=== PATIENT | female | born 1940 | race Caucasian/White ===

== ENCOUNTER → 2016-07-23 | Outpatient (CLI) | payer BC ==
[~2016-07-23] MED LIST: ASPEC81 PO; ATOR-26 PO; CALC600T14 PO; CHOL100010 PO; CYAN500T13 PO; GLUCOSAMINE PO; HYDR2.5C37; PANT40TA PO; TYLER650 PO
[2016-07-23 09:37] LABS: BASO % 0.8 %; BASO ABS # 0.03 K/uL (0-0.2); COMPLETE YES; EOS % 5.5 %; HEMATOCRIT 40.5 % (37-47); LYMPH % 26.2 %; MEAN CELL VOLUME 96.2 fL (80-100); MEAN CORPUSCULAR HEMOGLOBIN 31.8 pg (25-34); MEAN CORPUSCULAR HGB CONC 33.1 g/dl (32-36); MEAN PLATELET VOLUME 9.3 fL (7.4-10.4); MONO % 9.4 %; NEUT % 58.1 %; PLATELET COUNT 289 K/uL (130-400); RED BLOOD COUNT 4.21 M/uL (4.2-5.4); WHITE BLOOD COUNT 3.81 K/uL (4.8-10.8)
[2016-07-23 10:04] LABS: ALT/SGPT 25 U/L (12-78); AST/SGOT 19 U/L (15-37); BLOOD UREA NITROGEN 15 mg/dl (7-18); BUN/CREATININE RATIO 13.4 (10-20); CALCIUM 9.3 mg/dl (8.5-10.1); CARBON DIOXIDE 28 mmol/L (21-32); CHLORIDE 106 mmol/L (98-107); GLUCOSE 98 mg/dl (70-99); POTASSIUM 4.1 mmol/L (3.5-5.1); SODIUM 145 mmol/L (136-145)
[2016-07-23 10:14] LABS: ALB/GLOB RATIO 1.2 (0.9-2); ALKALINE PHOSPHATASE 67 U/L (45-117)
[2016-07-23 12:28] LABS: CHOLESTEROL/HDL RATIO 2.9
== END | disposition home or self-care (01) ==
LOC: C.LAB 08:35
PROVIDERS: ATTEND Internal Medicine Pulmonary Disease
DX: Z00.00 Encounter for general adult medical examination without abnormal findings (principal); C50.919 Malignant neoplasm of unspecified site of unspecified female breast; E78.5 Hyperlipidemia, unspecified; I65.29 Occlusion and stenosis of unspecified carotid artery

== ENCOUNTER → 2016-08-02 | Outpatient (CLI) | payer BC ==
--- NOTE | 2016-08-03 12:35 | MAMMOGRAPHY REPORT ---
BILATERAL DIGITAL SCREENING MAMMOGRAM TOMOSYNTHESIS WITH CAD: 08/02/2016 CLINICAL HISTORY: Routine screening. Patient has no complaints. Personal hx of breast cancer. TECHNIQUE: Breast tomosynthesis in addition to standard 2D mammography was performed. Current study was also evaluated with a Computer Aided Detection (CAD) system. COMPARISON: Comparison is made to exams dated: 07/28/2015 mammogram, 07/22/2013 mammogram, 07/25/2014 mammogram, 07/26/2012 mammogram, 07/21/2011 mammogram, and 07/20/2010 mammogram - [facility]. BREAST COMPOSITION: There are scattered areas of fibroglandular density in both breasts. FINDINGS: There is expected architectural distortion in the 11:00 to 12:00 right breast, in the area of prior lumpectomy. There are benign-appearing rodlike and coarse calcifications in the breasts. No new suspicious mass, architectural distortion or cluster of microcalcifications is seen. IMPRESSION: ACR BI-RADS CATEGORY 1: NEGATIVE There is no mammographic evidence of malignancy. A 1 year screening mammogram is recommended. The p atient will receive written notification of the results. Approximately 10% of breast cancers are not detected with mammography. A negative mammographic repor t should not delay biopsy if a clinically suggestive mass is present. Yu Gallagher M.D. ay/:08/02/2016 16:46:27 Children'S Book Author: Melania GOLDBERG)(Radu), [facility] letter sent: Normal 1/2 BI-RADS Code: ACR BI-RADS Category 1: Negative
== END | disposition home or self-care (01) ==
LOC: C.MAMM 12:55
PROVIDERS: ATTEND Internal Medicine Pulmonary Disease
DX: Z12.31 Encounter for screening mammogram for malignant neoplasm of breast (principal); Z85.3 Personal history of malignant neoplasm of breast

== ENCOUNTER → 2016-10-06 | Outpatient (CLI) | payer BC ==
--- NOTE | 2016-10-06 09:30 | DIAGNOSTIC IMAGING REPORT ---
RIGHT PELVIS UNILATERAL HIP 1 VIEW CLINICAL HISTORY: Right hip pain. COMPARISON: PET/CT February 23, 2011 and pelvis radiograph November 17, 2008. FINDINGS: The iliac crests were not included on this exam. Sacroiliac joints and symphysis pubis are intact. There is no acute fracture within visualized portions of the pelvis or the hips. There is mild joint space narrowing and osteophytosis of the right hip. This extensive vascular calcification. No osseous lesion is identified. There is no evidence for avascular necrosis. IMPRESSION: 1. No acute fracture. 2. Mild bilateral hip osteoarthritis. Electronically signed by: Enrique Medina M.D. 10/06/2016 9:29 AM Dictated Date/Time: 10/06/2016 9:28 AM
== END | disposition home or self-care (01) ==
LOC: C.RDSM 09:20
PROVIDERS: ATTEND Physician Assistant
DX: M25.551 Pain in right hip (principal)

== ENCOUNTER → 2016-12-07 | Outpatient (CLI) | payer BC ==
[2016-12-07 09:50] LABS: ALT/SGPT 26 U/L (12-78); BLOOD UREA NITROGEN 16 mg/dl (7-18); BUN/CREATININE RATIO 17.2 (10-20); CALCIUM 9.2 mg/dl (8.5-10.1); CARBON DIOXIDE 28 mmol/L (21-32); CHLORIDE 108 mmol/L (98-107); CHOLESTEROL 213 mg/dl (0-200); CREATININE 0.95 mg/dl (0.60-1.20); GLUCOSE 90 mg/dl (70-99); SODIUM 142 mmol/L (136-145); TRIGLYCERIDES 118 mg/dl (0-150); VERY LOW DENSITY LIPOPROT CALC 24 mg/dl
[2016-12-07 09:56] LABS: ALB/GLOB RATIO 1.3 (0.9-2); ALKALINE PHOSPHATASE 59 U/L (45-117); AST/SGOT 19 U/L (15-37); CHOLESTEROL/HDL RATIO 3.5; HDL CHOLESTEROL 61 mg/dl; LDL CHOLESTEROL CALCULATED 128 mg/dl
== END | disposition home or self-care (01) ==
LOC: C.LAB 07:10
PROVIDERS: ATTEND Internal Medicine Pulmonary Disease
DX: C50.919 Malignant neoplasm of unspecified site of unspecified female breast (principal); E78.5 Hyperlipidemia, unspecified; K21.9 Gastro-esophageal reflux disease without esophagitis; I65.29 Occlusion and stenosis of unspecified carotid artery

== ENCOUNTER → 2017-01-06 | Outpatient (CLI) | payer BC ==
--- NOTE | 2017-01-06 11:31 | DIAGNOSTIC IMAGING REPORT ---
RIGHT LOWER EXT JOINT WITHOUT CLINICAL HISTORY: 76 years-old Female presenting with right hip pain, degenerative joint disease versus hip abductor tendinopathy, possible tear, no injury, gait difficulty since October 22, 2016, history of breast cancer in 2001, failed joint injection. TECHNIQUE: Multisequence, multiplanar MR imaging of the right hip was performed without the use of intravenous contrast. IV contrast: None. COMPARISON: Correlation made to plain radiographs of the pelvis and right hip from 10/06/2016. FINDINGS: Localizer images: Unremarkable. Pelvis and femurs maintain normal bone marrow signal intensity. No evidence of bony edema. No evidence of fracture. Hip joints congruent. The right labrum is intact. No significant joint effusion. Normal iliopsoas insertion onto the lesser trochanter. Mild insertional T2 hyperintensity of the right gluteus medius muscle at the myotendinous junction. The tendinous insertion at the greater trochanter appears intact. Minimal laminar fluid overlies the greater trochanter. Mild scoliotic curvature of the lower lumbar spine. Intrapelvic structures demonstrate sigmoid diverticulosis. IMPRESSION: Evidence of abnormal signal intensity within the right gluteus medius muscle at the myotendinous junction suggestive of muscle strain. No evidence of tendon tear. Minimal laminar fluid over the greater trochanter suggestive of trochanteric bursitis. Electronically signed by: Wade Palomino M.D. 01/06/2017 11:30 AM Dictated Date/Time: 01/06/2017 11:24 AM
== END | disposition home or self-care (01) ==
LOC: C.MRI 09:46
PROVIDERS: ATTEND Physical Medicine & Rehabilitation Sports Medicine
DX: M17.0 Bilateral primary osteoarthritis of knee (principal); M13.851 Other specified arthritis, right hip

== ENCOUNTER → 2017-04-18 | Outpatient (CLI) | payer BC ==
--- NOTE | 2017-04-18 14:38 | DIAGNOSTIC IMAGING REPORT ---
L KNEE 4 OR MORE CLINICAL HISTORY: LEFT KNEE PAIN COMPARISON: 04/04/2017 DISCUSSION: There are advanced osteophytic changes within the patellofemoral joint. There is lateral patellar tilt. There is stable fragmentation the superior patellar pole. There is a stable corticated density projected over the lateral tibial spine. There are no acute fractures. IMPRESSION: 1. No acute fractures 2. Persistent advanced arthritic changes within the patellofemoral joint with lateral patellar tilt and near total cartilaginous loss Electronically signed by: Ron Langston M.D. 04/18/2017 2:37 PM Dictated Date/Time: 04/18/2017 2:35 PM
== END | disposition home or self-care (01) ==
LOC: C.RDSM 11:35
PROVIDERS: ATTEND Physician Assistant
DX: R52 Pain, unspecified (principal); M17.12 Unilateral primary osteoarthritis, left knee

== ENCOUNTER → 2017-06-22 | Outpatient (CLI) | payer OTHER ==
[~2017-06-22] MED LIST changes: +OPTIRAY 320 IV PRN
--- NOTE | 2017-06-22 15:48 | DIAGNOSTIC IMAGING REPORT ---
ANGIOGRAPHY HEAD COMBO HISTORY: Headache. Mental status change. TECHNIQUE: Multiaxial CT images of the head were performed both before and after the intravenous administration of contrast to evaluate the major cerebral vessels. Maximum intensity projection images were also obtained. A dose lowering technique was utilized adhering to the principles of ALARA. COMPARISON: None. FINDINGS: There is no mass, hematoma, midline shift, or acute infarct. Visualized intracranial internal carotid arteries, distal vertebral arteries, and basilar artery are widely patent. There is no significant stenosis, occlusion, or aneurysm seen within the bilateral ACAs, MCAs, or electronics system mechanic. IMPRESSION: No significant stenosis, occlusion, or aneurysm within the [place] of [place]. No acute process of the brain. Moderate chronic small vessel change of the brain parenchyma The above report was generated using voice recognition software. It may contain grammatical, syntax or spelling errors. Electronically signed by: Noah Muller M.D. 06/22/2017 3:47 PM Dictated Date/Time: 06/22/2017 3:43 PM
--- NOTE | 2017-06-22 15:56 | DIAGNOSTIC IMAGING REPORT ---
NECK CTA HISTORY: Carotid stenosis. TECHNIQUE: Multiaxial CT images of the neck were performed following the intravenous administration of contrast to evaluate the major cervical vessels. Maximum intensity projection images were also obtained. All measurements were calculated based on NASCET criteria. A dose lowering technique was utilized adhering to the principles of ALARA. COMPARISON STUDY: Carotid Doppler 12/16/2014. FINDINGS: The aortic arch and proximal great vessels are widely patent. There is no significant stenosis, occlusion, or dissection identified within the bilateral common carotid, internal carotid, or right vertebral arteries. Mild calcified plaque within the left carotid bifurcation. Occluded left vertebral artery from approximately the C5-C7 level. There is faint perfusion within the remaining portions of the left vertebral artery which is likely due to the retrograde flow as described on the prior carotid Doppler study. Therefore, this vertebral artery occlusion is likely chronic. There is a 2.0 x 1.3 x 1.1 cm cystic lesion posterior and inferior to the hyoid bone. This favors a thyroglossal duct cyst. The thyroid gland is present and is normally. IMPRESSION: 1. No significant stenosis, occlusion, or dissection identified within the carotid or left vertebral arteries. 2. 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 3. A 2.0 x 1.3 x 1.1 cm cystic lesion inferior to the hyoid bone. This favors a thyroglossal duct cyst. Surgical consultation is recommended. Electronically signed by: Alan Petersen M.D. 06/22/2017 3:54 PM Dictated Date/Time: 06/22/2017 3:43 PM
== END | disposition home or self-care (01) ==
LOC: C.CTS 14:51
PROVIDERS: ATTEND Psychiatry & Neurology Neurology
DX: I65.29 Occlusion and stenosis of unspecified carotid artery (principal); I63.9 Cerebral infarction, unspecified; I65.02 Occlusion and stenosis of left vertebral artery; R22.1 Localized swelling, mass and lump, neck

== ENCOUNTER → 2017-07-08 | Outpatient (CLI) | payer OTHER ==
[~2017-07-08] MED LIST changes: -OPTIRAY 320 IV PRN
[2017-07-08 10:11] LABS: ALT/SGPT 27 U/L (12-78); AST/SGOT 20 U/L (15-37); BLOOD UREA NITROGEN 15 mg/dl (7-18); CALCIUM 9.3 mg/dl (8.5-10.1); CARBON DIOXIDE 29 mmol/L (21-32); CHOLESTEROL 183 mg/dl (0-200); CREATININE 0.97 mg/dl (0.60-1.20); GLUCOSE 95 mg/dl (70-99); SODIUM 141 mmol/L (136-145)
[2017-07-08 10:16] LABS: ALKALINE PHOSPHATASE 73 U/L (45-117); LDL CHOLESTEROL CALCULATED 95 mg/dl; TOTAL PROTEIN 7.1 gm/dl (6.4-8.2)
== END | disposition home or self-care (01) ==
LOC: C.LAB 08:19
PROVIDERS: ATTEND Internal Medicine Pulmonary Disease
DX: M17.10 Unilateral primary osteoarthritis, unspecified knee (principal)

== ENCOUNTER → 2017-08-04 | Outpatient (CLI) | payer OTHER ==
--- NOTE | 2017-08-04 15:44 | MAMMOGRAPHY REPORT ---
BILATERAL DIGITAL SCREENING MAMMOGRAM TOMOSYNTHESIS WITH CAD: 08/04/2017 CLINICAL HISTORY: Routine screening. Patient has no complaints. TECHNIQUE: Breast tomosynthesis in addition to standard 2D mammography was performed. Current study was also evaluated with a Computer Aided Detection (CAD) system. COMPARISON: Comparison is made to exams dated: 08/02/2016 mammogram, 07/28/2015 mammogram, 07/25/2014 m ammogram, 07/22/2013 mammogram, 07/26/2012 mammogram, and 07/21/2011 mammogram - [facility]. Right axillary ultrasound dated 04/21/2016. BREAST COMPOSITION: There are scattered areas of fibroglandular density in both breasts. FINDINGS: No suspicious masses, calcifications, or areas of architectural distortion are noted in ei ther breast. There has been no significant interval change compared to prior exams. There are stable post surgical changes in the right breast from prior lumpectomy. Scattered bilateral benign-appeari ng calcifications are not significantly changed. IMPRESSION: ACR BI-RADS CATEGORY 2: BENIGN There is no mammographic evidence of malignancy. A 1 year screening mammogram is recommended. The pa tient will receive written notification of the results. Approximately 10% of breast cancers are not detected with mammography. A negative mammographic report should not delay biopsy if a clinically suggestive mass is present. Adri Noland M.D. ah/:08/04/2017 14:33:45 Real Estate Asset Manager: Karen GOLDBERG)(Radu), [facility] letter sent: Normal 1/2 BI-RADS Code: ACR BI-RADS Category 2: Benign
== END | disposition home or self-care (01) ==
LOC: C.MAMM 13:51
PROVIDERS: ATTEND Internal Medicine Pulmonary Disease
DX: Z12.31 Encounter for screening mammogram for malignant neoplasm of breast (principal); Z85.3 Personal history of malignant neoplasm of breast

== ENCOUNTER → 2017-09-13 | Outpatient (CLI) | payer OTHER | END | disposition home or self-care (01) | LOC: C.PAPS 11:35 | PROVIDERS: ATTEND Obstetrics & Gynecology | DX: Z91.89 Other specified personal risk factors, not elsewhere classified (principal) ==

== ENCOUNTER → 2017-09-28 | Outpatient (CLI) | payer OTHER ==
--- NOTE | 2017-09-28 11:00 | DIAGNOSTIC IMAGING REPORT ---
RIGHT KNEE INCLUDING BILATERAL STANDING AP VIEWS (5 VIEWS) CLINICAL HISTORY: RIGHT KNEE PAIN COMPARISON: None. DISCUSSION: The bilateral standing AP views reveal mild narrowing medial joint compartment of the left knee and mild to moderate narrowing of the medial joint compartment of the right knee. On the right there aren't medial and lateral joint compartment spurs. There are advanced degenerative changes within the patellofemoral joint. There is a small loose body located superior the patella. There is a small joint effusion. There is mild lateral patellar subluxation. IMPRESSION: 1. No acute fractures 2. Advanced degenerative changes within the patellofemoral joint. Mild to moderate degenerative changes within the medial and lateral joint compartments. Electronically signed by: Ron Langston M.D. 09/28/2017 10:59 AM Dictated Date/Time: 09/28/2017 10:57 AM
== END | disposition home or self-care (01) ==
LOC: C.RDSM 16:42
PROVIDERS: ATTEND Physician Assistant
DX: M25.561 Pain in right knee (principal)

== ENCOUNTER 2020-03-11 05:19 | Observation (INO) ==
--- NOTE | 2020-02-14 14:47 | PAT Medication Instructions ---
Medication Instructions Date of Service February 14, 2020 Home Medications Medication Instructions Recorded clopidogrel 75 mg tablet 75 mg PO QAM 90 Days #90 tab 08/06/19 atorvastatin 80 mg tablet 80 mg PO QAM #90 tab 01/15/20 acetaminophen 500 mg tablet 500 mg PO QAM clopidogrel 75 mg tablet 75 mg PO QAM atorvastatin 80 mg tablet 80 mg PO QAM famotidine 40 mg PO QAM ASK your prescriber and surgeon clopidogrel 75 mg tablet 75 mg PO QAM Take morning of surgery With a small sip of water, OTHERWISE NOTHING TO EAT OR DRINK AFTER MIDNIGHT: acetaminophen 500 mg tablet 500 mg PO QAM (okay to take up to 4 hours prior to surgery if needed) atorvastatin 80 mg tablet 80 mg PO QAM famotidine 40 mg PO QAM Other Notes If you have any questions please call us at [phone] or [phone] or [phone] or [phone]
--- NOTE | 2020-02-17 13:19 | Anesthesiology Consultation ---
Date of Service February 17, 2020 Assessment & Plan (1) Encounter for pre-operative examination: COVID Status: As of 02/16 assessment, patient denies travel to endemic area, known exposure/sick contacts, or symptoms of COVID19. Patient instructed that they and their household members must follow strict social distancing guidelines, wear a mask in public and avoid travel for 14 days prior to surgery. Preoperative COVID19 testing to be completed prior to surgery per surgeon's a rrangements. Patient made aware to self-isolate as much as possible between COVID testing and surgery. Neurology 11/22/19 = "Patient has been clinically stable, no interval TIA or strokelike episodes. She will continue with clopidogrel 75 mg/day. 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 These conditions have not required treatment." Medically cleared by primary care (Dr. Duval) on 01/23/20. Will see [facility] cardiology for clearance on 03/03/20. Chart Review Chart Review: Acceptable Risk for Surgery (pending cardio clearance [facility] 03/03) and Patient seen in Pre Admission Testing Teaching & Discussion Instructed NPO after midnight before surgery, except medications with 15 cc of water. Medication instructions provided according to the PAT guidelines. History Surgery Operation Date: 03/11/20 07:00 Proposed Procedures p Right Total Knee Arthroplasty - Barry Gaona MD Operation Date: 03/11/20 08:50 Proposed Procedures p Right Total Knee Arthroplasty - Barry Gaona MD Height/Weight Height: 5 ft Weight: 69.4 kg Allergies Allergy/AdvReac Type Severity Reaction Status Date / Time neomycin Allergy Mild Rash Verified 02/12/20 12:22 lorazepam [From Ativan] AdvReac Intermediate Anxiety Verified 02/12/20 12:22 zolpidem [From Ambien] AdvReac Intermediate Anxiety Verified 02/12/20 12:22 nabumetone [From Relafen] AdvReac Mild Redness of Verified 02/12/20 12:22 Skin loperamide [From Imodium A-D] AdvReac Unknown RAPID Verified 02/12/20 12:24 HEARTBEAT Medications Home Medications Medication Instructions Recorded Confirmed Last Taken acetaminophen 500 mg tablet 500 mg PO QAM tab 03/25/19 02/12/20 08/13/19 clopidogrel 75 mg tablet 75 mg PO QAM 90 Days #90 tab 08/06/19 02/12/20 08/13/19 atorvastatin 80 mg tablet 80 mg PO QAM #90 tab 01/15/20 02/12/20 Unknown famotidine 40 mg PO QAM 02/12/20 02/12/20 Unknown Past Medical History Medical History (Updated 02/18/20 @ 08:47 by Kedar Haines) Carotid stenosis Per 03/27/19 "No hemodynamically significant stenosis seen within the carotid arteries." Chronic cerebral ischemia Chronic small vessel ischemic change noted on 02/2018 brain MRI along with acute lacunar infarct. Degenerative disc disease Dyslipidemia External hemorrhoids GERD (gastroesophageal reflux disease) History of breast cancer Left thalamic infarction 02/2018 > [place] > SOME RIGHT HAND WEAKNESS > [place] -F/U DR JEFFRIES Ocular migraine Osteoarthritis Osteopenia Osteoporosis Schatzki's ring SNHL (sensorineural hearing loss) Subclavian artery stenosis Per 03/27/19 doppler, "Chronic retrograde flow in the left vertebral artery. This likely indicates severe stenosis or occlusion of the proximal left subclavian artery. Findings remain unchanged." Tremor MILD. Neuro monitoring. Exercise / Class Metabolic Activity II 4-5 Yardwork/Stairs/Walk up hill (Denies CP or SOB with 1 FOS, does 7 steps up and down many times per day at home, mildly winded if carrying books) Past Family History Family History Mother , Mother age 85 of congestive heart failure CHF (congestive heart failure) Father , Father age 81 of pulmonary fibrosis Pulmonary fibrosis Epilepsy Colon cancer Family/Other Breast cancer Past Surgical History Surgical History H/O endarterectomy (~06/05/08) approx date-RIGHT H/O foot surgery BUNION, CURLED TOES, RIGHT SIDE History of cataract surgery (~08/2019) History of colonoscopy (~12/25/18) 2013-Dr. Benavides History of dilation and curettage History of esophageal dilatation (~2018) History of oophorectomy, unilateral Right History of removal of ovarian cyst Nausea and vomiting after administration of anesthetic agent WITH A COLONOSCOPY /SEVERE CONSTIPATION AFTERWARDS Status post breast lumpectomy RIGHT Past Anesthesia History No Hx of Anesthesia Complications and No Family Hx of Anesthesia Complications History of PONV No Hx of PONV and Hx of Motion Sickness (some degree of vertigo) Social History Smoking Status: Never smoker Do You Dip or Chew Tobacco: No Hx Alcohol Use: No Hx Substance Use: No substance use type: does not use Review of Systems Pt denies any recent chest pain, shortness of breath, palpitations, cough, fever, URI, or uncontrolled acid reflux. Physical Exam Vital Signs BP: 110/48 (pt denies hypotensive symptoms) P: 82bpm SPO2: 96% RA T: 98.2 F R: 16 ENMT Mouth: + dental restorations (4 implants); no chipped teeth and no loose teeth Thyromental Distance: > or= 3.5 Finger Breadths Mallampati Class: II Neck normal visual inspection, + short neck and + limited neck extension (very) Respiratory normal respiratory effort Auscultation: lungs clear to auscultation bilaterally Cardiovascular Rate/Rhythm: regular rate and regular rhythm Heart Sounds: no murmur Extremities: no edema Testing Laboratory Results PT 10.9 Seconds (9.0-12.0) 02/17/20 13:34 INR 1.0 (0.9-1.1) 02/17/20 13:34 APTT 25.7 Seconds (21.0-31.0) 02/17/20 13:34 Urine Color Yellow 02/17/20 Unknown Urine Appearance Clear (Clear) 02/17/20 Unknown Urine pH 6.0 (4.5-7.5) 02/17/20 Unknown Ur Specific [place] 1.006 (1.000-1.030) 02/17/20 Unknown Urine Protein Negative (Negative) 02/17/20 Unknown Urine Glucose (UA) Negative (Negative) 02/17/20 Unknown Urine Ketones Negative (Negative) 02/17/20 Unknown Urine Nitrite Negative (Negative) 02/17/20 Unknown Ur Leukocyte Esterase Negative (Negative) 02/17/20 Unknown Blood Type A Positive 02/17/20 13:34 Antibody Screen NEGATIVE 02/17/20 13:34 01/14/20 WBC: 4.85 H/H: 12.7/39.2 PLATELETS: 267 SODIUM: 142 POTASSIUM: 3.6 CHLORIDE: 108 CO2: 30 BUN: 16 CREATININE: 0.94 GLUCOSE: 90 Electrocardiogram Date: 02/17/20 Findings: + NSR @ (80bpm with sinus arrhythmia) T wave abnormality, consider inferior ischemia. Compared to EKG from 03/03/18, TWI now evident in inferior leads, NSTWA now evident in anterolateral leads. Chest X-Ray Date: 02/17/20 Findings: + NAD Sigmoidal thoracolumbar scoliosis.
--- NOTE | 2020-02-17 14:04 | XRay Report ---
XR chest Pre-admission PA/Lat HISTORY: 80 years-old Female pat preoperative exam. No acute chest complaints COMPARISON: Chest radiograph 03/02/2018 TECHNIQUE: PA and lateral views of the chest FINDINGS: Cardiomediastinal and hilar silhouettes are within normal limits. No pneumothorax, pleural effusion, overt pulmonary edema or airspace consolidation typical for pneumonia. There is unchanged mild linear scarring/atelectasis of the left lung base. Sigmoidal thoracolumbar scoliosis. Degenerative changes of the shoulders and spine. IMPRESSION: No acute process. ACT 112: Negative or not required by law. The above report was generated using voice recognition software. It may contain grammatical, syntax o r spelling errors. Electronically signed by: Nigel Mccormack M.D. 02/17/2020 2:03 PM
--- NOTE | 2020-02-17 14:10 | Electrocardiogram Report ---
Test Reason : Blood Pressure : / mmHG Vent. Rate : 080 BPM Atrial Rate : 080 BPM P-R Int : 150 ms QRS Dur : 078 ms QT Int : 362 ms P-R-T Axes : 058 052 -20 degrees QTc Int : 417 ms Normal sinus rhythm with sinus arrhythmia T wave abnormality, consider inferior ischemia Abnormal ECG When compared with ECG of 03-MAR-2018 15:38, T wave inversion now evident in Inferior leads Nonspecific T wave abnormality now evident in Anterolateral leads Confirmed by Kian Sumner ([id number]) on 02/17/2020 2:09:53 PM Referred By: Barry Gaona Confirmed By:Kian Sumner
[2020-02-17 15:54] LABS: Appearance Urine Clear (Clear); Bilirubin Urine Negative (Negative); Blood Urine Negative (Negative); Color Urine Yellow; Glucose Urine UA Negative (Negative); Ketones Urine Negative (Negative); Leukocyte Esterase Urine Negative (Negative); Nitrite Urine Negative (Negative); Protein Urine Negative (Negative); Specific Gravity Urine 1.006 (1.000-1.030); Urobilinogen Urine Negative (Negative)
[2020-02-17 16:03] LABS: Partial Thromboplastin Ratio 0.9; Partial Thromboplastin Time 25.7 Seconds (21.0-31.0); Prothrombin Time 10.9 Seconds (9.0-12.0)
--- NOTE | 2020-02-24 14:06 | History & Physical Report ---
Date of Service February 24, 2020 Assessment & Plan (1) Right knee DJD: Postoperative prescriptions for Percocet and Coumadin will be provided at discharge from the hospital. Anticipate discharge to home with home health services. She would really like to go to [facility], but understands that this is not likely. She will speak with her PCP regarding stopping her Plavix before surgery and subsequent resumption. She already has access to a walker. PDMP was checked and there are no concerning findings. The patient is aware of the COVID-19 risks associated with surgery. She will obtain COVID-19 nasal swab testing prior to surgery. She is currently asymptomatic of any COVID-19 s ymptoms. Preoperative lab work, EKG, and chest x-ray have been ordered. Medical clearance has been received from her PCP. History of Present Illness Chief Complaint: Right knee pain Primary Care Provider: Jay Duval MD This 80-year-old white female presents today for a longstanding history of bilateral knee pain, right greater than left. She is scheduled to undergo a right knee total knee arthroplasty on 03/11/2020. It has been ongoing for several years. Pain became worse over the last year. No specific trauma. Worse with weightbearing. Pain is affecting her ADLs. She has difficulty with walking. Frequent night pain. She denies any recent effusions. She did well with medical management for many years, but it is no longer helping. No numbness or tingling. Preoperative imaging has been obtained. Allergies Allergy/AdvReac Type Severity Reaction Status Date / Time neomycin Allergy Mild Rash Verified 02/19/20 15:38 lorazepam [From Ativan] AdvReac Intermediate Anxiety Verified 02/19/20 15:38 zolpidem [From Ambien] AdvReac Intermediate Anxiety Verified 02/19/20 15:38 nabumetone [From Relafen] AdvReac Mild Redness of Verified 02/19/20 15:38 Skin loperamide [From Imodium A-D] AdvReac Unknown RAPID Verified 02/19/20 15:38 HEARTBEAT Home Medications Home Medications Medication Instructions Recorded Confirmed Type acetaminophen 500 mg tablet 500 mg PO QAM tab 03/25/19 02/19/20 History atorvastatin 80 mg tablet 80 mg PO QAM #90 tab 01/15/20 02/19/20 Rx famotidine 40 mg PO QAM 02/12/20 02/19/20 History clopidogrel 75 mg tablet 75 mg PO QAM 90 Days #90 tab 02/18/20 02/19/20 Rx Past Med/Surg History Medical History Carotid stenosis Per 03/27/19 "No hemodynamically significant stenosis seen within the carotid arteries." Chronic cerebral ischemia Chronic small vessel ischemic change noted on 02/2018 brain MRI along with acute lacunar infarct. Degenerative disc disease Dyslipidemia External hemorrhoids GERD (gastroesophageal reflux disease) History of breast cancer Left thalamic infarction 02/2018 > [facility] > SOME RIGHT HAND WEAKNESS > [place] -F/U DR JEFFRIES Ocular migraine Osteoarthritis Osteopenia Osteoporosis Schatzki's ring SNHL (sensorineural hearing loss) Subclavian artery stenosis Per 03/27/19 doppler, "Chronic retrograde flow in the left vertebral artery. This likely indicates severe stenosis or occlusion of the proximal left subclavian artery. Findings remain unchanged." Tremor MILD. Neuro monitoring. Surgical History H/O endarterectomy (~06/05/08) approx date-RIGHT H/O foot surgery BUNION, CURLED TOES, RIGHT SIDE History of cataract surgery (~08/2019) History of colonoscopy (~12/25/18) 2013-Dr. Benavides History of dilation and curettage History of esophageal dilatation (~2018) History of oophorectomy, unilateral Right History of removal of ovarian cyst Nausea and vomiting after administration of anesthetic agent WITH A COLONOSCOPY /SEVERE CONSTIPATION AFTERWARDS Status post breast lumpectomy RIGHT Family History Mother , Mother age 85 of congestive heart failure CHF (congestive heart failure) Father , Father age 81 of pulmonary fibrosis Pulmonary fibrosis Epilepsy Colon cancer Family/Other Breast cancer Social History Smoking Status: Never smoker Second Hand Exposure: No; Hx Alcohol Use: No Hx Substance Use: No Preferred Language: Libyan Communication Ability: Effective Visual Impairment: No Limitations Hearing Ability: Normal Airport Driver Required: No Beliefs That Will Affect Care: None Current Living Situation: Alone current occupational status: employed 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 Physical Exam Physical Exam: General: Well-developed, well-nourished, elderly white female in no acute distress. Sitting in a chair. Alert and oriented. Skin: Warm and dry with good turgor. No rashes or lesions. No ecchymosis or erythema. Vari cosities are present in her lower extremities. HEENT: Normocephalic, atraumatic. Eyes: PERRLA, EOMI. Cataract lenses are visible. Nares and oropharynx exams were not performed due to COVID prec autions. Heart: RRR, no MGR. Lungs: Clear to auscultation bilaterally, no crackles, rhonchi or wheezing, good air movement. Abdomen: Mildly obese, bowel sounds present x4, soft, nontender. No organomegaly. No masses. Musculoskeletal: Right knee evaluation reveals no intraarticular effusion. She has nearly full extension. Lacks maybe 2 or 3 degrees. Flexion to greater than 100 degrees. Stable collateral ligaments. No defect in the patellar tendon or quadriceps tendon. Palpable crepitus with motion. Ambulates with a slightly antalgic gait. She has focal discomfort with palpation over the medial and lateral joint lines. Neurologic: Gross sensation is intact across both lower extremities by soft touch. Peripheral pulses are 2+. Results & Data Results & Data ([facility]) Diagnostic Findings Radiographic imaging previously obtained today shows endstage DJD of the right knee. She has [id number] in the patellofemoral joint and nearly [id number] in the medial compartment. Periarticular osteophytes, subchondral sclerosis, and joint space narrowing are all present.
[2020-03-09 01:35] LABS: SARS CoV2 RNA (COVID-19) NOT DETECTED (NOT DETECTED)
[2020-03-11] MEDS ORDERED: CEFAZOLIN 2000MG 2,000 MG/15 ML SYR IV SCH (06:00)
[2020-03-11] MEDS ORDERED: LR 60ML/HR IV SCH (06:00)
[2020-03-11] MEDS ORDERED: LR 500ML BOLUS, THEN 15ML/HR IV SCH (06:00)
[2020-03-11] MEDS ORDERED: ROPIVACAINE 0.5% HCL/PF 150 MG, BUPIVACAINE 0.5% MPF 30 ML, EPINEPHrine 0.15 MG, Ketoro... INFIL SCH (06:00)
[2020-03-11] MEDS ORDERED: TRANEXAMIC ACID 1,000 MG **IV Pre-op IV SCH (06:00)
[2020-03-11] MEDS ORDERED: BUPIVACAINE 0.5 % 5 MG/1 ML PF 10ML VIAL ONE (06:18)
[2020-03-11] MEDS ORDERED: EPINEPHrine INJ 1 MG/ML AMP ONE (06:19)
[2020-03-11] MEDS ORDERED: ROPIVACAINE 0.5% 5 MG/ML 30 ML VIAL ONE (06:19)
--- NOTE | 2020-03-11 06:26 | History & Physical Bridge Note ---
Date of Service March 11, 2020 History & Physical Bridge Note I have examined the patient, reviewed the History & Physical and in the interval since the performance of the History & Physical I have noted the following changes of clinical significance: consent obtained/site verified/covid screen negative.no changes noted
[2020-03-11] MEDS ORDERED: MIDAZOLAM HCL 1 MG/ML 2ML VIAL ONE (06:30)
[2020-03-11] MEDS ORDERED: PROPOFOL IV EMULSION 10 MG/ML 20 ML VIAL IV ONE (06:30)
[2020-03-11] MEDS ORDERED: LIDOCAINE HCL 2% 2 ML VIAL/AMP(20MG/ML) INFIL ONE (06:30)
[2020-03-11] MEDS ORDERED: fentaNYL citrate 100 MCG/2 ML VIAL ONE ×3 (06:30→07:38)
[2020-03-11] MEDS ORDERED: ORTHO JOINT ANESTHETIC ONE (06:30)
[2020-03-11] MEDS ORDERED: TRANEXAMIC ACID 1,000 MG in 0.9 % SODIUM CHLORIDE 100 ML IR ONE (07:00)
[2020-03-11] MEDS ORDERED: ONDANSETRON INJ 2 MG/ML 2 ML VIAL ONE (07:38)
[2020-03-11] MEDS ORDERED: DEXAMETHASONE SOD INJ 4 MG/ML VIAL ONE (07:38)
[2020-03-11] MEDS ORDERED: PHENYLEPHRINE HCL 10 MG/ML VIAL ONE (08:04)
[2020-03-11] MEDS ORDERED: ePHEDrine sulfate 50 MG/ML AMP ONE (08:04)
[2020-03-11] MEDS ORDERED: FLUMAZENIL 0.1 MG/1 ML 10 ML VIAL IV PRN (08:35)
[2020-03-11] MEDS ORDERED: NALOXONE HCL 0.4 MG/1 ML VIAL/CARP IV PRN ×2 (08:35→09:56)
[2020-03-11] MEDS ORDERED: ePHEDrine sulfate 50 MG/ML AMP IV PRN (08:35)
[2020-03-11] MEDS ORDERED: ONDANSETRON INJ 2 MG/ML 2 ML VIAL IV PRN ×2 (08:35→09:56)
[2020-03-11] MEDS ORDERED: PROMETHAZINE HCL 12.5 MG in SODIUM CHLORIDE 0.9% 50 ML IV PRN (08:35)
[2020-03-11] MEDS ORDERED: fentaNYL citrate 100 MCG/2 ML VIAL IV PRN (08:35)
[2020-03-11] MEDS ORDERED: ATROPINE SULFATE 0.1 MG/ML 10ML SYR IV PRN (08:35)
--- NOTE | 2020-03-11 08:43 | Post Operative Brief Note ---
Immediate Post Op Note v1 Date of Surgery March 11, 2020 Pre & Post Diagnosis Operation Date: 03/11/20 07:00 Pre-Op Diagnosis: Right Knee Degenerative Joint Disease Post-Op Diagnosis: Right Knee Degenerative Joint Disease Operation Date: 03/11/20 08:50 <No data on this case meets the specified criteria> I identified the patient and participated in the time-out.: Yes Procedure Operation Date: 03/11/20 07:00 Actual Procedures p Right Total Knee Arthroplasty, Cemented(Right) - Barry Gaona MD Operation Date: 03/11/20 08:50 <No data on this case meets the specified criteria> Surgeon Barry Gaona MD Card Tape Converter Operator dang/elaine Estimated Blood Loss 50 Findings Consistent with Post-Op Diagnosis
--- NOTE | 2020-03-11 08:51 | Operative Report ---
Post Operative Report Pre & Post Diagnosis Operation Date: 03/11/20 07:00 Pre-Op Diagnosis: Right Knee Degenerative Joint Disease Post-Op Diagnosis: Right Knee Degenerative Joint Disease Operation Date: 03/11/20 08:50 <No data on this case meets the specified criteria> I identified the patient and participated in the time-out.: Yes Procedure Operation Date: 03/11/20 07:00 Actual Procedures p Right Total Knee Arthroplasty, Cemented(Right) - Barry Gaona MD Operation Date: 03/11/20 08:50 <No data on this case meets the specified criteria> Surgeon KENDAL Gaona MD Reactor Service Operator dang/elaine HERNANDEZ Estimated Blood Loss 50 Findings Consistent with Post-Op Diagnosis Specimens see operative report Drains none Complications none Disposition Accompanied Patient To Recovery: Yes Disposition: Recovery Room Indications This 80-year-old white female presented to the office with complaints of intractable right knee pain. She had tried conservative care measures including activity modification, oral pain medication, oral anti-inflammatories, cortisone injections, and Visco supplementation injections without improvement. She elected to proceed with surgical intervention after being educated about potential risks and outcomes. Preoperative imaging was obtained. Description of Procedure Patient was taken to the operating room where she was given general anesthesia. She was prepped and draped in the usual sterile fashion. Please see Dr. Gaona's operative report for specifics of the procedure. I was present for the entire case from initial positioning through final wound closure. Assistance was provided in tissue retraction, hemostasis, trial implant placement, final implant placement, and final wound closure. Patient was taken to the recovery room in satisfactory condition. I attest to the content of the Intraoperative Record and any orders documented therein. Any exceptions are noted below.
--- NOTE | 2020-03-11 08:54 | Operative Report ---
Post Operative Report Pre & Post Diagnosis Operation Date: 03/11/20 07:00 Pre-Op Diagnosis: Right Knee Degenerative Joint Disease Post-Op Diagnosis: Right Knee Degenerative Joint Disease Operation Date: 03/11/20 08:50 <No data on this case meets the specified criteria> I identified the patient and participated in the time-out.: Yes Procedure Operation Date: 03/11/20 07:00 Actual Procedures p Right Total Knee Arthroplasty, Cemented(Right) - Barry Gaona MD Operation Date: 03/11/20 08:50 <No data on this case meets the specified criteria> Surgeon Barry Gaona MD Lens Grinder dang/elaine HERNANDEZ Estimated Blood Loss 50 Findings Consistent with Post-Op Diagnosis Specimens bone cuts Anesthesia Type General Complications none Disposition Accompanied Patient To Recovery: Yes Disposition: Recovery Room Indications right knee osteoarthritis Description of Procedure As per Dr. Gaona's note I assisted and scrubbing and draping, instruments handling, certain parts of the procedure and wound closure. I attest to the content of the Intraoperative Record and any orders documented therein. Any exceptions are noted below.
--- NOTE | 2020-03-11 09:21 | Operative Report (OR) ---
DATE OF OPERATION: 03/11/2020 SURGEON: Barry Ganoa MD. MANAGER WORK: Dr. Koehler. SECOND MANAGER WORK: Tian Doty PA-C. PREOPERATIVE DIAGNOSIS: Osteoarthritis, right knee. POSTOPERATIVE DIAGNOSIS: Osteoarthritis, right knee. OPERATION PERFORMED: Cemented right total knee replacement. SUMMARY OF IMPLANTS: Size 2.5 right femur, size 2.5 mobile bearing tray, size 41 patella, 2.5 x 12.5 insert, 2 bags of Palacos G cement. Bone pathology pending. ESTIMATED BLOOD LOSS: 50 mL CRYSTALLOID: Per anesthesia. DVT prophylaxis per protocol. PERIOPERATIVE SITUATION: Medically cleared female with intractable knee pain, has lived with this for decades. Wants to proceed with surgical replacement. She has severe disease in patellofemoral joint and tricompartmentally has marked disease medially and laterally. DESCRIPTION OF PROCEDURE: The patient appropriately identified, site verified, consent verified. Antibiotics confirmed as being given. The right lower extremity was prepped and draped in usual routine fashion. Tourniquet inflated to 275 mmHg after exsanguination of limb with a rubber Esmarch bandage for a total of 50 minutes. Midline exposure utilized. Parapatellar arthrotomy performed. Synovectomy completed, osteophytes resected. Distal femur entered. Distal femur resected 12 mm, proximal tibia resected 4 mm, extension gap was excellent. Femur sized to 2.5. It was appropriately cut anterior, posterior, condylar and chamfer cuts. Flexion gap was excellent. Box cut was then made, 2.5 fit well. Tibia was broached and reamed to 2.5 and appropriate trial reduction with a 12.5 was best. The patella tracked reasonably well. Patella was very thin and very deformed, was resected leaving about 12.5-13 mm, the seating holes made and the patella 41 button tracked well. Orthomix was injected all around the knee. Implants removed. TXA applied for 3 minutes. The wound irrigated and the permanent cemented in position, tibia, femur, patella in that order. At 12 minutes, the tourniquet deflated. Minor bleeding points controlled with electrocautery. The wound was then irrigated. The trial spacer removed, the permanent spacer seated. The knee reduced and closed at 40 degrees of flexion using #2 Vicryl, 2-0 Vicryl and stainless steel clips. Appropriate dressing applied. The patient transferred to recovery room in satisfactory condition having tolerated the procedure well. I attest to the content of the Intraoperative Record and any orders documented therein. Any exception s are noted below.
--- NOTE | 2020-03-11 09:31 | XRay Report ---
XR knee RT 1 or 2V routine CLINICAL HISTORY: Right knee arthroplasty. COMPARISON: Right knee radiographs February 17, 2020. FINDINGS: Alignment of the total right knee arthroplasty is anatomic. There is no periprosthetic fra cture or unexpected radiopaque foreign body. There are skin vani. Extensive vascular calcification is incidentally noted. IMPRESSION: Expected findings following total right knee arthroplasty. ACT 112: Negative or not required by law. Electronically signed by: Enrique Medina M.D. 03/11/2020 9:30 AM
--- NOTE | 2020-03-11 09:50 | Anesthesiology Progress Note ---
Date of Service March 11, 2020 Anesthesia Post Procedure Vital Signs Vital Signs: Temp Pulse Resp BP Pulse Ox 03/11/20 09:20 36.5 C 86 14 149/98 H 96 03/11/20 09:10 88 14 155/69 H 94 03/11/20 09:00 82 12 128/71 98 03/11/20 08:52 36.6 C 82 12 116/67 97 03/11/20 06:46 74 18 146/82 H 96 03/11/20 05:45 36.6 C 67 18 164/60 H 99 Pain Intensity Right Knee: Pain Intensity: 0 Transfer of Care Handoff Completed per policy Notes Mental Status: alert / awake / arousable Patient Amnestic to Procedure: Yes Nausea / Vomiting: adequately controlled Pain: adequately controlled Airway Patency, RR, SpO2: stable & adequate BP & HR: stable & adequate Hydration State: stable & adequate Anesthetic Complications: no major complications apparent
[2020-03-11] MEDS ORDERED: ALUMINUM/MAGNESIUM SUSP 30 ML UDC PO PRN (09:56)
[2020-03-11] MEDS ORDERED: OXYCODONE HCL IR 5 MG TAB (IMMEDIATE RELEASE) PO PRN (09:56)
[2020-03-11] MEDS ORDERED: DiphenhydrAMINE HCL 50 MG/ML VIAL IV PRN (09:56)
[2020-03-11] MEDS ORDERED: SODIUM CHLORIDE 0.9% 1000ML 1,000 ML IV SCH (09:56)
[2020-03-11] MEDS ORDERED: HYDROmorphone INJ 0.5 MG/0.5 ML SYR IV PRN (09:56)
[2020-03-11] MEDS ORDERED: MAGNESIUM HYDROXIDE SUSP 30 ML UDC PO PRN (09:56)
[2020-03-11] MEDS ORDERED: bisacodyL 10 MG SUPP PR PRN (09:56)
[2020-03-11] MEDS ORDERED: METOCLOPRAMIDE HCL INJ 5 MG/ML 2 ML VIAL IV PRN (09:56)
[2020-03-11] MEDS: MULTIVITAMIN TAB PO SCH (10:50)
[2020-03-11] MEDS: ATORVASTATIN 40 MG TAB PO SCH (10:50)
[2020-03-11] MEDS: FAMOTIDINE 40 MG TABLET PO SCH (10:50)
[2020-03-11] MEDS: DOCUSATE SODIUM 100 MG CAP PO SCH ×2 (10:51→21:31)
[2020-03-11] MEDS: KETOROLAC TROMETHAMINE 15 MG/ML VIAL IV SCH ×3 (11:10→23:40)
--- NOTE | 2020-03-11 11:43 | Progress Notes ---
DATE: 03/11/2020 SUBJECTIVE: Status post right total knee replacement. The patient is doing well, has no major issues. Denies any chest pain, shortness of breath, fever, chills, nausea, vomiting or headache. OBJECTIVE: Vital signs are stable. She is afebrile. Wound dressing clean, dry and intact. The femoral sciatic nerve functioning well. Can do a straight leg raise. Can do ankle pumps. Postop x-rays look excellent. ASSESSMENT: Doing well. PLAN: Is for discharge to home tomorrow.
[2020-03-11] MEDS: ORTHO WARFARIN NOMOGRAM SCH (11:59)
--- NOTE | 2020-03-11 13:23 | Discharge Summary (DS) ---
CHIEF COMPLAINT: Right knee pain. HISTORY OF PRESENT ILLNESS: The patient underwent elective right total knee replacement. Hospital course has been uneventful. She is eating and drinking well. She denies any chest pain, shortness of breath, fever, chills, nausea, vomiting, or headache. OBJECTIVE: Vital signs are stable. She is afebrile. Hospital course to date has been uneventful. If she continues to do well will discharge tomorrow. Case management involved. Medication reconciliation please see sheet. PAST MEDICAL HISTORY: Remarkable for carotid stenosis, cerebral ischemia, degenerative disc disease, dyslipidemia, hemorrhoids, GERD, history of breast cancer, left thalamic infarct, ocular migraine, osteoarthritis, osteopenia, osteoporosis, Schatzki's ring, sensorineural hearing loss, subclavian stenosis, tremor. PAST SURGICAL HISTORY: Remarkable for endarterectomy, foot surgery, cataract surgery, colonoscopies, EGDs, oophorectomy, breast lumpectomy. FAMILY HISTORY: Remarkable for congestive heart failure in her mother, pulmonary fibrosis in her father. Family history of breast cancer. SOCIAL HISTORY: Reveals she does not smoke or drink. Speaks Kinyarwanda, lives alone and is safe at home, very active academically. REVIEW OF SYSTEMS: Noncontributory. Postop x-rays look excellent. ASSESSMENT: Doing well status post right total knee replacement. Plan is for discharge tomorrow.
[2020-03-11] MEDS: ACETAMINOPHEN 500 MG TAB PO SCH ×2 (13:49→21:31)
[2020-03-11] MEDS: CEFAZOLIN 2000MG 2,000 MG/15 ML SYR IV SCH ×2 (14:24→21:49)
[2020-03-11] MEDS ORDERED: WARFARIN SOD 5 MG TAB PO ONE (16:00)
[2020-03-11] MEDS: FERROUS GLUCONATE 324 MG TAB PO SCH (18:09)
[2020-03-11] MEDS: ASCORBIC ACID 500 MG TAB PO SCH (18:09)
[2020-03-11] MEDS: SENNA 8.6 MG TAB PO SCH (21:31)
[2020-03-12] MEDS: ACETAMINOPHEN 500 MG TAB PO SCH ×3 (05:49→20:41)
[2020-03-12] MEDS: KETOROLAC TROMETHAMINE 15 MG/ML VIAL IV SCH (05:50)
[2020-03-12 06:51] LABS: INR 1.1 (0.9-1.1); Prothrombin Time 11.6 Seconds (9.0-12.0)
[2020-03-12 06:53] LABS: Hematocrit (blood only) 31.5 % (37-47); Hemoglobin 10.3 g/dL (12.0-16.0); Mean Corpuscular Hemoglobin 31.5 pg (25-34); Mean Corpuscular Hgb Conc 32.7 g/dL (32-36); Mean Corpuscular Volume 96.3 fL (80-100); Mean Platelet Volume 9.2 fL (7.4-10.4); Platelet Count 221 K/uL (130-400); RDW Coefficient of Variation 13.2 % (11.5-14.5); RDW Standard Deviation 46.7 fL (36.4-46.3); Red Blood Count 3.27 M/uL (4.2-5.4); White Blood Count 10.65 K/uL (4.8-10.8)
[2020-03-12 07:11] LABS: BUN Creatinine Ratio 19.2 (10-20); Calcium 8.3 mg/dl (8.5-10.1); Creatinine Clr Calc Pharmacy 38.8 ml/min; Est GFR (African American) 61.9; Est GFR (Non-African American) 53.4; Potassium 4.2 mmol/L (3.5-5.1)
--- NOTE | 2020-03-12 07:15 | Progress Notes ---
DATE: 03/12/2020 SUBJECTIVE Postop day #1 status post right total knee replacement. The patient is doing very well, has no major pain. She notes that she has no nausea, vomiting, chest pain, shortness of breath, fever or chills. OBJECTIVE: Vital signs are stable. She is afebrile. Neurovascular check femoral sciatic nerve is normal. Dressing is clean and dry. A.m. labs pending. ASSESSMENT AND PLAN: Doing well. Discharge to home today. SABA
[2020-03-12] MEDS ORDERED: dexAMETHasone 10 MG in SYRINGE 0 ML IV SCH (08:00)
[2020-03-12] MEDS: FERROUS GLUCONATE 324 MG TAB PO SCH ×2 (08:41→18:06)
--- NOTE | 2020-03-12 08:41 | Orthopedic Progress Note ---
Date of Service March 12, 2020 Assessment & Plan (1) Status post total knee replacement using cement: Patient's dressing was changed today by me. Continue JONATHAN hose for the next 6 weeks. She will use her knee immobilizer for today and tomorrow, and discontinue on Monday morning. Coumadin today per nomogram. She will hold her Plavix. PT/OT this morning. Anticipate discharge to home today with home health services. Follow-up in the office in 2 weeks as scheduled for staple removal. Written discharge instructions were provided. Prescriptions for Percocet, Zofran, and Coumadin were sent to her [facility] pharmacy. Admission and Anticipated Discharge Date Admission Date: March 11, 2020 Subjective Patient was seen in her room this morning. She denies any chest pain, shortness of breath, nausea, vomiting, or abdominal pain. She has not required any narcotic medication thus far. She states she feels good. She is excited to go home. She has been out of bed. No other complaints. She has already finished breakfast. Review of Systems Review of Systems: Unchanged from yesterday. Physical Exam Physical Exam: General: Developed, well-nourished, elderly white female, in no acute distress. Sitting on a bed. Alert and oriented. Skin: Warm and dry with good turgor. No rashes or lesions. No ecchymosis or erythema. The patient is not diaphoretic. No abrasions. Postsurgical dressings are intact on the right knee. Upon removal, she has expected postoperative edema. No ecchymosis. No active drainage. Mild amount of dried blood on her dressings. Musculoskeletal: Patient has full terminal extension. She is able to actively move her ankle and toes. She is able to perform straight leg raise. Flexion was not attempted. Neurologic: Gross sensation is intact across the right leg by soft touch. Peripheral pulses are 2+. Results & Data ([facility]) Vital Signs (Past 12 Hours) Vital Signs Temp Pulse Pulse Resp BP Pulse Ox 03/12/20 07:44 36.4 C L 67 18 117/70 96 03/12/20 03:46 36.2 C L 52 L 20 118/62 95 03/11/20 23:48 36.4 C L 53 L 20 132/74 94 Laboratory Results H&H obtained today's 10.3 and 31.5. WBCs are normal at 10.6. INR is 1.1. PRP is unremarkable.
[2020-03-12] MEDS: ASCORBIC ACID 500 MG TAB PO SCH ×2 (08:42→18:06)
[2020-03-12] MEDS: DOCUSATE SODIUM 100 MG CAP PO SCH ×2 (08:42→20:41)
[2020-03-12] MEDS: ATORVASTATIN 40 MG TAB PO SCH (08:42)
[2020-03-12] MEDS: FAMOTIDINE 40 MG TABLET PO SCH (08:43)
[2020-03-12] MEDS: MULTIVITAMIN TAB PO SCH (08:43)
[2020-03-12] MEDS: ORTHO WARFARIN NOMOGRAM SCH (09:37)
[2020-03-12] MEDS ORDERED: WARFARIN SOD 5 MG TAB PO ONE (10:00)
[2020-03-12] MEDS ORDERED: WARFARIN SOD 5 MG TAB PO SCH (10:00)
[2020-03-12] MEDS: SENNA 8.6 MG TAB PO SCH (20:41)
[2020-03-13] MEDS: ACETAMINOPHEN 500 MG TAB PO SCH ×2 (04:30→13:13)
[2020-03-13 07:24] LABS: INR 1.7 (0.9-1.1); Prothrombin Time 17.7 Seconds (9.0-12.0)
[2020-03-13] MEDS: FERROUS GLUCONATE 324 MG TAB PO SCH (08:34)
[2020-03-13] MEDS: ASCORBIC ACID 500 MG TAB PO SCH (08:34)
[2020-03-13] MEDS: ATORVASTATIN 40 MG TAB PO SCH (08:35)
[2020-03-13] MEDS: FAMOTIDINE 40 MG TABLET PO SCH (08:36)
[2020-03-13] MEDS: DOCUSATE SODIUM 100 MG CAP PO SCH (08:36)
[2020-03-13] MEDS: MULTIVITAMIN TAB PO SCH (08:36)
[2020-03-13] MEDS: ORTHO WARFARIN NOMOGRAM SCH (08:39)
--- NOTE | 2020-03-13 08:52 | Progress Notes ---
DATE: 03/13/2020 SUBJECTIVE: Postop day #2 status post right total knee replacement. The patient feels much better today. States she is feeling like she is thinking clear and wants to go home. She notes that she has help at home. OBJECTIVE: Vital signs are stable. She is afebrile. Neurovascular check femoral sciatic nerve is normal. Wound dressing clean, dry and intact. PT/INR pending this morning. ASSESSMENT: Doing well. Discharge to home today. Coumadin dose per INR results today. Follow up in 2 weeks for staple removal.
--- NOTE | 2020-03-13 09:00 | Discharge Summary (DS) ---
ADDENDUM Patient did not quite feel quite ready to go home yesterday. Feels much better today. She may not qualify for inpatient rehabilitation. Plan is to discharge to home today. If She feels like she cannot manage that and she will need to go to a step-down facility like [facility] or some place like that. She states she understands and wants to go home. She has some local neighbors that will stay with her. She feels comfortable with that. We will discharge today. SABA
[2020-03-13] MEDS ORDERED: WARFARIN SOD 1 MG TAB PO SCH (16:00)
== END 2020-03-13 13:59 ==
LOC: 3E 05:19 → ASU 05:19
DX: Z88.8 Allergy status to other drugs, medicaments and biological substances; M17.11 Unilateral primary osteoarthritis, right knee; H90.5 Unspecified sensorineural hearing loss; Z79.899 Other long term (current) drug therapy; E78.5 Hyperlipidemia, unspecified; Z79.01 Long term (current) use of anticoagulants; I77.1 Stricture of artery

== ENCOUNTER 2021-11-10 06:30 | Observation (INO) ==
--- NOTE | 2021-10-15 09:46 | PAT Medication Instructions ---
Medication Instructions Date of Service October 15, 2021 Home Medications Medication Instructions Recorded atorvastatin 80 mg tablet 80 mg PO QAM #90 tab 04/27/21 clopidogrel 75 mg tablet 75 mg PO QAM 30 Days #30 tab 07/19/21 acetaminophen 500 mg tablet (Tylenol Extra Strength) 500 mg PO QAM atorvastatin 80 mg tablet 80 mg PO QAM clopidogrel 75 mg tablet 75 mg PO QAM famotidine 40 mg tablet 40 mg PO QPM triamcinolone acetonide 0.1 % topical cream 1 applic TOPICAL QAM PreserVision AREDS-2 1 tab PO BID ASK your prescriber and surgeon clopidogrel 75 mg tablet 75 mg PO QAM (in order for spinal anesthesia, clopidogrel/plavix needs to be stopped 7 days before surgery. Please check if okay with doctor that prescribes this to you) STOP taking 2 weeks before surgery (or as soon as possible if surgery is within 2 weeks) PreserVision AREDS-2 1 tab PO BID STOP taking 24 hours before surgery triamcinolone acetonide 0.1 % topical cream 1 applic TOPICAL QAM Take morning of surgery With a small sip of water, OTHERWISE NOTHING TO EAT OR DRINK AFTER MIDNIGHT: acetaminophen 500 mg tablet (Tylenol Extra Strength) 500 mg PO QAM (okay to take up to 4 hours prior to surgery if needed) atorvastatin 80 mg tablet 80 mg PO QAM Take evening before surgery famotidine 40 mg tablet 40 mg PO QPM Other Notes If you have any questions please call us at [phone] or [phone] or [phone] or [phone]
--- NOTE | 2021-10-18 09:50 | Anesthesiology Consultation ---
Date of Service October 18, 2021 Assessment & Plan (1) Encounter for pre-operative examination: - COVID screening: Per assessment on 10/18: No known COVID-19 positive contacts or current COVID-19 related symptoms. Travel screen negative. Patient vaccinate d. Surgeon arranging preop COVID testing. Awaiting results. - S/P Right TKA (03/11/20): LMA#4 (unable to do SAB 2/2 scoliosis and bone with multiple attempts) + PNB at [facility]. - Neurology office visit (10/15/21): "81-year-old female with moderately extensive chronic cerebrovascular disease, history of left subclavian stenosis with antegrade and retrograde flow via the left vertebral artery, episodic, brief episodes of nonspecific dizziness or disequilibrium which tend to occur with turning, nonspecific, but potentially multifactorial, remote history of carotid endarterectomy, chronic multifactorial gait dysfunction. Symptoms not classic for subclavian steal syndrome. Patient should continue with clopidogrel and atorvastatin. Potential risk of surgical treatment for subclavian steal syndrome likely exceeds potential benefit in this patient. Continued caution, awareness of her symptoms stressed. No specific neurologic contraindication to left total knee arthroplasty which is scheduled for next month." - Patient acceptable risk for surgery pending surgeon-ordered PCP clearance ([facility]; 10/25). Chart Review Chart Review: Patient seen in Pre Admission Testing Teaching & Discussion Pre-Anesthesia Teaching/Discussion Notes: Instructed NPO after midnight before surgery,except medications with 15 cc of water. Medication instructions provided according to the PAT guidelines. History Surgery Operation Date: 11/10/21 08:50 Proposed Procedures p Left Total Knee Arthroplasty - Barry Gaona MD Height/Weight Height: 5 ft Weight: 63.9 kg Allergies Allergy/AdvReac Type Severity Reaction Status Date / Time nabumetone [From Relafen] Allergy Mild Redness of Verified 10/18/21 09:47 Skin neomycin Allergy Mild Rash Verified 10/15/21 09:29 lorazepam [From Ativan] AdvReac Intermediate Anxiety Verified 10/15/21 09:29 zolpidem [From Ambien] AdvReac Intermediate Anxiety Verified 10/15/21 09:29 loperamide [From Imodium A-D] AdvReac Unknown Rapid Verified 10/18/21 09:47 heart rate Medications Home Medications Medication Instructions Recorded Confirmed Last Taken acetaminophen 500 mg tablet 500 mg PO QAM tab 03/25/19 10/15/21 03/10/20 10:00 (Tylenol Extra Strength) atorvastatin 80 mg tablet 80 mg PO QAM #90 tab 04/27/21 10/15/21 Unknown clopidogrel 75 mg tablet 75 mg PO QAM 30 Days #30 tab 07/19/21 10/15/21 Unknown famotidine 40 mg tablet 40 mg PO QPM 10/14/21 10/15/21 Unknown triamcinolone acetonide 0.1 % 1 applic TOPICAL QAM 10/14/21 10/15/21 Unknown topical cream vit C 250 mg-vit E 90 mg-zinc 40 1 tab PO BID 10/14/21 10/15/21 Unknown mg-copper 1 [id number] capsule (PreserVision AREDS-2) Metamucil 1 tab PO HS 10/18/21 10/18/21 Unknown Past Medical History Medical History Carotid stenosis S/P right carotid endarterectomy (2008) No significant ICA stenosis per 05/2021 carotid doppler Chronic cerebral ischemia Degenerative disc disease Dyslipidemia GERD (gastroesophageal reflux disease) History of breast cancer No arm restriction per pt 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 Allen Ocular migraine Osteoarthritis Osteoporosis Schatzki's ring Sensorineural hearing loss (SNHL) of both ears SNHL (sensorineural hearing loss) Subclavian artery stenosis Tremor Mild Exercise / Class Metabolic Activity II 4-5 Yardwork/Stairs/Walk up hill (multiple 7 stairs daily with no CP or SOB) Past Family History Family History Mother , Mother age 85 of congestive heart failure CHF (congestive heart failure) Father , Father age 81 of pulmonary fibrosis Epilepsy Colon cancer Pulmonary fibrosis Family/Other Breast cancer Other No family history of adverse response to anesthesia Past Surgical History Surgical History H/O endarterectomy Right H/O foot surgery BUNION, CURLED TOES, RIGHT SIDE History of cataract surgery History of colonoscopy History of dilation and curettage History of esophageal dilatation History of oophorectomy, unilateral Right History of removal of ovarian cyst Nausea and vomiting after administration of anesthetic agent with colonoscopy Status post breast lumpectomy Right Status post total knee replacement using cement Right Past Anesthesia History Other (Severe post-op constipation) History of PONV History of PONV (single episode) Social History Smoking Status: Never smoker Do You Dip or Chew Tobacco: No Hx Alcohol Use: No Hx Substance Use: No substance use type: does not use Review of Systems Patient denies chest pain, shortness of breath, dyspnea on exertion, fever, chills, cough, wheezing, palpitations. Physical Exam Vital Signs VITALS BP 119/72 P 67 TEMP 97.7 SP02 99%RA RESP 16 PHYSICAL Full cervical extension range of motion. Full TMJ range of motion. TMD 3.5 finger breaths Mallampati Score 3 Dentition: intact, + implants (sides), Right upper side tooth chipped (per pt, surgeon aware and gave guidelines for timeframe before or after to have dental work done) Lungs: clear throughout to auscultation Cardiac: regular rate and rhythm, no murmurs noted Spine: normal Carotid arteries: negative bruit Extremities: + scoliosis Lab Results Anesthesia Preop Results Results Anesthesia Widget: WBC 5.41 K/uL (4.8-10.8) 10/18/21 Hgb 12.5 g/dL (12.0-16.0) 10/18/21 Hct 38.9 % (37-47) 10/18/21 Plt 280 K/uL (130-400) 10/18/21 Na 140 mmol/L (136-145) 10/18/21 K 3.8 mmol/L (3.5-5.1) 10/18/21 Cl 104 mmol/L (98-107) 10/18/21 CO2 31 mmol/L (21-32) 10/18/21 BUN 15 mg/dl (6-23) 10/18/21 Creat 0.86 mg/dl (0.6-1.2) 10/18/21 Glucose Level 120 mg/dl (70-99(Fasting)) H 10/18/21 PT 10.9 Seconds (9.0-12.0) 10/18/21 PTT 26.0 Seconds (21.0-31.0) 10/18/21 INR 1.0 (0.9-1.1) 10/18/21 Urine Color Yellow 10/18/21 Urine Appearance Clear (Clear) 10/18/21 Urine pH 5.0 (4.5-7.5) 10/18/21 Urine Specific [place] 1.012 (1.000-1.030) 10/18/21 Urine Protein Negative (Negative) 10/18/21 Urine Glucose (UA) Negative (Negative) 10/18/21 Urine Ketones Negative (Negative) 10/18/21 Urine Blood Negative (Negative) 10/18/21 Urine Nitrite Negative (Negative) 10/18/21 Urine Bilirubin Negative (Negative) 10/18/21 Urine Urobilinogen Negative (Negative) 10/18/21 Urine Leukocyte Esterase Negative (Negative) 10/18/21 Blood Type A Positive 10/18/21 Antibody Screen NEGATIVE 10/18/21 Testing Electrocardiogram Date: 10/18/21 Findings: + NSR @ (60) Chest X-Ray FINDINGS: S-shaped scoliosis of the thoracolumbar spine is incidentally noted. Lung volumes are normal. Linear left basilar opacity reflects atelectasis or scarring and is unchanged. There is no pneumothorax or pleural effusion. Cardiac size is normal. Mediastinal contours are normal. There is no evidence for pulmonary edema. IMPRESSION: No acute cardiopulmonary findings. Stress Test Date: 02/24/20 Type: exercise Negative exercise stress echo/ECG for ischemia at 108% MPHR. No chest pain. EF 55-60%. Mild MR. No LVH. 7 METS. No significant valvular disease. Other Testing Carotid dopppler (05/24/21) No significant atherosclerotic plaquing or significant flow limiting stenoses noted by velocity criteria bilaterally. B/L vertebral artery antegrade flow.
--- NOTE | 2021-11-08 13:15 | History & Physical Report ---
Date of Service November 08, 2021 Assessment & Plan (1) Left knee DJD: Plan: Postoperative prescriptions for Percocet and Coumadin will be provided at discharge from the hospital. Anticipate discharge to [facility] for rehab. She did this after her previous knee surgery and it worked well for her. She would like to do the same. She understands it will depend on her insurance. The PDMP was checked and there are no concerning findings. The patient is aware of the C OVID-19 risk associated with surgery. She is currently asymptomatic of any COVID-19 symptoms. She will obtain nasal swab testing 2 days prior to surgery. She will be sent to [facility] for preadmission lab work, EKG, and chest x-ray. She has already seen her PCP for medical clearance. She will stop her Plavix 7 days prior to surgery. She already has a walker. History of Present Illness Chief Complaint: Left knee pain Primary Care Provider: Jay Duvla MD HISTORY OF PRESENT ILLNESS: This 81-year-old female presents for her preoperative history and physical. She is scheduled to undergo a left knee total knee arthroplasty on 11/10/2021. She has had a longstanding history of left knee pain. She has had intermittent pain that is worse with activity or weightbearing. Occasional night pain. There is pain with hills and stairs. No catching or locking. No buckling. No numbness or tingling. She is using a cane. Preoperative imaging has been obtained. She has a history of right total knee arthroplasty placed on 03/11/2020. She has done well with that and elects to proceed with the same on the left. Allergies Allergy/AdvReac Type Severity Reaction Status Date / Time nabumetone [From Relafen] Allergy Mild Redness of Verified 10/25/21 13:09 Skin neomycin Allergy Mild Rash Verified 10/25/21 13:09 lorazepam [From Ativan] AdvReac Intermediate Anxiety Verified 10/25/21 13:09 zolpidem [From Ambien] AdvReac Intermediate Anxiety Verified 10/25/21 13:09 loperamide [From Imodium A-D] AdvReac Unknown Rapid Verified 10/25/21 13:09 heart rate Home Medications Medication Instructions Recorded Confirmed Type acetaminophen 500 mg tablet 500 mg PO QAM tab 03/25/19 10/25/21 History (Tylenol Extra Strength) atorvastatin 80 mg tablet 80 mg PO QAM #90 tab 04/27/21 10/25/21 Rx clopidogrel 75 mg tablet 75 mg PO QAM 30 Days #30 tab 07/19/21 10/25/21 Rx famotidine 40 mg tablet 40 mg PO QPM 10/14/21 10/25/21 History triamcinolone acetonide 0.1 % 1 applic TOPICAL QAM 10/14/21 10/25/21 History topical cream vit C 250 mg-vit E 90 mg-zinc 40 1 tab PO BID 10/14/21 10/25/21 History mg-copper 1 [id number] capsule (PreserVision AREDS-2) Metamucil 1 tab PO HS 10/18/21 10/25/21 History Past Med/Surg History Medical History Carotid stenosis S/P right carotid endarterectomy (2008) No significant ICA stenosis per 05/2021 carotid doppler Chronic cerebral ischemia Degenerative disc disease Dyslipidemia GERD (gastroesophageal reflux disease) History of breast cancer No arm restriction per pt 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 Allen Ocular migraine Osteoarthritis Osteoporosis Schatzki's ring Sensorineural hearing loss (SNHL) of both ears SNHL (sensorineural hearing loss) Subclavian artery stenosis Tremor Mild Surgical History H/O endarterectomy Right H/O foot surgery BUNION, CURLED TOES, RIGHT SIDE History of cataract surgery History of colonoscopy History of dilation and curettage History of esophageal dilatation History of oophorectomy, unilateral Right History of removal of ovarian cyst Nausea and vomiting after administration of anesthetic agent with colonoscopy Status post breast lumpectomy Right Status post total knee replacement using cement Right Family History Mother , Mother age 85 of congestive heart failure CHF (congestive heart failure) Father , Father age 81 of pulmonary fibrosis Epilepsy Colon cancer Pulmonary fibrosis Family/Other Breast cancer Other No family history of adverse response to anesthesia Social History Smoking Status: Never smoker Second Hand Exposure: No; Hx Alcohol Use: No Hx Substance Use: No Preferred Language: Vietnamese Communication Ability: Effective Visual Impairment: No Limitations Hearing Ability: Normal Outreach Nurse Required: No Beliefs That Will Affect Care: None marital status: Single Current Living Situation: Alone current occupational status: employed 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 BMI 27.0. Temperature 36.4, BP 126/62, pulse 86, respirations 16, O2 sat 99% on room air. General: Well-developed, well-nourished, elderly white female in no acute distress. Sitting in a chair. Alert and oriented. Skin: Warm and dry with fair turgor. No rashes or lesions. No ecchymosis or erythema. No intra-articular effusion in the left knee. HEENT: Normocephalic, atraumatic. Eyes: PERRLA, EOMI. Nares and oropharynx exams deferred due to cover precautions. Heart: RRR. No MGR. Lungs: Clear to auscultation bilaterally. No crackles, rhonchi or wheezing. Good air movement. Abdomen: Mildly obese. Bowel sounds present x4, soft, nontender. No organomegaly. No masses. Musculoskeletal: Left knee evaluation reveals no intraarticular effusion. No redness or warmth. She has full terminal extension. Flexion to greater than 110 degrees. Stable collateral ligaments. There is a notable lateral offset of the patella on the left. She has crepitus palpable with motion. There is discomfort with palpation over the peripatellar area as well as the medial joint line with palpation. No lateral joint line discomfort with palpation today. No defect in the patellar tendon or quadriceps tendon. Slight valgus stance. She is ambulating using her cane. There is a mildly antalgic gait. Neurologic: Gross sensation is intact across both lower extremities by soft touch. Peripheral pulses are 2+. Results & Data Results & Data ([facility]) Diagnostic Findings Radiographic imaging previously obtained shows severe patellofemoral arthritis with a notable lateral tilt. Shallow trochlear groove. Moderate medial compartment osteoarthritis. Periarticular osteophytes and subchondral sclerosis are also evident. Code Status & VTE Plan VTE Prophylaxis Plan VTE Prophylaxis will be ordered: Yes
[~2021-11-10 06:30] MED LIST changes: -ASPEC81 PO; -ATOR-26 PO; +BUPIVACAINE 0.5 % 5 MG/1 ML PF 10ML VIAL ONE; -CALC600T14 PO; -CHOL100010 PO; -CYAN500T13 PO; -GLUCOSAMINE PO; -HYDR2.5C37; +LR 500ML BOLUS, THEN 15ML/HR IV SCH; +LR 60ML/HR IV SCH; -PANT40TA PO; +ROPIVACAINE 0.5% 5 MG/ML 30 ML VIAL ONE; +ROPIVACAINE 0.5% HCL/PF 150 MG, BUPIVACAINE 0.75% MPF 20 ML, EPINEPHrine 0.15 MG, dexAM... INFIL SCH; +TRANEXAMIC ACID 1,000 MG **IV Intra-op IV SCH; +TRANEXAMIC ACID 1,000 MG x 1 **For Topical Use TOP SCH; -TYLER650 PO; +ceFAZolin 2000MG 2,000 MG/15 ML SYR IV SCH
--- NOTE | 2021-11-10 06:36 | History & Physical Bridge Note ---
Date of Service November 10, 2021 History & Physical Bridge Note I have examined the patient, reviewed the History & Physical and in the interval since the performance of the History & Physical I have noted the following changes of clinical significance: consent obtained/site verified/covid screen negative.no changes noted
[2021-11-10] MEDS ORDERED: fentaNYL citrate 100 MCG/2 ML VIAL ONE (07:35)
[2021-11-10] MEDS ORDERED: MIDAZOLAM HCL 1 MG/ML 2ML VIAL ONE (07:35)
[2021-11-10] MEDS ORDERED: fentaNYL citrate 100 MCG/2 ML VIAL IV PRN (08:06)
[2021-11-10] MEDS ORDERED: ePHEDrine sulfate 50 MG/ML AMP IV PRN (08:06)
[2021-11-10] MEDS ORDERED: ATROPINE SULFATE 0.1 MG/ML 10ML SYR IV PRN (08:06)
[2021-11-10] MEDS ORDERED: ONDANSETRON INJ 2 MG/ML 2 ML VIAL IV PRN ×2 (08:06→12:28)
[2021-11-10] MEDS ORDERED: PROPOFOL IV EMULSION 10 MG/ML 20 ML VIAL IV ONE ×2 (08:34→11:02)
[2021-11-10] MEDS ORDERED: ORTHO JOINT ANESTHETIC ONE (09:07)
--- NOTE | 2021-11-10 10:05 | Discharge Summary (DS) ---
DATE OF ADMISSION: 11/10/2021. DATE OF POTENTIAL DISCHARGE: 11/11/2021. CHIEF COMPLAINT: Left knee pain. HISTORY OF PRESENT ILLNESS: The patient is admitted for elective left total knee replacement and the right one done several years ago, has done well with that and wishes to proceed with this again in t he near future, we will have it done today. PREADMISSION ALLERGIES: INCLUDE RELAFEN, NEOMYCIN, LORAZEPAM, ZOLPIDEM, LOTRIMIN. PREADMISSION MEDICATIONS: Include Extra Strength Tylenol, atorvastatin, Plavix, famotidine, triamcin olone 0.1% topical cream, multivitamins and stool softener. PAST MEDICAL HISTORY: Remarkable for carotid stenosis, right carotid endarterectomy, chronic cerebra l ischemia, degenerative disk disease, dyslipidemia, GERD, history of breast cancer, history of left thalamic infarction, ocular migraines, osteoarthritis, osteoporosis, Schatzki's ring, sensorineural h earing loss, subclavian artery stenosis, tremor baseline. PAST SURGICAL HISTORY: Remarkable for endarterectomy, multiple foot surgeries, cataract surgery, col onoscopies, D and Cs, esophageal dilations, oophorectomy, ovarian cyst, breast lumpectomy, right knee replacement. FAMILY HISTORY: Remarkable for parents, history of breast cancer in the family. SOCIAL HISTORY: Reveals she does not smoke, does not drink, is single, lives alone, [place] [employer]. Feels safe at home. Uses a cane and glasses. REVIEW OF SYSTEMS: Noncontributory. ASSESSMENT: Status post left total knee replacement. Continue care pathway. Had questions concernin g placement, I advised her to talk to the case management as placement is really very insurance produ ct specific. Job ID: [id number]
--- NOTE | 2021-11-10 10:59 | Post Operative Brief Note ---
Immediate Post Op Note v1 Date of Surgery November 10, 2021 Pre & Post Diagnosis Operation Date: 11/10/21 08:50 Pre-Op Diagnosis: Left Knee Degerantive Joint Disease Post-Op Diagnosis: Left Knee Degerantive Joint Disease I identified the patient and participated in the time-out.: Yes Procedure Operation Date: 11/10/21 08:50 Actual Procedures p Left Total Knee Arthroplasty, Cemented(Left) - Barry Gaona MD Surgeon Barry Gaona MD Network Systems Integrator Megan/Soren Estimated Blood Loss 25 Findings Consistent with Post-Op Diagnosis
--- NOTE | 2021-11-10 11:05 | Operative Report ---
Post Operative Report Pre & Post Diagnosis Operation Date: 11/10/21 08:50 Pre-Op Diagnosis: Left Knee Degerantive Joint Disease Post-Op Diagnosis: Left Knee Degerantive Joint Disease I identified the patient and participated in the time-out.: Yes Procedure Operation Date: 11/10/21 08:50 Actual Procedures p Left Total Knee Arthroplasty, Cemented(Left) - Barry Gaona MD Surgeon Joesph Gaona MD Clinical Faculty Megan/Soren Estimated Blood Loss 25 Findings Consistent with Post-Op Diagnosis Consistent with post op diagnosis. Specimens No specimens. Description of Procedure I participated in prepping dressing and assisted Dr. Gaona during the procedure. Please see Dr. Gaona note. I attest to the content of the Intraoperative Record and any orders documented therein. Any exceptions are noted below. Supervising Physician Co-Signing Physician Notes Dr. Gaona
--- NOTE | 2021-11-10 11:11 | Operative Report ---
Post Operative Report Pre & Post Diagnosis Operation Date: 11/10/21 08:50 Pre-Op Diagnosis: Left Knee Degerantive Joint Disease Post-Op Diagnosis: Left Knee Degerantive Joint Disease I identified the patient and participated in the time-out.: Yes Procedure Operation Date: 11/10/21 08:50 Actual Procedures p Left Total Knee Arthroplasty, Cemented(Left) - Barry Gaona MD Surgeon KENDAL Gaona MD Senior C Developer Megan/Soren Estimated Blood Loss 25 Findings Consistent with Post-Op Diagnosis see operative report Specimens see operative report Drains none Complications none Disposition Accompanied Patient To Recovery: Yes Indications This 81 year old female presented to the office complaints of persisting left knee pain. She had tried conservative care measures without improvement. She elected to proceed with surgical intervention after being educated about potential risks and outcomes. Preoperative imaging was obtained. She has a previous right total knee arthroplasty and elected to proceed with the same on the left. Description of Procedure Patient was administered a spinal anesthetic and then taken to the operating room where she was given sedation. She was prepped and draped in the usual sterile fashion. Please see Dr. Gaona's operative report for specifics of the procedure. I was present for the entire case from initial patient positioning through final wound closure. Assistance was provided in tissue retraction, hemostasis, trial implant placement, final implant placement, and final wound closure. Patient was taken to the recovery room in satisfactory condition. I attest to the content of the Intraoperative Record and any orders documented therein. Any exceptions are noted below.
--- NOTE | 2021-11-10 11:19 | Operative Report (OR) ---
DATE OF PROCEDURE: 11/10/2021 SURGEON: Barry Gaona MD. ELEVATOR ATTENDANT: Zeke Guzman MD. SECOND ELEVATOR ATTENDANT: Tian Doty PA-C. PREOPERATIVE DIAGNOSIS: Osteoarthritis, left knee. POSTOPERATIVE DIAGNOSIS: Osteoarthritis, left knee. OPERATION PERFORMED: Cemented left total knee replacement. SUMMARY OF IMPLANTS: Size 2.5 left posterior cruciate substituting femur, size 2.5 rotating platform tray, 2.5 x 10 mm insert, 38 patella, 2 bags of Palacos G cement. These were all J and J rotating p latform systems. ESTIMATED BLOOD LOSS: 25 mL. CRYSTALLOID: Per anesthesia. PATHOLOGY: Pending on bone. DVT prophylaxis per protocol. PERIOPERATIVE SITUATION: Medically cleared female with intractable knee pain, has significant patell ofemoral disease with chronic subluxation of the patella, also has tibiofemoral arthritis as well. S he has other side done and did well with that, wished to proceed with surgery on this side. She unde rstands the risks and consequences. She is at moderate risk based on her comorbidities. She was mariel red for surgery. DESCRIPTION OF PROCEDURE: The patient was appropriately identified, site verified, consent verified. Antibiotics were confirmed as being given. The left lower extremity was prepped and draped in the usual routine fashion. Tourniquet was inflated to 300 mmHg after exsanguination of the limb with a r ubber Esmarch bandage for a total of roughly 53 minutes. Midline exposure utilized. Parapatellar ar throtomy performed. Synovectomy completed, osteophytes resected. The femur was deformed very typica l with chronic patellofemoral disease with a grade IV disease throughout the entire patellofemoral victoria int. There was grade IV disease in the lateral compartment. Medial compartment was relatively healt hy. All the osteophytes were resected. The patella was rebalanced with soft tissue appropriate releases. The osteophytes resected off all of the surfaces and then the distal femur entered, the cruciates r esected. The tibia subluxated, the menisci remnants were resected. Distal femur then resected 12 mm , proximal tibia resected 4 mm. The extension gap was excellent. The tibia was then sized to 2.5. The femur was sized to 2.5. Appropriate block then made on the femur and the cuts made. Flexion gap was then checked and it was excellent. The box cut was then made, the 2.5 fit well. The tibia was t hen broached and reamed for 2.5 and with a 10 spacer, everything fit well. Mid range stability was e xcellent with full extension and full flexion. The patella tracked well. The patella was resected l eaving roughly 15 mm. The seating holes were made for the 38 trial button and the trial tracked well . Once this was all done, the Orthomix was then injected and then after that was done, all the implants were removed, the TXA placed for 3 minutes. The wound was then irrigated and the permanent cemented in position - femur, tibia, and patella in that order. At 12 minutes, the tourniquet deflated. Naveed r bleeding points controlled with electrocautery. At 14 minutes, the knee was flexed. Minor cement removal was required. The wound was irrigated one final time, Betadine placed and then the permanent liner seated. The knee reduced and closed at 40 degrees of flexion with #2 Vicryl, 2-[address] ainless steel clips. Appropriate dressing applied. The patient was transferred to the recovery room in satisfactory condition, having tolerated the procedure well. Summary implants; again, Nayeli rotating platform 2.5 femur and tibia insert, 38 patella posterior c ruciate substituting rotating platform Nayeli. Job ID: [id number]
--- NOTE | 2021-11-10 11:35 | Anesthesiology Progress Note ---
Date of Service November 10, 2021 Anesthesia Post Procedure Vital Signs Vital Signs: Temp Pulse Pulse Resp BP BP Pulse Ox 11/10/21 11:30 67 14 124/50 L 94 11/10/21 11:20 77 14 134/59 L 100 11/10/21 11:10 69 19 117/54 L 99 11/10/21 11:04 97.3 F L 82 16 96/52 L 99 11/10/21 07:18 98.1 F 69 20 136/57 L 98 Transfer of Care Handoff Completed per policy Notes Mental Status: alert / awake / arousable and participated in evaluation Patient Amnestic to Procedure: Yes Nausea / Vomiting: adequately controlled Pain: adequately controlled Airway Patency, RR, SpO2: stable & adequate BP & HR: stable & adequate Hydration State: stable & adequate Neuraxial Anesthesia: was administered and sensory block is resolving Anesthetic Complications: no major complications apparent and Pt Satisfied with anesthetic care
--- NOTE | 2021-11-10 11:40 | Progress Notes ---
DATE OF SERVICE: 11/10/2021 SUBJECTIVE: Postop check status post left total knee replacement, doing well, awake and alert and or iented. Denies chest pain, shortness of breath, fever, chills, nausea, vomiting or headache. OBJECTIVE: VITAL SIGNS: Stable, afebrile. Neurovascular check limited by spinal. Wound dressing clean, dry and intact. Postop x-rays look excellent. ASSESSMENT AND PLAN: Doing well. Continue with care pathway. Case management must see today as she is trying to be placed. Otherwise, the home services with a neighbor. Job ID: [id number]
--- NOTE | 2021-11-10 11:52 | XRay Report ---
XR knee LT 1 or 2V routine CLINICAL HISTORY: S/P L TKA TECHNIQUE: 2 views of the left knee were obtained. Comparison: None available at the time of this dictation. FINDINGS: Patient is status post total knee arthroplasty with expected postsurgical changes including soft tiss ue swelling, subcutaneous emphysema, and surgical staple placement. No periarticular lucency or hardw are fracture is seen. IMPRESSION: Expected postoperative appearance status post placement of total knee arthroplasty. ACT 112: Negative or not required by law. Electronically signed by: Xavi Hassan M.D. 11/10/2021 11:51 AM
[2021-11-10] MEDS ORDERED: diphenhydrAMINE 50 MG/ML VIAL IV PRN (12:28)
[2021-11-10] MEDS ORDERED: ALUMINUM/MAGNESIUM SUSP 30 ML UDC PO PRN (12:28)
[2021-11-10] MEDS ORDERED: NO NSAIDS SCH (12:28)
[2021-11-10] MEDS ORDERED: bisacodyL 10 MG SUPP PR PRN (12:28)
[2021-11-10] MEDS ORDERED: NALOXONE HCL 0.4 MG/1 ML VIAL/CARP IV PRN (12:28)
[2021-11-10] MEDS ORDERED: oxyCODONE HCL IR 5 MG TAB (IMMEDIATE RELEASE) PO PRN (12:28)
[2021-11-10] MEDS ORDERED: SODIUM CHLORIDE 0.9% 1000ML 1,000 ML IV SCH (12:28)
[2021-11-10] MEDS ORDERED: METOCLOPRAMIDE HCL INJ 5 MG/ML 2 ML VIAL IV PRN (12:28)
[2021-11-10] MEDS ORDERED: HYDROmorphone INJ 0.5 MG/0.5 ML SYR IV PRN (12:28)
[2021-11-10] MEDS ORDERED: MAGNESIUM HYDROXIDE SUSP 30 ML UDC PO PRN (12:28)
[2021-11-10] MEDS ORDERED: VANCOMYCIN HCL 1,000 MG in SODIUM CHLORIDE 0.9% 250 ML IV ONE (14:00)
[2021-11-10] MEDS ORDERED: WARFARIN SOD 5 MG TAB PO ONE (15:07)
[2021-11-10] MEDS: ACETAMINOPHEN 500 MG TAB PO SCH ×2 (15:18→22:01)
[2021-11-10] MEDS: ORTHO WARFARIN NOMOGRAM SCH (15:18)
[2021-11-10] MEDS: FERROUS GLUCONATE 324 MG TAB PO SCH (16:19)
[2021-11-10] MEDS: ASCORBIC ACID 500 MG TAB PO SCH (16:20)
[2021-11-10] MEDS: ceFAZolin 2000MG 2,000 MG/15 ML SYR IV SCH (18:01)
[2021-11-10] MEDS ORDERED: SENNA 8.6 MG TAB PO SCH (21:00)
[2021-11-10] MEDS ORDERED: FAMOTIDINE 40 MG TABLET PO SCH (21:00)
[2021-11-10] MEDS ORDERED: PSYLLIUM or GUAR GUM FIBER POWDER PACKET PO SCH (21:00)
[2021-11-10] MEDS: DOCUSATE SODIUM 100 MG CAP PO SCH (22:07)
[2021-11-11] MEDS: ceFAZolin 2000MG 2,000 MG/15 ML SYR IV SCH (01:58)
[2021-11-11] MEDS: ACETAMINOPHEN 500 MG TAB PO SCH ×2 (05:45→14:11)
[2021-11-11] MEDS ORDERED: ACETAMINOPHEN 500 MG TAB PO PRN (06:43)
--- NOTE | 2021-11-11 07:00 | Progress Notes ---
SUBJECTIVE: Postop day #1, status post left total knee replacement. The patient is up, awake, alert and oriented x3. He is refusing narcotics which is appropriate. Continue with Tylenol around the c lock. OBJECTIVE: Vital signs are stable. She is afebrile. Neurovascular check femoral sciatic nerve is normal. Can do a straight leg raise. Wound dressing cl miriam, dry and intact. ASSESSMENT AND PLAN: Overall, doing well. Discontinue narcotics. Tylenol around the clock as neede d, 1000 mg. Continue with case management placement efforts. PT, OT today. Potential discharge totorrey hassan. Job ID: [id number]
[2021-11-11] MEDS ORDERED: dexAMETHasone 10 MG in SYRINGE 0 ML IV SCH (08:00)
[2021-11-11 08:37] LABS: Hematocrit (blood only) 31.5 % (37-47); Hemoglobin 10.3 g/dL (12.0-16.0); Mean Corpuscular Hemoglobin 31.3 pg (25-34); Mean Corpuscular Hgb Conc 32.7 g/dL (32-36); Mean Corpuscular Volume 95.7 fL (80-100); Mean Platelet Volume 8.8 fL (7.4-10.4); Platelet Count 223 K/uL (130-400); RDW Standard Deviation 45.5 fL (36.4-46.3); Red Blood Count 3.29 M/uL (4.2-5.4); White Blood Count 9.52 K/uL (4.8-10.8)
[2021-11-11 08:38] LABS: INR 1.2 (0.9-1.1); Prothrombin Time 12.8 Seconds (9.0-12.0)
[2021-11-11 08:43] LABS: BUN Creatinine Ratio 18.7 (10-20); Calcium 8.5 mg/dl (8.5-10.1); Creatinine Clr Calc Pharmacy 41.8 ml/min; Est GFR (African American) 68.1 ml/min; Est GFR (Non-African American) 58.8 ml/min
[2021-11-11] MEDS ORDERED: ATORVASTATIN 40 MG TAB PO SCH (09:00)
[2021-11-11] MEDS ORDERED: TRIAMCINOLONE ACET 0.1% CR 15 GM TUBE TOP SCH (09:00)
[2021-11-11] MEDS ORDERED: MULTIVITAMIN TAB PO SCH (09:00)
[2021-11-11] MEDS: FERROUS GLUCONATE 324 MG TAB PO SCH ×2 (09:35→16:55)
[2021-11-11] MEDS: ASCORBIC ACID 500 MG TAB PO SCH ×2 (09:35→16:55)
[2021-11-11] MEDS: DOCUSATE SODIUM 100 MG CAP PO SCH (09:58)
--- NOTE | 2021-11-11 10:10 | Orthopedic Progress Note ---
Date of Service November 11, 2021 Assessment & Plan (1) S/P total knee replacement using cement: Plan: Patient was evaluated in room 378. Postsurgical dressings were removed. Her dressings were changed by me. The usual gauze, ABD, and Kerlix dressing was applied. JONATHAN hose was reapplied. Patient will need to participate in PT and OT today and wait for determination from her insurance about [facility]. Patient is aware that if she gets declined, that she can have home health and will be discharged to home. Prescriptions will be sent accordingly depending on her placement. INR will be kept between 1.8 and 2.2. Continue using her knee immobilizer when out of bed, until Monday morning. She may discontinue its use at that time. Follow-up in the office in 2 weeks as scheduled for staple removal. Continue with ice and elevation to reduce pain and swelling. Written discharge instructions will be provided. Admission and Anticipated Discharge Date Admission Date: November 10, 2021 Subjective Patient was seen in her room this morning. She currently denies any chest pain, shortness of breath, nausea, vomiting, abdominal pain, numbness, or tingling. She states the spinal wore off around 7 or 8 last night. Her pain has been reasonably controlled. She is hoping to go to [facility] today. She does complain of some knee pain at this time. She does state that she had an issue with a roommate yesterday. It seems there was some disagreement about the television and the volume. She eventually was able to be provided a private room and the issue was resolved. Review of Systems Review of Systems: Unchanged from yesterday. Physical Exam Physical Exam: General: Well-developed, well-nourished, elderly white female, in no acute distress. Laying in bed. Alert and oriented. Conversive. Skin: Warm and dry with good turgor. No rashes. Postsurgical dressings are in place. Upon removal, there is some dried blood on the most inner dressings. There is no active bleeding at this time. Sutures are intact. Wound edges are well approximated. Expected postoperative edema. No ecchymosis. Musculoskeletal: Patient has intact motor function of her left hip, knee, ankle, and toes. She is able to set her quad. She has some minor difficulty doing a straight leg raise and requires minimal assistance. She has full terminal extension. There is some limitation to flexion secondary to pain. Neurologic: Gross sensation is intact across the left leg by soft touch. Peripheral pulses are 2+. Results & Data ([facility]) Vital Signs (Past 12 Hours) Vital Signs Temp Pulse Pulse Resp BP Pulse Ox 11/11/21 07:31 36.5 C 58 L 18 102/63 96 11/11/21 02:01 36.7 C 66 16 119/55 L 92 11/10/21 22:51 36.8 C 60 16 116/65 95 Laboratory Results WBCs this morning are 9.52. Hemoglobin 10.3 and hematocrit 31.5. INR is 1.2. Sodium 139, potassium 4.0. BUN 17 with creatinine 0.91. Glucose is 131.
[2021-11-11] MEDS: ORTHO WARFARIN NOMOGRAM SCH (13:36)
[2021-11-11] MEDS ORDERED: WARFARIN SOD 5 MG TAB PO ONE (16:00)
== END 2021-11-11 18:39 ==
LOC: 3N 06:30 → ASU 06:30

== ENCOUNTER 2022-09-29 14:00 | Observation (INO) ==
[2022-09-29 14:59] LABS: Basophils # (auto) 0.02 K/uL (0-0.2); Basophils % (auto) 0.3 %; Hematocrit (blood only) 39.5 % (37.0-47.0); Hemoglobin 12.8 g/dl (12.0-16.0); Immature Granulocytes # (auto) 0.09 K/uL (0.01-0.20); Immature Granulocytes % (auto) 1.3 %; Lymphocytes # (auto) 0.82 K/uL (1.2-3.4); Lymphocytes % (auto) 11.9 %; Mean Corpuscular Hemoglobin 30.3 pg (25.0-34.0); Mean Corpuscular Hgb Conc 32.4 g/dL (32.0-36.0); Mean Corpuscular Volume 93.6 fL (80.0-100.0); Mean Platelet Volume 8.5 fL (9.4-12.4); Monocytes # (auto) 0.31 K/uL (0.11-0.59); Monocytes % (auto) 4.5 %; Neutrophils # (auto) 5.63 K/uL (1.40-6.50); Platelet Count 280 K/uL (130-400); RDW Coefficient of Variation 13.1 % (11.5-14.5); RDW Standard Deviation 44.6 fL (36.4-46.3); Red Blood Count 4.22 M/uL (4.20-5.40); White Blood Count 6.87 K/ul (4.8-10.8)
--- NOTE | 2022-09-29 15:01 | XRay Report ---
XR chest 1V portable HISTORY: Weakness, confusion COMPARISON: Chest 10/18/2021. FINDINGS: Small patchy density at the base of the left lower lobe which has slightly progressed. Othe rwise, the lungs are clear. The heart is normal in size. No pleural effusions. No pneumothorax. S-sha ped scoliosis of the thoracolumbar spine. IMPRESSION: There is a small patchy density at the base of the left lower lobe which may represent atelectasis or a developing pneumonia. ACT 112: Negative or not required by law. Electronically signed by: Alan Petersen M.D. 09/29/2022 3:00 PM
[2022-09-29 15:13] LABS: Albumin Level 4.8 gm/dl (3.4-5.0); BUN Creatinine Ratio 17.9 (10-20); Bilirubin,Total 0.4 mg/dl (0.2-1.0); Calcium 9.3 mg/dl (8.6-10.3); Creatinine Clr Calc Pharmacy 41.6 ml/min; Est GFR (African American) 74.5 ml/min; Est GFR (Non-African American) 64.3 ml/min; Globulin 2.4 gm/dl (2.5-4.0); Potassium 3.9 mmol/L (3.5-5.1); Total Protein 7.2 gm/dl (6.0-8.3)
--- NOTE | 2022-09-29 15:14 | CT Scan Report ---
CT SCAN OF THE BRAIN WITHOUT IV CONTRAST CLINICAL HISTORY: Generalized weakness. Change in mental status. COMPARISON STUDY: CT of the brain dated 03/02/2018. MRI of the brain dated 06/01/2020. TECHNIQUE: Unenhanced axial CT scan of the brain is performed from the vertex to the skull base. A do se lowering technique was utilized adhering to the principles of ALARA. CT DOSE: 614.27 mGy.cm FINDINGS: Brain parenchyma: There is age-related involutional change noting advanced confluent subcortical and periventricular microangiopathic disease. There is no hemorrhage, mass effect, or evidence of acute t erritorial ischemia by CT criteria. There is a chronic lacunar infarct in the left thalamus. Thomas-whi te matter differentiation is preserved. No extra-axial fluid collection is seen. Ventricles, sulci, cisterns: Prominent secondary to involutional change. Intracranial vasculature: There is atherosclerotic calcification of the cavernous carotid and vertebr al artery. Calvarium: Unremarkable. Sinuses and mastoids: The visualized paranasal sinuses are clear. The mastoid air cells are well pneu matized. Orbits: The bony orbits are grossly intact. There are bilateral ocular lens implants. IMPRESSION: There is no hemorrhage, mass effect, or evidence of acute territorial ischemia by CT crit sanjuana. ACT 112: Negative or not required by law. Electronically signed by: Miguelito Goldman M.D. 09/29/2022 3:13 PM
[2022-09-29 15:19] LABS: Troponin I High Sensitivity 17.6 pg/ml (0-14)
[2022-09-29] MEDS ORDERED: AZITHROMYCIN 250 MG TAB PO ONE (17:58)
[2022-09-29] MEDS ORDERED: cefTRIAXone SODIUM 1,000 MG in DEXTROSE 5% AD-VAN 50 ML IV STA (17:58)
--- NOTE | 2022-09-29 18:19 | Emergency Department Note ---
History of Present Illness General Chief complaint: Weakness Stated complaint: WEAKNESS,LIGHTHEADED,DOC REF Time Seen by Provider: 09/29/22 14:38 History of Present Illness Provider complaint: Near syncope Onset (ago): day(s) 1 82-year-old female presents emergency department for near syncope. 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 Patient reports she felt like she was going to pass out but never lost consciousness or fell. She reports no headache chest pain or difficulty breathing. No melena or hematochezia. No hematuria or dysuria. No fevers or cough. Home Medications Medication Instructions Recorded Confirmed Type acetaminophen 500 mg tablet 500 mg PO DIRECTED PRN Pain 03/25/19 09/29/22 History (Tylenol Extra Strength) vit C 250 mg-vit E 90 mg-zinc 40 1 tab PO BID 10/14/21 09/29/22 History mg-copper 1 oc-lfdeel-lzvexb capsule (PreserVision AREDS-2) lifitegrast 5 % eye drops in a 1 drp ophthalmic (eye) BID 05/18/22 09/29/22 History dropperette (Xiidra) clopidogrel 75 mg tablet 75 mg PO QAM 90 days #90 tabs 08/31/22 09/29/22 Rx atorvastatin 80 mg tablet 80 mg PO DAILY 09/29/22 09/29/22 History famotidine 40 mg tablet 40 mg PO DAILY 09/29/22 09/29/22 History nystatin 100,000 unit/gram topical 1 applic topical HS 09/29/22 09/29/22 History cream triamcinolone acetonide 0.1 % 1 applic topical BID PRN Skin 09/29/22 09/29/22 History topical cream Irritation Allergies Allergy/AdvReac Type Severity Reaction Status Date / Time neomycin Allergy Intermediate Rash Verified 09/29/22 16:28 nabumetone [From Relafen] Allergy Mild Redness of Verified 09/29/22 16:28 Skin loperamide [From Imodium A-D] AdvReac Intermediate Rapid Verified 09/29/22 16:28 heart rate lorazepam [From Ativan] AdvReac Intermediate Anxiety Verified 09/29/22 16:28 zolpidem [From Ambien] AdvReac Intermediate Anxiety Verified 09/29/22 16:28 Past Med/Surg History Medical History Carotid stenosis S/P right carotid endarterectomy (2008) No significant ICA stenosis per 05/2021 carotid doppler Chronic cerebral ischemia Degenerative disc disease Dyslipidemia GERD (gastroesophageal reflux disease) History of breast cancer No arm restriction per pt 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 Allen Ocular migraine Osteoarthritis Osteoporosis Schatzki's ring Sensorineural hearing loss (SNHL) of both ears SNHL (sensorineural hearing loss) Subclavian artery stenosis Tremor Mild Surgical History H/O endarterectomy Right H/O foot surgery BUNION, CURLED TOES, RIGHT SIDE History of cataract surgery History of colonoscopy History of dilation and curettage History of esophageal dilatation History of knee replacement procedure of left knee History of oophorectomy, unilateral Right History of removal of ovarian cyst Nausea and vomiting after administration of anesthetic agent with colonoscopy Status post breast lumpectomy Right Status post total knee replacement using cement Right Family History Mother , Mother age 85 of congestive heart failure CHF (congestive heart failure) Father , Father age 81 of pulmonary fibrosis Epilepsy Colon cancer Pulmonary fibrosis Family/Other Breast cancer Other No family history of adverse response to anesthesia Social History Smoking Status: Never smoker Second Hand Exposure: No; Do You Dip or Chew Tobacco: No; Hx Alcohol Use: No Hx Substance Use: No Preferred Language: Armenian Communication Ability: Effective Visual Impairment: No Limitations Hearing Ability: Normal Health And Safety Advisor Required: No Beliefs That Will Affect Care: None marital status: Single Current Living Situation: Alone current occupational status: employed 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, 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, 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 Feels Safe at Home: Yes Assistive Devices: Cane, Glasses and Walker Physical Exam Vital Signs Vital Signs - 24 hr 09/29/22 14:03 09/29/22 14:34 09/29/22 14:33 Temperature 36.5 C Temperature Source Temporal Artery Scan Pulse Rate 72 71 73 Pulse Rate from SpO2 Sensor 72 Pulse Rhythm Regular Pulse Strength Normal Respiratory Rate 20 17 Respiratory Effort / Characteristics Non-Labored Spontaneous Respiratory Depth Normal Respiratory Pattern Regular Blood Pressure 175/66 H Blood Pressure Mean 102 Blood Pressure Position Sitting Pulse Oximetry 95 97 Oxygen Delivery Method Room Air Sepsis Recent Fever Within 48 Hours No Sepsis New/Unexplained Change in Mental Status No Sepsis Action Taken by Nursing No Action Required 09/29/22 15:07 09/29/22 15:07 09/29/22 15:30 Temperature Temperature Source Pulse Rate 73 Pulse Rate from SpO2 Sensor Pulse Rhythm Pulse Strength Respiratory Rate 19 Respiratory Effort / Characteristics Respiratory Depth Respiratory Pattern Blood Pressure 153/68 H 147/67 H Blood Pressure Mean 96 93 Blood Pressure Position Pulse Oximetry Oxygen Delivery Method Sepsis Recent Fever Within 48 Hours Sepsis New/Unexplained Change in Mental Status Sepsis Action Taken by Nursing 09/29/22 15:30 09/29/22 16:00 09/29/22 16:00 Temperature Temperature Source Pulse Rate 78 70 Pulse Rate from SpO2 Sensor 74 73 Pulse Rhythm Pulse Strength Respiratory Rate 24 15 Respiratory Effort / Characteristics Respiratory Depth Respiratory Pattern Blood Pressure 158/68 H Blood Pressure Mean 98 Blood Pressure Position Pulse Oximetry 98 92 Oxygen Delivery Method Sepsis Recent Fever Within 48 Hours Sepsis New/Unexplained Change in Mental Status Sepsis Action Taken by Nursing 09/29/22 16:30 09/29/22 16:31 09/29/22 16:31 Temperature Temperature Source Pulse Rate 72 76 Pulse Rate from SpO2 Sensor 69 76 Pulse Rhythm Pulse Strength Respiratory Rate 14 20 Respiratory Effort / Characteristics Respiratory Depth Respiratory Pattern Blood Pressure 105/88 Blood Pressure Mean 93 Blood Pressure Position Pulse Oximetry 90 97 Oxygen Delivery Method Sepsis Recent Fever Within 48 Hours Sepsis New/Unexplained Change in Mental Status Sepsis Action Taken by Nursing Physical Exam GENERAL: oriented to person, place, and time. appears well-developed and well- nourished. HENT: Exam performed. - Head: Normocephalic and atraumatic. EYES: Conjunctivae and EOM are normal. Right eye exhibits no discharge. Left eye exhibits no discharge. No scleral icterus. NECK: Normal range of motion. Neck supple. No JVD present. CV: Normal rate, regular rhythm, normal heart sounds and intact distal pulses. There is no peripheral edema. Palpable radial pulses bue. PULM/CHEST: Effort normal and breath sounds normal. No respiratory distress. No stridor. no wheezes. no rales. ABD: The abdomen is soft. There is no tenderness. NEURO: Motor and sensation grossly intact. No cranial nerve deficit. SKIN: Skin is warm and dry. He is not diaphoretic. PSYCH: normal mood and affect. Behavior is normal. Judgment and thought content normal. Course Course 1438: The patient was evaluated in room A9. A complete history and physical exam was performed Administered Medications Ceftriaxone Sodium 1,000 mg/ (Dextrose) 50 mls @ 100 mls/hr IV NOW STA Stop: 09/29/22 18:27 Last Admin: 09/29/22 18:10 Dose: 100 mls/hr Documented By: HS Discontinued Medications Azithromycin (Azithromycin 250 Mg Tab) 500 mg PO NOW ONE Stop: 09/29/22 17:59 Last Admin: 09/29/22 18:06 Dose: 500 mg Documented By: HS Medical Decision Making Laboratory Data Attestation: I reviewed the patient's lab results. 09/29/22 14:37 09/29/22 14:37 Lab Results 09/29/22 09/29/22 09/29/22 Range/Units 14:37 14:37 16:45 WBC 6.87 (4.8-10.8) K/ul RBC 4.22 (4.20-5.40) M/uL Hgb 12.8 (12.0-16.0) g/dl Hct 39.5 (37.0-47.0) % MCV 93.6 (80.0-100.0) fL MCH 30.3 (25.0-34.0) pg MCHC 32.4 (32.0-36.0) g/dL RDW Std Deviation 44.6 (36.4-46.3) fL RDW Coeff of Shabnam 13.1 (11.5-14.5) % Plt Count 280 (130-400) K/uL MPV 8.5 L (9.4-12.4) fL Immature Gran % (Auto) 1.3 % Neut % (Auto) 82.0 % Lymph % (Auto) 11.9 % Camas % (Auto) 4.5 % Eos % (Auto) 0.0 % Baso % (Auto) 0.3 % Neut # (Auto) 5.63 (1.40-6.50) K/uL Lymph # (Auto) 0.82 L (1.2-3.4) K/uL Camas # (Auto) 0.31 (0.11-0.59) K/uL Eos # (Auto) 0.00 (0-0.50) K/uL Baso # (Auto) 0.02 (0-0.2) K/uL Immature Gran # (Auto) 0.09 (0.01-0.20) K/uL Sodium 140 (136-145) mmol/L Potassium 3.9 (3.5-5.1) mmol/L Chloride 105 (98-107) mmol/L Carbon Dioxide 27 (21-32) mmol/L Anion Gap 8 (3-11) BUN 15 (6-23) mg/dl Creatinine 0.84 (0.6-1.2) mg/dl Est Cr Clr Drug Dosing 41.6 ml/min Est GFR ( Amer) 74.5 ml/min Est GFR (Non-Af Amer) 64.3 ml/min BUN/Creatinine Ratio 17.9 (10-20) Glucose 119 H (70-99(Fasting)) mg/dl Calcium 9.3 (8.6-10.3) mg/dl Total Bilirubin 0.4 (0.2-1.0) mg/dl AST 16 (13-39) U/L ALT 13 (7-52) U/L Alkaline Phosphatase 75 (34-104) U/L Troponin I High Sens 17.6 H 19.6 H (0-14) pg/ml Total Protein 7.2 (6.0-8.3) gm/dl Albumin 4.8 (3.4-5.0) gm/dl Globulin 2.4 L (2.5-4.0) gm/dl Albumin/Globulin Ratio 2.0 (0.9-2) Imaging Data Attestation: I personally reviewed and interpreted this imaging study as follows: My Impression: Chest x-ray: Left lower lobe infiltrate Radiologist's Impression: Chest X-Ray 09/29/22 14:10 XR chest 1V portable HISTORY: Weakness, confusion COMPARISON: Chest 10/18/2021. FINDINGS: Small patchy density at the base of the left lower lobe which has slightly progressed. Otherwise, the lungs are clear. The heart is normal in size. No pleural effusions. No pneumothorax. S-shaped scoliosis of the thoracolumbar spine. IMPRESSION: There is a small patchy density at the base of the left lower lobe which may represent atelectasis or a developing pneumonia. ACT 112: Negative or not required by law. Electronically signed by: Alan Petersen M.D. 09/29/2022 3:[address] 09/29/22 14:10 CT SCAN OF THE BRAIN WITHOUT IV CONTRAST CLINICAL HISTORY: Generalized weakness. Change in mental status. COMPARISON STUDY: CT of the brain dated 03/02/2018. MRI of the brain dated 06/01/2020. TECHNIQUE: Unenhanced axial CT scan of the brain is performed from the vertex to the skull base. A dose lowering technique was utilized adhering to the principles of ALARA. CT DOSE: 614.27 mGy.cm FINDINGS: Brain parenchyma: There is age-related involutional change noting advanced confluent subcortical and periventricular microangiopathic disease. There is no hemorrhage, mass effect, or evidence of acute territorial ischemia by CT criteria. There is a chronic lacunar infarct in the left thalamus. Thomas-white matter differentiation is preserved. No extra-axial fluid collection is seen. Ventricles, sulci, cisterns: Prominent secondary to involutional change. Intracranial vasculature: There is atherosclerotic calcification of the cavernous carotid and vertebral artery. Calvarium: Unremarkable. Sinuses and mastoids: The visualized paranasal sinuses are clear. The mastoid air cells are well pneumatized. Orbits: The bony orbits are grossly intact. There are bilateral ocular lens implants. IMPRESSION: There is no hemorrhage, mass effect, or evidence of acute territorial ischemia by CT criteria. ACT 112: Negative or not required by law. Electronically signed by: Miguelito Goldman M.D. 09/29/2022 3:13 PM ECG Data Attestation: I personally reviewed and interpreted this ECG as follows: Indication: + weakness Rate (beats per minute): 70 Rhythm: + normal sinus ECG Intervals/blocks: + Normal FL and + Normal QT-c ECG ST segments: + Normal ST segments Additional Comments: QRS 70 MDM Narrative Cardiac monitoring: An order was placed for continuous cardiac monitoring. The monitor shows a rate of 70 with sinus rhythm interpreted by me Vital signs stable. Patient reports no chest pain or difficulty breathing. Chest x-ray shows left lower lobe infiltrate. CT of the head within normal limits. Labs are within normal limits with exception of an elevated high- sensitivity troponin. First high-sensitivity troponin was mildly elevated at 17.6. 2-hour delta troponin was trending upward at 19.6. Patient not reporting any chest pain or difficulty breathing at this time. Patient states she has never had any cardiology problems. 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 Patient will be admitted to the [facility] hospitalist team Dr. Montoya notified. Impression & Plan Pneumonia, Elevated troponin Discharge Plan Visit Data Chief Complaint: Weakness Stated Complaint: WEAKNESS,LIGHTHEADED,DOC REF ED Provider: Navi Olsen Discharge Problem: Pneumonia, Elevated troponin Patient Disposition: Being Evaluated by Hospitalist Forms Stand Alone Forms: [facility] Prescriptions Prescriptions: No Action clopidogrel 75 mg tablet 75 mg PO QAM 90 Days Qty: 90 1RF Xiidra 5 % dropperette 1 drp ophthalmic (eye) BID Rx Instructions: administer approximately 12 hours apart acetaminophen [Tylenol Extra Strength] 500 mg tablet 500 mg PO DIRECTED PRN (Reason: Pain) Rx Instructions: PER PT "USUALLY ONCE IF NOT TWICE A DAY". PreserVision AREDS-2 250-90-40-1 mg Capsule 1 tab PO BID nystatin 100,000 unit/gram cream 1 applic TOPICAL HS Rx Instructions: APPLY UNDER BREAST atorvastatin 80 mg tablet 80 mg PO DAILY Rx Instructions: TAKE 1 TABLET BY MOUTH EVERY MORNING famotidine 40 mg tablet 40 mg PO DAILY Rx Instructions: TAKE 1 TABLET BY MOUTH EVERY MORNING triamcinolone acetonide 0.1 % cream 1 applic TOPICAL BID PRN (Reason: Skin Irritation) Referrals Referrals: Jay Duval MD [Primary Care Provider] -
--- NOTE | 2022-09-29 18:41 | History & Physical Report ---
Date of Service September 29, 2022 Assessment & Plan (1) Pneumonia: Plan: Weakness due to left lower lobe pneumonia - Left lower lobe infiltrate appreciated on CXR No leukocytosis Pro-Marcos pending -We will treat as community-acquired pneumonia, continue Rocephin/azithromycin for 5-day SPO2 goal greater than 90%, adequate sats on room air at time of admission Troponin Elevation -EKG: Sinus, no acute territorial ST segment changes/T wave inversions just of ischemia. Patient with periodic PVCs while on monitor No chest pain Suspect demand in the setting of pneumonia, troponin trended Echo pending Outpatient stress test versus inpatient consult based on echo and troponin results Continue Plavix (no history of stents, taken after carotid stenosis and TIA), atorvastatin Patient asymptomatic with PVCs 1 on monitor GERD Continue Pepcid, no GERD symptoms on admission R Cartoid Stenosis s/p endarterectomy Stable Continue Plavix No repeat stenosis on follow-up Doppler as outpatient No neurologic symptoms/TIA symptoms on admission No acute change in management Bilateral TKA -Noted, no acute change in management HLD - Atorvastatin TIA - Follows with Dr. Allen - On aspirin No focal neurologic deficits, no facial droop on assessment DVT prophylaxis: Lovenox Disposition: Medical telemetry for cardiac trending CODE STATUS: Full code, discussed at bedside Diet: Heart healthy (2) Elevated troponin: (3) S/P total knee replacement using cement: (4) GERD (gastroesophageal reflux disease): (5) H/O carotid endarterectomy: (6) Dyslipidemia: History of Present Illness Primary Care Provider: Jay Duval MD Iram is seen with her friend/college Radha at the bedside. 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 Uses a rolling walker at baseline due to OA and knee pain, but is not usually weak. Denies shortness of breath, chest p ain, chest pressure, syncope, and presyncope. She reports post class today she was much more weak than usual and this lasted for about 30 minutes and then improved with rest. Has had 2 additional episodes of more weakness with exertion, without shortness of breath or chest pain, which improves with rest. She denies history of cardiac disease and diabetes. Does have history of hyperlipidemia on atorvastatin, and history of TIA and right carotid stenosis status post endarterectomy without subsequent problems or TIA. No residual deficits from TIA, has followed with Dr. Allen in the past. Initial presenting symptom was facial droop without other weakness. She follows with Dr. Duval and would like him updated on her care while in the hospital. At time of bedside assessment she feels all of her symptoms has resolved, but notes that she has not had symptoms while at rest. Medical History: Reviewed Medications: Reviewed. Took medications this morning Surgical History: Reviewed Family history: Reviewed Allergies: Reviewed Social History: No tobacco use, past rare social alcohol use none in the last year Code Status: Full code, confirmed with patient at bedside. Allergies Allergy/AdvReac Type Severity Reaction Status Date / Time neomycin Allergy Intermediate Rash Verified 09/29/22 16:28 nabumetone [From Relafen] Allergy Mild Redness of Verified 09/29/22 16:28 Skin loperamide [From Imodium A-D] AdvReac Intermediate Rapid Verified 09/29/22 16:28 heart rate lorazepam [From Ativan] AdvReac Intermediate Anxiety Verified 09/29/22 16:28 zolpidem [From Ambien] AdvReac Intermediate Anxiety Verified 09/29/22 16:28 Home Medications Medication Instructions Recorded Confirmed Type acetaminophen 500 mg tablet 500 mg PO DIRECTED PRN Pain 03/25/19 09/29/22 History (Tylenol Extra Strength) vit C 250 mg-vit E 90 mg-zinc 40 1 tab PO BID 10/14/21 09/29/22 History mg-copper 1 [id number] capsule (PreserVision AREDS-2) lifitegrast 5 % eye drops in a 1 drp ophthalmic (eye) BID 05/18/22 09/29/22 History dropperette (Xiidra) clopidogrel 75 mg tablet 75 mg PO QAM 90 days #90 tabs 08/31/22 09/29/22 Rx atorvastatin 80 mg tablet 80 mg PO DAILY 09/29/22 09/29/22 History famotidine 40 mg tablet 40 mg PO DAILY 09/29/22 09/29/22 History nystatin 100,000 unit/gram topical 1 applic topical HS 09/29/22 09/29/22 History cream triamcinolone acetonide 0.1 % 1 applic topical BID PRN Skin 09/29/22 09/29/22 History topical cream Irritation Past Med/Surg History Medical History Carotid stenosis S/P right carotid endarterectomy (2008) No significant ICA stenosis per 05/2021 carotid doppler Chronic cerebral ischemia Degenerative disc disease Dyslipidemia GERD (gastroesophageal reflux disease) History of breast cancer No arm restriction per pt 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 Allen Ocular migraine Osteoarthritis Osteoporosis Schatzki's ring Sensorineural hearing loss (SNHL) of both ears SNHL (sensorineural hearing loss) Subclavian artery stenosis Tremor Mild Surgical History H/O endarterectomy Right H/O foot surgery BUNION, CURLED TOES, RIGHT SIDE History of cataract surgery History of colonoscopy History of dilation and curettage History of esophageal dilatation History of knee replacement procedure of left knee History of oophorectomy, unilateral Right History of removal of ovarian cyst Nausea and vomiting after administration of anesthetic agent with colonoscopy Status post breast lumpectomy Right Status post total knee replacement using cement Right Family History Mother , Mother age 85 of congestive heart failure CHF (congestive heart failure) Father , Father age 81 of pulmonary fibrosis Epilepsy Colon cancer Pulmonary fibrosis Family/Other Breast cancer Other No family history of adverse response to anesthesia Social History Smoking Status: Never smoker Second Hand Exposure: No; Do You Dip or Chew Tobacco: No; Hx Alcohol Use: No Hx Substance Use: No Preferred Language: Nepali Communication Ability: Effective Visual Impairment: No Limitations Hearing Ability: Normal Simulation Engineer Required: No Beliefs That Will Affect Care: None marital status: Single Current Living Situation: Alone current occupational status: employed 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 NAD. Cooperative. HEENT: Atraumatic, normocephalic./Hearing grossly intact. Well-healed postsurgical incision overlying right carotid. No bruit appreciated Pulm: Trace left lower lobe crackles, otherwise no wheezing/Rales/rhonchi/crackles. Symmetrical chest rise. No increased work of breathing. No respiratory distress. Cardiac: RRR, -mrg. Radial pulses intact and symmetrical. Occasional PVCs on monitor Abdominal: Nontender, nondistended, soft. BS present. Extremities: Warm, dry. Moves all extremities equally. Ankle dorsiflexion/plantarflexion, executive meeting manager strength intact. Sensation intact in hands and feet. Results & Data Results & Data Vital Signs (Past 12 Hours) Vital Signs Temp Pulse Resp BP Pulse Ox O2 Del Method 09/29/22 16:31 76 20 97 09/29/22 16:31 105/88 09/29/22 16:30 72 14 90 09/29/22 16:00 70 15 92 09/29/22 16:00 158/68 H 09/29/22 15:30 78 24 98 09/29/22 15:30 147/67 H 09/29/22 15:07 73 19 09/29/22 15:07 153/68 H 09/29/22 14:33 73 17 97 09/29/22 14:34 71 09/29/22 14:03 36.5 C 72 20 175/66 H 95 Room Air PG Care Time/CCT Total # of Minutes Spent Total Time Spent with Patient: Total time spent is greater than 50% in coordination of care (as documented) at patient's floor/unit and/or counseling patient: Coding Level of Care Code 14707 INT INP/OBS CARE 2/55MIN Diagnoses Pneumonia J18.9 Laterality: left Lung location: lower lobe of lung Pneumonia type: due to unspecified organism Elevated troponin R77.8 S/P total knee replacement using cement Z96.659 GERD (gastroesophageal reflux disease) K21.9 H/O carotid endarterectomy Z98.890 Dyslipidemia E78.5 (1) Pneumonia Laterality: left Lung location: lower lobe of lung Pneumonia type: due to unspecified organism Qualified Code(s): J18.9 - Pneumonia, unspecified organism
[2022-09-29] MEDS ORDERED: ACETAMINOPHEN 500 MG TAB PO PRN (20:33)
[2022-09-30] MEDS ORDERED: COUGH DROP (SUGAR FREE) LOZ 24 LOZ/1 BOX BUCCAL PRN (04:24)
--- NOTE | 2022-09-30 05:26 | Electrocardiogram Report ---
Test Reason : Blood Pressure : / mmHG Vent. Rate : 070 BPM Atrial Rate : 070 BPM P-R Int : 152 ms QRS Dur : 070 ms QT Int : 420 ms P-R-T Axes : 062 018 031 degrees QTc Int : 453 ms Poor data quality, interpretation may be adversely affected Normal sinus rhythm Possible Left atrial enlargement Borderline ECG When compared with ECG of 18-OCT-2021 10:41, No significant change was found Confirmed by Adam Lizarraga ([id number]) on 09/30/2022 5:26:02 AM Referred By: Confirmed By:Adam Lizarraga
[2022-09-30 07:10] LABS: Basophils # (auto) 0.03 K/uL (0-0.2); Basophils % (auto) 0.3 %; Eosinophils % (auto) 1.1 %; Hematocrit (blood only) 35.8 % (37.0-47.0); Hemoglobin 11.6 g/dl (12.0-16.0); Immature Granulocytes # (auto) 0.02 K/uL (0.01-0.20); Immature Granulocytes % (auto) 0.2 %; Lymphocytes # (auto) 1.69 K/uL (1.2-3.4); Lymphocytes % (auto) 18.9 %; Mean Corpuscular Hemoglobin 30.4 pg (25.0-34.0); Mean Corpuscular Hgb Conc 32.4 g/dL (32.0-36.0); Mean Platelet Volume 8.8 fL (9.4-12.4); Monocytes # (auto) 0.74 K/uL (0.11-0.59); Monocytes % (auto) 8.3 %; Neutrophils # (auto) 6.34 K/uL (1.40-6.50); Neutrophils % (auto) 71.2 %; Platelet Count 238 K/uL (130-400); RDW Coefficient of Variation 13.3 % (11.5-14.5); RDW Standard Deviation 45.9 fL (36.4-46.3); Red Blood Count 3.81 M/uL (4.20-5.40); White Blood Count 8.92 K/ul (4.8-10.8)
[2022-09-30 07:25] LABS: BUN Creatinine Ratio 20.7 (10-20); Calcium 8.7 mg/dl (8.6-10.3); Creatinine Clr Calc Pharmacy 37.7 ml/min; Est GFR (African American) 66.7 ml/min; Est GFR (Non-African American) 57.6 ml/min
[2022-09-30] MEDS ORDERED: ATORVASTATIN 40 MG TAB PO SCH (09:00)
[2022-09-30] MEDS ORDERED: FAMOTIDINE 40 MG TABLET PO SCH (09:00)
[2022-09-30] MEDS ORDERED: CLOPIDOGREL BISULFATE 75 MG TAB PO SCH (09:00)
[2022-09-30] MEDS ORDERED: AZITHROMYCIN 250 MG TAB PO SCH (09:00)
--- NOTE | 2022-09-30 09:42 | XCELERA ---
[id number]
--- NOTE | 2022-09-30 10:52 | Discharge Summary ---
Date of Service September 30, 2022 Admission HPI Per Admitting Provider Iram is seen with her friend/college Radha at the bedside. 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 Uses a rolling walker at baseline due to OA and knee pain, but is not usually weak. Denies shortness of breath, chest pain, chest pressure, syncope, and presyncope. She reports post class today she was much more weak than usual and this lasted for about 30 minutes and then improved with rest. Has had 2 additional episodes of more weakness with exertion, without shortness of breath or chest pain, which improves with rest. She denies history of cardiac disease and diabetes. Does have history of hyperlipidemia on atorvastatin, and history of TIA and right carotid stenosis status post endarterectomy without subsequent problems or TIA. No residual deficits from TIA, has followed with Dr. Allen in the past. Initial presenting symptom was facial droop without other weakness. She follows with Dr. Duval and would like him updated on her care while in the hospital. At time of bedside assessment she feels all of her symptoms has resolved, but notes that she has not had symptoms while at rest. Medical History: Reviewed Medications: Reviewed. Took medications this morning Surgical History: Reviewed Family history: Reviewed Allergies: Reviewed Social History: No tobacco use, past rare social alcohol use none in the last year Code Status: Full code, confirmed with patient at bedside. Admission Exam Per Admitting Provider General: A&Ox3. NAD. Cooperative. HEENT: Atraumatic, normocephalic./Hearing grossly intact. Well-healed postsurgical incision overlying right carotid. No bruit appreciated Pulm: Trace left lower lobe crackles, otherwise no wheezing/Rales/rhonchi/crackles. Symmetrical chest rise. No increased work of breathing. No respiratory distress. Cardiac: RRR, -mrg. Radial pulses intact and symmetrical. Occasional PVCs on monitor Abdominal: Nontender, nondistended, soft. BS present. Extremities: Warm, dry. Moves all extremities equally. Ankle dorsiflexion/plantarflexion, grip wrapper strength intact. Sensation intact in hands and feet. Principal Diagnosis pneumonia Discharge Exam Constitutional WD/WN, vitals as above Neck trachea midline, no thyromegaly Respiratory normal respiratory effort, lungs clear to auscultation Cardiovascular RRR, no murmur, no edema Extremities: no calf tenderness and no edema Gastrointestinal (Abdomen) normal bowel sounds, soft, nontender, no hepatosplenomegaly Skin no rashes, warm and dry Neurologic PERRL, EOMI, accommodation nl, no face palsy, no dysarthria Psychiatric A+Ox3, euthymic affect Discharge Data Allergies Allergy/AdvReac Type Severity Reaction Status Date / Time neomycin Allergy Intermediate Rash Verified 09/29/22 16:28 nabumetone [From Relafen] Allergy Mild Redness of Verified 09/29/22 16:28 Skin loperamide [From Imodium A-D] AdvReac Intermediate Rapid Verified 09/29/22 16:28 heart rate lorazepam [From Ativan] AdvReac Intermediate Anxiety Verified 09/29/22 16:28 zolpidem [From Ambien] AdvReac Intermediate Anxiety Verified 09/29/22 16:28 Consultations 09/29/22 17:58 ED Decision to Admit Stat Ordered Studies 09/29/22 14:10 CT head/brain wo con Stat Hospital Course (1) Pneumonia: Weakness due to left lower lobe pneumonia - Left lower lobe infiltrate appreciated on CXR No leukocytosis VSS and remains afebrile - Treated as community-acquired pneumonia, continue Rocephin/azithromycin for 5- day (had 2 doses of the zithromax and one of the Rocephin)-convert to po cefdinir on discharge 91% on RA (2) Elevated troponin: Troponin Elevation -EKG: Sinus, no acute territorial ST segment changes/T wave inversions just of ischemia. Patient with periodic PVCs while on monitor No chest pain Suspect demand in the setting of pneumonia, troponin trended - Repeat troponin was 12.2 Echo done this AM - Per Dr Sumner looked great. EF 60-65% no RWMA Continue Plavix (no history of stents, taken after carotid stenosis and TIA), atorvastatin Patient asymptomatic - Awaiting repeat troponin - 12.2 (3) S/P total knee replacement using cement: Bilateral total knee replacement -Noted, no acute change in management - Patient already getting physical therapy thru [facility] - Patient did allow PT here to evaluate her and she was able to do a flight of stairs, she was slightly unsteady and recommended that she use her assisted device (rolling walker) all the time. Patient is aware. (4) GERD (gastroesophageal reflux disease): Chronic and stable Continue Pepcid, no GERD symptoms on admission (5) H/O carotid endarterectomy: Chronic and Stable Continue Plavix No repeat stenosis on follow-up Doppler as outpatient No neurologic symptoms/TIA symptoms on admission or currently No acute change in management (6) Dyslipidemia: Chronic and stable - continue atorvastatin (7) Hx of TIA (transient ischemic attack) and stroke: - Follows with Dr. Allen - On aspirin No focal neurologic deficits, no facial droop on assessment Total Time Total Time Spent Total Time Spent (In Minutes): 35 Discharge Plan Discharge Items Patient Disposition: Home - Self-Care Reason For Visit: LLL PNA, TROP ELEVATION SUSPECT DEMAND Discharge Diagnosis: Community acquired pneumonia Condition on Discharge: Good Activity: Resume your previous activity Weightbearing: Full weightbearing Non-emergency contact: Primary Care Provider Call non-emergency contact if: you have any medication questions, your symptoms worsen and your temperature is above 101.5 Follow-up/Referrals: Jay Duval MD [Primary Care Provider] - 10/05/22 2:45 pm Diet: Heart Healthy Addtl Attending Provider Instructions: You were admitted with community acquired pneumonia. You came to the ER complaining of weakness and chest x ray revealed possible left lower lobe pneumonia. You were treated with 2 IV antibiotics. You will be discharged with Zithromax 250mg one daily for 3 days (start this medication tomorrow morning) Also will be discharged on Cefdinir 300mg one pill 2 x per day. Start this antibiotic this afternoon and then one before bed. Complete all antibiotics. You will need a repeat CXR in 4 to 6 weeks to make sure resolution of the pneumonia. You should follow up with your family doctor in 1-2 weeks and you will also need a repeat Chest X ray in 4 to 6 weeks to make sure resolution of the pneumonia. Physical therapy evaluated you and recommended that you use your assisted walking device all the time. Pending Studies at Discharge: No Stand-Alone Forms: My [facility] Medications and DC Order Prescriptions: New azithromycin 250 mg Tablet 250 mg PO QAM Qty: 3 0RF cefdinir 300 mg capsule 300 mg PO BID Qty: 18 0RF Continued clopidogrel 75 mg tablet 75 mg PO QAM 90 Days Qty: 90 1RF Xiidra 5 % dropperette 1 drp ophthalmic (eye) BID Rx Instructions: patient reports taking once daily acetaminophen [Tylenol Extra Strength] 500 mg tablet 500 mg PO DAILY Rx Instructions: PER PT "USUALLY ONCE IF NOT TWICE A DAY". PreserVision AREDS-2 250-90-40-1 mg Capsule 1 tab PO BID nystatin 100,000 unit/gram cream 1 applic TOPICAL HS Rx Instructions: APPLY UNDER BREAST atorvastatin 80 mg tablet 80 mg PO DAILY Rx Instructions: TAKE 1 TABLET BY MOUTH EVERY MORNING famotidine 40 mg tablet 40 mg PO HS Rx Instructions: TAKE 1 TABLET BY MOUTH EVERY MORNING triamcinolone acetonide 0.1 % cream 1 applic TOPICAL BID PRN (Reason: Skin Irritation) amoxicillin 500 mg Capsule 2,000 mg PO UD Rx Instructions: Take 1 hour prior to dental appointments Discharge Orders: Discharge Order (Routine); Ordered 09/30/22 Ordered By: Pat Martinez Admission Data Admit Date/Time: 09/29/22 18:57 Attending Provider: Mary Villar Admit Provider: Wade Zuniga Primary Care Provider: Jay Duval Other Providers: Wade Zuniga Other Interventions: Discharge Summary Assessment (RN) Last Done: 09/30/22 11:12 Supervising Physician Co-Signing Physician Notes PA Supervision Note: I personally saw and examined the patient. I verified all malone points and agree with JADEN Martinez with the following exceptions and/or additions: S-Pt feeling well, strong on feet, mild cough O- Vitals reviewed Gen: [AAOx3, NAD] HEENT: [anicteric sclerae, EOMI] CV: [RRR no mgr nl S1S2] Pulm: [mild crackles left base Ext: [no edema, Skin: [no rashes, warm/dry] Neuro: [full strength throughout] A/P-82 yo female here with CAP, demand ischemia, doing well, stable for dc to home on po abx Coding Level of Care Code 33772 INP/OBS DISCH >30 MIN Diagnoses Pneumonia J18.9 Laterality: left Lung location: lower lobe of lung Pneumonia type: due to unspecified organism Elevated troponin R77.8 S/P total knee replacement using cement Z96.659 GERD (gastroesophageal reflux disease) K21.9 H/O carotid endarterectomy Z98.890 Dyslipidemia E78.5 Hx of TIA (transient ischemic attack) and stroke Z86.73
[2022-09-30] MEDS ORDERED: cefTRIAXone SODIUM 1,000 MG in DEXTROSE 5% AD-VAN 50 ML IV SCH (18:00)
== END 2022-09-30 13:20 | disposition home or self-care (01) ==
LOC: ED 14:00 → 2N 14:00 → SUATTDRO 18:57 → 2N 20:09

== ENCOUNTER 2023-03-03 10:34 | Observation (INO) ==
[2023-03-03] MEDS ORDERED: SODIUM CHLORIDE 0.9% 500 ML IV SCH (11:30)
--- NOTE | 2023-03-03 11:30 | Emergency Department Note ---
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 Patient reportedly does have history of dementia that started since September. Patient's colleague who is present states that she just was not acting herself and confused today. He took her to her family doctor's office and they did not feel she was potentially safe at her home by herself in her current state. Patient reportedly did not know where she was at the emergency room when she first got here. Patient had trouble with the date and time. Patient denies any recent infectious symptoms. Patient denies any falls. Patient has no exterior signs of trauma. Patient denies any chest pain or shortness of breath PAST MEDICAL HISTORY: See Below PAST SURGICAL HISTORY: See Below SOCIAL HISTORY: See Below HOME MEDICATIONS: See Below ALLERGIES: See Below VITALS: See Below PHYSICAL EXAMINATION: GENERAL: Well appearing, well nourished, NAD, non-toxic. EYE EXAM: Normal conjunctiva. OROPHARYNX: Moist mucus membranes. Grossly normal dentition. NECK: Supple, LUNGS: Clear to auscultation. Normal chest wall mechanics. HEART: NSR ABDOMEN: Abdomen soft, non-tender, normo-active bowel sounds, no masses, no rebound or guarding BACK: No CVA TTP. SKIN: No rashes and no bruising. UPPER EXTREMITIES: Upper extremities are grossly normal LOWER EXTREMITIES: Grossly normal, no edema. NEURO EXAM: ,, normal speech, moves all 4 extremities, 5 out of 5 muscle strength upper and lower extremities bilaterally, Intact sensation upper and lower extremities bilaterally PSYCH: Cooperative MEDICAL DECISION MAKING: History obtained from: Patient, coworker, niece ER Course: Patient is a 83-year-old female presenting with complaint of episodes of confu vandana. 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 Patient have no neurologic deficits. Patient has equal muscle strength upper and lower extremities bilaterally. Patient CT of the head negative. Patient has no electrolyte abnormalities. Patient's urinalysis negative. Discussion was had with patient's niece who is power of mergers and acquisitions attorney and medical decisions and recommends admission to the hospital for observation. I agree with this assessment for further treatment evaluation Labs (independently interpreted) are significant for: Troponin negative, no el ectrolyte abnormalities Imaging results (independently interpreted): Chest x-ray clear EKG interpretation (independently interpreted): Sinus rhythm no ST segment elevation or depression Medications given: None Consultants: Hospitalist Triage Nursing notes reviewed and agree them. Vital Signs: reviewed and remarkable for: no significant abnormalities Past Med/Surg History Medical History Carotid stenosis Chronic cerebral ischemia Degenerative disc disease Dyslipidemia Elevated troponin GERD (gastroesophageal reflux disease) History of breast cancer Left thalamic infarction Ocular migraine Osteoarthritis Osteoporosis Schatzki's ring Sensorineural hearing loss (SNHL) of both ears SNHL (sensorineural hearing loss) Subclavian artery stenosis Tremor Surgical History H/O endarterectomy H/O foot surgery History of cataract surgery History of colonoscopy History of dilation and curettage History of esophageal dilatation History of knee replacement procedure of left knee History of oophorectomy, unilateral History of removal of ovarian cyst Nausea and vomiting after administration of anesthetic agent Status post breast lumpectomy Status post total knee replacement using cement Family History Mother CHF (congestive heart failure) Father Epilepsy Colon cancer Pulmonary fibrosis Family/Other Breast cancer Other No family history of adverse response to anesthesia Social History Smoking Status: Never smoker Second Hand Exposure: No; Do You Dip or Chew Tobacco: No; Hx Alcohol Use: No Hx Substance Use: No Preferred Language: German Communication Ability: Effective Visual Impairment: No Limitations Hearing Ability: Normal Alteration Hand Required: No Beliefs That Will Affect Care: None marital status: Single Current Living Situation: Alone current occupational status: employed current occupation: [employer], 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, 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 Feels Safe at Home: Yes Assistive Devices: Cane and Walker Allergies Allergies Allergy/AdvReac Type Severity Reaction Status Date / Time neomycin Allergy Intermediate Rash Verified 03/03/23 09:43 nabumetone [From Relafen] Allergy Mild Redness of Verified 03/03/23 09:43 Skin loperamide [From Imodium A-D] AdvReac Intermediate Rapid Verified 03/03/23 09:43 heart rate lorazepam [From Ativan] AdvReac Intermediate Anxiety Verified 03/03/23 09:43 zolpidem [From Ambien] AdvReac Intermediate Anxiety Verified 03/03/23 09:43 Home Meds Home Medications Medication Instructions Recorded Confirmed acetaminophen 500 mg tablet 500 mg PO DAILY 03/25/19 03/03/23 (Tylenol Extra Strength) vit C 250 mg-vit E 90 mg-zinc 40 1 tab PO BID 10/14/21 03/03/23 mg-copper 1 [id number] capsule (PreserVision AREDS-2) lifitegrast 5 % eye drops in a 1 drp ophthalmic (eye) BID 05/18/22 03/03/23 dropperette (Xiidra) atorvastatin 80 mg tablet 80 mg PO DAILY 09/29/22 03/03/23 famotidine 40 mg tablet 40 mg PO HS 09/29/22 03/03/23 nystatin 100,000 unit/gram topical 1 applic topical HS 09/29/22 03/03/23 cream amoxicillin 500 mg capsule 500 mg PO TID 03/03/23 03/03/23 Previous Rx's Medication Instructions Recorded clopidogrel 75 mg tablet 75 mg PO QAM 90 days #90 tabs 08/31/22 triamcinolone acetonide 0.1 % 1 applic topical BID PRN Skin 01/10/23 topical cream Irritation #30 grams Results & Data (ED) Vital Signs Vital Signs - 24 hr 03/03/23 10:52 03/03/23 14:35 03/03/23 18:00 Temperature 36.4 C L Temperature Source Temporal Artery Scan Pulse Rate 81 Pulse Rate [Apical] 70 87 Respiratory Rate 16 20 Respiratory Depth Normal Blood Pressure 178/76 H Blood Pressure [Right Arm] 174/79 H Blood Pressure Mean 110 Blood Pressure Mean [Right Arm] 110 Blood Pressure Position Sitting Pulse Oximetry 96 98 96 Oxygen Delivery Method Room Air Room Air Sepsis Recent Fever Within 48 Hours No Sepsis New/Unexplained Change in Mental Status Yes Sepsis Action Taken by Nursing No Action Required Laboratory Data 03/03/23 11:40 03/03/23 11:40 Lab Results 03/03/23 03/03/23 03/03/23 Range/Units 11:40 11:40 11:48 WBC 7.09 (4.8-10.8) K/ul RBC 4.42 (4.20-5.40) M/uL Hgb 13.5 (12.0-16.0) g/dl Hct 41.4 (37.0-47.0) % MCV 93.7 (80.0-100.0) fL MCH 30.5 (25.0-34.0) pg MCHC 32.6 (32.0-36.0) g/dL RDW Std Deviation 44.2 (36.4-46.3) fL RDW Coeff of Shabnam 13.0 (11.5-14.5) % Plt Count 339 (130-400) K/uL MPV 8.7 L (9.4-12.4) fL Immature Gran % (Auto) 0.4 % Neut % (Auto) 85.4 % Lymph % (Auto) 9.6 % Dent % (Auto) 4.1 % Eos % (Auto) 0.1 % Baso % (Auto) 0.4 % Neut # (Auto) 6.05 (1.40-6.50) K/uL Lymph # (Auto) 0.68 L (1.20-3.40) K/uL Dent # (Auto) 0.29 (0.11-0.59) K/uL Eos # (Auto) 0.01 (0.00-0.50) K/uL Baso # (Auto) 0.03 (0.00-0.20) K/uL Immature Gran # (Auto) 0.03 (0.01-0.20) K/uL Sodium 138 (136-145) mmol/L Potassium 3.9 (3.5-5.1) mmol/L Chloride 102 (98-107) mmol/L Carbon Dioxide 27 (21-32) mmol/L Anion Gap 9 (3-11) BUN 13 (6-23) mg/dl Creatinine 0.74 (0.6-1.2) mg/dl Est Cr Clr Drug Dosing Not Reportable Est GFR ( Amer) 86.2 ml/min Est GFR (Non-Af Amer) 74.4 ml/min BUN/Creatinine Ratio 17.6 (10-20) Glucose 128 H (70-99(Fasting)) mg/dl Calcium 9.0 (8.6-10.3) mg/dl Total Bilirubin 0.5 (0.2-1.0) mg/dl AST 17 (13-39) U/L ALT 11 (7-52) U/L Alkaline Phosphatase 75 (34-104) U/L Troponin I High Sens 14.8 H (0-14) pg/ml Total Protein 7.0 (6.0-8.3) gm/dl Albumin 4.8 (3.4-5.0) gm/dl Globulin 2.2 L (2.5-4.0) gm/dl Albumin/Globulin Ratio 2.2 H (0.9-2) Urine Color Yellow Urine Appearance Clear (Clear) Urine pH 5.5 (4.5-7.5) Ur Specific [place] 1.013 (1.000-1.030) Urine Protein Negative (Negative) Urine Glucose (UA) Negative (Negative) Urine Ketones Negative (Negative) Urine Blood Trace H (Negative) Urine Nitrite Negative (Negative) Urine Bilirubin Negative (Negative) Urine Urobilinogen Negative (Negative) Ur Leukocyte Esterase Trace H (Negative) Urine WBC (Auto) 1-5 (0-5) /hpf Urine RBC (Auto) 0-4 (0-4) /hpf U Hyaline Cast (Auto) 0 (0-5) /lpf U Epithel Cells (Auto) 5-10 H (0-5) /lpf Urine Bacteria (Auto) Negative (Negative) Administered Medications Discontinued Medications Sodium Chloride (Nss) 500 mls @ 999 mls/hr IV .Q31M WALKER Stop: 03/03/23 12:00 Last Infusion: 03/03/23 13:00 Dose: 0 mls/hr Documented By: MARIA ISABEL Admin: 03/03/23 12:01 Dose: 999 mls/hr Documented By: MARIA ISABEL Imaging Data Radiologist's Impression: Chest X-Ray 03/03/23 11:18 XR chest 1V portable HISTORY: 83 years-old Female weakness COMPARISON: 10/28/2022 TECHNIQUE: AP view of the chest FINDINGS: Cardiac mediastinal and hilar silhouettes are within normal limits. No pneumoth orax, pleural effusion or pulmonary edema. Normal subsegmental left basilar atelectasis versus scarring. Degenerative changes in the shoulders and spine with sigmoid thoracolumbar scoliosis again noted. IMPRESSION: No acute process. ACT 112: Negative or not required by law. The above report was generated using voice recognition software. It may contain grammatical, syntax or spelling errors. Electronically signed by: Bertrand Mccormack M.D. 03/03/2023 11:[address] 03/03/23 11:19 CT head/brain wo con CLINICAL HISTORY: 83 years-old Female with confusion. Acutely altered mental status TECHNIQUE: Multiple axial CT images of the head were obtained without contrast. A dose lowering technique was utilized adhering to the principles of ALARA. CT DOSE: 625.80 mGy.cm COMPARISON: 09/29/2022. FINDINGS: No acute intracranial hemorrhage, midline shift, intracranial mass, hydrocephalus, territorial ischemia or abnormal extra-axial collection. Extensive and confluent white matter hypodensities are again noted which are nonspecific however statistically favor chronic microvascular ischemic disease. Cerebral vascular calcifications. The calvarium is intact. Prior bilateral lens repair. The paranasal sinuses, mastoid air cells, and middle ear cavities are clear. IMPRESSION: No acute intracranial abnormality. ACT 112: Negative or not required by law. The above report was generated using voice recognition software. It may contain grammatical, syntax or spelling errors. Electronically signed by: Bertrand Mccormack M.D. 03/03/2023 12:50 PM Discharge Plan Visit Data Chief Complaint: Confusion Stated Complaint: CONFUSION, POSSIBLE UTI ED Provider: Buck Joshua Discharge Problem: Altered mental status Patient Disposition: Admitted As Inpatient Discharge Instructions Interventions: ED Discharge Assessment Last Done: 03/03/23 18:11 Forms Stand Alone Forms: My [facility] [employer] Prescriptions Prescriptions: No Action clopidogrel 75 mg tablet 75 mg PO QAM 90 Days Qty: 90 1RF Xiidra 5 % dropperette 1 drp ophthalmic (eye) BID Rx Instructions: patient reports taking once daily acetaminophen [Tylenol Extra Strength] 500 mg tablet 500 mg PO DAILY Rx Instructions: PER PT "USUALLY ONCE IF NOT TWICE A DAY". triamcinolone acetonide 0.1 % cream 1 applic TOPICAL BID PRN (Reason: Skin Irritation) Qty: 30 0RF amoxicillin 500 mg capsule 500 mg PO TID Patient Comments: Spoke with doctors office and pt reported to them she was taking an antibiotic and had one day left PreserVision AREDS-2 250-90-40-1 mg Capsule 1 tab PO BID nystatin 100,000 unit/gram cream 1 applic TOPICAL HS Rx Instructions: APPLY UNDER BREAST atorvastatin 80 mg tablet 80 mg PO DAILY Rx Instructions: TAKE 1 TABLET BY MOUTH EVERY MORNING famotidine 40 mg tablet 40 mg PO HS Rx Instructions: TAKE 1 TABLET BY MOUTH EVERY MORNING Referrals Referrals: Jay Duval MD [Primary Care Provider] -
--- NOTE | 2023-03-03 11:54 | XRay Report ---
XR chest 1V portable HISTORY: 83 years-old Female weakness COMPARISON: 10/28/2022 TECHNIQUE: AP view of the chest FINDINGS: Cardiac mediastinal and hilar silhouettes are within normal limits. No pneumothorax, pleural effusion or pulmonary edema. Normal subsegmental left basilar atelectasis versus scarring. Degenerative flores es in the shoulders and spine with sigmoid thoracolumbar scoliosis again noted. IMPRESSION: No acute process. ACT 112: Negative or not required by law. The above report was generated using voice recognition software. It may contain grammatical, syntax o r spelling errors. Electronically signed by: Bertrand Mccormack M.D. 03/03/2023 11:53 AM
[2023-03-03 12:11] LABS: Appearance Urine Clear (Clear); Bacteria Urine Automated Negative (Negative); Bilirubin Urine Negative (Negative); Blood Urine Trace (Negative); Cast Urine Automated 0 /lpf (0-5); Color Urine Yellow; Glucose Urine UA Negative (Negative); Ketones Urine Negative (Negative); Leukocyte Esterase Urine Trace (Negative); Nitrite Urine Negative (Negative); Protein Urine Negative (Negative); RBC Urine Automated 0-4 /hpf (0-4); Specific Gravity Urine 1.013 (1.000-1.030); Urobilinogen Urine Negative (Negative); pH Urine 5.5 (4.5-7.5)
[2023-03-03 12:13] LABS: Basophils # (auto) 0.03 K/uL (0.00-0.20); Basophils % (auto) 0.4 %; Eosinophils # (auto) 0.01 K/uL (0.00-0.50); Eosinophils % (auto) 0.1 %; Hematocrit (blood only) 41.4 % (37.0-47.0); Hemoglobin 13.5 g/dl (12.0-16.0); Immature Granulocytes # (auto) 0.03 K/uL (0.01-0.20); Immature Granulocytes % (auto) 0.4 %; Lymphocytes # (auto) 0.68 K/uL (1.20-3.40); Lymphocytes % (auto) 9.6 %; Mean Corpuscular Hemoglobin 30.5 pg (25.0-34.0); Mean Corpuscular Hgb Conc 32.6 g/dL (32.0-36.0); Mean Corpuscular Volume 93.7 fL (80.0-100.0); Mean Platelet Volume 8.7 fL (9.4-12.4); Monocytes # (auto) 0.29 K/uL (0.11-0.59); Monocytes % (auto) 4.1 %; Neutrophils # (auto) 6.05 K/uL (1.40-6.50); Neutrophils % (auto) 85.4 %; Platelet Count 339 K/uL (130-400); RDW Standard Deviation 44.2 fL (36.4-46.3); Red Blood Count 4.42 M/uL (4.20-5.40); White Blood Count 7.09 K/ul (4.8-10.8)
[2023-03-03 12:34] LABS: Alanine Aminotransferase 11 U/L (7-52); Albumin Globulin Ratio 2.2 (0.9-2); Albumin Level 4.8 gm/dl (3.4-5.0); Alkaline Phosphatase 75 U/L (34-104); Anion Gap 9 (3-11); Aspartate Aminotransferase 17 U/L (13-39); BUN Creatinine Ratio 17.6 (10-20); Bilirubin,Total 0.5 mg/dl (0.2-1.0); Blood Urea Nitrogen 13 mg/dl (6-23); Carbon Dioxide 27 mmol/L (21-32); Chloride 102 mmol/L (98-107); Est GFR (African American) 86.2 ml/min; Est GFR (Non-African American) 74.4 ml/min; Globulin 2.2 gm/dl (2.5-4.0); Glucose 128 mg/dl (70-99(Fasting)); Potassium 3.9 mmol/L (3.5-5.1); Sodium 138 mmol/L (136-145)
[2023-03-03 12:52] LABS: Troponin I High Sensitivity 14.8 pg/ml (0-14)
--- NOTE | 2023-03-03 12:52 | CT Scan Report ---
CT head/brain wo con CLINICAL HISTORY: 83 years-old Female with confusion. Acutely altered mental status TECHNIQUE: Multiple axial CT images of the head were obtained without contrast. A dose lowering tech nique was utilized adhering to the principles of ALARA. CT DOSE: 625.80 mGy.cm COMPARISON: 09/29/2022. FINDINGS: No acute intracranial hemorrhage, midline shift, intracranial mass, hydrocephalus, territorial ischem ia or abnormal extra-axial collection. Extensive and confluent white matter hypodensities are again n oted which are nonspecific however statistically favor chronic microvascular ischemic disease. Cerebr al vascular calcifications. The calvarium is intact. Prior bilateral lens repair. The paranasal sinuses, mastoid air cells, and m iddle ear cavities are clear. IMPRESSION: No acute intracranial abnormality. ACT 112: Negative or not required by law. The above report was generated using voice recognition software. It may contain grammatical, syntax o r spelling errors. Electronically signed by: Bertrand Mccormack M.D. 03/03/2023 12:50 PM
--- NOTE | 2023-03-03 14:58 | History & Physical Report ---
Date of Service March 03, 2023 Assessment & Plan (1) Confusion: Plan: Acute confusion With history of suspected progressive memory loss and early dementia; patient with acute memory disturbance, disorientation, difficulty expressing herself 03/03 No focal neurologic deficits, no strength or sensory deficits, no facial droop. NIHSS 0 at time of provider assessment Referred to ER for additional evaluation given acute confusion which also seemed more acute at their assessment Patient lives alone, has friends in the area but concern expressed for patient safety should episode of confusion/memory loss precipitate while she is alone History of past stroke, carotid stenosis and CEA with recent Dopplers 10/25 showing less than 30% right restenosis and 50% left CT without acute findings MRI brain/MRA brain ordered to r/o stroke pathology Suspect may have waxing and waning course and high risk of delirium in the setting of progressive cognitive decline. No evidence of metabolic encephalopathy or infection. She did have a right upper molar extracted and was placed on antibiotics for this, however this is nontender on exam and does not have leukocytosis suggestive of ongoing infection Is intermittently mildly hypertensive up to 170s at the bedside. Reports this is because she gets anxious in the hospital. DDx includes hypertensive encephalopathy, although patient is improving without antihypertensive treatment on bedside recheck. 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 Chronically decreasing mentation since September suspicious for dementia but was acutely disoriented at work. Did not recognize surroundings and recurrently confused/disoriented in ER. Lives alone, no felt to be safe at home with currently level of confusion. Referred by family doctor due to deviation from baseline and rapid fluctuation. Agree with assessment and work-up for acute fluctuating mental status which also places patient at a safety risk to return home alone. PT/OT pending. MRI pending. CT does not show any acute intracranial abnormalities. Lab review does not show evidence of infectious metabolic encephalopathy, high-sensitivity troponin is mildly elevated at 14 with repeat pending at time evaluation. EKG is sinus without any ST segment or T wave changes. Renal function is at baseline and ratio is not contracted. No sedating home medications or narcotics. At bedside: Mack is seen with a friend present. 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 She then recalled that it was exam day and she had most of the day off before she had to go in. While she was at [place] around lunchtime she felt confused and was not aware of where she was or her surroundings. By report of her friend also appeared confused and had difficulty articulating herself? Dysarthria, although no focal weakness and no falls. No facial droop. She has recently been seen as an outpatient with concern for progressive memory loss/dementia; however does have a history of stroke and seem to have a more acute onset of confusion which is very different from her normal baseline as noted by her coworkers. She reached out to her PCPs office who noted she also seemedOff from her baseline. Per their note patient describes symptoms as more of a lapse in memory and since she seemed to be having an ongoing episode of memory loss and confusion was recommended to go to the ER for further evaluation and testing. Patient reports otherwise she has been in her normal state of health in the last she notes that she has had a toothache and a R upper molar pulled last week. Followed up with Dr. Bee who removed the tooth last Monday in the office. Did well, and felt better but tooth was noted to be fractured with an infection at that time. Did have pain after the tooth was pulled. 1 placed on amoxicillin for 1 week, 2 days remaining and pain has completely resovled. No fevers, chlls, or sweats. Takes one tylenol a day for 'achey bones and arthritis' but denies any narcotic or sedative use.Was seen by Dr. Faulkner office who noted pt was much different from her normal baseline although with no focal neurologic deficits, but recommended she been seen for an overnight eval. Miguelito Au is a friend who came with her to appointments. Medical History: Reviewed Medications: Reviewed Surgical History: Reviewed Family history: Reviewed Allergies: Reviewed Social History: No tobacco/etoh Code Status: Primary medical contact is dante in [facility] Tracey Harris. [facility] er dante Earline Irwin would be backup decision maker. Allergies Allergy/AdvReac Type Severity Reaction Status Date / Time neomycin Allergy Intermediate Rash Verified 03/03/23 09:43 nabumetone [From Relafen] Allergy Mild Redness of Verified 03/03/23 09:43 Skin loperamide [From Imodium A-D] AdvReac Intermediate Rapid Verified 03/03/23 09:43 heart rate lorazepam [From Ativan] AdvReac Intermediate Anxiety Verified 03/03/23 09:43 zolpidem [From Ambien] AdvReac Intermediate Anxiety Verified 03/03/23 09:43 Home Medications Medication Instructions Recorded Confirmed Type acetaminophen 500 mg tablet 500 mg PO DAILY 03/25/19 03/03/23 History (Tylenol Extra Strength) vit C 250 mg-vit E 90 mg-zinc 40 1 tab PO BID 10/14/21 03/03/23 History mg-copper 1 [id number] capsule (PreserVision AREDS-2) lifitegrast 5 % eye drops in a 1 drp ophthalmic (eye) BID 05/18/22 03/03/23 History dropperette (Xiidra) clopidogrel 75 mg tablet 75 mg PO QAM 90 days #90 tabs 08/31/22 03/03/23 Rx atorvastatin 80 mg tablet 80 mg PO DAILY 09/29/22 03/03/23 History famotidine 40 mg tablet 40 mg PO HS 09/29/22 03/03/23 History nystatin 100,000 unit/gram topical 1 applic topical HS 09/29/22 03/03/23 History cream triamcinolone acetonide 0.1 % 1 applic topical BID PRN Skin 01/10/23 03/03/23 Rx topical cream Irritation #30 grams amoxicillin 500 mg capsule 500 mg PO TID 03/03/23 03/03/23 History Past Med/Surg History Medical History Carotid stenosis Chronic cerebral ischemia Degenerative disc disease Dyslipidemia Elevated troponin GERD (gastroesophageal reflux disease) History of breast cancer Left thalamic infarction Ocular migraine Osteoarthritis Osteoporosis Schatzki's ring Sensorineural hearing loss (SNHL) of both ears SNHL (sensorineural hearing loss) Subclavian artery stenosis Tremor Surgical History H/O endarterectomy H/O foot surgery History of cataract surgery History of colonoscopy History of dilation and curettage History of esophageal dilatation History of knee replacement procedure of left knee History of oophorectomy, unilateral History of removal of ovarian cyst Nausea and vomiting after administration of anesthetic agent Status post breast lumpectomy Status post total knee replacement using cement Family History Mother CHF (congestive heart failure) Father Epilepsy Colon cancer Pulmonary fibrosis Family/Other Breast cancer Other No family history of adverse response to anesthesia Social History Smoking Status: Never smoker Second Hand Exposure: No; Do You Dip or Chew Tobacco: No; Hx Alcohol Use: No Hx Substance Use: No Preferred Language: Italian Communication Ability: Effective Visual Impairment: No Limitations Hearing Ability: Normal Finished Yarn Examiner Required: No Beliefs That Will Affect Care: None marital status: Single Current Living Situation: Alone current occupational status: employed current occupation: [employer], 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, 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 Feels Safe at Home: Yes Assistive Devices: Cane and Walker Physical Exam Physical Exam: General: Oriented to name, year, and hospital. Circumferential, occasionally tangential but answers most questions appropriately NAD. Cooperative. HEENT: Atraumatic, normocephalic. No tenderness to palpation overlying the right upper jaw/molars Pulm: CTAB A&P. -wheezes, -rales, -rhonchi. Symmetrical chest rise. No increased work of breathing. No respiratory distress. Cardiac: RRR, -mrg. Radial pulses intact and symmetrical. Abdominal: Nontender, nondistended, soft. BS present. CRANIAL NERVES: II: Pupils equal and reactive, no relative afferent pupillary defect, no VF cuts III, IV, : EOM intact, no gaze preference or deviation, no nystagmus. V: normal sensation in V1, V2, and V3 segments bilaterally VII: no asymmetry, no nasolabial fold flattening VIII: normal hearing to speech IX, X: normal palatal elevation, no uvular deviation XI: 5/5 head turn and 5/5 shoulder shrug bilaterally XII: midline tongue protrusion MOTOR: RUE: 5/5 medical detail representative strength, finger flexion/extension, interosseus LUE: 5/5 medical detail representative strength, finger flexion/extension, interosseus RLE: 5/5 to hip flexion, ankle dorsiflexion/plantarflexion LLE: 5/5 to hip flexion, ankle dorsiflexion/plantarflexion SENSORY: Normal to touch in upper and lower extremities without deficit or asymmetry Results & Data Results & Data Vital Signs (Past 12 Hours) Vital Signs Temp Pulse Pulse Resp BP BP Pulse Ox 03/03/23 14:35 70 20 174/79 H 98 03/03/23 10:52 36.4 C L 81 16 178/76 H 96 O2 Del Method 03/03/23 14:35 03/03/23 10:52 Room Air PG Care Time/CCT Total # of Minutes Spent Total Time Spent with Patient: Total time spent is greater than 50% in coordination of care (as documented) at patient's floor/unit and/or counseling patient: Coding Level of Care Code 80374 INT INP/OBS CARE 3/75MIN Diagnoses Confusion R41.0 Hx of TIA (transient ischemic attack) and stroke Z86.73 GERD (gastroesophageal reflux disease) K21.9 History of breast cancer Z85.3 Chronic cerebral ischemia I67.82
[2023-03-03] MEDS ORDERED: ACETAMINOPHEN 325 MG TAB PO PRN (17:06)
[2023-03-03] MEDS ORDERED: TRIAMCINOLONE ACET 0.1% CR 15 GM TUBE TOP PRN (18:31)
[2023-03-03] MEDS: ENOXAPARIN INJ 40 MG/0.4 ML SYR SQ SCH (21:24)
[2023-03-03] MEDS: FAMOTIDINE 40 MG TABLET PO SCH (21:27)
[2023-03-03] MEDS: AMOXICILLIN 500 MG CAP PO SCH (21:27)
[2023-03-03] MEDS: CEROVITE ADV FORMULA TAB PO SCH (21:28)
[2023-03-03] MEDS: LIFITEGRAST 1 EACH DROPERETTE OP SCH (21:29)
--- NOTE | 2023-03-03 23:36 | Magnetic Resonance Report ---
Exam(s): MRA HEAD Without Contrast EXAM: MR Angiography Head Without Intravenous Contrast CLINICAL HISTORY: Reason for exam: cva/tia eval. TECHNIQUE: Magnetic resonance angiography images of the head without intravenous contrast. COMPARISON: No relevant prior studies available. FINDINGS: Right internal carotid artery: No acute findings. Intracranial segment is patent with no significant stenosis. No aneurysm. Right anterior cerebral artery: Unremarkable. No occlusion or significant stenosis. No aneurysm. Right middle cerebral artery: Unremarkable. No occlusion or significant stenosis. No aneurysm. Right posterior cerebral artery: Unremarkable. No occlusion or significant stenosis. No aneurysm. Right vertebral artery: Unremarkable as visualized. Left internal carotid artery: No acute findings. Intracranial segment is patent with no significant stenosis. No aneurysm. Left anterior cerebral artery: Unremarkable. No occlusion or significant stenosis. No aneurysm. Left middle cerebral artery: Unremarkable. No occlusion or significant stenosis. No aneurysm. Left posterior cerebral artery: Unremarkable. No occlusion or significant stenosis. No aneurysm. Left vertebral artery: There is loss of flow within the left mid vertebral artery (image 197 series 3) with reconstitution distally. Basilar artery: Unremarkable. No occlusion or significant stenosis. No aneurysm. IMPRESSION: No acute findings in the arteries of the head/brain. 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 Electronically signed by: Lauro Barnard MD 03/03/23 23:35 PM
--- NOTE | 2023-03-03 23:37 | Magnetic Resonance Report ---
Exam(s): MRI HEAD Without Contrast EXAM: MR Head Without Intravenous Contrast CLINICAL HISTORY: Reason for exam: MRI/CVA eval. TECHNIQUE: Magnetic resonance images of the head/brain without intravenous contrast in multiple planes. COMPARISON: No relevant prior studies available. FINDINGS: Brain: Abnormal T2 signal in the deep cerebral white matter is consistent with small vessel ischemic/degenerative changes. The cerebral and cerebellar sulci are prominent consistent with brain atrophy. No hemorrhage. Ventricles: Unremarkable. No ventriculomegaly. Bones/joints: Unremarkable. Sinuses: Unremarkable as visualized. No acute sinusitis. Mastoid air cells: Unremarkable as visualized. No mastoid effusion. Orbits: Unremarkable as visualized. IMPRESSION: 1. Small vessel ischemic/degenerative changes. 2. Cerebral and cerebellar atrophy. Electronically signed by: Lauro Barnard MD 03/03/23 23:36 PM
[2023-03-04] MEDS: ACETAMINOPHEN 500 MG TAB PO SCH (07:50)
[2023-03-04] MEDS: CEROVITE ADV FORMULA TAB PO SCH ×2 (07:50→20:16)
[2023-03-04] MEDS: ATORVASTATIN 40 MG TAB PO SCH (07:50)
[2023-03-04] MEDS: CLOPIDOGREL BISULFATE 75 MG TAB PO SCH (07:50)
[2023-03-04] MEDS: AMOXICILLIN 500 MG CAP PO SCH ×3 (07:51→20:16)
[2023-03-04] MEDS: LIFITEGRAST 1 EACH DROPERETTE OP SCH (09:18)
[2023-03-04 10:03] LABS: Basophils # (auto) 0.05 K/uL (0.00-0.20); Basophils % (auto) 0.5 %; Eosinophils # (auto) 0.02 K/uL (0.00-0.50); Eosinophils % (auto) 0.2 %; Hematocrit (blood only) 44.4 % (37.0-47.0); Hemoglobin 14.7 g/dl (12.0-16.0); Immature Granulocytes # (auto) 0.03 K/uL (0.01-0.20); Immature Granulocytes % (auto) 0.3 %; Lymphocytes # (auto) 0.86 K/uL (1.20-3.40); Lymphocytes % (auto) 9.4 %; Mean Corpuscular Hemoglobin 30.5 pg (25.0-34.0); Mean Corpuscular Hgb Conc 33.1 g/dL (32.0-36.0); Mean Corpuscular Volume 92.1 fL (80.0-100.0); Mean Platelet Volume 8.6 fL (9.4-12.4); Monocytes # (auto) 0.67 K/uL (0.11-0.59); Monocytes % (auto) 7.3 %; Neutrophils # (auto) 7.55 K/uL (1.40-6.50); Neutrophils % (auto) 82.3 %; Platelet Count 387 K/uL (130-400); RDW Standard Deviation 44.3 fL (36.4-46.3); Red Blood Count 4.82 M/uL (4.20-5.40); White Blood Count 9.18 K/ul (4.8-10.8)
[2023-03-04 10:22] LABS: Anion Gap 9 (3-11); BUN Creatinine Ratio 16.1 (10-20); Blood Urea Nitrogen 15 mg/dl (6-23); C Reactive Protein 0.52 mg/dl (0-0.5); Carbon Dioxide 29 mmol/L (21-32); Chloride 101 mmol/L (98-107); Est GFR (African American) 65.4 ml/min; Est GFR (Non-African American) 56.4 ml/min; Glucose 140 mg/dl (70-99(Fasting)); Potassium 3.6 mmol/L (3.5-5.1); Sodium 139 mmol/L (136-145)
[2023-03-04 10:22] LABS: Influenza A virus by PCR Negative (Neg); Influenza B virus by PCR Negative (Neg); RSV by PCR Negative (Neg); SARS CoV2 RNA(COVID-19) Ceph NEGATIVE (Negative)
[2023-03-04] MEDS ORDERED: QUEtiapine FUMARATE 25 MG TABLET PO ONE (13:53)
--- NOTE | 2023-03-04 13:54 | Hospitalist Progress Note ---
Date of Service March 04, 2023 Assessment & Plan (1) Dementia: Plan: history is highly compatible with a progressive dementia process. suspect it is vascular in origin given prior thalamic stroke, known PAD, etc. she has seen Dr Allen in the office from [facility]. there is considerable atrophy on MRI brain. "reversible" causes of dementia - TSH, B12, etc checked - TSH wnl, does have vit B12 def (see below). Plan to check B1 level in am and then start supplementation. she has been high functioning for a very long time and has high intelligence - thus, has likely been able to compensate for previous more subtle, mild symptoms. she presented with severe agitated delirium. 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 the vitamin B12 def could be compounding the problem as well. I do not see any evidence of an infectious process - u/a wnl, cxr wnl, COVID/flu/RSV negative, etc. no new stroke on brain MRI. to help with agitated delirium give seroquel 12.5mg po x 1 NOW. then seroquel 12.5mg HS scheduled. QTc on EKG wnl. benefits of antipsychotic outweigh its risk due to high elopement risk, her risk of physical injury due to impulsivity, etc. follow blood cx's to ensure no bacteremia due to recent dental infection/dental extraction. defer on IV abx. sed rate/crp noted. (2) Confusion: Plan: agitated delirium superimposed on likely a vascular dementia see #1 above PATIENT IS NOT SAFE TO LEAVE THE HOSPITAL AMA. SHE DOES NOT POSSESS CAPACITY TO MAKE INFORMED MEDICAL DECISIONS. (3) B12 deficiency: Plan: LEVEL - 100 While here give vitamin B12 1000mcg daily IM x 5 days then PO supplementation thereafter. 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 other cause? TSH wnl (10) H/O carotid endarterectomy: Plan: right - 2008 (11) Dyslipidemia: Plan: cont lipitor 80mg daily (12) Dental infection: Plan: recent dental infection (1 week ago) s/p tooth extraction cont amoxicillin check blood cx's - r/o bacteremia from recent dental issues Plan DVT proph - lovenox pt's niece - Stacey - extensively updated by phone this evening will need placement - unsafe to return home alone assisted living at a dementia facility ([facility], etc)? pt, ot while here can likely d/c tele tomorrow if wnl change observation status to full admission status Admission and Anticipated Discharge Date Admission Date: March 03, 2023 Subjective since admission patient has been agitated, restless, hard to redirect per staff constantly leaving her room and coming to the nurse's station at one point she poured sugar on the computer keyboard in the room at another point she brought her trash can out from the room to the nurse's station at times she thinks she is at [facility] in one of the classrooms when I came for rounds she was dressed in regular clothes and pacing the room her friend, Sharon, was present at bedside 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[employer] [employer] [facility] 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 in fact 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 Trent Iqbal and the book is being translated into [place] Islander when Ms Harris was asked where she was she could not tell me she ultimately said "[facility]" when asked to clarify she could not tell me initially but ultimately said "[facility]" Sharon reports memory and cognitive issues "for at least several months" Ms Harris could not tell me the date, day, month or year correctly she could not tell me why she was here she did recall having had a tooth extracted by her dentist about 1 week ago she recalls that there was infection and that she took antibiotics for this 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 Sharon mentions that the book Ms Harris is writing created a lot of stress this past week due to the translation that is about to happen Ms Harris then mentions she had poor sleep this week and indeed was very anxious I had Ms Harris complete the "clock test" she tried for over 5 minutes to produce an analog clock showing 5 o'clock she tried 2 separate drawings without success she was visibly frustrated I later spoke with the pt's niece Stacey who lives in the [place] [facility] region I spoke with Stacey by phone the family has noted cognitive/memory decline for what sounds like at least 6-12 months staff members and colleagues have previously noted ongoing cognitive decline at the [facility] Stacey also recalls her PCP Dr Duval trying to get [facility] involved everyone is agreement she cannot live alone any longer and 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 to 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 either we discussed use of antipsychotic medication to help with the agitated delirium we discussed the B12 def that was found and that I will be checking a B1 level fi Review of Systems Review of Systems: gen - no fevers or chills; eating well here, but Sharon (her friend) is concerned she has not been eating well outside the hospital; admits to feeling very tired this afternoon HENT - no runny nose or congestion or sore throat; tooth extraction site - no pain CV - no chest pain pulm - no cough or dyspnea GI - no N/V/abd pain/diarrhea - no dysuria musculo - no myalgias skin - no rash neuro - no headache or focal motor weakness Physical Exam Physical Exam: gen - elderly female in no acute physical distress; appears tired; pacing the room at times; very confused, poor insight, unable to understand large portions of our conversation mouth - MMM neck - no JVD heart - RRR, s1 s2, no murmur lungs - CTA b/l abd - soft NT ND BS+ ext - no edema, pulses 2+ b/l skin - no rash or signs of trauma neuro - nonfocal - gait wnl, strength 5/5 x 4 exts; mild resting tremors of arms noted psych - awake, alert, agitated; oriented to person and partially place but otherwise very disoriented Results & Data Results & Data Vital Signs (Past 12 Hours) Vital Signs Temp Pulse Pulse Resp BP Pulse Ox O2 Del Method 03/04/23 11:34 36.5 C 97 H 20 159/88 H 94 Room Air 03/04/23 08:04 36.4 C L 97 H 18 168/76 H 94 Room Air 03/04/23 07:07 90 03/04/23 03:21 36.5 C 102 H 16 169/73 H 92 Room Air Laboratory Results Laboratory Results - last 24 hr 03/04/23 03/04/23 03/04/23 09:28 09:32 09:32 WBC 9.18 RBC 4.82 Hgb 14.7 Hct 44.4 MCV 92.1 MCH 30.5 MCHC 33.1 RDW Std Deviation 44.3 RDW Coeff of Shabnam 13.0 Plt Count 387 MPV 8.6 L Immature Gran % (Auto) 0.3 Neut % (Auto) 82.3 Lymph % (Auto) 9.4 Caldwell % (Auto) 7.3 Eos % (Auto) 0.2 Baso % (Auto) 0.5 Neut # (Auto) 7.55 H Lymph # (Auto) 0.86 L Caldwell # (Auto) 0.67 H Eos # (Auto) 0.02 Baso # (Auto) 0.05 Immature Gran # (Auto) 0.03 ESR Sodium 139 Potassium 3.6 Chloride 101 Carbon Dioxide 29 Anion Gap 9 BUN 15 Creatinine 0.93 Est Cr Clr Drug Dosing Not Reportable Est GFR ( Amer) 65.4 Est GFR (Non-Af Amer) 56.4 BUN/Creatinine Ratio 16.1 Glucose 140 H Calcium 10.0 C-Reactive Protein 0.52 H Vitamin B12 Anaplasma Smear See Comment SARS-CoV-2 (PCR) NEGATIVE Influenza Type A (PCR) Negative Influenza Type B (PCR) Negative RSV (RT-PCR) Negative 03/04/23 03/04/23 09:32 09:32 WBC RBC Hgb Hct MCV MCH MCHC RDW Std Deviation RDW Coeff of Shabnam Plt Count MPV Immature Gran % (Auto) Neut % (Auto) Lymph % (Auto) Caldwell % (Auto) Eos % (Auto) Baso % (Auto) Neut # (Auto) Lymph # (Auto) Caldwell # (Auto) Eos # (Auto) Baso # (Auto) Immature Gran # (Auto) ESR 31 H Sodium Potassium Chloride Carbon Dioxide Anion Gap BUN Creatinine Est Cr Clr Drug Dosing Est GFR ( Amer) Est GFR (Non-Af Amer) BUN/Creatinine Ratio Glucose Calcium C-Reactive Protein Vitamin B12 105 L Anaplasma Smear SARS-CoV-2 (PCR) Influenza Type A (PCR) Influenza Type B (PCR) RSV (RT-PCR) Diagnostic Findings Chest X-Ray 03/03/23 11:18 XR chest 1V portable HISTORY: 83 years-old Female weakness COMPARISON: 10/28/2022 TECHNIQUE: AP view of the chest FINDINGS: Cardiac mediastinal and hilar silhouettes are within normal limits. No pneumothorax, pleural effusion or pulmonary edema. Normal subsegmental left basilar atelectasis versus scarring. Degenerative changes in the shoulders and spine with sigmoid thoracolumbar scoliosis again noted. IMPRESSION: No acute process. ACT 112: Negative or not required by law. The above report was generated using voice recognition software. It may contain grammatical, syntax or spelling errors. Electronically signed by: Bertrand Mccormack M.D. 03/03/2023 11:[address] 03/03/23 11:19 CT head/brain wo con CLINICAL HISTORY: 83 years-old Female with confusion. Acutely altered mental status TECHNIQUE: Multiple axial CT images of the head were obtained without contrast. A dose lowering technique was utilized adhering to the principles of ALARA. CT DOSE: 625.80 mGy.cm COMPARISON: 09/29/2022. FINDINGS: No acute intracranial hemorrhage, midline shift, intracranial mass, hydrocephalus, territorial ischemia or abnormal extra-axial collection. Extensive and confluent white matter hypodensities are again noted which are nonspecific however statistically favor chronic microvascular ischemic disease. Cerebral vascular calcifications. The calvarium is intact. Prior bilateral lens repair. The paranasal sinuses, mastoid air cells, and middle ear cavities are clear. IMPRESSION: No acute intracranial abnormality. ACT 112: Negative or not required by law. The above report was generated using voice recognition software. It may contain grammatical, syntax or spelling errors. Electronically signed by: Bertrand Mccormack M.D. 03/03/2023 12:50 PM Brain MRI 03/03/23 18:31 Exam(s): MRI HEAD Without Contrast EXAM: MR Head Without Intravenous Contrast CLINICAL HISTORY: Reason for exam: MRI/CVA eval. TECHNIQUE: Magnetic resonance images of the head/brain without intravenous contrast in multiple planes. COMPARISON: No relevant prior studies available. FINDINGS: Brain: Abnormal T2 signal in the deep cerebral white matter is consistent with small vessel ischemic/degenerative changes. The cerebral and cerebellar sulci are prominent consistent with brain atrophy. No hemorrhage. Ventricles: Unremarkable. No ventriculomegaly. Bones/joints: Unremarkable. Sinuses: Unremarkable as visualized. No acute sinusitis. Mastoid air cells: Unremarkable as visualized. No mastoid effusion. Orbits: Unremarkable as visualized. IMPRESSION: 1. Small vessel ischemic/degenerative changes. 2. Cerebral and cerebellar atrophy. Electronically signed by: Lauro Barnard MD 03/03/23 23:36 PM Head MRA 03/03/23 18:31 Exam(s): MRA HEAD Without Contrast EXAM: MR Angiography Head Without Intravenous Contrast CLINICAL HISTORY: Reason for exam: cva/tia eval. TECHNIQUE: Magnetic resonance angiography images of the head without intravenous contrast. COMPARISON: No relevant prior studies available. FINDINGS: Right internal carotid artery: No acute findings. Intracranial segment is patent with no significant stenosis. No aneurysm. Right anterior cerebral artery: Unremarkable. No occlusion or significant stenosis. No aneurysm. Right middle cerebral artery: Unremarkable. No occlusion or significant stenosis. No aneurysm. Right posterior cerebral artery: Unremarkable. No occlusion or significant stenosis. No aneurysm. Right vertebral artery: Unremarkable as visualized. Left internal carotid artery: No acute findings. Intracranial segment is patent with no significant stenosis. No aneurysm. Left anterior cerebral artery: Unremarkable. No occlusion or significant stenosis. No aneurysm. Left middle cerebral artery: Unremarkable. No occlusion or significant stenosis. No aneurysm. Left posterior cerebral artery: Unremarkable. No occlusion or significant stenosis. No aneurysm. Left vertebral artery: There is loss of flow within the left mid vertebral artery (image 197 series 3) with reconstitution distally. Basilar artery: Unremarkable. No occlusion or significant stenosis. No aneurysm. IMPRESSION: No acute findings in the arteries of the head/brain. 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 Electronically signed by: Lauro Barnard MD 03/03/23 23:35 PM PG Care Time/CCT Total # of Minutes Spent Total Time Spent with Patient: Total time spent is greater than 50% in coordination of care (as documented) at patient's floor/unit and/or counseling patient: Coding Level of Care Code 70025 SUB INP/OBS CARE 3/50MIN Diagnoses Dementia F03.90 Confusion R41.0 B12 deficiency E53.8 Hx of TIA (transient ischemic attack) and stroke Z86.73 GERD (gastroesophageal reflux disease) K21.9 History of breast cancer Z85.3 Chronic cerebral ischemia I67.82 Carotid stenosis I65.29 Tremor R25.1 H/O carotid endarterectomy Z98.890 Dyslipidemia E78.5 Dental infection K04.7
[2023-03-04] MEDS: ENOXAPARIN INJ 40 MG/0.4 ML SYR SQ SCH (18:42)
[2023-03-04] MEDS ORDERED: INFLUENZA VACCINE HIGH-DOSE (HD-IIV4) PF 65+ 0.7mL SYR IM ONE (18:45)
[2023-03-04] MEDS: QUEtiapine FUMARATE 25 MG TABLET PO SCH (20:15)
[2023-03-04] MEDS: MELATONIN 3 MG TAB PO SCH (20:15)
[2023-03-04] MEDS: FAMOTIDINE 40 MG TABLET PO SCH (20:17)
--- NOTE | 2023-03-04 22:28 | Electrocardiogram Report ---
Test Reason : Blood Pressure : / mmHG Vent. Rate : 080 BPM Atrial Rate : 080 BPM P-R Int : 162 ms QRS Dur : 068 ms QT Int : 372 ms P-R-T Axes : 051 025 036 degrees QTc Int : 429 ms Normal sinus rhythm Normal ECG When compared with ECG of 29-SEP-2022 14:27, No significant change was found Confirmed by Adam Lizarraga ([id number]) on 03/04/2023 10:27:39 PM Referred By: REFERRED SELF Confirmed By:Adam Lizarraga
[2023-03-05 07:56] LABS: Anion Gap 5 (3-11); BUN Creatinine Ratio 16.7 (10-20); Blood Urea Nitrogen 16 mg/dl (6-23); Calcium 9.2 mg/dl (8.6-10.3); Carbon Dioxide 31 mmol/L (21-32); Chloride 105 mmol/L (98-107); Est GFR (African American) 62.9 ml/min; Est GFR (Non-African American) 54.3 ml/min; Glucose 112 mg/dl (70-99(Fasting)); Potassium 4.5 mmol/L (3.5-5.1); Sodium 141 mmol/L (136-145)
[2023-03-05] MEDS: CEROVITE ADV FORMULA TAB PO SCH ×2 (08:53→21:40)
[2023-03-05] MEDS: CLOPIDOGREL BISULFATE 75 MG TAB PO SCH (08:53)
[2023-03-05] MEDS: AMOXICILLIN 500 MG CAP PO SCH ×2 (08:53→14:01)
[2023-03-05] MEDS: ATORVASTATIN 40 MG TAB PO SCH (08:53)
[2023-03-05] MEDS: ACETAMINOPHEN 500 MG TAB PO SCH (08:54)
[2023-03-05] MEDS: LIFITEGRAST 1 EACH DROPERETTE OP SCH (08:55)
[2023-03-05] MEDS ORDERED: THIAMINE HCL 200 MG in SODIUM CHLORIDE 0.9% 50 ML IV STA (10:30)
[2023-03-05] MEDS: CYANOCOBALAMIN 1000 MCG/ML VIAL IM SCH (11:06)
[2023-03-05] MEDS: Patient's HEIGHT &/or WEIGHT Needed SCH ×4 (11:10→21:11)
[2023-03-05] MEDS: ENOXAPARIN INJ 40 MG/0.4 ML SYR SQ SCH (18:38)
--- NOTE | 2023-03-05 20:20 | Hospitalist Progress Note ---
Date of Service March 05, 2023 Assessment & Plan (1) Dementia: Plan: history is highly compatible with a progressive dementia process. suspect it is vascular in origin given prior thalamic stroke, known PAD, etc. she has seen Dr Allen in the office from [facility]. there is considerable atrophy on MRI brain. "reversible" causes of dementia - TSH, B12, etc checked - TSH wnl, does have vit B12 def (see below). B1 level is pending. 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 she presented with severe agitated delirium. IT IS IMPROVED WITH SEROQUEL AT HS BUT REMAINS RESTLESS DURING THE DAY. 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 the vitamin B12 def could be compounding the problem as well. I do not see any evidence of an infectious process - u/a wnl, cxr wnl, COVID/flu/RSV negative, etc. no new stroke on brain MRI. CONTINUE seroquel 12.5mg HS scheduled. QTc on EKG wnl. benefits of antipsychotic outweigh its risk due to high elopement risk, her risk of physical injury due to impulsivity, etc. blood cx's thus far negative - thus, no bacteremia due to recent dental infection/dental extraction. sed rate/crp - 31, 0.5 - respectively. (2) Confusion: Plan: agitated delirium superimposed on likely a vascular dementia see #1 above For the first 48 hours of this stay she did not have capacity to make medical decisions for herself - was oriented to person only during that time period. Confusion is better - more oriented and more reality-based thinking is present - but still restless, still with short-term memory difficulty, etc consider increasing seroquel to 25mg HS cont melatonin 3mg HS for daytime restlessness - medication to use?? will ask psychiatry to see her in am for additional medication recommendations replace B12 with IM injections (3) B12 deficiency: Plan: LEVEL - 100 While here give vitamin B12 1000mcg daily IM x 5 days then PO supplementation thereafter. 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 other cause? (10) H/O carotid endarterectomy: Plan: right - 2008 (11) Dyslipidemia: Plan: cont lipitor 80mg daily (12) Dental infection: Plan: recent dental infection (1 week ago) s/p tooth extraction cont amoxicillin blood cx's negative - thus far no bacteremia from recent dental issues Plan DVT proph - lovenox pt's niece - Stacey - extensively updated at bedside today ideally patient would be willing to consider assisted living as her memory/cognition will only continue to decline over time however, if her niece lines up private caregivers (she is actively working on this right now) and if she has home health services (nursing for med compliance, etc) perhaps we can pull off d/c to home patient was not happy I was not discharging her today but this will allow more time to set up the services noted above again will ask psych to see her tomorrow Admission and Anticipated Discharge Date Admission Date: March 03, 2023 Subjective per staff the patient has been restless, somewhat agitated, most of the day although more oriented and cooperative than previously she still comes out to the nurses station frequently asking for things pacing the room slept all night last pm per staff with the seroquel patient met with Wale from social work her niece Stacey was present for this conversation assisted living was broached - patient adamantly opposed such, stating she would return home has told her niece and others that 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" niece has been working on getting private duty nursing/caregivers - Wale gave her a sheet of those agencies in town I spent lengthy amount of time talking with Dr Harris and her niece although Dr Harris is more oriented today -- she said "I kept thinking we were at [facility]" but "now I realize we are in [place] at the hospital here" she knew it was 2022 she initially got the date and month wrong; she caught herself and said "march 06" I asked her what she would do if she was having problems and she was living alone she said "I would call my neighbor" she went on to list multiple neighbors that she could call upon she said multiple times that she "has to get back to teaching" she also brought up the book that she recently wrote and the translation of it to the Kosovan language that may occur soon she would not commit to taking a break from the above activities at one point she did say "I won't work the rest of the week" and "they have teachers lined up to teach my class" we discussed that driving right now would NOT be prudent nor going back to work would be advisable she was upset that I would not let her d/c home today Stacey and I impressed upon her that we needed to ensure a safe d/c plan - those support services are simply not set up yet finally - patient was unable to - 1. complete a 3-word recall 2. could not recite the months of year backwards despite multiple attempts Review of Systems Review of Systems: gen - eating well; no fevers cv - no chest pain pulm - no dyspnea or cough GI - no abd pain/nausea/emesis Physical Exam Physical Exam: gen - elderly female in no acute physical distress; looks more rested than prior; she is more oriented and more reality-based in thinking but still with poor short-term recall and remains restless during the daytime mouth - MMM; right maxillary tooth extraction site with sutures intact, mild gingival inflammation heart - RRR, s1 s2, no murmur lungs - CTA b/l abd - soft NT ND BS+ ext - no edema, pulses 2+ b/l psych - awake, alert, restless but able to carry on conversation; oriented to person, place, and partially time; no hallucinations or delusions Results & Data Results & Data Vital Signs (Past 12 Hours) Vital Signs Temp Pulse Pulse Resp BP BP Pulse Ox 10/01/23 19:14 36.4 C L 88 18 159/86 H 95 03/05/23 16:49 101 H 03/05/23 15:38 37.2 C 86 18 143/68 H 98 03/05/23 11:40 36.3 C L 98 H 20 137/75 98 O2 Del Method 03/05/23 19:14 Room Air 03/05/23 16:49 03/05/23 15:38 Room Air 03/05/23 11:40 Room Air Laboratory Results B1 level pending PG Care Time/CCT Total # of Minutes Spent Total Time Spent with Patient: Total time spent is greater than 50% in coordination of care (as documented) at patient's floor/unit and/or counseling patient: Coding Level of Care Code 12283 SUB INP/OBS CARE 3/50MIN Diagnoses Dementia F03.90 Confusion R41.0 B12 deficiency E53.8 Hx of TIA (transient ischemic attack) and stroke Z86.73 GERD (gastroesophageal reflux disease) K21.9 History of breast cancer Z85.3 Chronic cerebral ischemia I67.82 Carotid stenosis I65.29 Tremor R25.1 H/O carotid endarterectomy Z98.890 Dyslipidemia E78.5 Dental infection K04.7
[2023-03-05] MEDS ORDERED: QUEtiapine FUMARATE 25 MG TABLET PO PRN (20:48)
[2023-03-05] MEDS: QUEtiapine FUMARATE 25 MG TABLET PO SCH (21:40)
[2023-03-05] MEDS: THIAMINE HCL 200 MG in SODIUM CHLORIDE 0.9% 50 ML IV SCH (21:40)
[2023-03-05] MEDS: MELATONIN 3 MG TAB PO SCH (21:41)
[2023-03-05] MEDS: FAMOTIDINE 40 MG TABLET PO SCH (21:41)
[2023-03-06] MEDS: ACETAMINOPHEN 500 MG TAB PO SCH (08:22)
[2023-03-06] MEDS: CLOPIDOGREL BISULFATE 75 MG TAB PO SCH (08:23)
[2023-03-06] MEDS: ATORVASTATIN 40 MG TAB PO SCH (08:23)
[2023-03-06] MEDS: CYANOCOBALAMIN 1000 MCG/ML VIAL IM SCH (08:23)
[2023-03-06] MEDS: CEROVITE ADV FORMULA TAB PO SCH ×2 (08:24→19:51)
[2023-03-06] MEDS: LIFITEGRAST 1 EACH DROPERETTE OP SCH (08:24)
[2023-03-06] MEDS: THIAMINE HCL 200 MG in SODIUM CHLORIDE 0.9% 50 ML IV SCH ×2 (08:33→19:50)
[2023-03-06] MEDS: ENOXAPARIN INJ 40 MG/0.4 ML SYR SQ SCH (18:30)
[2023-03-06] MEDS: QUEtiapine FUMARATE 25 MG TABLET PO SCH (19:50)
[2023-03-06] MEDS: FAMOTIDINE 40 MG TABLET PO SCH (19:50)
[2023-03-06] MEDS: MELATONIN 3 MG TAB PO SCH (19:50)
[2023-03-07 07:21] LABS: Basophils # (auto) 0.03 K/uL (0.00-0.20); Basophils % (auto) 0.6 %; Eosinophils % (auto) 3.7 %; Hematocrit (blood only) 37.3 % (37.0-47.0); Hemoglobin 12.2 g/dl (12.0-16.0); Immature Granulocytes # (auto) 0.02 K/uL (0.01-0.20); Immature Granulocytes % (auto) 0.4 %; Lymphocytes # (auto) 0.83 K/uL (1.20-3.40); Lymphocytes % (auto) 15.5 %; Mean Corpuscular Hemoglobin 30.3 pg (25.0-34.0); Mean Corpuscular Hgb Conc 32.7 g/dL (32.0-36.0); Mean Corpuscular Volume 92.6 fL (80.0-100.0); Mean Platelet Volume 8.6 fL (9.4-12.4); Monocytes # (auto) 0.69 K/uL (0.11-0.59); Monocytes % (auto) 12.9 %; Neutrophils # (auto) 3.58 K/uL (1.40-6.50); Neutrophils % (auto) 66.9 %; Platelet Count 284 K/uL (130-400); RDW Coefficient of Variation 13.2 % (11.5-14.5); RDW Standard Deviation 45.4 fL (36.4-46.3); Red Blood Count 4.03 M/uL (4.20-5.40); White Blood Count 5.35 K/ul (4.8-10.8)
[2023-03-07 07:43] LABS: BUN Creatinine Ratio 20.5 (10-20); Est GFR (African American) 52.2 ml/min; Est GFR (Non-African American) 45.1 ml/min; Potassium 4.4 mmol/L (3.5-5.1)
[2023-03-07] MEDS: CEROVITE ADV FORMULA TAB PO SCH (09:06)
[2023-03-07] MEDS: LIFITEGRAST 1 EACH DROPERETTE OP SCH (09:06)
[2023-03-07] MEDS: ATORVASTATIN 40 MG TAB PO SCH (09:07)
[2023-03-07] MEDS: ACETAMINOPHEN 500 MG TAB PO SCH (09:07)
[2023-03-07] MEDS: CLOPIDOGREL BISULFATE 75 MG TAB PO SCH (09:07)
[2023-03-07] MEDS: CYANOCOBALAMIN 1000 MCG/ML VIAL IM SCH (09:07)
[2023-03-07] MEDS: THIAMINE HCL 200 MG in SODIUM CHLORIDE 0.9% 50 ML IV SCH (09:07)
--- NOTE | 2023-03-07 13:14 | Psychiatric Consultation ---
Date of Consultation March 07, 2023 Impression / Recommendations Impression Diagnostically unclear if episode of confusion was due to hyperactive delirium versus progression of cognitive impairment versus brief neurological event (but no evidence for acute changes on brain imaging) but regardless there has been concern for increased frequency of these types of events over the last 6-12 months and her performance on [place] Cognitive Assessment today is consistent with likely moderate cognitive impairment. I could not find any past mini-cog or MOCA assessments in the chart, brain imaging shows signs of age-related changes as well as atrophy and chronic microischemic changes. MOCA testing showed particularly deficits for visuospatial/short-term recall/attention and categorical fluency though she also had other deficits. Given challenges of assessing cognitive function in the inpatient setting when it is difficult to determine if delirium (which typically improves) is contributing to cognitive deficits I strongly agree with outpatient neuropsychological testing. Today the re is no evidence for acute delirium. Discussion today included her niece, who serves as her healthcare proxy/power of compliance attorney, and both her niece and Iram stated that her goal has always been to age at home and bring in additional support as needed. Until additional home services can be established her niece will be staying with her and Iram is open to briefly staying at an assisted living facility until additional home support can be established if needed until she and the family can better predict what her longer term progression will look like. She and her niece are in agreement with her not driving at least until neuropsychological testing occurs and neurology can weigh in about permanence of this decision. 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 In terms of decision making capacity about going home she is felt to have decision making capacity to return home. She clearly communicates her consistent choice to be at home (and per her niece has been consistent about this over time), understands why there are concerns about her memory and is agreeable to outpatient neuropsychological testing, shows some understanding of consequences of living without any additional support and is agreeable to help from her niece and additional care providers and can financial afford this, and is able to provide rationale for her decisions (particularly her desire to remain as independent as possible for as long as she can and to be in her house with her piano). I do not have strong feelings about the use of Seroquel long-term. Low dose helped with sleep and seemed to help quickly resolve her acute suspected hyperactive delirium symptoms. Given likelihood for component of cognitive impairment use of antipsychotics carries a black box warning for increased all- cause mortality. If she finds Seroquel helpful for sleep protection and prevention of further episodes of confusion then benefits would likely outweigh risks and this could be considered for longer-term use. Encourage ongoing discussions with her niece, family and trusted outpatient providers about her long-term goals particularly if concerns for cognitive impairment point toward progressive disease which she is agreeable to. Overall, I spent a total of 80 minutes with this case including review of chart records, review of labwork, review of imaging, direct evaluation of the patient at bedside, counseling the patient, discussion of the patient with the RN and two hospitalist providers, discussion with the psychiatric liason during clinical rounds, review of collateral historian information from the family and documentation in the electronic health record. (1) Altered mental status: (2) B12 deficiency: (3) Cognitive impairment: (4) Hx of TIA (transient ischemic attack) and stroke: Plan -No acute safety concerns given that she plans to return home with support from family and hired in-home services -Recommend she not drive at least until further neuropsychological outpatient testing is completed and reviewed which she is agreeable to and her niece is in support of as well -Agree with Dr. Duval's office's efforts to move up her outpatient neurology appointment with Dr. Allen and to get her scheduled for neuropsychological testing to better determine possible major neurocognitive disorder vs alternative cognitive impairment causes -Agree with addressing B12 and Vit D deficiencies -Consider use of Seroquel 12.5mg HS po for the next 1-2 weeks to ensure no return of delirium symptoms, longer term use to be assessed based on risks/benefit profile with her outpatient providers Psych History Identifying Data 83 yo woman with history of TIA, GERD, breast cancer, and episodes of confusion admitted medically for confusion. Psychiatry consulted for medication recommendations for suspected delirium. Chief Complaint "I never lose consciousness with it, just memory". History of Present Illness Iram is seen bedside and joined mid-way by her niece Liz. Walden describes feeling improved from recent confusion episode on Monday and Monday and eager for discharge. She is very future-oriented about getting back to her home and activities and grateful for her niece coming to town to help her get additional services and supports in place. 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 She denies any recent accidents or getting lost while driving and feels she has excellent reaction time but her niece notes that neighbors have expressed concern about her safety driving. She wants to age at home and eventually at home but is agreeable to having home health services and increased level of care over time as needed. She is willing to do outpatient neuropsychological testing. She trusts her outpatient primary care provider Dr. Duval and has seen and trusts Dr. Allen who she sees twice a year for neurology follow-up. Apparently with history of episodes of confusion over the last few months largely observed by her colleagues at [facility]. Reviewed notes from her recent visits with Dr. Duval, Dr. Cross and Sussy Martin and psychiatric liason spoke with a RN at Dr. Duval's office who expressed concerns about Iram's memory and ability to function independently given some of her recent phone calls/visits. Historically she has been resistant to Dr. Duval's efforts to do any further workup of her intermittent confusion. Allergies Allergy/AdvReac Type Severity Reaction Status Date / Time neomycin Allergy Intermediate Rash Verified 03/03/23 09:43 nabumetone [From Relafen] Allergy Mild Redness of Verified 03/03/23 09:43 Skin loperamide [From Imodium A-D] AdvReac Intermediate Rapid Verified 03/03/23 09:43 heart rate lorazepam [From Ativan] AdvReac Intermediate Anxiety Verified 03/03/23 09:43 zolpidem [From Ambien] AdvReac Intermediate Anxiety Verified 03/03/23 09:43 Home Medications Medication Instructions Recorded Confirmed Type acetaminophen 500 mg tablet 500 mg PO DAILY 03/25/19 03/03/23 History (Tylenol Extra Strength) vit C 250 mg-vit E 90 mg-zinc 40 1 tab PO BID 10/14/21 03/03/23 History mg-copper 1 [id number] capsule (PreserVision AREDS-2) lifitegrast 5 % eye drops in a 1 drp ophthalmic (eye) BID 05/18/22 03/03/23 History dropperette (Xiidra) clopidogrel 75 mg tablet 75 mg PO QAM 90 days #90 tabs 08/31/22 03/03/23 Rx atorvastatin 80 mg tablet 80 mg PO DAILY 09/29/22 03/03/23 History famotidine 40 mg tablet 40 mg PO HS 09/29/22 03/03/23 History nystatin 100,000 unit/gram topical 1 applic topical HS 09/29/22 03/03/23 History cream triamcinolone acetonide 0.1 % 1 applic topical BID PRN Skin 01/10/23 03/03/23 Rx topical cream Irritation #30 grams quetiapine 25 mg tablet 12.5 mg PO HS #30 tabs 03/07/23 Rx Patient History Medical History (Updated 03/07/23 @ 17:05 by Paty Gold MD) Carotid stenosis S/P right carotid endarterectomy (2008) No significant ICA stenosis per 05/2021 carotid doppler Chronic cerebral ischemia Degenerative disc disease Dyslipidemia Elevated troponin GERD (gastroesophageal reflux disease) History of breast cancer No arm restriction per pt- R breast CA 04/200202 GRADE 1 ER +/HER-2 Neg 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 Allen Ocular migraine Osteoarthritis Osteoporosis Schatzki's ring Sensorineural hearing loss (SNHL) of both ears SNHL (sensorineural hearing loss) Subclavian artery stenosis Tremor Mild Surgical History (Updated 03/05/23 @ 05:55 by Cuco Bartlett MD) H/O endarterectomy Right H/O foot surgery BUNION, CURLED TOES, RIGHT SIDE History of cataract surgery History of colonoscopy History of dilation and curettage History of esophageal dilatation History of knee replacement procedure of left knee History of oophorectomy, unilateral Right History of removal of ovarian cyst Nausea and vomiting after administration of anesthetic agent with colonoscopy Status post breast lumpectomy Right Breast CA- Tx with XRT and Arimidex x 5 yrs./ ER + HER-2/abisai neg. Status post total knee replacement using cement Right Family History Mother CHF (congestive heart failure) Father Epilepsy Colon cancer Pulmonary fibrosis Family/Other Breast cancer Other No family history of adverse response to anesthesia Social History Smoking Status: Never smoker Second Hand Exposure: No; Do You Dip or Chew Tobacco: No; Hx Alcohol Use: No Hx Substance Use: No Preferred Language: Slovak Communication Ability: Effective Visual Impairment: No Limitations Hearing Ability: Normal Residential Framing Carpenter Required: No Beliefs That Will Affect Care: None marital status: Single Current Living Situation: Alone current occupational status: employed 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, 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, 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 Feels Safe at Home: No Is there a partner from a previous relationship who is making you feel unsafe now?: No Assistive Devices: Walker Physical Exam Psychiatric: Orientation: alert and oriented x 3 Apperance: appropriately dressed and appropriately groomed Eye Contact: good eye contact Motor Behavior: no abnormal motor movements Speech: normal rate/rhythm/volume of speech Affect: euthymic affect Mood: no depressed mood and no anxious mood Thought Process: linear/logical thought process Thought Content: reality based without delusions Suicidal Thoughts: denies suicidal thoughts Homicidal Thoughts: denies homicidal thoughts Hallucinations: no auditory hallucinations and no visual hallucinations Cognition: remote memory grossly intact, attention grossly intact (but did not do well with attention tasks on MOCA) and language grossly intact; + recent memory not intact (0/5 for 5 item recall on MOCA) Estimated Intelligence: consistent with education level Insight: + limited insight Judgment: + fair judgement Vital Signs (Past 24 Hours): Last Vital Signs Temp 36.9 C 03/07/23 11:15 Pulse 76 03/07/23 11:15 Resp 20 03/07/23 11:15 BP 153/80 H 03/07/23 11:15 Pulse Ox 97 03/07/23 11:15 O2 Del Method Room Air 03/07/23 11:15 Review of Systems All systems reviewed & are unremarkable except as noted in HPI & below Results & Data (PSY) Diagnostic Findings reviewed brain MRI Medications Administered Acetaminophen (Acetaminophen 500 Mg Tab) 500 mg PO DAILY WALKER Stop: 04/03/23 08:59 Last Admin: 03/07/23 09:07 Dose: 500 mg Documented By: Admin: 03/06/23 08:22 Dose: 500 mg Documented By: Admin: 03/05/23 08:54 Dose: 500 mg Documented By: Admin: 03/04/23 07:50 Dose: 500 mg Documented By: Atorvastatin Calcium (Atorvastatin 40 Mg Tab) 80 mg PO DAILY WALKER Stop: 04/03/23 08:59 Last Admin: 03/07/23 09:07 Dose: 80 mg Documented By: Admin: 03/06/23 08:23 Dose: 80 mg Documented By: Admin: 03/05/23 08:53 Dose: 80 mg Documented By: Admin: 03/04/23 07:50 Dose: 80 mg Documented By: Clopidogrel Bisulfate (Clopidogrel Bisulfate 75 Mg Tab) [facility] [place]: 04/03/23 08:59 Last Admin: 03/07/23 09:07 Dose: 75 mg Documented By: Admin: 03/06/23 08:23 Dose: 75 mg Documented By: Admin: 03/05/23 08:53 Dose: 75 mg Documented By: Admin: 03/04/23 07:50 Dose: 75 mg Documented By: Cyanocobalamin (Cyanocobalamin 1000 Mcg/Ml Vial) 1,000 mcg IM QA WALKER Stop: 03/09/23 09:01 Last Admin: 03/07/23 09:07 Dose: 1,000 mcg Documented By: Admin: 03/06/23 08:23 Dose: 1,000 mcg Documented By: Admin: 03/05/23 11:06 Dose: 1,000 mcg Documented By: Enoxaparin Sodium (Enoxaparin Inj 40 Mg/0.4 Ml Syr) 40 mg SQ Q24H WALKER Stop: 04/02/23 19:14 Last Admin: 03/06/23 18:30 Dose: 40 mg Documented By: Admin: 03/05/23 18:38 Dose: 40 mg Documented By: Admin: 03/04/23 18:42 Dose: 40 mg Documented By: Admin: 03/03/23 21:24 Dose: 40 mg Documented By: RITO Famotidine (Famotidine 40 Mg Tablet) 40 mg PO HS WALKER Stop: 04/02/23 20:59 Last Admin: 03/06/23 19:50 Dose: 40 mg Documented By: Admin: 03/05/23 21:41 Dose: 40 mg Documented By: Admin: 03/04/23 20:17 Dose: 40 mg Documented By: Admin: 03/03/23 21:27 Dose: 40 mg Documented By: RITO Thiamine HCl 200 mg/ Sodium (Chloride) 52 mls @ 210 mls/hr IV BID WALKER Stop: 04/04/23 20:59 Last Infusion: 03/07/23 09:22 Dose: 0 mls/hr Documented By: Admin: 03/07/23 09:07 Dose: 210 mls/hr Documented By: Infusion: 03/06/23 20:10 Dose: 0 mls/hr Documented By: Admin: 03/06/23 19:50 Dose: 210 mls/hr Documented By: Infusion: 03/06/23 08:48 Dose: 0 mls/hr Documented By: Admin: 03/06/23 08:33 Dose: 210 mls/hr Documented By: Infusion: 03/05/23 21:57 Dose: 0 mls/hr Documented By: Admin: 03/05/23 21:40 Dose: 210 mls/hr Documented By: KEVIN Lifitegrast (Lifitegrast 1 Each Droperette) 1 each OP DAILY WALKER Stop: 04/02/23 20:59 Last Admin: 03/07/23 09:06 Dose: 1 each Documented By: Admin: 03/06/23 08:24 Dose: 1 each Documented By: Admin: 03/05/23 08:55 Dose: 1 each Documented By: Admin: 03/04/23 09:18 Dose: 1 each Documented By: Admin: 03/03/23 21:29 Dose: 1 each Documented By: RITO Melatonin (Melatonin 3 Mg Tab) 3 mg PO HS WALKER Stop: 04/03/23 20:59 Last Admin: 03/06/23 19:50 Dose: 3 mg Documented By: Admin: 03/05/23 21:41 Dose: 3 mg Documented By: Admin: 03/04/23 20:15 Dose: 3 mg Documented By: RITO Multivitamins/Minerals (Cerovite Adv Formula Tab) 1 tab PO BID WALKER Stop: 04/02/23 20:59 Last Admin: 03/07/23 09:06 Dose: 1 tab Documented By: Admin: 03/06/23 19:51 Dose: 1 tab Documented By: Admin: 03/06/23 08:24 Dose: 1 tab Documented By: Admin: 03/05/23 21:40 Dose: 1 tab Documented By: Admin: 03/05/23 08:53 Dose: 1 tab Documented By: Admin: 03/04/23 20:16 Dose: 1 tab Documented By: Admin: 03/04/23 07:50 Dose: 1 tab Documented By: Admin: 03/03/23 21:28 Dose: 1 tab Documented By: RITO Quetiapine Fumarate (Quetiapine Fumarate 25 Mg Tablet) 12.5 mg PO HS WALKER Stop: 04/03/23 20:59 Last Admin: 03/06/23 19:50 Dose: 12.5 mg Documented By: Admin: 03/05/23 21:40 Dose: 12.5 mg Documented By: Admin: 03/04/23 20:15 Dose: 12.5 mg Documented By: RITO Coding Level of Care Code 67514 IN/OBS CONSULT LVL 5,80M Diagnoses Altered mental status R41.82 B12 deficiency E53.8 Cognitive impairment R41.89 Hx of TIA (transient ischemic attack) and stroke Z86.73 Time Spent (min) 80
--- NOTE | 2023-03-07 13:57 | Discharge Summary ---
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 Chronically decreasing mentation since September suspicious for dementia but was acutely disoriented at work. Did not recognize surroundings and recurrently confused/disoriented in ER. Lives alone, no felt to be safe at home with currently level of confusion. Referred by family doctor due to deviation from baseline and rapid fluctuation. Agree with assessment and work-up for acute fluctuating mental status which also places patient at a safety risk to return home alone. PT/OT pending. MRI pending. CT does not show any acute intracranial abnormalities. Lab review does not show evidence of infectious metabolic encephalopathy, high-sensitivity troponin is mildly elevated at 14 with repeat pending at time evaluation. EKG is sinus without any ST segment or T wave changes. Renal function is at baseline and ratio is not contracted. No sedating home medications or narcotics. At bedside: Mack is seen with a friend present. 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 She then recalled that it was exam day and she had most of the day off before she had to go in. While she was at University around lunchtime she felt confused and was not aware of where she was or her surroundings. By report of her friend also appeared confused and had difficulty articulating herself? Dysarthria, although no focal weakness and no falls. No facial droop. She has recently been seen as an outpatient with concern for progressive memory loss/dementia; however does have a history of stroke and seem to have a more acute onset of co nfusion which is very different from her normal baseline as noted by her coworkers. She reached out to her PCPs office who noted she also seemedOff from her baseline. Per their note patient describes symptoms as more of a lapse in memory and since she seemed to be having an ongoing episode of memory loss and confusion was recommended to go to the ER for further evaluation and testing. Patient reports otherwise she has been in her normal state of health in the last she notes that she has had a toothache and a R upper molar pulled last week. Followed up with Dr. Bee who removed the tooth last Monday in the office. Did well, and felt better but tooth was noted to be fractured with an infection at that time. Did have pain after the tooth was pulled. 1 placed on amoxicillin for 1 week, 2 days remaining and pain has completely resovled. No fevers, chlls, or sweats. Takes one tylenol a day for 'achey bones and arthritis' but denies any narcotic or sedative use.Was seen by Dr. Faulkner office who noted pt was much different from her normal baseline although with no focal neurologic deficits, but recommended she been seen for an overnight eval. Miguelito Au is a friend who came with her to appointments. Medical History: Reviewed Medications: Reviewed Surgical History: Reviewed Family history: Reviewed Allergies: Reviewed Social History: No tobacco/etoh Code Status: Primary medical contact is dante in [facility] Tracey Harris. Other dante Rivasra would be backup decision maker. Principal Diagnosis dementia Discharge Exam gen - elderly female in no acute physical distress; mouth - MMM; right maxillary tooth extraction site with sutures intact, mild gingival inflammation heart - RRR, s1 s2, no murmur lungs - CTA b/l abd - soft NT ND BS+ ext - no edema, pulses 2+ b/l psych - awake, alert Discharge Data Allergies Allergy/AdvReac Type Severity Reaction Status Date / Time neomycin Allergy Intermediate Rash Verified 03/03/23 09:43 nabumetone [From Relafen] Allergy Mild Redness of Verified 03/03/23 09:43 Skin loperamide [From Imodium A-D] AdvReac Intermediate Rapid Verified 03/03/23 09:43 heart rate lorazepam [From Ativan] AdvReac Intermediate Anxiety Verified 03/03/23 09:43 zolpidem [From Ambien] AdvReac Intermediate Anxiety Verified 03/03/23 09:43 Consultations 03/03/23 14:55 ED Decision to Admit Stat 03/07/23 06:03 Consult Psychiatry Routine Ordered Studies 03/03/23 11:19 CT head/brain wo con Stat 03/03/23 18:31 MR angio head wo con Routine MR brain wo con Routine Hospital Course (1) Dementia: history is highly compatible with a progressive dementia process. suspect it is vascular in origin given prior thalamic stroke, known PAD, etc. she has seen Dr Allen in the office from [facility]. there is considerable atrophy on MRI brain. "reversible" causes of dementia - TSH, B12, etc checked - TSH wnl, does have vit B12 def (see below). B1 level is pending. 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 she presented with severe agitated delirium. IT IS IMPROVED WITH SEROQUEL AT HS BUT REMAINS RESTLESS DURING THE DAY. 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 the vitamin B12 def could be compounding the problem as well. I do not see any evidence of an infectious process - u/a wnl, cxr wnl, COVID/flu/RSV negative, etc. no new stroke on brain MRI. CONTINUE seroquel 12.5mg HS scheduled. QTc on EKG wnl. benefits of antipsychotic outweigh its risk due to high elopement risk, her risk of physical injury due to impulsivity, etc. blood cx's thus far negative - thus, no bacteremia due to recent dental infection/dental extraction. sed rate/crp - 31, 0.5 - respectively. (2) Confusion: agitated delirium superimposed on likely a vascular dementia see #1 above For the first 48 hours of this stay she did not have capacity to make medical decisions for herself - was oriented to person only during that time period. Confusion is better - more oriented and more reality-based thinking is present - but still restless, still with short-term memory difficulty, etc consider increasing seroquel to 25mg HS cont melatonin 3mg HS replace B12 with IM injections Recommend no driving. Recommend outpatient neuropsych eval. Discharge meds noted below. (3) B12 deficiency: LEVEL - 100 While here give vitamin B12 1000mcg daily IM x 5 days then PO supplementation thereafter. 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 other cause? (10) H/O carotid endarterectomy: right - 2008 (11) Dyslipidemia: cont lipitor 80mg daily (12) Dental infection: recent dental infection (1 week ago) s/p tooth extraction cont amoxicillin blood cx's negative - thus far no bacteremia from recent dental issues Plan DVT proph - lovenox pt's niece - Stacey - extensively updated at bedside today \\ Total Time Total Time Spent Total Time Spent (In Minutes): 35 Discharge Plan Discharge Items Patient Disposition: Home - Home Health Services Reason For Visit: CONFUSION, CVA R/O Discharge Diagnosis: Delirium Activity: Resume your previous activity Non-emergency contact: Primary Care Provider Call non-emergency contact if: you have any medication questions Follow-up/Referrals: Marck Allen MD [Physician] - 03/10/23 2:00 pm (Follow up scheduled on 03/10/23 @ 2 pm with Dee Arriaga) Jay Duval MD [Primary Care Provider] - 03/15/23 2:45 pm (Follow up scheduled on 03/15/23 @ 2:45 ) Diet: Heart Healthy Addtl Attending Provider Instructions: Recommend followup with Neurology with Dr. Allen for possible Neuropsych evaluation. Recommend followup with PCP in 1-2 weeks. Recommend no driving. We will discharge you on seroquel 12.5 mg at bedtime to help with sleep and agitation overnight. The need for this medication will be re-evaluated at your followup appointment. Pending Studies at Discharge: No Stand-Alone Forms: My [facility] [place], Smoking Cessation Medications and DC Order Prescriptions: New quetiapine 25 mg Tablet 12.5 mg PO HS Qty: 30 0RF Continued clopidogrel 75 mg tablet 75 mg PO QAM 90 Days Qty: 90 1RF Xiidra 5 % dropperette 1 drp ophthalmic (eye) BID Rx Instructions: patient reports taking once daily acetaminophen [Tylenol Extra Strength] 500 mg tablet 500 mg PO DAILY Rx Instructions: PER PT "USUALLY ONCE IF NOT TWICE A DAY". triamcinolone acetonide 0.1 % cream 1 applic TOPICAL BID PRN (Reason: Skin Irritation) Qty: 30 0RF PreserVision AREDS-2 250-90-40-1 mg Capsule 1 tab PO BID nystatin 100,000 unit/gram cream 1 applic TOPICAL HS Rx Instructions: APPLY UNDER BREAST atorvastatin 80 mg tablet 80 mg PO DAILY Rx Instructions: TAKE 1 TABLET BY MOUTH EVERY MORNING famotidine 40 mg tablet 40 mg PO HS Rx Instructions: TAKE 1 TABLET BY MOUTH EVERY MORNING Discontinued amoxicillin 500 mg capsule 500 mg PO TID Patient Comments: Spoke with doctors office and pt reported to them she was taking an antibiotic and had one day left Admission Data Admit Date/Time: 03/03/23 17:06 Attending Provider: Evan Duarte Admit Provider: Wade Zuniga Primary Care Provider: Jay Duval Other Providers: Wade Zuniga ; Paty Gold Other Interventions: Discharge Summary Assessment (RN) Last Done: 03/07/23 14:56 Coding Level of Care Code 79345 INP/OBS DISCH >30 MIN Diagnoses Dementia F03.90 Confusion R41.0 B12 deficiency E53.8 Hx of TIA (transient ischemic attack) and stroke Z86.73 GERD (gastroesophageal reflux disease) K21.9 History of breast cancer Z85.3 Chronic cerebral ischemia I67.82 Carotid stenosis I65.29 Tremor R25.1 H/O carotid endarterectomy Z98.890 Dyslipidemia E78.5 Dental infection K04.7
== END 2023-03-07 15:41 | disposition home health service (06) ==
LOC: ED 10:34 → 2S 10:34 → SUATTDRO 17:06 → 2S 18:11 → SUATTDRO 03-04 20:35
DX: E53.8 Deficiency of other specified B group vitamins; Z23 Encounter for immunization; K04.7 Periapical abscess without sinus; I65.02 Occlusion and stenosis of left vertebral artery; Z88.8 Allergy status to other drugs, medicaments and biological substances; Z98.818 Other dental procedure status; I67.82 Cerebral ischemia; R77.8 Other specified abnormalities of plasma proteins; Z98.890 Other specified postprocedural states; F03.90 Unspecified dementia, unspecified severity, without behavioral disturbance, psychotic disturbance, mood disturbance, and anxiety; Z11.52 Encounter for screening for COVID-19; R25.1 Tremor, unspecified; Z79.899 Other long term (current) drug therapy; Z85.3 Personal history of malignant neoplasm of breast; K21.9 Gastro-esophageal reflux disease without esophagitis; Z86.73 Personal history of transient ischemic attack (TIA), and cerebral infarction without residual deficits; E78.5 Hyperlipidemia, unspecified

== ENCOUNTER 2023-06-09 10:28 | Observation (INO) ==
--- NOTE | 2023-06-09 10:33 | ED Triage Note ---
Date of Service June 09, 2023 Provider in Triage Author: Cricket Gu History of Present Illness This patient was briefly evaluated while in triage. An abbreviated physical exam was performed. This patient is a 83-year-old Female who presents to the ED for evaluation of confusion. Here with helper/neighbor Kim. She was confused this am and had a bad BM accident today. Today now 3 hours and not 100%. Neighbor notes patient was confused about place, time and didnt know who her neighbor is. Patient notes she feels good right now. Physical Exam GENERAL: 83 year old female, In no acute distress. SKIN: No lesions or rashes. HEART: Regular rate and rhythm. LUNGS: Clear to auscultation. NEURO: Alert and oriented. No deficits. MUSCULOSKELETAL: No deformities to inspection of the extremities. PSYCH: Patient is pleasant and answers all questions appropriately. Initial orders for labs and / or imaging were placed and patient was placed in the waiting area until a bed is available. Please see further documentation for the full ED course.
[2023-06-09 12:24] LABS: Basophils # (auto) 0.01 K/uL (0.00-0.20); Basophils % (auto) 0.2 %; Eosinophils # (auto) 0.01 K/uL (0.00-0.50); Eosinophils % (auto) 0.2 %; Hematocrit (blood only) 39.5 % (37.0-47.0); Hemoglobin 12.9 g/dl (12.0-16.0); Immature Granulocytes # (auto) 0.01 K/uL (0.01-0.20); Immature Granulocytes % (auto) 0.2 %; Lymphocytes # (auto) 0.43 K/uL (1.20-3.40); Lymphocytes % (auto) 8.1 %; Mean Corpuscular Hemoglobin 30.4 pg (25.0-34.0); Mean Corpuscular Hgb Conc 32.7 g/dL (32.0-36.0); Mean Corpuscular Volume 92.9 fL (80.0-100.0); Mean Platelet Volume 8.8 fL (9.4-12.4); Monocytes # (auto) 0.32 K/uL (0.11-0.59); Neutrophils # (auto) 4.56 K/uL (1.40-6.50); Neutrophils % (auto) 85.3 %; Platelet Count 269 K/uL (130-400); RDW Coefficient of Variation 12.6 % (11.5-14.5); RDW Standard Deviation 43.1 fL (36.4-46.3); Red Blood Count 4.25 M/uL (4.20-5.40); White Blood Count 5.34 K/ul (4.8-10.8)
[2023-06-09 12:37] LABS: Albumin Globulin Ratio 1.7 (0.9-2); Albumin Level 4.5 gm/dl (3.4-5.0); BUN Creatinine Ratio 20.5 (10-20); Bilirubin,Total 0.4 mg/dl (0.2-1.0); Calcium 8.8 mg/dl (8.6-10.3); Creatinine Clr Calc Pharmacy 49.3 ml/min; Est GFR (African American) 87.7 ml/min; Est GFR (Non-African American) 75.6 ml/min; Globulin 2.7 gm/dl (2.5-4.0); Potassium 3.9 mmol/L (3.5-5.1); Total Protein 7.2 gm/dl (6.0-8.3)
[2023-06-09 12:43] LABS: Troponin I High Sensitivity 16.6 pg/ml (0-14)
[2023-06-09] MEDS ORDERED: OPTIRAY 320 125ml IV ONE (12:50)
[2023-06-09 13:00] LABS: Partial Thromboplastin Time 27 Seconds (21-31); Prothrombin Time 10.9 Seconds (9.0-12.0)
--- NOTE | 2023-06-09 13:13 | CT Scan Report ---
UNENHANCED CT OF THE BRAIN; CT ANGIOGRAM OF THE BRAIN CLINICAL HISTORY: Change in mental status. COMPARISON STUDY: CT of the brain dated 03/03/2023. CT angiogram of the brain dated 06/22/2017. TECHNIQUE: Unenhanced axial CT scan of the brain is performed. Subsequently, following the IV adminis tration of 119 cc of Optiray 320, CT angiogram of the brain was performed from the skull base to the vertex. Images are reviewed in the axial, sagittal, and coronal planes. 3-D MIPS images are created a nd assessed. IV contrast was administered without complication. A dose lowering technique was utiliz ed adhering to the principles of ALARA. CT DOSE: 1103.63 mGy.cm FINDINGS: Brain parenchyma: There is age-related involutional change noting advanced confluent subcortical and periventricular microangiopathic disease. There is no hemorrhage, mass effect, or evidence of acute t erritorial ischemia by CT criteria. There is no evidence of enhancing mass lesion on the angiogram ph ase images. No extra-axial fluid collection is seen. Thomas-white matter differentiation is preserved. Ventricles, sulci, and cisterns: Prominent secondary to involutional change. CT angiogram of the brain: There is atherosclerotic calcification of the cavernous carotid and verteb ral arteries. The internal carotid arteries are patent, as are the anterior and middle cerebral arter ies. There is at least moderate focal stenosis of the right anterior cerebral artery seen on axial im age #192. The intracranial vertebral arteries and the basilar artery are patent. There is high-grade stenosis with near complete 2 complete thrombosis of the distal cervical left vertebral artery at the level of C1 seen on axial image #31. The right vertebral artery is dominant. No aneurysm is identifi ed. Dural sinuses: Clear as visualized. Orbits: The bony orbits are intact. The orbital contents are normal as visualized noting bilateral oc ular lens implants. Sinuses and mastoids: There is moderate mucosal thickening within the maxillary antra. A 1.5 cm reten tion cyst is noted on the left. The remaining paranasal sinuses are clear. The mastoid air cells are well pneumatized. Calvarium: The skeletal structures are osteopenic. The calvarium appears intact. IMPRESSION: 1. There is no hemorrhage, mass effect, or evidence of acute territorial ischemia by CT criteria. 2. There is high-grade stenosis with near-complete to complete focal occlusion of the distal left cer vical vertebral artery below the skull base at the level of C1. This is similar to the 06/22/2017 exam ination. 2. There is at least moderate focal stenosis of the right anterior cerebral artery. This is new from 2018. 3. The remaining intracranial vessels are patent. ACT 112: Negative or not required by law. Electronically signed by: Miguelito Goldman M.D. 06/09/2023 1:11 PM
--- NOTE | 2023-06-09 13:13 | CT Scan Report ---
NECK CTA HISTORY: Altered mental status TECHNIQUE: Multiaxial CT images of the neck were performed following the intravenous administration o f contrast to evaluate the major cervical vessels. 3D/MIP images were also obtained. Sagittal and cor onal reformats were reviewed. All measurements were calculated based on NASCET criteria. A dose low ering technique was utilized adhering to the principles of ALARA. COMPARISON STUDY: CTA neck 06/22/2017. FINDINGS: The lung apices are clear. No acute fractures identified. There is a 1.9 cm anterior medias tinal nodule/lymph node. This is new compared the prior study. The aortic arch and proximal great ves sels are widely patent. There is a diminutive left vertebral artery with multifocal areas of stenosis and occlusion. This is similar to the prior study and is therefore considered to be chronic. No sign ificant stenosis, occlusion, or dissection within the right vertebral artery. Moderate calcified plaq ue within the left carotid bifurcation resulting in mild stenosis of up to 50% within the proximal le ft internal carotid artery. This has slightly progressed in the interval. The mid to distal left inte rnal carotid artery is widely patent. No significant stenosis or occlusion within the right internal carotid artery. The bilateral common carotid arteries are widely patent. IMPRESSION: 1. A diminutive left vertebral artery with multifocal areas of stenosis and occlusion. This similar t o the prior study and is considered to be chronic. 2. Mild stenosis of approximately 50% within the proximal left internal carotid artery. This has slig htly progressed. 3. No significant stenosis or occlusion within the right carotid arteries or right vertebral artery. 4. There is a 1.9 cm anterior mediastinal nodule/lymph node which is new compared the prior study. A neoplastic process would be the diagnosis of exclusion. Follow-up nonemergent chest CT recommended fo r further evaluation ACT 112: Electronically signed by: Alan Petersen M.D. 06/09/2023 1:12 PM
[2023-06-09 13:21] LABS: Adenovirus PCR Not Detected (NotDetected); Bordetella parapertussis PCR Not Detected (NotDetected); Bordetella pertussis PCR Not Detected (NotDetected); Chlamydia pneumoniae PCR Not Detected (NotDetected); Coronavirus 229E PCR Not Detected (NotDetected); Coronavirus HKU1 PCR Not Detected (NotDetected); Coronavirus NL63 PCR Not Detected (NotDetected); Coronavirus OC43PCR Not Detected (NotDetected); Human Metapneumovirus PCR Not Detected (NotDetected); Influenza A PCR Not Detected (NotDetected); Influenza B PCR Not Detected (NotDetected); Mycoplasma pneumoniae PCR Not Detected (NotDetected); Parainfluenza Virus 1 PCR Not Detected (NotDetected); Parainfluenza Virus 2 PCR Not Detected (NotDetected); Parainfluenza Virus 3 PCR Not Detected (NotDetected); Parainfluenza Virus 4 PCR Not Detected (NotDetected); Respiratory Syncytial VirusPCR Not Detected (NotDetected); Rhinovirus/Enterovirus PCR Not Detected (NotDetected)
[2023-06-09 13:33] LABS: Coronavirus CoV-2 (COVID19)PCR DETECTED (NotDetected)
[2023-06-09 14:58] LABS: Appearance Urine Clear (Clear); Bilirubin Urine Negative (Negative); Blood Urine Negative (Negative); Color Urine Yellow; Glucose Urine UA Trace (Negative); Ketones Urine Negative (Negative); Leukocyte Esterase Urine Negative (Negative); Nitrite Urine Negative (Negative); Protein Urine Negative (Negative); Specific Gravity Urine 1.032 (1.000-1.030); Urobilinogen Urine Negative (Negative)
--- NOTE | 2023-06-09 15:37 | Electrocardiogram Report ---
Test Reason : Blood Pressure : / mmHG Vent. Rate : 086 BPM Atrial Rate : 086 BPM P-R Int : 154 ms QRS Dur : 074 ms QT Int : 372 ms P-R-T Axes : 038 027 032 degrees QTc Int : 445 ms Normal sinus rhythm Normal ECG When compared with ECG of 03-MAR-2023 11:32, No significant change was found Confirmed by Kian Sumner ([id number]) on 06/09/2023 3:36:40 PM Referred By: Jay Duval Confirmed By:Kian Sumner
--- NOTE | 2023-06-09 16:32 | Emergency Department Note ---
Impression & Plan Altered mental status, COVID ED Provider Note NAME: CLYDE CHAUHAN AGE: 83 SEX: F : 1940 ARRIVES VIA: Walk-In INFORMANT: Patient, ED PROVIDER(S): Laisha Roman MD CHIEF COMPLAINT: Altered mental status HPI: This is an 83-year-old female history of mild cognitive impairment, dementia, history of TIA presenting for confusion. Patient was reportedly brought in by a neighbor who checks on her occasionally. This morning the neighbor noted the patient had an episode of diarrhea across the house from the kitchen to the bathroom. Patient initially does not member this but now states that yes this happened. Otherwise she states she does feel somewhat confused. Neighbor states that she was at her baseline and was not sure what date was or who the neighbor was despite having a long history with this neighbor. Patient declines any shortness of breath, fever, chills, nausea, vomiting or pain. No urinary issues such as frequency urgency or dysuria. ROS: See above HPI for pertinent positives & negatives. A total of 10 systems reviewed and were otherwise negative. PAST MEDICAL HISTORY: See Below PAST SURGICAL HISTORY: See Below FAMILY HISTORY: See Below SOCIAL HISTORY: See Below HOME MEDICATIONS: See Below ALLERGIES: See Below VITALS: See Below PHYSICAL EXAMINATION: General: resting comfortably in no acute distress Head: Normocephalic and atraumatic Eyes: Normal inspection, extraocular muscles intact Ear, nose, throat: Normal external exam Neck: Normal range of motion Respiratory: lungs clear to auscultation bilaterally Cardiovascular: Regular rate/rhythm, no murmur GI: soft, nontender, no guarding or rebound Extremities: nontender, moves all extremities Neuro: The patient awake and alert, appropriately conversive, no focal deficits, symmetric faces Skin: Warm, dry, and intact MEDICAL DECISION MAKING: This is an 83-year-old female presenting for confusion. Will do screening workup to rule out acute cause for encephalopathy. Concern for UTI, viral process, low concern for stroke with a reassuring neurologic exam and no focal deficits. -Patient lab work reveals no leukocytosis, no anemia, no electrolyte disturbances, no creatinine elevation, troponin slightly elevated at 16.6 without chest pain (this appears to be within her normal baseline) -Patient is COVID-19 positive -At this time patient appears oriented but has lapses in her memory consistent with dementia -She is requesting discharge -This appears to be a unsafe discharge plan as patient has no caretakers at home, lives alone and the neighbor that usually checks in on her is going away for the weekend -I discussed care with "Earline "who is patient's POA and niece living in [facility]. He is also expressed concerns about patient being sent home. Patient initially adamant that she want to be discharged home and we will figure out a plan. -Eventually patient comfortable with admission until he could have a safe discharge plan with nursing care at home or for friends to help the patient out Differential diagnosis: UTI, viral process, stroke ER treatment provided: See below Diagnostics interpreted by me: ECG: ECG independently interpreted by me with normal sinus rhythm, rate of 86, normal axis, normal MT, normal QRS, normal QTc, no ST segment elevations consistent with STEMI criteria Cardiac Monitoring: An order was placed for continuous cardiac monitoring. The monitor shows a rate of 80 with sinus rhythm. Laboratory studies: As stated above and show below. Imaging studies: See below. Past Med/Surg History Medical History Elevated troponin Sensorineural hearing loss (SNHL) of both ears Subclavian artery stenosis History of breast cancer Schatzki's ring Osteoarthritis Degenerative disc disease Tremor GERD (gastroesophageal reflux disease) SNHL (sensorineural hearing loss) Ocular migraine Dyslipidemia Carotid stenosis Chronic cerebral ischemia Left thalamic infarction Osteoporosis Surgical History History of knee replacement procedure of left knee Status post total knee replacement using cement Nausea and vomiting after administration of anesthetic agent History of cataract surgery History of esophageal dilatation History of oophorectomy, unilateral History of removal of ovarian cyst History of dilation and curettage History of colonoscopy Status post breast lumpectomy H/O foot surgery H/O endarterectomy Family History Mother CHF (congestive heart failure) Father Epilepsy Colon cancer Pulmonary fibrosis Family/Other Breast cancer Other No family history of adverse response to anesthesia Social History Smoking Status: Never smoker Second Hand Exposure: No; Do You Dip or Chew Tobacco: No; Hx Alcohol Use: No Hx Substance Use: No Preferred Language: Welsh Communication Ability: Effective Visual Impairment: No Limitations Hearing Ability: Normal Polymerization Helper Required: No Beliefs That Will Affect Care: None marital status: Single Current Living Situation: Alone current occupational status: employed 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, 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, 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 Feels Safe at Home: Yes Assistive Devices: Walker Allergies Allergies Allergy/AdvReac Type Severity Reaction Status Date / Time neomycin Allergy Intermediate Rash Verified 05/17/23 10:17 nabumetone [From Relafen] Allergy Mild Redness of Verified 05/17/23 10:17 Skin loperamide [From Imodium A-D] AdvReac Intermediate Rapid Verified 05/17/23 10:17 heart rate lorazepam [From Ativan] AdvReac Intermediate Anxiety Verified 05/17/23 10:17 zolpidem [From Ambien] AdvReac Intermediate Anxiety Verified 05/17/23 10:17 Home Meds Home Medications Medication Instructions Recorded Confirmed acetaminophen 500 mg tablet 500 mg PO DAILY 03/25/19 06/09/23 (Tylenol Extra Strength) vit C 250 mg-vit E 90 mg-zinc 40 1 tab PO BID 10/14/21 06/09/23 mg-copper 1 [id number] capsule (PreserVision AREDS-2) nystatin 100,000 unit/gram topical 1 applic topical HS 09/29/22 06/09/23 cream triamcinolone acetonide 0.1 % 1 applic topical BID PRN Skin 04/14/23 06/09/23 topical cream Irritation Previous Rx's Medication Instructions Recorded cyanocobalamin (vitamin B-12) 1,000 mcg IM ONCE 4 weeks #4 mL 03/10/23 1,000 mcg/mL injection solution syringe with needle 3 mL 23 x 1" #50 ea 03/10/23 (BD SafetyGlide Syringe) quetiapine 25 mg tablet 12.5 mg (1/2 x 25 mg) PO HS #30 03/29/23 tabs clopidogrel 75 mg tablet 75 mg PO QAM 90 days #90 tabs 04/05/23 famotidine 40 mg tablet See Rx Instructions .Route 05/01/23 .COMPLEX #90 tabs atorvastatin 80 mg tablet 80 mg PO DAILY #90 tabs 05/08/23 cholecalciferol (vitamin D3) 50 2,000 unit PO DAILY 30 days #30 06/06/23 mcg (2,000 unit) capsule caps Results & Data (ED) Vital Signs Vital Signs - 24 hr 06/09/23 10:33 06/09/23 12:23 06/09/23 14:21 Temperature 36.8 C Temperature Source Temporal Artery Scan Pulse Rate 65 Pulse Rate [Finger] 77 Respiratory Rate 18 18 Respiratory Effort / Characteristics Respiratory Depth Blood Pressure 159/85 H Blood Pressure [Right Arm] 124/100 Blood Pressure Mean 109 Blood Pressure Mean [Right Arm] 108 Blood Pressure Position [Right Arm] Semi-fowlers Pulse Oximetry 99 94 95 Oxygen Delivery Method Room Air Room Air Room Air Sepsis Recent Fever Within 48 Hours No Sepsis New/Unexplained Change in Mental Status No Sepsis Action Taken by Nursing No Action Required 06/09/23 18:00 06/09/23 18:34 Temperature Temperature Source Pulse Rate 89 Pulse Rate [Finger] 88 Respiratory Rate 18 Respiratory Effort / Characteristics Non-Labored Respiratory Depth Normal Blood Pressure Blood Pressure [Right Arm] 154/85 H Blood Pressure Mean Blood Pressure Mean [Right Arm] 108 Blood Pressure Position [Right Arm] Pulse Oximetry 98 Oxygen Delivery Method Room Air Sepsis Recent Fever Within 48 Hours Sepsis New/Unexplained Change in Mental Status Sepsis Action Taken by Nursing Laboratory Data 06/09/23 11:46 06/09/23 11:46 Lab Results 06/09/23 06/09/23 06/09/23 Range/Units 11:46 12:21 Unknown WBC 5.34 (4.8-10.8) K/ul RBC 4.25 (4.20-5.40) M/uL Hgb 12.9 (12.0-16.0) g/dl Hct 39.5 (37.0-47.0) % MCV 92.9 (80.0-100.0) fL MCH 30.4 (25.0-34.0) pg MCHC 32.7 (32.0-36.0) g/dL RDW Std Deviation 43.1 (36.4-46.3) fL RDW Coeff of Shabnam 12.6 (11.5-14.5) % Plt Count 269 (130-400) K/uL MPV 8.8 L (9.4-12.4) fL Immature Gran % (Auto) 0.2 % Neut % (Auto) 85.3 % Lymph % (Auto) 8.1 % [place] % (Auto) 6.0 % Eos % (Auto) 0.2 % Baso % (Auto) 0.2 % Neut # (Auto) 4.56 (1.40-6.50) K/uL Lymph # (Auto) 0.43 L (1.20-3.40) K/uL [place] # (Auto) 0.32 (0.11-0.59) K/uL Eos # (Auto) 0.01 (0.00-0.50) K/uL Baso # (Auto) 0.01 (0.00-0.20) K/uL Immature Gran # (Auto) 0.01 (0.01-0.20) K/uL PT 10.9 (9.0-12.0) Seconds INR 1.0 (0.9-1.1) APTT 27 (21-31) Seconds PTT Ratio 1.0 Sodium 138 (136-145) mmol/L Potassium 3.9 (3.5-5.1) mmol/L Chloride 103 (98-107) mmol/L Carbon Dioxide 27 (21-32) mmol/L Anion Gap 8 (3-11) BUN 15 (6-23) mg/dl Creatinine 0.73 (0.6-1.2) mg/dl Est Cr Clr Drug Dosing 49.3 ml/min Est GFR ( Amer) 87.7 ml/min Est GFR (Non-Af Amer) 75.6 ml/min BUN/Creatinine Ratio 20.5 H (10-20) Glucose 125 H (70-99(Fasting)) mg/dl Calcium 8.8 (8.6-10.3) mg/dl Magnesium 2.0 (1.7-2.4) mg/dl Total Bilirubin 0.4 (0.2-1.0) mg/dl AST 17 (13-39) U/L ALT 14 (7-52) U/L Alkaline Phosphatase 69 (34-104) U/L Troponin I High Sens 16.6 H (0-14) pg/ml Total Protein 7.2 (6.0-8.3) gm/dl Albumin 4.5 (3.4-5.0) gm/dl Globulin 2.7 (2.5-4.0) gm/dl Albumin/Globulin Ratio 1.7 (0.9-2) Urine Color Yellow Urine Appearance Clear (Clear) Urine pH 6.0 (4.5-7.5) Ur Specific [place] 1.032 H (1.000-1.030) Urine Protein Negative (Negative) Urine Glucose (UA) Trace H (Negative) Urine Ketones Negative (Negative) Urine Blood Negative (Negative) Urine Nitrite Negative (Negative) Urine Bilirubin Negative (Negative) Urine Urobilinogen Negative (Negative) Ur Leukocyte Esterase Negative (Negative) Adenovirus (PCR) Not Detected (NotDetected) B. pertussis DNA (PCR) Not Detected (NotDetected) B.parapertussis DNA PCR Not Detected (NotDetected) C. pneumoniae DNA (PCR) Not Detected (NotDetected) Coronavirus OC43 (PCR) Not Detected (NotDetected) Coronavirus HKU1 (PCR) Not Detected (NotDetected) Coronavirus 229E (PCR) Not Detected (NotDetected) SARS-CoV-2 (PCR) DETECTED A* (NotDetected) Coronavirus NL63 (PCR) Not Detected (NotDetected) Human Metapneumovir PCR Not Detected (NotDetected) Influenza Type A (PCR) Not Detected (NotDetected) Influenza Type B (PCR) Not Detected (NotDetected) M. pneumoniae (PCR) Not Detected (NotDetected) Parainfluenza 1 (PCR) Not Detected (NotDetected) Parainfluenza 2 (PCR) Not Detected (NotDetected) Parainfluenza 3 (PCR) Not Detected (NotDetected) Parainfluenza 4 (PCR) Not Detected (NotDetected) RSV (PCR) Not Detected (NotDetected) Entero/Rhino (PCR) Not Detected (NotDetected) Administered Medications Discontinued Medications Ioversol (Optiray 320 125ml) 119 ml IV ONCE ONE Stop: 06/09/23 12:51 Last Admin: 06/09/23 12:50 Dose: 119 ml Documented By: SHAMEKA Imaging Data Radiologist's Impression: Head CT 06/09/23 10:[address] OF THE BRAIN; CT ANGIOGRAM OF THE BRAIN CLINICAL HISTORY: Change in mental status. COMPARISON STUDY: CT of the brain dated 03/03/2023. CT angiogram of the brain dated 06/22/2017. TECHNIQUE: Unenhanced axial CT scan of the brain is performed. Subsequently, following the IV administration of 119 cc of Optiray 320, CT angiogram of the brain was performed from the skull base to the vertex. Images are reviewed in the axial, sagittal, and coronal planes. 3-D MIPS images are created and assessed. IV contrast was administered without complication. A dose lowering technique was utilized adhering to the principles of ALARA. CT DOSE: 1103.63 mGy.cm FINDINGS: Brain parenchyma: There is age-related involutional change noting advanced confluent subcortical and periventricular microangiopathic disease. There is no hemorrhage, mass effect, or evidence of acute territorial ischemia by CT criteria. There is no evidence of enhancing mass lesion on the angiogram phase images. No extra-axial fluid collection is seen. Thomas-white matter differentiation is preserved. Ventricles, sulci, and cisterns: Prominent secondary to involutional change. CT angiogram of the brain: There is atherosclerotic calcification of the cavernous carotid and vertebral arteries. The internal carotid arteries are patent, as are the anterior and middle cerebral arteries. There is at least moderate focal stenosis of the right anterior cerebral artery seen on axial image #192. The intracranial vertebral arteries and the basilar artery are patent. There is high-grade stenosis with near complete 2 complete thrombosis of the distal cervical left vertebral artery at the level of C1 seen on axial image #31. The right vertebral artery is dominant. No aneurysm is identified. Dural sinuses: Clear as visualized. Orbits: The bony orbits are intact. The orbital contents are normal as visualized noting bilateral ocular lens implants. Sinuses and mastoids: There is moderate mucosal thickening within the maxillary antra. A 1.5 cm retention cyst is noted on the left. The remaining paranasal sinuses are clear. The mastoid air cells are well pneumatized. Calvarium: The skeletal structures are osteopenic. The calvarium appears intact. IMPRESSION: 1. There is no hemorrhage, mass effect, or evidence of acute territorial ischemia by CT criteria. 2. There is high-grade stenosis with near-complete to complete focal occlusion of the distal left cervical vertebral artery below the skull base at the level of C1. This is similar to the 06/22/2017 examination. 2. There is at least moderate focal stenosis of the right anterior cerebral artery. This is new from 2018. 3. The remaining intracranial vessels are patent. ACT 112: Negative or not required by law. Electronically signed by: Miguelito Goldman M.D. 06/09/2023 1:11 PM Head CTA 06/09/23 10:[address] OF THE BRAIN; CT ANGIOGRAM OF THE BRAIN CLINICAL HISTORY: Change in mental status. COMPARISON STUDY: CT of the brain dated 03/03/2023. CT angiogram of the brain dated 06/22/2017. TECHNIQUE: Unenhanced axial CT scan of the brain is performed. Subsequently, following the IV administration of 119 cc of Optiray 320, CT angiogram of the brain was performed from the skull base to the vertex. Images are reviewed in the axial, sagittal, and coronal planes. 3-D MIPS images are created and assessed. IV contrast was administered without complication. A dose lowering technique was utilized adhering to the principles of ALARA. CT DOSE: 1103.63 mGy.cm FINDINGS: Brain parenchyma: There is age-related involutional change noting advanced confluent subcortical and periventricular microangiopathic disease. There is no hemorrhage, mass effect, or evidence of acute territorial ischemia by CT criteria. There is no evidence of enhancing mass lesion on the angiogram phase images. No extra-axial fluid collection is seen. Thomas-white matter differentiation is preserved. Ventricles, sulci, and cisterns: Prominent secondary to involutional change. CT angiogram of the brain: There is atherosclerotic calcification of the cavernous carotid and vertebral arteries. The internal carotid arteries are patent, as are the anterior and middle cerebral arteries. There is at least moderate focal stenosis of the right anterior cerebral artery seen on axial image #192. The intracranial vertebral arteries and the basilar artery are patent. There is high-grade stenosis with near complete 2 complete thrombosis of the distal cervical left vertebral artery at the level of C1 seen on axial image #31. The right vertebral artery is dominant. No aneurysm is identified. Dural sinuses: Clear as visualized. Orbits: The bony orbits are intact. The orbital contents are normal as visualized noting bilateral ocular lens implants. Sinuses and mastoids: There is moderate mucosal thickening within the maxillary antra. A 1.5 cm retention cyst is noted on the left. The remaining paranasal sinuses are clear. The mastoid air cells are well pneumatized. Calvarium: The skeletal structures are osteopenic. The calvarium appears intact. IMPRESSION: 1. There is no hemorrhage, mass effect, or evidence of acute territorial ischemia by CT criteria. 2. There is high-grade stenosis with near-complete to complete focal occlusion of the distal left cervical vertebral artery below the skull base at the level of C1. This is similar to the 06/22/2017 examination. 2. There is at least moderate focal stenosis of the right anterior cerebral artery. This is new from 2018. 3. The remaining intracranial vessels are patent. ACT 112: Negative or not required by law. Electronically signed by: Miguelito Goldman M.D. 06/09/2023 1:11 PM Neck CTA 06/09/23 10:37 NECK CTA HISTORY: Altered mental status TECHNIQUE: Multiaxial CT images of the neck were performed following the intravenous administration of contrast to evaluate the major cervical vessels. 3D/MIP images were also obtained. Sagittal and coronal reformats were reviewed. All measurements were calculated based on NASCET criteria. A dose lowering technique was utilized adhering to the principles of ALARA. COMPARISON STUDY: CTA neck 06/22/2017. FINDINGS: The lung apices are clear. No acute fractures identified. There is a 1.9 cm anterior mediastinal nodule/lymph node. This is new compared the prior study. The aortic arch and proximal great vessels are widely patent. There is a diminutive left vertebral artery with multifocal areas of stenosis and occlusion. This is similar to the prior study and is therefore considered to be chronic. No significant stenosis, occlusion, or dissection within the right vertebral artery. Moderate calcified plaque within the left carotid bifurcation resulting in mild stenosis of up to 50% within the proximal left internal carotid artery. This has slightly progressed in the interval. The mid to distal left internal carotid artery is widely patent. No significant stenosis or occlusion within the right internal carotid artery. The bilateral common carotid arteries are widely patent. IMPRESSION: 1. A diminutive left vertebral artery with multifocal areas of stenosis and occlusion. This similar to the prior study and is considered to be chronic. 2. Mild stenosis of approximately 50% within the proximal left internal carotid artery. This has slightly progressed. 3. No significant stenosis or occlusion within the right carotid arteries or right vertebral artery. 4. There is a 1.9 cm anterior mediastinal nodule/lymph node which is new compared the prior study. A neoplastic process would be the diagnosis of exclusion. Follow-up nonemergent chest CT recommended for further evaluation ACT 112: Electronically signed by: Alan Petersen M.D. 06/09/2023 1:12 PM Discharge Plan Visit Data Chief Complaint: Altered Mental Status Stated Complaint: CONFUSION, REF BY DOC ED Provider: Laisha Roman Discharge Problem: Altered mental status, COVID Forms Stand Alone Forms: My [facility] [email or web address] Prescriptions Prescriptions: No Action quetiapine 25 mg tablet 12.5 mg PO HS Qty: 30 5RF clopidogrel 75 mg tablet 75 mg PO QAM 90 Days Qty: 90 1RF famotidine 40 mg tablet See Rx Instructions .ROUTE .COMPLEX Qty: 90 3RF Dose Instruction: TAKE 1 TABLET BY MOUTH EVERY MORNING Rx Instructions: TAKE 1 TABLET BY MOUTH EVERY MORNING atorvastatin 80 mg tablet 80 mg PO DAILY Qty: 90 3RF Rx Instructions: TAKE 1 TABLET BY MOUTH EVERY MORNING cholecalciferol (vitamin D3) 50 mcg (2,000 unit) capsule 2,000 unit PO DAILY 30 Days Qty: 30 0RF triamcinolone acetonide 0.1 % cream 1 applic TOPICAL BID PRN (Reason: Skin Irritation) acetaminophen [Tylenol Extra Strength] 500 mg tablet 500 mg PO DAILY Rx Instructions: PER PT "USUALLY ONCE IF NOT TWICE A DAY". (DME) BD SafetyGlide Syringe 3 mL 23 x 1" syringe See Rx Instructions .MEDSUPPLY Qty: 50 0RF Rx Instructions: As directed cyanocobalamin (vitamin B-12) 1,000 mcg/mL solution 1,000 mcg IM ONCE 28 Days Qty: 4 3RF Rx Instructions: inject 1 mL once a week for 4 weeks, then inject 1 mL once a month. PreserVision AREDS-2 250-90-40-1 mg Capsule 1 tab PO BID nystatin 100,000 unit/gram cream 1 applic TOPICAL HS Rx Instructions: APPLY UNDER BREAST Referrals Referrals: Jay Duval MD [Primary Care Provider] -
--- NOTE | 2023-06-09 16:44 | History & Physical Report ---
Date of Service June 09, 2023 Assessment & Plan (1) Altered mental status: Plan: Acute metabolic encephalopathy 2/2 COVID-pneumonia Patient is acutely confused, did not recognize her neighbor who assists in her care giving Patient was recently seen for similar presentation following dental surgery.Ultimately was suspected to have mild cognitive impairment likely due to cerebrovascular disease but was not consistent with Alzheimer's type dementia. She was started on B12 injections for B12 deficiency, and did reasonably well on Mini-Mental exam and basic ADL assessment. She was referred for a driving evaluation which she passed 04/17/2023 donepezil/memantine was not recommended at that time and she is pending 6-month reassessment. Suspect that she has metabolic encephalopathy due to COVID. CThead, CTA head/neck without acute findings. No focal neurologic deficits to suggest strokelike pathology Will treat with supportive care. If any focal neurologic symptoms develop or worsening progression can repeat MRI, low suspicion on admission for CVA UA uninfected and without urinary symptoms No hypoxia, no steroids or remdesivir are currently indicated Due to her current confusion and acute COVID patient is not safe for return home. Case was discussed with the patient's neices/POA by phone while patient was in the ER who was adamant that patient did not return home until her mental status had improved and noted that she was not safe to be home alone in her current condition w/ confusion. Lives alone with svetlana ehelp from neighbor and no other family in town. (2) B12 deficiency: Plan: Repletion continued (3) Cognitive impairment: Plan: With extensive evaluation recently by neurology. Has some vascular cognitive decline, does not have progression consistent with Alzheimers (4) Obstructive sleep apnea: Plan: CPAP (5) GERD (gastroesophageal reflux disease): Plan: Continue Pepcid (6) Hx of TIA (transient ischemic attack) and stroke: Plan: No new focal deficits on exam, suspect acute presentation is due to COVID encephalopathy CT/CTA without acute findings. At bedside strength is intact bilaterally, no facial droop, no aphasia, no dysarthria. No territorial signs of CVA Atorvastatin, Plavix continue Plan DVT prophylaxis: Heparin Diet: Heart healthy Disposition: Medical/surgical CODE STATUS: Full code Disposition: PT/OT. Coordinate with CM for additional services at home versus temporary placement History of Present Illness Primary Care Provider: Jay Duval MD Dinora is an 83-year-old female with a history of cognitive impairment with concerns for gradual progressive decline in cognitive status for around 1 year and a hospital admission for an episode of acute confusion February 2023 who presents to the ER with acute confusion. She was brought to the ER by her neighbor who she did not remember while in the ER. She was last seen in the hospital 02/2023 for similar episode of acute confusion. At that time she had difficulty articulating with some confirmed dysarthria and felt like she was confused somewhat by her surroundings. She did not have focal neurologic symptoms at that time otherwise. MRI did not show no evidence of stroke. She did experience agitated delirium superimposed on suspected vascular dementia. Patient had agitated delirium which improved with Seroquel but was somewhat restless during the day. She was thought to have had agitated delirium superimposed on this which may have been precipitated by multiple stressors including dental extraction, psychosocial stressors, poor sleep. She did not show any evidence of infectious encephalopathy or acute stroke at that time. 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 Oriented to follow-up with neurology on 04/2023. 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 She was started on B12 injections for B12 deficiency, and did reasonably well on Mini-Mental exam and basic ADL assessment. She was referred for a driving evaluation which she passed 04/17/2023 donepezil/memantine was not recommended at that time and she is pending 6-month reassessment. She has recently shown nocturnal hypoxia on overnight pulse ox and has been started on CPAP. Otherwise follow-up with her PCP in May was routine and she had return to her normal baseline health by that time. Patient does follow with outpatient physical therapy and has been functionally independent with good strength at her baseline She presented to the ER today, 06/09/2022 for the evaluation of confusion. She was brought in by her neighbor Kim and had bowel incontinence and felt off despite being observed for several hours. Patient was confused to place, time, and did not recognize making which is very unusual for her. Patient felt improved on reassessment. On ER evaluation she did not have a leukocytosis, had no gross electrolyte derangements, and UA was not infected appearing. She had a mildly elevated troponin near her normal baseline of 16.6 without any signs of ACS. She was COVID-positive. Likely with transient metabolic encephalopathy due to COVID-19; she is not hypoxic at time of assessment Allergies Allergy/AdvReac Type Severity Reaction Status Date / Time neomycin Allergy Intermediate Rash Verified 05/17/23 10:17 nabumetone [From Relafen] Allergy Mild Redness of Verified 05/17/23 10:17 Skin loperamide [From Imodium A-D] AdvReac Intermediate Rapid Verified 05/17/23 10:17 heart rate lorazepam [From Ativan] AdvReac Intermediate Anxiety Verified 05/17/23 10:17 zolpidem [From Ambien] AdvReac Intermediate Anxiety Verified 05/17/23 10:17 Home Medications Medication Instructions Recorded Confirmed Type acetaminophen 500 mg tablet 500 mg PO DAILY 03/25/19 06/09/23 History (Tylenol Extra Strength) vit C 250 mg-vit E 90 mg-zinc 40 1 tab PO BID 10/14/21 06/09/23 History mg-copper 1 [id number] capsule (PreserVision AREDS-2) nystatin 100,000 unit/gram topical 1 applic topical HS 09/29/22 06/09/23 History cream cyanocobalamin (vitamin B-12) 1,000 mcg IM ONCE 4 weeks #4 mL 03/10/23 06/09/23 Rx 1,000 mcg/mL injection solution syringe with needle 3 mL 23 x 1" #50 ea 03/10/23 05/17/23 Rx (BD SafetyGlide Syringe) quetiapine 25 mg tablet 12.5 mg (1/2 x 25 mg) PO HS #30 03/29/23 06/09/23 Rx tabs clopidogrel 75 mg tablet 75 mg PO QAM 90 days #90 tabs 04/05/23 06/09/23 Rx triamcinolone acetonide 0.1 % 1 applic topical BID PRN Skin 04/14/23 06/09/23 History topical cream Irritation famotidine 40 mg tablet See Rx Instructions .Route 05/01/23 06/09/23 Rx .COMPLEX #90 tabs atorvastatin 80 mg tablet 80 mg PO DAILY #90 tabs 05/08/23 06/09/23 Rx cholecalciferol (vitamin D3) 50 2,000 unit PO DAILY 30 days #30 06/06/23 06/09/23 Rx mcg (2,000 unit) capsule caps Past Med/Surg History Medical History Elevated troponin Sensorineural hearing loss (SNHL) of both ears Subclavian artery stenosis History of breast cancer Schatzki's ring Osteoarthritis Degenerative disc disease Tremor GERD (gastroesophageal reflux disease) SNHL (sensorineural hearing loss) Ocular migraine Dyslipidemia Carotid stenosis Chronic cerebral ischemia Left thalamic infarction Osteoporosis Surgical History History of knee replacement procedure of left knee Status post total knee replacement using cement Nausea and vomiting after administration of anesthetic agent History of cataract surgery History of esophageal dilatation History of oophorectomy, unilateral History of removal of ovarian cyst History of dilation and curettage History of colonoscopy Status post breast lumpectomy H/O foot surgery H/O endarterectomy Family History Mother CHF (congestive heart failure) Father Epilepsy Colon cancer Pulmonary fibrosis Family/Other Breast cancer Other No family history of adverse response to anesthesia Social History Smoking Status: Never smoker Second Hand Exposure: No; Do You Dip or Chew Tobacco: No; Hx Alcohol Use: No Hx Substance Use: No Preferred Language: Romansh Communication Ability: Effective Visual Impairment: No Limitations Hearing Ability: Normal Basic Acoustic Analyst Required: No Beliefs That Will Affect Care: None marital status: Single Current Living Situation: Alone current occupational status: employed 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 Not oriented to year, month, or place. Nontoxic and cooperative. No dysarthria, no aphasia is present on admission HEENT: Atraumatic, normocephalic. Pupils equal and reactive to light and accommodation. Vision/hearing grossly intact. No facial droop. No field cuts. Pulm: CTAB A&P. -wheezes, -rales, -rhonchi. Symmetrical chest rise. No increased work of breathing. No respiratory distress. Cardiac: RRR, -mrg. Radial pulses intact and symmetrical. Abdominal: Nontender, nondistended, soft. BS present. Extremities: Raftsman strength, elbow flexion, shoulder flexion, hip flexion, ankle dorsiflexion/plantarflexion and toe raise is 5/5 bilaterally without asymmetry. Sensation intact in hands and feet without asymmetry. Results & Data Results & Data Vital Signs (Past 12 Hours) Vital Signs Temp Pulse Pulse Resp BP BP Pulse Ox 06/09/23 14:21 95 06/09/23 12:23 77 18 124/100 94 06/09/23 10:33 36.8 C 65 18 159/85 H 99 O2 Del Method 06/09/23 14:21 Room Air 06/09/23 12:23 Room Air 06/09/23 10:33 Room Air PG Care Time/CCT Total # of Minutes Spent Total Time Spent with Patient: Total time spent is greater than 50% in coordination of care (as documented) at patient's floor/unit and/or counseling patient: Coding Level of Care Code 34200 INT INP/OBS CARE 2/55MIN Diagnoses Altered mental status R41.82 B12 deficiency E53.8 Cognitive impairment R41.89 Obstructive sleep apnea G47.33 GERD (gastroesophageal reflux disease) K21.9 Hx of TIA (transient ischemic attack) and stroke Z86.73
[2023-06-09] MEDS ORDERED: ACETAMINOPHEN 325 MG TAB PO PRN (19:24)
[2023-06-09] MEDS ORDERED: TRIAMCINOLONE ACET 0.1% CR 15 GM TUBE TOP PRN (19:24)
[2023-06-09] MEDS ORDERED: QUEtiapine FUMARATE 25 MG TABLET PO SCH (21:00)
[2023-06-10 07:27] LABS: Basophils # (auto) 0.02 K/uL (0.00-0.20); Basophils % (auto) 0.3 %; Eosinophils # (auto) 0.02 K/uL (0.00-0.50); Eosinophils % (auto) 0.3 %; Hematocrit (blood only) 38.1 % (37.0-47.0); Hemoglobin 12.8 g/dl (12.0-16.0); Immature Granulocytes # (auto) 0.01 K/uL (0.01-0.20); Immature Granulocytes % (auto) 0.2 %; Lymphocytes # (auto) 0.83 K/uL (1.20-3.40); Lymphocytes % (auto) 14.2 %; Mean Corpuscular Hemoglobin 30.3 pg (25.0-34.0); Mean Corpuscular Hgb Conc 33.6 g/dL (32.0-36.0); Mean Corpuscular Volume 90.3 fL (80.0-100.0); Mean Platelet Volume 8.7 fL (9.4-12.4); Monocytes # (auto) 0.54 K/uL (0.11-0.59); Monocytes % (auto) 9.2 %; Neutrophils # (auto) 4.43 K/uL (1.40-6.50); Neutrophils % (auto) 75.8 %; Platelet Count 299 K/uL (130-400); RDW Coefficient of Variation 12.6 % (11.5-14.5); RDW Standard Deviation 41.7 fL (36.4-46.3); Red Blood Count 4.22 M/uL (4.20-5.40); White Blood Count 5.85 K/ul (4.8-10.8)
[2023-06-10 07:47] LABS: BUN Creatinine Ratio 17.6 (10-20); Calcium 8.9 mg/dl (8.6-10.3); Creatinine Clr Calc Pharmacy 48.5 ml/min; Est GFR (African American) 86.2 ml/min; Est GFR (Non-African American) 74.4 ml/min; Potassium 3.6 mmol/L (3.5-5.1)
[2023-06-10] MEDS: ATORVASTATIN 40 MG TAB PO SCH (09:09)
[2023-06-10] MEDS: CHOLECALCIFEROL 1,000 UNITS 25 MCG TAB PO SCH (09:09)
[2023-06-10] MEDS: CLOPIDOGREL BISULFATE 75 MG TAB PO SCH (09:09)
[2023-06-10] MEDS: FAMOTIDINE 40 MG TABLET PO SCH (09:09)
[2023-06-10] MEDS ORDERED: OPTIRAY 320 500ml IV ONE (10:54)
[2023-06-10 11:05] LABS: Troponin I High Sensitivity 21.1 pg/ml (0-14)
--- NOTE | 2023-06-10 11:14 | CT Scan Report ---
CT OF THE CHEST WITH IV CONTRAST CLINICAL HISTORY: Evaluate mediastinal lymphadenopathy. COMPARISON STUDY: Chest radiograph March 03, 2023. Chest CT July 04, 2008. CTA of the neck [facility] 2023. TECHNIQUE: Following IV administration of 94 mL of Optiray, helical axial images of the chest were o btained. Sagittal and coronal reconstructions were viewed as well as maximal intensity projections o n an independent 3-D workstation. Automated exposure control was utilized for the study. A dose low ering technique was utilized adhering to the principles of ALARA. CT DOSE: 668.36 mGy.cm FINDINGS: Note is made of a 1.9 cm lobulated anterior mediastinal nodule, anterior to the ascending aorta. This is new since CT of June 22, 2017 and corresponds to the finding on CTA of June 09. No hilar or axillary adenopathy is present. There is a small hiatal hernia. There is mild cardio megaly and extensive coronary artery calcification. No pericardial effusion. Central airways are hardy nt. Linear densities within the lungs favor atelectasis. There is no consolidation to suggest pneumon ia. There are no pulmonary nodules. No suspicious lesions within the bony thorax are present. No sign ificant abnormality within visualized portions of the upper abdomen with the exception calcified plaq ue within the abdominal aorta and branch vessels. IMPRESSION: 1. 1.9 cm lobulated anterior mediastinal nodule, new since CT of June 22, 2017. This is pathologic ally indeterminate but suggestive of a neoplasm. Differential considerations include a thymic lesion such as thymoma. Lymphoma is also within the differential however no additional enlarged thoracic lym ph nodes. Oncology consultation is recommended. 2. No additional suspicious findings within the chest. 3. Mild cardiomegaly. Extensive coronary artery calcification. ACT 112: Negative or not required by law. Electronically signed by: Enrique Medina M.D. 06/10/2023 11:12 AM
--- NOTE | 2023-06-10 17:18 | Hospitalist Progress Note ---
Date of Service June 10, 2023 Assessment & Plan (1) Altered mental status: Plan: Acute metabolic encephalopathy 2/2 COVID-pneumonia Patient is acutely confused, did not recognize her neighbor who assists in her care giving Patient was recently seen for similar presentation following dental surgery. 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 She was started on B12 injections for B12 deficiency, and did reasonably well on Mini-Mental exam and basic ADL assessment. She was referred for a driving evaluation which she passed 04/17/2023 donepezil/memantine was not recommended at that time and she is pending 6-month reassessment. Suspect that she has metabolic encephalopathy due to COVID. CThead, CTA head/neck without acute findings except for mediastinal lymphadenopathy as below No focal neurologic deficits to suggest strokelike pathology, UA uninfected and without urinary symptoms. No renal failure or electrolyte abnormalities. Vitals are normal except for mild hypertension Seems to be somewhat improved on 06/10 but remains easily confused at times. Unclear what her baseline is. Due to her current confusion and acute COVID patient is not safe for return home. Case was discussed with the patient's niece/POA by phone while patient was in the ER who was adamant that patient did not return home until her mental status had improved and noted that she was not safe to be home alone in her current condition w/ confusion. Lives alone with some help from neighbor and no other family in town. Increase home Seroquel to 25 Mg at bedtime Will reassess tomorrow to see if she is improved enough to return home (2) B12 deficiency: Plan: Repletion continued as an outpatient with IM B12 injections (3) Cognitive impairment: Plan: With extensive evaluation recently by neurology. Has some vascular cognitive decline, does not have progression consistent with Alzheimers (4) Obstructive sleep apnea: Plan: Was recommended to start CPAP as an outpatient several weeks ago but unclear if she received 1 yet Order CPAP 8 mmHg here (5) GERD (gastroesophageal reflux disease): Plan: Continue Pepcid (6) Hx of TIA (transient ischemic attack) and stroke: Plan: No new focal deficits on exam, suspect acute presentation is due to COVID encephalopathy CT/CTA without acute findings. At bedside strength is intact bilaterally, no facial droop, no aphasia, no dysarthria. No territorial signs of CVA Atorvastatin, Plavix continue (7) Mediastinal lymphadenopathy: Plan: 1.9 cm mediastinal lymph node seen, neoplasm diagnosis of exclusion CT chest confirms this. No other lung masses or mediastinal or axillary lymphadenopathy is noted She does have a history of breast cancer Could be thymoma versus lymphoma or metastasis Discussed with patient but unclear if she will recall this conversation given ongoing confusion. Will alert her PCP so that she can obtain further evaluation as an outpatient Plan DVT prophylaxis: Add Lovenox Disposition-possible discharge to home tomorrow if mentation is improved Admission and Anticipated Discharge Date Admission Date: June 10, 2023 Subjective Patient pleasantly confused. She denies cough or shortness of breath, no chest pain. Has a little bit of runny nose. Asks when she will be going home. When I told her I would be back to see her tomorrow, she asked if she needed to come back to my office and see me tomorrow and was confused. She knows that she was in the hospital because of concerns for COVID, but when asked where she was at first she could not describe it. She remains on a one-to-one sitter. She was fully dressed when I walked in the room and pacing [id number]. 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 Physical Exam Constitutional: WD/WN, vitals as above Eyes: + anicteric sclerae Respiratory: normal respiratory effort, lungs clear to auscultation Cardiovascular: RRR, no murmur, no edema Psychiatric: Orientation: alert, oriented to person, oriented to time and cooperative; + not oriented to place Results & Data Results & Data Vital Signs (Past 12 Hours) Vital Signs Temp Pulse Resp BP Pulse Ox O2 Del Method 06/10/23 14:27 36.6 C 89 17 187/74 H 97 Room Air 06/10/23 08:30 Room Air 06/10/23 07:13 36.7 C 87 17 170/69 H 96 Room Air Laboratory Results CBC, BMP, troponin reviewed Diagnostic Findings CT chest reviewed PG Care Time/CCT Total # of Minutes Spent Total Time Spent with Patient: Total time spent is greater than 50% in coordination of care (as documented) at patient's floor/unit and/or counseling patient: Coding Level of Care Code 50605 SUB INP/OBS CARE 2/35MIN Diagnoses Altered mental status R41.82 B12 deficiency E53.8 Cognitive impairment R41.89 Obstructive sleep apnea G47.33 GERD (gastroesophageal reflux disease) K21.9 Hx of TIA (transient ischemic attack) and stroke Z86.73 Mediastinal lymphadenopathy R59.0
[2023-06-10] MEDS ORDERED: ENOXAPARIN INJ 40 MG/0.4 ML SYR SQ SCH (19:30)
[2023-06-10] MEDS: QUEtiapine FUMARATE 25 MG TABLET PO SCH ×2 (20:59→21:01)
[2023-06-11] MEDS: ATORVASTATIN 40 MG TAB PO SCH (10:00)
[2023-06-11] MEDS: CLOPIDOGREL BISULFATE 75 MG TAB PO SCH (10:01)
[2023-06-11] MEDS: FAMOTIDINE 40 MG TABLET PO SCH (10:02)
[2023-06-11] MEDS: CHOLECALCIFEROL 1,000 UNITS 25 MCG TAB PO SCH (10:02)
--- NOTE | 2023-06-11 10:05 | Discharge Summary ---
Discharge Summary Date of Service June 11, 2023 Notes For Next Care Provider Needs follow up on mediastinal nodule Medication Changes From Visit Increased Seroquel to 25mg po hs Admission HPI Per Admitting Provider Marine is an 83-year-old female with a history of cognitive impairment with concerns for gradual progressive decline in cognitive status for around 1 year and a hospital admission for an episode of acute confusion February 2023 who presents to the ER with acute confusion. She was brought to the ER by her neighbor who she did not remember while in the ER. She was last seen in the hospital 02/2023 for similar episode of acute confusion. At that time she had difficulty articulating with some confirmed dysarthria and felt like she was confused somewhat by her surroundings. She did not have focal neurologic symptoms at that time otherwise. MRI did not show no evidence of stroke. She did experience agitated delirium superimposed on suspected vascular dementia. Patient had agitated delirium which improved with Seroquel but was somewhat restless during the day. She was thought to have had agitated delirium superimposed on this which may have been precipitated by multiple stressors including dental extraction, psychosocial stressors, poor sleep. She did not show any evidence of infectious encephalopathy or acute stroke at that time. 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 Oriented to follow-up with neurology on 04/2023. 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 She was started on B12 injections for B12 deficiency, and did reasonably well on Mini-Mental exam and basic ADL assessment. She was referred for a driving evaluation which she passed 04/17/2023 donepezil/memantine was not recommended at that time and she is pending 6-month reassessment. She has recently shown nocturnal hypoxia on overnight pulse ox and has been started on CPAP. Otherwise follow-up with her PCP in May was routine and she had return to her normal baseline health by that time. Patient does follow with outpatient physical therapy and has been functionally independent with good strength at her baseline She presented to the ER today, 06/09/2022 for the evaluation of confusion. She was brought in by her neighbor Kim and had bowel incontinence and felt off despite being observed for several hours. Patient was confused to place, time, and did not recognize making which is very unusual for her. Patient felt improved on reassessment. On ER evaluation she did not have a leukocytosis, had no gross electrolyte derangements, and UA was not infected appearing. She had a mildly elevated troponin near her normal baseline of 16.6 without any signs of ACS. She was COVID-positive. Likely with transient metabolic encephalopathy due to COVID-19; she is not hypoxic at time of assessment Principal Dx & Hospital Course #1 = Principal Diagnosis (1) Altered mental status: Acute metabolic encephalopathy 2/2 COVID-now RESOLVED Patient was acutely confused, did not recognize her neighbor who assists in her care giving Patient was recently seen for similar presentation w/ delirium following dental surgery. 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 She was started on B12 injections for B12 deficiency, and did reasonably well on Mini-Mental exam and basic ADL assessment. She was referred for a driving evaluation which she passed 04/17/2023 donepezil/memantine was not recommended at that time and she is pending 6-month reassessment. Suspect that she has metabolic encephalopathy due to COVID. CThead, CTA head/neck without acute findings except for mediastinal mass as below No focal neurologic deficits to suggest strokelike pathology, UA uninfected and without urinary symptoms. No renal failure or electrolyte abnormalities. Vitals are normal except for mild hypertension Increased home Seroquel to 25 Mg at bedtime Significantly improved on 06/11 and AAOx3, doing well, stable for discharge to home with friends who will check on her-she made arrangements for her own transportation and for someone to check on her after discharge this evening until her usual habitat conservation planner/friend creturns from out of town tomorrow Discussed her care with her POA/niece on phone on two occasions on 06/11 who is in agreement with this plan (2) B12 deficiency: Repletion continued as an outpatient with IM B12 injections (3) Cognitive impairment: With extensive evaluation recently by neurology. Has some vascular cognitive decline, does not have progression consistent with Alzheimers (4) Obstructive sleep apnea: Was recommended to start CPAP as an outpatient several weeks ago -she does have this at home-confirmed with niece (5) GERD (gastroesophageal reflux disease): Continue Pepcid (6) Hx of TIA (transient ischemic attack) and stroke: No new focal deficits on exam, suspect acute presentation is due to COVID encephalopathy CT/CTA without acute findings. At bedside strength is intact bilaterally, no facial droop, no aphasia, no dysarthria. No territorial signs of CVA Atorvastatin, Plavix continue (7) Mediastinal lymphadenopathy: 1.9 cm mediastinal nodule seen, neoplasm diagnosis of exclusion CT chest confirms this. No other lung masses or mediastinal or axillary lymphadenopathy is noted She does have a history of breast cancer Could be thymoma versus lymphoma or metastasis Discussed with patient and her niece, f/u with PCP Plan DVT prophylaxis: Lovenox Disposition- discharge to home today Discharge Exam Constitutional WD/WN, vitals as above Eyes + anicteric sclerae Respiratory normal respiratory effort, lungs clear to auscultation Cardiovascular RRR, no murmur, no edema Psychiatric A+Ox3, euthymic affect Updated Medication List Medication Instructions Recorded Confirmed Type acetaminophen 500 mg tablet 500 mg PO DAILY 03/25/19 06/09/23 History (Tylenol Extra Strength) vit C 250 mg-vit E 90 mg-zinc 40 1 tab PO BID 10/14/21 06/09/23 History mg-copper 1 [id number] capsule (PreserVision AREDS-2) nystatin 100,000 unit/gram topical 1 applic topical HS 09/29/22 06/09/23 History cream cyanocobalamin (vitamin B-12) 1,000 mcg IM ONCE 4 weeks #4 mL 03/10/23 06/09/23 Rx 1,000 mcg/mL injection solution syringe with needle 3 mL 23 x 1" #50 ea 03/10/23 05/17/23 Rx (BD SafetyGlide Syringe) clopidogrel 75 mg tablet 75 mg PO QAM 90 days #90 tabs 04/05/23 06/09/23 Rx triamcinolone acetonide 0.1 % 1 applic topical BID PRN Skin 04/14/23 06/09/23 History topical cream Irritation famotidine 40 mg tablet See Rx Instructions .Route 05/01/23 06/09/23 Rx .COMPLEX #90 tabs atorvastatin 80 mg tablet 80 mg PO DAILY #90 tabs 05/08/23 06/09/23 Rx cholecalciferol (vitamin D3) 50 2,000 unit PO DAILY 30 days #30 06/06/23 06/09/23 Rx mcg (2,000 unit) capsule caps quetiapine 25 mg tablet 25 mg PO HS #30 tabs 06/11/23 Rx Hospital Stay Data Consultations 06/09/23 17:04 ED Decision to Admit Stat Diagnostic Imagining Performed 06/09/23 10:37 CT angio head w con Stat CT angio neck with con Stat CT head/brain wo con Stat 06/10/23 10:01 CT chest diagnostic w con Routine Pending Results Patient Have Any Pending Studies at Discharge: No Discharge Instructions Given to Patient (Per Discharging Provider) You were admitted with increasing confusion secondary to having COVID-19. Fortunately, you do not have pneumonia and your oxygen levels are normal. You otherwise have no symptoms and do not need any mediation to treat the COVID. Your Seroquel (quetiapine) dose was increased slightly to 25mg at bedtime to improve your sleep. Please make sure to you use your new CPAP machine every night when you sleep as well. You were incidentally noted to have an enlarged lymph node in your chest that will require follow up with your PCP, Dr. Duval. Total Time Total Time Spent Total Time Spent (In Minutes): 35 min Coding Level of Care Code 27592 INP/OBS DISCH >30 MIN Diagnoses Altered mental status R41.82 B12 deficiency E53.8 Cognitive impairment R41.89 Obstructive sleep apnea G47.33 GERD (gastroesophageal reflux disease) K21.9 Hx of TIA (transient ischemic attack) and stroke Z86.73 Mediastinal lymphadenopathy R59.0
== END 2023-06-11 12:43 | disposition home or self-care (01) ==
LOC: EDINP 10:28 → ED 10:28 → SUATTDRO 16:58 → 3W 19:07

== ENCOUNTER 2023-07-23 13:41 | Inpatient (IN) ==
--- NOTE | 2023-07-23 14:12 | CT Scan Report ---
CT OF THE HEAD WITHOUT CONTRAST CLINICAL HISTORY: Confusion. COMPARISON STUDY: MRI of the brain March 03, 2023. Head CT and CTA of the head June 09, 2023. CT DOSE: 625.8 mGy.cm TECHNIQUE: Helical axial images of the head were obtained without IV contrast. Automated exposure con trol was utilized for the study. A dose lowering technique was utilized adhering to the principles o f ALARA. FINDINGS: No acute intracranial hemorrhage, midline shift or mass effect is present. White matter hyp odensities are unchanged and favor small vessel disease. The ventricular system is unremarkable. The basal cisterns are patent. No extra-axial collections are present. There are no findings to suggest a cute dural sinus thrombosis or acute territorial infarct. No significant calvarial abnormalities are present. Visualized portions of the sinuses and mastoid air cells are clear. IMPRESSION: No acute intracranial findings. No change in appearance of the brain. ACT 112: Negative or not required by law. Electronically signed by: Enrique Medina M.D. 07/23/2023 2:10 PM
--- NOTE | 2023-07-23 14:21 | Emergency Department Note ---
Impression & Plan Acute CVA (cerebrovascular accident), Acute confusion, Non-ST elevation LA (NSTEMI) ED Provider Note HISTORY OF PRESENT ILLNESS: Patient is an 83-year-old female presenting with confusion. Daughter states that the patient has a home health worker who stays with her overnight and the health worker left a note saying that the patient was confused today. Son-in-law went and checked on the patient this morning and states that she had intermittent episodes of confusion, asking about her parents were long since passed and asking questions for things that were not relevant. Patient is unsure if she went to bed normal last night. Denies any recent falls or head injuries. Denies any chiropractor manipulation of her neck. Denies any chest pain or shortness of breath. Denies any headache or changes vision. Denies any numbness, tingling or weakness in her extremities. She is on Plavix. Denies any recent fevers. ROS: as above PHYSICAL EXAM: Constitutional: Patient appears in no acute distress. HENT: Head: Normocephalic and atraumatic. Eyes: EOMI, PERRL Mouth/Throat: Mucous membranes moist. Neck: Trachea midline. Neck supple. Cardiovascular: RRR, No murmurs, rubs or gallops. Intact distal pulses. Pulmonary/Chest: No respiratory distress. Breath sounds clear and equal bilaterally. No wheezes or rales. Abdominal: Abdomen soft, no tenderness, rebound or guarding. Musculoskeletal: No edema, tenderness or deformity noted. Skin: Warm and dry. No rash, erythema, pallor or cyanosis Psychiatric: Appropriate mood and affect for situation. Neurological: Alert and keenly responsive. CN II-XII grossly intact, moving all extremities equally and fully. MDM: - Vitals signs showed hypertension - History obtained via patient and patient's daughter. Patient presents with confusion. Patient's home health worker was with her overnight and had left a note stating that the patient was confused today. Family went and checked on the patient and said that she is having intermittent episodes of confusion. Patient denies any chest pain or shortness of breath on arrival to the ER. She is on Plavix. - Chronic conditions affecting care: HLD; breast cancer; sensorineural hearing loss; left thalamic CVA - Differential diagnoses include, but are not limited to: CVA; intracranial hemorrhage; ACS; pneumonia; UTI - Order placed for continuous cardiac monitoring. At this time, monitor showed rate of 80 bpm with normal sinus rhythm, per my interpretation. - External medical records reviewed. On-call duty note dated today was reviewed. They note that the patient's family member had called stating the patient had new onset confusion this morning around 6 AM. They also note that the patient had some mild confusion Monday morning that improved - EKG interpreted by myself showed normal sinus rhythm. Rate 76 bpm. QT 362. No acute ischemic changes - Laboratory workup interpreted by myself showed normal WBC; stable electrolytes; elevated troponin (15.7) - CT head wo contrast negative for intracranial hemorrhage, per my interpretation - UA negative for infection - COVID/flu/RSV negative - Given patient's symptoms and her. Intermittent episodes of confusion and word finding difficulties during my assessment and reassessment, MRI of the brain was obtained. MRI without contrast showed 7 mm signal abnormality in the lateral right occipital lobe concerning for subacute infarction - Unknown last known well, so patient is not a TNK candidate. In addition, no significant stroke deficits on examination. - Discussion was had with school child care attendant about patient's case and need for admission - Hospitalist consulted for admission - Patient admitted to [facility] service for further evaluation and management. ASSESSMENT AND PLAN: Diagnosis: confusion; CVA; NSTEMI Plan: admit Past Med/Surg History Medical History (Updated 07/23/23 @ 17:32 by Dee Polo MD) Mediastinal lymphadenopathy Elevated troponin Sensorineural hearing loss (SNHL) of both ears Subclavian artery stenosis History of breast cancer No arm restriction per pt- R breast CA 04/[id number] GRADE 1 ER +/HER-2 Neg Schatzki's ring Osteoarthritis Degenerative disc disease Tremor Mild GERD (gastroesophageal reflux disease) SNHL (sensorineural hearing loss) Ocular migraine Dyslipidemia Carotid stenosis S/P right carotid endarterectomy (2008) No significant ICA stenosis per 05/2021 carotid doppler Chronic cerebral ischemia Left thalamic infarction 2017 > mild residual right hand weakness, reason for plavix Follows with Dr. Allen Osteoporosis Surgical History (Updated 06/12/23 @ 00:07 by Background Daemon) History of knee replacement procedure of left knee Status post total knee replacement using cement Right Nausea and vomiting after administration of anesthetic agent with colonoscopy History of cataract surgery History of esophageal dilatation History of oophorectomy, unilateral Right History of removal of ovarian cyst History of dilation and curettage History of colonoscopy Status post breast lumpectomy Right Breast CA- Tx with XRT and Arimidex x 5 yrs./ ER + HER-2/abisai neg. H/O foot surgery BUNION, CURLED TOES, RIGHT SIDE H/O endarterectomy Right Family History Mother CHF (congestive heart failure) Father Epilepsy Colon cancer Pulmonary fibrosis Family/Other Breast cancer Other No family history of adverse response to anesthesia Social History Smoking Status: Never smoker Second Hand Exposure: No; Do You Dip or Chew Tobacco: No; Hx Alcohol Use: No Hx Substance Use: No Preferred Language: Icelandic Communication Ability: Effective Visual Impairment: No Limitations Hearing Ability: Normal Skein Winder Required: No Beliefs That Will Affect Care: None marital status: Single Current Living Situation: Alone current occupational status: employed current occupation: [employer], 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, 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 Feels Safe at Home: Yes Assistive Devices: Other Allergies Allergies Allergy/AdvReac Type Severity Reaction Status Date / Time neomycin Allergy Intermediate Rash Verified 07/23/23 15:59 nabumetone [From Relafen] Allergy Mild Redness of Verified 07/23/23 15:59 Skin loperamide [From Imodium A-D] AdvReac Intermediate Rapid Verified 07/23/23 15:59 heart rate lorazepam [From Ativan] AdvReac Intermediate Anxiety Verified 07/23/23 15:59 zolpidem [From Ambien] AdvReac Intermediate Anxiety Verified 07/23/23 15:59 Home Meds Home Medications Medication Instructions Recorded Confirmed acetaminophen 500 mg tablet 500 mg PO DAILY 03/25/19 07/23/23 (Tylenol Extra Strength) vit C 250 mg-vit E 90 mg-zinc 40 1 tab PO BID 10/14/21 07/23/23 mg-copper 1 [id number] capsule (PreserVision AREDS-2) nystatin 100,000 unit/gram topical 1 applic topical HS 09/29/22 07/23/23 cream triamcinolone acetonide 0.1 % 1 applic topical BID PRN Skin 04/14/23 07/23/23 topical cream Irritation cyanocobalamin (vitamin B-12) 1,000 mcg IM DIRECTED 07/23/23 07/23/23 1,000 mcg/mL injection solution famotidine 40 mg tablet 40 mg PO QAM 07/23/23 07/23/23 Previous Rx's Medication Instructions Recorded syringe with needle 3 mL 23 x 1" #50 ea 03/10/23 (BD SafetyGlide Syringe) clopidogrel 75 mg tablet 75 mg PO QAM 90 days #90 tabs 04/05/23 atorvastatin 80 mg tablet 80 mg PO DAILY #90 tabs 05/08/23 cholecalciferol (vitamin D3) 50 2,000 unit PO DAILY 30 days #30 06/06/23 mcg (2,000 unit) capsule caps quetiapine 25 mg tablet 25 mg PO HS #30 tabs 06/11/23 Results & Data (ED) Vital Signs Vital Signs - 24 hr 07/23/23 13:43 07/23/23 15:03 07/23/23 15:13 Temperature 36.6 C Temperature Source Temporal Artery Scan Pulse Rate 71 Pulse Rate [Finger] 80 Respiratory Rate 18 14 Respiratory Effort / Characteristics Non-Labored Spontaneous Non-Labored Spontaneous Respiratory Depth Normal Normal Respiratory Pattern Regular Regular Blood Pressure 183/65 H Blood Pressure [Left Arm] 162/58 H Blood Pressure Mean 104 Blood Pressure Mean [Left Arm] 92 Blood Pressure Position Sitting Pulse Oximetry 99 94 Oxygen Delivery Method Room Air Room Air Room Air Sepsis Recent Fever Within 48 Hours No Sepsis New/Unexplained Change in Mental Status N/A Sepsis Action Taken by Nursing No Action Required 07/23/23 16:15 07/23/23 16:30 Temperature Temperature Source Pulse Rate Pulse Rate [Finger] 86 80 Respiratory Rate 14 14 Respiratory Effort / Characteristics Respiratory Depth Respiratory Pattern Blood Pressure Blood Pressure [Left Arm] 168/83 H 147/76 H Blood Pressure Mean Blood Pressure Mean [Left Arm] 111 99 Blood Pressure Position Pulse Oximetry 95 99 Oxygen Delivery Method Room Air Sepsis Recent Fever Within 48 Hours Sepsis New/Unexplained Change in Mental Status Sepsis Action Taken by Nursing Laboratory Data 07/23/23 13:51 07/23/23 13:51 Lab Results 07/23/23 07/23/23 07/23/23 Range/Units 13:51 15:00 15:24 WBC 5.76 (4.8-10.8) K/ul RBC 4.22 (4.20-5.40) M/uL Hgb 12.8 (12.0-16.0) g/dl Hct 39.8 (37.0-47.0) % MCV 94.3 (80.0-100.0) fL MCH 30.3 (25.0-34.0) pg MCHC 32.2 (32.0-36.0) g/dL RDW Std Deviation 44.7 (36.4-46.3) fL RDW Coeff of Shabnam 13.1 (11.5-14.5) % Plt Count 298 (130-400) K/uL MPV 8.8 L (9.4-12.4) fL Immature Gran % (Auto) 0.3 % Neut % (Auto) 85.7 % Lymph % (Auto) 6.9 % [place] % (Auto) 6.6 % Eos % (Auto) 0.0 % Baso % (Auto) 0.5 % Neut # (Auto) 4.93 (1.40-6.50) K/uL Lymph # (Auto) 0.40 L (1.20-3.40) K/uL [place] # (Auto) 0.38 (0.11-0.59) K/uL Eos # (Auto) 0.00 (0.00-0.50) K/uL Baso # (Auto) 0.03 (0.00-0.20) K/uL Immature Gran # (Auto) 0.02 (0.01-0.20) K/uL PT 11.2 (9.0-12.0) Seconds INR 1.0 (0.9-1.1) APTT 25 (21-31) Seconds PTT Ratio 0.9 Sodium 141 (136-145) mmol/L Potassium 3.8 (3.5-5.1) mmol/L Chloride 106 (98-107) mmol/L Carbon Dioxide 27 (21-32) mmol/L Anion Gap 8 (3-11) BUN 16 (6-23) mg/dl Creatinine 0.89 (0.6-1.2) mg/dl Est Cr Clr Drug Dosing Not Reportable Est GFR ( Amer) 69.0 ml/min Est GFR (Non-Af Amer) 59.5 ml/min BUN/Creatinine Ratio 18.0 (10-20) Glucose 107 H (70-99(Fasting)) mg/dl Calcium 9.7 (8.6-10.3) mg/dl Magnesium 2.2 (1.7-2.4) mg/dl Total Bilirubin 0.4 (0.2-1.0) mg/dl AST 17 (13-39) U/L ALT 13 (7-52) U/L Alkaline Phosphatase 67 (34-104) U/L Troponin I High Sens 15.7 H (0-14) pg/ml Total Protein 7.4 (6.0-8.3) gm/dl Albumin 4.9 (3.4-5.0) gm/dl Globulin 2.5 (2.5-4.0) gm/dl Albumin/Globulin Ratio 2.0 (0.9-2) Urine Color Yellow Urine Appearance Clear (Clear) Urine pH 5.0 (4.5-7.5) Ur Specific [place] 1.011 (1.000-1.030) Urine Protein Negative (Negative) Urine Glucose (UA) Negative (Negative) Urine Ketones Negative (Negative) Urine Blood Trace H (Negative) Urine Nitrite Negative (Negative) Urine Bilirubin Negative (Negative) Urine Urobilinogen Negative (Negative) Ur Leukocyte Esterase Negative (Negative) Urine WBC (Auto) 1-5 (0-5) /hpf Urine RBC (Auto) 0-4 (0-4) /hpf U Hyaline Cast (Auto) 0 (0-5) /lpf U Epithel Cells (Auto) 0-5 (0-5) /lpf Urine Bacteria (Auto) Negative (Negative) SARS-CoV-2 (PCR) NEGATIVE (Negative) Influenza Type A (PCR) Negative (Neg) Influenza Type B (PCR) Negative (Neg) RSV (RT-PCR) Negative (Neg) Imaging Data Radiologist's Impression: Head CT 07/23/23 13:55 CT OF THE HEAD WITHOUT CONTRAST CLINICAL HISTORY: Confusion. COMPARISON STUDY: MRI of the brain March 03, 2023. Head CT and CTA of the head June 09, 2023. CT DOSE: 625.8 mGy.cm TECHNIQUE: Helical axial images of the head were obtained without IV contrast. Automated exposure control was utilized for the study. A dose lowering technique was utilized adhering to the principles of ALARA. FINDINGS: No acute intracranial hemorrhage, midline shift or mass effect is present. White matter hypodensities are unchanged and favor small vessel disease. The ventricular system is unremarkable. The basal cisterns are patent. No extra-axial collections are present. There are no findings to suggest acute dural sinus thrombosis or acute territorial infarct. No significant calvarial abnormalities are present. Visualized portions of the sinuses and mastoid air cells are clear. IMPRESSION: No acute intracranial findings. No change in appearance of the brain. ACT 112: Negative or not required by law. Electronically signed by: Enrique Medina M.D. 07/23/2023 2:10 PM Brain MRI 07/23/23 14:18 MRI OF THE BRAIN WITHOUT CONTRAST CLINICAL HISTORY: Confusion. COMPARISON STUDY: MRI of the brain March 03, [address] performed earlier today. CTA of the head June 09, 2023. TECHNIQUE: Utilizing a 1.5 Livier magnet and dedicated coil, multiplanar, multiecho imaging of the brain was performed without IV contrast. FINDINGS: Note is made of a small hyperintense focus within the lateral right occipital lobe on the diffusion-weighted sequence image 11 of . This measures 7 mm in extent. There is associated gyral T1 hyperintensity on the T1-weighted sequences. This focus is slightly hypointense on the ADC map. There is no mass effect. No additional foci of restricted diffusion are present. Jugular system is unremarkable. Basal cisterns are patent. Extensive white matter T2 hyperintense foci are similar to MRI of March 03, 2023. No intracranial masses identified on this unenhanced exam. Flow-voids for the major intracranial vessels are present. Basal cisterns are patent. There are no extra-axial collections. A few punctate foci of susceptibility artifact on the gradient echo sequences are unchanged. Calvarial signal is normal. IMPRESSION: 1. 7 mm focus of signal abnormality within the lateral right occipital lobe. The signal characteristics favor a small subacute infarct. No mass effect. No evidence for hemorrhagic conversion. 2. Otherwise, no significant change in appearance of the brain. Extensive small vessel disease. ACT 112: Negative or not required by law. Electronically signed by: Enrique Medina M.D. 07/23/2023 4:15 PM Discharge Plan Visit Data Chief Complaint: Altered Mental Status Stated Complaint: CONFUSION, REF BY DOC ED Provider: Dee Polo Discharge Problem: Acute CVA (cerebrovascular accident), Acute confusion, Non-ST elevation LA (NSTEMI) Forms Stand Alone Forms: [facility] Prescriptions Prescriptions: No Action clopidogrel 75 mg tablet 75 mg PO QAM 90 Days Qty: 90 1RF atorvastatin 80 mg tablet 80 mg PO DAILY Qty: 90 3RF Rx Instructions: TAKE 1 TABLET BY MOUTH EVERY MORNING cholecalciferol (vitamin D3) 50 mcg (2,000 unit) capsule 2,000 unit PO DAILY 30 Days Qty: 30 0RF triamcinolone acetonide 0.1 % cream 1 applic TOPICAL BID PRN (Reason: Skin Irritation) acetaminophen [Tylenol Extra Strength] 500 mg tablet 500 mg PO DAILY Rx Instructions: PER PT "USUALLY ONCE IF NOT TWICE A DAY". (DME) BD SafetyGlide Syringe 3 mL 23 x 1" syringe See Rx Instructions .MEDSUPPLY Qty: 50 0RF Rx Instructions: As directed PreserVision AREDS-2 250-90-40-1 mg Capsule 1 tab PO BID nystatin 100,000 unit/gram cream 1 applic TOPICAL HS Rx Instructions: APPLY UNDER BREAST quetiapine 25 mg tablet 25 mg PO HS Qty: 30 1RF famotidine 40 mg tablet 40 mg PO QAM Rx Instructions: TAKE 1 TABLET BY MOUTH EVERY MORNING cyanocobalamin (vitamin B-12) 1,000 mcg/mL solution 1,000 mcg IM DIRECTED Rx Instructions: inject 1 mL once a week for 4 weeks, then inject 1 mL once a month. Referrals Referrals: Jay Duval MD [Primary Care Provider] -
[2023-07-23 14:23] LABS: Basophils # (auto) 0.03 K/uL (0.00-0.20); Basophils % (auto) 0.5 %; Hematocrit (blood only) 39.8 % (37.0-47.0); Hemoglobin 12.8 g/dl (12.0-16.0); Immature Granulocytes # (auto) 0.02 K/uL (0.01-0.20); Immature Granulocytes % (auto) 0.3 %; Lymphocytes % (auto) 6.9 %; Mean Corpuscular Hemoglobin 30.3 pg (25.0-34.0); Mean Corpuscular Hgb Conc 32.2 g/dL (32.0-36.0); Mean Corpuscular Volume 94.3 fL (80.0-100.0); Mean Platelet Volume 8.8 fL (9.4-12.4); Monocytes # (auto) 0.38 K/uL (0.11-0.59); Monocytes % (auto) 6.6 %; Neutrophils # (auto) 4.93 K/uL (1.40-6.50); Neutrophils % (auto) 85.7 %; Platelet Count 298 K/uL (130-400); RDW Coefficient of Variation 13.1 % (11.5-14.5); RDW Standard Deviation 44.7 fL (36.4-46.3); Red Blood Count 4.22 M/uL (4.20-5.40); White Blood Count 5.76 K/ul (4.8-10.8)
[2023-07-23 14:32] LABS: Alanine Aminotransferase 13 U/L (7-52); Albumin Level 4.9 gm/dl (3.4-5.0); Alkaline Phosphatase 67 U/L (34-104); Anion Gap 8 (3-11); Aspartate Aminotransferase 17 U/L (13-39); Bilirubin,Total 0.4 mg/dl (0.2-1.0); Blood Urea Nitrogen 16 mg/dl (6-23); Calcium 9.7 mg/dl (8.6-10.3); Carbon Dioxide 27 mmol/L (21-32); Chloride 106 mmol/L (98-107); Est GFR (Non-African American) 59.5 ml/min; Globulin 2.5 gm/dl (2.5-4.0); Glucose 107 mg/dl (70-99(Fasting)); Magnesium 2.2 mg/dl (1.7-2.4); Potassium 3.8 mmol/L (3.5-5.1); Sodium 141 mmol/L (136-145); Total Protein 7.4 gm/dl (6.0-8.3)
[2023-07-23 14:38] LABS: Troponin I High Sensitivity 15.7 pg/ml (0-14)
[2023-07-23 14:52] LABS: Partial Thromboplastin Ratio 0.9; Partial Thromboplastin Time 25 Seconds (21-31); Prothrombin Time 11.2 Seconds (9.0-12.0)
[2023-07-23 15:30] LABS: Appearance Urine Clear (Clear); Bacteria Urine Automated Negative (Negative); Bilirubin Urine Negative (Negative); Blood Urine Trace (Negative); Cast Urine Automated 0 /lpf (0-5); Color Urine Yellow; Epithelial Cell Urine Auto 0-5 /lpf (0-5); Glucose Urine UA Negative (Negative); Ketones Urine Negative (Negative); Leukocyte Esterase Urine Negative (Negative); Nitrite Urine Negative (Negative); Protein Urine Negative (Negative); RBC Urine Automated 0-4 /hpf (0-4); Specific Gravity Urine 1.011 (1.000-1.030); Urobilinogen Urine Negative (Negative)
[2023-07-23 16:06] LABS: Influenza A virus by PCR Negative (Neg); Influenza B virus by PCR Negative (Neg); RSV by PCR Negative (Neg); SARS CoV2 RNA(COVID-19) Ceph NEGATIVE (Negative)
--- NOTE | 2023-07-23 16:17 | Magnetic Resonance Report ---
MRI OF THE BRAIN WITHOUT CONTRAST CLINICAL HISTORY: Confusion. COMPARISON STUDY: MRI of the brain March 03, [address] performed earlier today. CTA of the head June 09, 2023. TECHNIQUE: Utilizing a 1.5 Livier magnet and dedicated coil, multiplanar, multiecho imaging of the bra in was performed without IV contrast. FINDINGS: Note is made of a small hyperintense focus within the lateral right occipital lobe on the d iffusion-weighted sequence image 11 of 23. This measures 7 mm in extent. There is associated gyral T1 hyperintensity on the T1-weighted sequences. This focus is slightly hypointense on the ADC map. Ther e is no mass effect. No additional foci of restricted diffusion are present. Jugular system is unrema rkable. Basal cisterns are patent. Extensive white matter T2 hyperintense foci are similar to MRI of March 03, 2023. No intracranial masses identified on this unenhanced exam. Flow-voids for the simeon or intracranial vessels are present. Basal cisterns are patent. There are no extra-axial collections. A few punctate foci of susceptibility artifact on the gradient echo sequences are unchanged. Calvari al signal is normal. IMPRESSION: 1. 7 mm focus of signal abnormality within the lateral right occipital lobe. The signal characteristi cs favor a small subacute infarct. No mass effect. No evidence for hemorrhagic conversion. 2. Otherwise, no significant change in appearance of the brain. Extensive small vessel disease. ACT 112: Negative or not required by law. Electronically signed by: Enrique Medina M.D. 07/23/2023 4:15 PM
--- NOTE | 2023-07-23 18:23 | History & Physical Report ---
Date of Service July 23, 2023 Assessment & Plan (1) CVA (cerebral vascular accident): Plan: Increased confusion and altered mental status above baseline the morning of 07/23 Dementia at baseline Hx of CVAs and TIAs Currently on Plavix 75 mg daily for secondary prevention Head CT NAF Head/neck CTA on 06/09/2023; will defer repeating additional studies at this time Revealed high-grade stenosis with near complete focal occlusion of the distal left cervical vertebral artery (similar to in 2018); however, noted moderate focal stenosis of right anterior cerebral artery (new) Brain MRI on 07/23 revealed 7 mm focus of signal abnormality in the lateral right occipital lobe (favoring a small subacute infarct) Given this is a subacute stroke, permissive hypertension up to SBP>180, or DBP>120 ASA 324 mg given in the ED Unclear when this occurred; friend at bedside reports that she has had increased confusion/memory deficits intermittently over the past couple months; TNKase not indicated Neurochecks q4h for now EKG NSR at 76 bpm; QTc 407 UA negative Glucose WNL Leukocytosis; afebrile No facial droop, slurred speech, or unilateral deficits Passed dysphagia screen, okay to eat and take p.o. meds Per discussion with neurology, will start the patient on DAPT with Plavix 75 mg and aspirin 81 mg daily PT/OT consulted A.m. CBC, BMP, A1c, fasting lipid panel (2) Dyslipidemia: Plan: Continue atorvastatin (3) Hx of TIA (transient ischemic attack) and stroke: Plan: No new focal deficits, facial droop, or slurred speech on exam (4) Dementia: Plan: Continue quetiapine (5) GERD (gastroesophageal reflux disease): Plan: Continue famotidine (6) B12 deficiency: Plan: Listed as receiving IM injection once a week every 4 weeks Vitamin B12 level ordered, pending Continue repletion if needed (7) History of breast cancer: Plan: Noted; no sign of metastatic disease to brain on MRI (8) Obstructive sleep apnea: Plan: CPAP at bedtime (9) H/O endarterectomy: Plan: S/p right carotid endarterectomy in 2008 Plan Disposition: Admit to PCU telemetry Full code AHA diet VTE PPx: SCDs and DAPT History of Present Illness Chief Complaint: Altered mental status Primary Care Provider: Jay Duval MD Iram is a pleasant 83-year-old female with PMH of dyslipidemia, osteoporosis, SNHL, TIA, stroke, dysphonia, hoarseness, tremor, GERD, CB, NSTEMI, and cerebrovascular disease. She presented for altered mental status on the morning of 07/23. Patient reportedly woke up this morning and had forgotten her work schedule. 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 She has had intermittent confusion and memory deficits over the past few months. She is set to retire this year. Her friends/fellow professors brought her into the ED due to increased confusion. No facial droop, slurred speech, or unilateral deficits reported per patient or friends. She notes she has been feeling more off balance recently and that she had a headache across her forehead that lasted for approximately 2 minutes this afternoon. She is unsure if she took her medications today, but reports good compliance with taking her medications, such as Plavix. She has home health care ([facility]) at night for her balance issues. She is unsure if she takes Plavix at morning or night. She endorses a history of TIA 10 years ago. She denies having an allergy to aspirin. She notes no acute changes to vision, hearing, smell, or taste changes. A&O x3 on arrival. Patient is hypertensive at 157/52 at time of admission; vitals otherwise stable. ROS: Patient endorses feeling off balance, RESTREPO, memory deficits, and intermittent confusion. Patient denies fever, chills, night sweats, dizziness, lightheadedness, facial droop, slurred speech, unilateral deficits, chest pain, SOB, abdominal pain, N/V/D, urinary symptoms, burning with urination, blood in the urine or stool, or numbness/tingling in the arms or legs. Allergies Allergy/AdvReac Type Severity Reaction Status Date / Time neomycin Allergy Intermediate Rash Verified 07/23/23 15:59 nabumetone [From Relafen] Allergy Mild Redness of Verified 07/23/23 15:59 Skin loperamide [From Imodium A-D] AdvReac Intermediate Rapid Verified 07/23/23 15:59 heart rate lorazepam [From Ativan] AdvReac Intermediate Anxiety Verified 07/23/23 15:59 zolpidem [From Ambien] AdvReac Intermediate Anxiety Verified 07/23/23 15:59 Home Medications Medication Instructions Recorded Confirmed Type acetaminophen 500 mg tablet 500 mg PO DAILY 03/25/19 07/23/23 History (Tylenol Extra Strength) vit C 250 mg-vit E 90 mg-zinc 40 1 tab PO BID 10/14/21 07/23/23 History mg-copper 1 [id number] capsule (PreserVision AREDS-2) nystatin 100,000 unit/gram topical 1 applic topical HS 09/29/22 07/23/23 History cream syringe with needle 3 mL 23 x 1" #50 ea 03/10/23 07/23/23 Rx (BD SafetyGlide Syringe) clopidogrel 75 mg tablet 75 mg PO QAM 90 days #90 tabs 04/05/23 07/23/23 Rx triamcinolone acetonide 0.1 % 1 applic topical BID PRN Skin 04/14/23 07/23/23 History topical cream Irritation atorvastatin 80 mg tablet 80 mg PO DAILY #90 tabs 05/08/23 07/23/23 Rx cholecalciferol (vitamin D3) 50 2,000 unit PO DAILY 30 days #30 06/06/23 07/23/23 Rx mcg (2,000 unit) capsule caps quetiapine 25 mg tablet 25 mg PO HS #30 tabs 06/11/23 07/23/23 Rx cyanocobalamin (vitamin B-12) 1,000 mcg IM DIRECTED 07/23/23 07/23/23 History 1,000 mcg/mL injection solution famotidine 40 mg tablet 40 mg PO QAM 07/23/23 07/23/23 History Past Med/Surg History Medical History (Updated 07/23/23 @ 17:32 by Dee Polo MD) Mediastinal lymphadenopathy Elevated troponin Sensorineural hearing loss (SNHL) of both ears Subclavian artery stenosis History of breast cancer No arm restriction per pt- R breast CA 04/200202 GRADE 1 ER +/HER-2 Neg Schatzki's ring Osteoarthritis Degenerative disc disease Tremor Mild GERD (gastroesophageal reflux disease) SNHL (sensorineural hearing loss) Ocular migraine Dyslipidemia Carotid stenosis S/P right carotid endarterectomy (2008) No significant ICA stenosis per 05/2021 carotid doppler Chronic cerebral ischemia Left thalamic infarction 2017 > mild residual right hand weakness, reason for plavix Follows with Dr. Allen Osteoporosis Surgical History (Updated 06/12/23 @ 00:07 by Blaine Chauhan) History of knee replacement procedure of left knee Status post total knee replacement using cement Right Nausea and vomiting after administration of anesthetic agent with colonoscopy History of cataract surgery History of esophageal dilatation History of oophorectomy, unilateral Right History of removal of ovarian cyst History of dilation and curettage History of colonoscopy Status post breast lumpectomy Right Breast CA- Tx with XRT and Arimidex x 5 yrs./ ER + HER-2/abisai neg. H/O foot surgery BUNION, CURLED TOES, RIGHT SIDE H/O endarterectomy Right Family History Mother CHF (congestive heart failure) Father Epilepsy Colon cancer Pulmonary fibrosis Family/Other Breast cancer Other No family history of adverse response to anesthesia Social History Smoking Status: Never smoker Second Hand Exposure: No; Do You Dip or Chew Tobacco: No; Hx Alcohol Use: No Hx Substance Use: No Preferred Language: Burkinan Communication Ability: Effective Visual Impairment: No Limitations Hearing Ability: Normal Spinner Hand Required: No Beliefs That Will Affect Care: None marital status: Single Current Living Situation: Alone current occupational status: employed 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, 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, 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 Other Information That Helps Us Care for You: No Feels Safe at Home: Yes Safety Concerns: Feels Safe At This Time Assistive Devices: Walker Review of Systems Review of Systems: See HPI above Physical Exam Physical Exam: General: no acute distress; pleasant affect; non-toxic appearing; well- nourished; cooperative HEENT: normocephalic, atraumatic; no scleral icterus; PERRLA w/ EOMs intact; moist mucus membrane; vision and hearing intact; patient demonstrates ability to raise eyebrows and smile without deficits Neck: supple; no lymphadenopathy; trachea midline; patient demonstrates ability to shrug against resistance without pain Skin: warm, dry without signs of tenting; no cyanosis; no rashes, bruising, lesions, or erythema noted CV: chest wall NTP; RRR; S1/S2 normal; no murmurs/rubs/gallops; pulses intact and symmetric at radial, DP, and PT Lungs: no acute respiratory distress; symmetrical chest wall expansion; clear breath sounds across all lung levin w/o adventitious sounds; no wheezing ABD: Soft, NTP; BS present; no rebound/guarding MSK: no tics or fasciculations; no edema noted in the LEs b/l, nonerythematous; 5/5 chief cook strength bilaterally; 5/5 strength in the LEs bilaterally when lifting the leg from the hip supine; 5/5 strength in the UEs; patient demonstrates ability to wiggle toes Neuro: A&Ox3; fluent speech; no facial droop; exhibits some memory deficits over recent events; no focal deficits; no unilateral deficits; sensation grossly intact in the face, UEs, LEs b/l Results & Data Results & Data Vital Signs (Past 12 Hours) Vital Signs Temp Pulse Pulse Resp BP BP Pulse Ox 07/23/23 18:05 157/52 H 07/23/23 16:30 80 14 147/76 H 99 07/23/23 16:15 86 14 168/83 H 95 07/23/23 15:13 80 14 162/58 H 94 07/23/23 15:03 07/23/23 13:43 36.6 C 71 18 183/65 H 99 O2 Del Method 07/23/23 18:05 07/23/23 16:30 07/23/23 16:15 Room Air 07/23/23 15:13 Room Air 07/23/23 15:03 Room Air 07/23/23 13:43 Room Air Laboratory Results Abnormal lab results 07/23/23 07/23/23 Range/Units 13:51 15:00 MPV 8.8 L (9.4-12.4) fL Lymph # (Auto) 0.40 L (1.20-3.40) K/uL Glucose 107 H (70-99(Fasting)) mg/dl Troponin I High Sens 15.7 H (0-14) pg/ml Urine Blood Trace H (Negative) Diagnostic Findings Head CT 07/23/23 13:55 CT OF THE HEAD WITHOUT CONTRAST CLINICAL HISTORY: Confusion. COMPARISON STUDY: MRI of the brain March 03, 2023. Head CT and CTA of the head June 09, 2023. CT DOSE: 625.8 mGy.cm TECHNIQUE: Helical axial images of the head were obtained without IV contrast. Automated exposure control was utilized for the study. A dose lowering technique was utilized adhering to the principles of ALARA. FINDINGS: No acute intracranial hemorrhage, midline shift or mass effect is present. White matter hypodensities are unchanged and favor small vessel disease. The ventricular system is unremarkable. The basal cisterns are patent. No extra-axial collections are present. There are no findings to suggest acute dural sinus thrombosis or acute territorial infarct. No significant calvarial abnormalities are present. Visualized portions of the sinuses and mastoid air cells are clear. IMPRESSION: No acute intracranial findings. No change in appearance of the brain. ACT 112: Negative or not required by law. Electronically signed by: Enrique Medina M.D. 07/23/2023 2:10 PM Brain MRI 07/23/23 14:18 MRI OF THE BRAIN WITHOUT CONTRAST CLINICAL HISTORY: Confusion. COMPARISON STUDY: MRI of the brain March 03, [address] performed earlier today. CTA of the head June 09, 2023. TECHNIQUE: Utilizing a 1.5 Livier magnet and dedicated coil, multiplanar, multiecho imaging of the brain was performed without IV contrast. FINDINGS: Note is made of a small hyperintense focus within the lateral right occipital lobe on the diffusion-weighted sequence image 11 of . This measures 7 mm in extent. There is associated gyral T1 hyperintensity on the T1-weighted sequences. This focus is slightly hypointense on the ADC map. There is no mass effect. No additional foci of restricted diffusion are present. Jugular system is unremarkable. Basal cisterns are patent. Extensive white matter T2 hyperintense foci are similar to MRI of March 03, 2023. No intracranial masses identified on this unenhanced exam. Flow-voids for the major intracranial vessels are present. Basal cisterns are patent. There are no extra-axial collections. A few punctate foci of susceptibility artifact on the gradient echo sequences are unchanged. Calvarial signal is normal. IMPRESSION: 1. 7 mm focus of signal abnormality within the lateral right occipital lobe. The signal characteristics favor a small subacute infarct. No mass effect. No evidence for hemorrhagic conversion. 2. Otherwise, no significant change in appearance of the brain. Extensive small vessel disease. ACT 112: Negative or not required by law. Electronically signed by: Enrique Medina M.D. 07/23/2023 4:15 PM Code Status & VTE Plan Code Status Full code VTE Prophylaxis Plan VTE Prophylaxis will be ordered: Yes Supervising Physician Co-Signing Physician Notes Patient seen and examined, chart reviewed, case discussed with Alan Lang and I agree with the assessment and plan as above except as otherwise noted Labs and images reviewed Very pleasant 83-year-old who presents with confusion more than her normal baseline 07/23, has had some intermittent confusion memory deficits recently but this appeared to be worse than her normal baseline as noticed by her coworkers. On ER evaluation she underwent a MRI which showed a 7 mm right occipital focus favoring small subacute infarct. Patient has had CT angios in June with mild stenosis of 50% of the left ICA, no right hemodynamically significant stenosis. She is already on Plavix. Given subacute stroke will admit, target blood pressure of 180 rather than 220 although she is normotensive on bedside assessment, treat with full dose aspirin and transition to DAPT with aspirin and Plavix for 3 weeks. Discussed secondary stroke management, patient is already on atorvastatin with reasonable blood pressure control. At bedside she has no focal strength deficits. Agree with assessment and management as above. She is seen at bedside with a friend who is a professor present with no additional questions at time of visit PG Care Time/CCT Total # of Minutes Spent Total Time Spent with Patient: Total time spent is greater than 50% in coordination of care (as documented) at patient's floor/unit and/or counseling patient: Coding [place] [address] INT INP/OBS CARE 2MIN Patient Type Established History Comprehensive Exam Comprehensive Medical Decision Making Moderate Complexity Diagnoses CVA (cerebral vascular accident) I63.9 Dyslipidemia E78.5 Hx of TIA (transient ischemic attack) and stroke Z86.73 Dementia F03.90 GERD (gastroesophageal reflux disease) K21.9 B12 deficiency E53.8 History of breast cancer Z85.3 Obstructive sleep apnea G47.33 H/O endarterectomy Z98.890
[2023-07-23] MEDS ORDERED: ONDANSETRON INJ 2 MG/ML 2 ML VIAL IV PRN (21:49)
[2023-07-23] MEDS ORDERED: PHARMACIST DISCHARGE MED REC CONSULT PRN (21:49)
[2023-07-23] MEDS ORDERED: ACETAMINOPHEN 325 MG TAB PO PRN (21:49)
[2023-07-23] MEDS: QUEtiapine FUMARATE 25 MG TABLET PO SCH (22:28)
[2023-07-23] MEDS: ASPIRIN CHEW 324 MG PO STA (22:28)
[2023-07-24 06:39] LABS: Basophils # (auto) 0.04 K/uL (0.00-0.20); Basophils % (auto) 0.7 %; Eosinophils # (auto) 0.06 K/uL (0.00-0.50); Eosinophils % (auto) 1.1 %; Hematocrit (blood only) 35.5 % (37.0-47.0); Hemoglobin 11.9 g/dl (12.0-16.0); Immature Granulocytes # (auto) 0.01 K/uL (0.01-0.20); Immature Granulocytes % (auto) 0.2 %; Lymphocytes # (auto) 0.75 K/uL (1.20-3.40); Lymphocytes % (auto) 13.8 %; Mean Corpuscular Hemoglobin 30.7 pg (25.0-34.0); Mean Corpuscular Hgb Conc 33.5 g/dL (32.0-36.0); Mean Corpuscular Volume 91.7 fL (80.0-100.0); Monocytes # (auto) 0.65 K/uL (0.11-0.59); Neutrophils # (auto) 3.91 K/uL (1.40-6.50); Neutrophils % (auto) 72.2 %; Platelet Count 268 K/uL (130-400); RDW Standard Deviation 43.4 fL (36.4-46.3); Red Blood Count 3.87 M/uL (4.20-5.40); White Blood Count 5.42 K/ul (4.8-10.8)
[2023-07-24 06:52] LABS: Calcium 9.2 mg/dl (8.6-10.3); Chol HDL Ratio 2.7 (0-5); Creatinine Clr Calc Pharmacy 42.2 ml/min; Est GFR (Non-African American) 59.5 ml/min; Potassium 3.8 mmol/L (3.5-5.1)
--- NOTE | 2023-07-24 07:03 | Electrocardiogram Report ---
Test Reason : Blood Pressure : / mmHG Vent. Rate : 076 BPM Atrial Rate : 076 BPM P-R Int : 160 ms QRS Dur : 070 ms QT Int : 362 ms P-R-T Axes : 045 029 007 degrees QTc Int : 407 ms Normal sinus rhythm Cannot rule out Anterior infarct , age undetermined Abnormal ECG When compared with ECG of 09-JUN-2023 12:12, Nonspecific T wave abnormality now evident in Anterior leads Confirmed by Zelalem Khan ([id number]) on 07/24/2023 7:02:51 AM Referred By: Confirmed By:Zelalem Khan
[2023-07-24 08:28] LABS: Estimated Average Glucose 126 mg/dl
[2023-07-24] MEDS: CLOPIDOGREL BISULFATE 75 MG TAB PO SCH (08:32)
[2023-07-24] MEDS: FAMOTIDINE 40 MG TABLET PO SCH (08:33)
[2023-07-24] MEDS: ASPIRIN 81 MG ECTAB PO SCH (08:33)
[2023-07-24] MEDS: ATORVASTATIN 40 MG TAB PO SCH (08:33)
--- NOTE | 2023-07-24 11:49 | Hospitalist Progress Note ---
Date of Service July 24, 2023 Assessment & Plan (1) CVA (cerebral vascular accident): Plan: Patient presents to the hospital on account of increased confusion and altered mental status above baseline the morning of 07/23 Has dementia at baseline Hx of CVAs and TIAs Currently on Plavix 75 mg daily for secondary prevention Head CT NAF Brain MRI on 07/23 revealed 7 mm focus of signal abnormality in the lateral right occipital lobe (favoring a small subacute infarct) Given this is a subacute stroke, permissive hypertension up to SBP>180, or DBP>120 ASA 324 mg given in the ED TNKase not indicated since last known well was unknown Neurochecks q4h for now No facial droop, slurred speech, or unilateral deficits Passed dysphagia screen, okay to eat and take p.o. meds Per discussion with neurology, will start the patient on DAPT with Plavix 75 mg and aspirin 81 mg daily PT/OT consulted (2) Dyslipidemia: Plan: Continue atorvastatin (3) Hx of TIA (transient ischemic attack) and stroke: Plan: No new focal deficits, facial droop, or slurred speech on exam (4) Dementia: Plan: Continue quetiapine (5) GERD (gastroesophageal reflux disease): Plan: Continue famotidine (6) B12 deficiency: Plan: Listed as receiving IM injection once a week every 4 weeks Vitamin B12 level ordered, pending Continue repletion if needed (7) History of breast cancer: Plan: Noted; no sign of metastatic disease to brain on MRI (8) Obstructive sleep apnea: Plan: CPAP at bedtime (9) H/O endarterectomy: Plan: Head/neck CTA on 06/09/2023; will defer repeating additional studies at this time Revealed high-grade stenosis with near complete focal occlusion of the distal left cervical vertebral artery (similar to in 2018); however, noted moderate focal stenosis of right anterior cerebral artery (new) S/p right carotid endarterectomy in 2009 Plan Disposition: Has been evaluated by physical therapy awaiting their recommendations Full code AHA diet VTE PPx: SCDs and DAPT Admission and Anticipated Discharge Date Admission Date: July 23, 2023 Subjective Patient seen and examined, she is awake alert although often confused and seem to be hyperactive Review of Systems Review of Systems: All systems reviewed are negative, apart from the ones contained in the history. Physical Exam Physical Exam: The patient is awake, alert and oriented 3, well developed and well nourished, normocephalic and atraumatic, lying in bed and in no acute distress. HEENT--PERRL, EOMI, mucous membranes and oropharynx mildly dry Neck--supple. No JVD. No bruits. Thyroid normal, trachea midline, no adenopathy. Heart--normal S1 and S2. No murmurs, rubs or gallops. Lungs--clear bilaterally, no respiratory distress, no accessory muscle use. Abdomen--normal bowel sounds and soft. Extremities--no cyanosis or clubbing. No edema. Dermatologic--normal skin turgor, normal color, no abnormal lymph nodes, no rash. Neurologic--cranial nerves II through XII grossly intact. Rheumatologic--normal range of motion. Psychiatric--normal affect. Results & Data Results & Data Vital Signs (Past 12 Hours) Vital Signs Temp Pulse Pulse Resp BP Pulse Ox O2 Del Method 07/24/23 11:06 97.7 F 86 17 180/77 H 96 Room Air 07/24/23 09:15 98.4 F 81 18 162/67 H 98 Room Air 07/24/23 08:02 93 H 07/24/23 03:45 98.4 F 89 18 149/74 H 93 Room Air 07/24/23 01:07 88 07/23/23 23:55 75 21 94 FiO2 07/24/23 11:06 07/24/23 09:15 07/24/23 08:02 07/24/23 03:45 07/24/23 01:07 07/23/23 23:55 21 PG Care Time/CCT Total # of Minutes Spent Total Time Spent with Patient: Total time spent is greater than 50% in coordination of care (as documented) at patient's floor/unit and/or counseling patient: Coding Level of Care Code 15382 SUB INP/OBS CARE 2/35MIN Diagnoses CVA (cerebral vascular accident) I63.9 Dyslipidemia E78.5 Hx of TIA (transient ischemic attack) and stroke Z86.73 Dementia F03.90 GERD (gastroesophageal reflux disease) K21.9 B12 deficiency E53.8 History of breast cancer Z85.3 Obstructive sleep apnea G47.33 H/O endarterectomy Z98.890 Time Spent (min) 35
--- NOTE | 2023-07-24 14:02 | Pharmacy Report ---
- Date of Service July 24, 2023 - Pharmacy CVA/TIA Medication Review Medications to Prevent Stroke handout has been added to the patients discharge packet. Antiplatelet(s) * Aspirin 81 mg daily + clopidogrel 75 mg daily Cholesterol * High intensity statin: atorvastatin 80 mg daily DVT Prophylaxis * SCD knee Therapeutic Anticoagulation * No history of Afib/Aflutter noted Type 2 Diabetes * Patient does not have T2DM, A1c 6.0% suggests pre-diabetes
[2023-07-24] MEDS: HALOPERIDOL LACTATE 5 MG/ML 1 ML VIAL ONE (16:10)
[2023-07-24] MEDS: HALOPERIDOL LACTATE 5 MG/ML 1 ML VIAL IM STA (18:41)
[2023-07-25 06:12] LABS: Basophils # (auto) 0.03 K/uL (0.00-0.20); Basophils % (auto) 0.6 %; Eosinophils # (auto) 0.13 K/uL (0.00-0.50); Eosinophils % (auto) 2.5 %; Hematocrit (blood only) 37.5 % (37.0-47.0); Hemoglobin 12.3 g/dl (12.0-16.0); Immature Granulocytes # (auto) 0.01 K/uL (0.01-0.20); Immature Granulocytes % (auto) 0.2 %; Lymphocytes # (auto) 0.89 K/uL (1.20-3.40); Lymphocytes % (auto) 17.3 %; Mean Corpuscular Hemoglobin 30.3 pg (25.0-34.0); Mean Corpuscular Hgb Conc 32.8 g/dL (32.0-36.0); Mean Corpuscular Volume 92.4 fL (80.0-100.0); Monocytes # (auto) 0.58 K/uL (0.11-0.59); Monocytes % (auto) 11.3 %; Neutrophils # (auto) 3.49 K/uL (1.40-6.50); Neutrophils % (auto) 68.1 %; Platelet Count 245 K/uL (130-400); RDW Coefficient of Variation 12.9 % (11.5-14.5); RDW Standard Deviation 43.8 fL (36.4-46.3); Red Blood Count 4.06 M/uL (4.20-5.40); White Blood Count 5.13 K/ul (4.8-10.8)
[2023-07-25 06:36] LABS: BUN Creatinine Ratio 23.7 (10-20); Creatinine Clr Calc Pharmacy 40.1 ml/min; Est GFR (African American) 65.4 ml/min; Est GFR (Non-African American) 56.4 ml/min; Potassium 3.9 mmol/L (3.5-5.1)
--- NOTE | 2023-07-25 11:21 | Hospitalist Progress Note ---
Date of Service July 25, 2023 Assessment & Plan (1) CVA (cerebral vascular accident): Plan: Patient presents to the hospital on account of increased confusion and altered mental status above baseline the morning of 07/23 Has dementia at baseline Hx of CVAs and TIAs Currently on Plavix 75 mg daily for secondary prevention Head CT NAF Brain MRI on 07/23 revealed 7 mm focus of signal abnormality in the lateral right occipital lobe (favoring a small subacute infarct) Given this is a subacute stroke, permissive hypertension up to SBP>180, or DBP>120 ASA 324 mg given in the ED TNKase not indicated since last known well was unknown Neurochecks every shift No facial droop, slurred speech, or unilateral deficits Passed dysphagia screen, okay to eat and take p.o. meds Per discussion with neurology, will start the patient on DAPT with Plavix 75 mg and aspirin 81 mg daily PT/OT consulted (2) Dyslipidemia: Plan: Continue atorvastatin (3) Hx of TIA (transient ischemic attack) and stroke: Plan: No new focal deficits, facial droop, or slurred speech on exam (4) Dementia: Plan: Patient's. Of confusion has been worsening. I spoke to the perez Ibarra who said that often the patient forgets to take her medicines and even forgets to eat Other occasionally she has a FISHERIES ENFORCEMENT OFFICER from [employer] who comes and helps with meds. However patient needs 24-hour care Continue quetiapine (5) GERD (gastroesophageal reflux disease): Plan: Continue famotidine (6) B12 deficiency: Plan: Listed as receiving IM injection once a week every 4 weeks Vitamin B12 level ordered, pending Continue repletion if needed (7) History of breast cancer: Plan: Noted; no sign of metastatic disease to brain on MRI (8) Obstructive sleep apnea: Plan: CPAP at bedtime (9) H/O endarterectomy: Plan: Head/neck CTA on 06/09/2023; will defer repeating additional studies at this time Revealed high-grade stenosis with near complete focal occlusion of the distal left cervical vertebral artery (similar to in 2018); however, noted moderate focal stenosis of right anterior cerebral artery (new) S/p right carotid endarterectomy in 2008 Plan Disposition: Due to worsening confusion from her dementia, patient is not a safe discharge home. She has been insisting she wants to go home however according to the perez Ibarra patient has been forgetting to take her medicines and also forgetting to eat occasionally. She has a FISHERIES ENFORCEMENT OFFICER from [employer] who occasionally comes and helps with meds, however as it stands now it seems patient could needed 24-hour caregiver. Please do not discharge her home until arrangements made for her to at least spend some days in the SNF for rehab. The julia Ibarra and Radha have power of transportation modeler. Full code AHA diet VTE PPx: SCDs and DAPT Admission and Anticipated Discharge Date Admission Date: July 23, 2023 Subjective Patient seen and examined, she is awake alert although often confused and seem to be hyperactive, insists she wants to be discharged home Review of Systems Review of Systems: All systems reviewed are negative, apart from the ones contained in the history. Physical Exam Physical Exam: The patient is awake, alert and oriented 3, well developed and well nourished, normocephalic and atraumatic, lying in bed and in no acute distress. HEENT--PERRL, EOMI, mucous membranes and oropharynx mildly dry Neck--supple. No JVD. No bruits. Thyroid normal, trachea midline, no adenopathy. Heart--normal S1 and S2. No murmurs, rubs or gallops. Lungs--clear bilaterally, no respiratory distress, no accessory muscle use. Abdomen--normal bowel sounds and soft. Extremities--no cyanosis or clubbing. No edema. Dermatologic--normal skin turgor, normal color, no abnormal lymph nodes, no rash. Neurologic--cranial nerves II through XII grossly intact. Rheumatologic--normal range of motion. Psychiatric--normal affect. Results & Data Results & Data Vital Signs (Past 12 Hours) Vital Signs Temp Pulse Resp BP BP Pulse Ox O2 Del Method 07/25/23 07:37 97.7 F 82 19 172/85 H 96 Room Air 07/25/23 03:09 97.3 F L 80 20 172/73 H 95 Room Air PG Care Time/CCT Total # of Minutes Spent Total Time Spent with Patient: Total time spent is greater than 50% in coordination of care (as documented) at patient's floor/unit and/or counseling patient: Coding Level of Care Code 05931 SUB INP/OBS CARE 2/35MIN Diagnoses CVA (cerebral vascular accident) I63.9 Dyslipidemia E78.5 Hx of TIA (transient ischemic attack) and stroke Z86.73 Dementia F03.90 GERD (gastroesophageal reflux disease) K21.9 B12 deficiency E53.8 History of breast cancer Z85.3 Obstructive sleep apnea G47.33 H/O endarterectomy Z98.890 Time Spent (min) 35
[2023-07-26 06:35] LABS: Basophils # (auto) 0.02 K/uL (0.00-0.20); Basophils % (auto) 0.3 %; Eosinophils # (auto) 0.21 K/uL (0.00-0.50); Eosinophils % (auto) 3.4 %; Hematocrit (blood only) 38.5 % (37.0-47.0); Hemoglobin 12.6 g/dl (12.0-16.0); Immature Granulocytes # (auto) 0.02 K/uL (0.01-0.20); Immature Granulocytes % (auto) 0.3 %; Lymphocytes # (auto) 0.88 K/uL (1.20-3.40); Lymphocytes % (auto) 14.3 %; Mean Corpuscular Hemoglobin 30.7 pg (25.0-34.0); Mean Corpuscular Hgb Conc 32.7 g/dL (32.0-36.0); Mean Corpuscular Volume 93.7 fL (80.0-100.0); Monocytes # (auto) 0.63 K/uL (0.11-0.59); Monocytes % (auto) 10.2 %; Neutrophils # (auto) 4.41 K/uL (1.40-6.50); Neutrophils % (auto) 71.5 %; Platelet Count 265 K/uL (130-400); RDW Coefficient of Variation 13.2 % (11.5-14.5); RDW Standard Deviation 45.7 fL (36.4-46.3); Red Blood Count 4.11 M/uL (4.20-5.40); White Blood Count 6.17 K/ul (4.8-10.8)
[2023-07-26 06:39] LABS: BUN Creatinine Ratio 25.2 (10-20); Creatinine Clr Calc Pharmacy 36.2 ml/min; Est GFR (African American) 57.8 ml/min; Est GFR (Non-African American) 49.9 ml/min; Potassium 3.8 mmol/L (3.5-5.1)
--- NOTE | 2023-07-26 07:44 | Hospitalist Progress Note ---
Date of Service July 26, 2023 Assessment & Plan (1) CVA (cerebral vascular accident): Plan: Patient presents to the hospital on account of increased confusion and altered mental status above baseline the morning of 07/23 Has dementia at baseline Hx of CVAs and TIAs on Plavix 75 mg daily for secondary prevention Brain MRI on 07/23 revealed 7 mm focus of signal abnormality in the lateral right occipital lobe (favoring a small subacute infarct) TNKase not indicated since last known well was unknown Passed dysphagia screen, okay to eat and take p.o. meds Per discussion with neurology, will start the patient on DAPT with Plavix 75 mg and aspirin 81 mg daily Head/neck CTA on 06/09/2023; will defer repeating additional studies at this time Revealed high-grade stenosis with near complete focal occlusion of the distal left cervical vertebral artery (similar to in 2018); however, noted moderate focal stenosis of right anterior cerebral artery (new) S/p right carotid endarterectomy in 2008 PT/OT consulted (2) Dyslipidemia: Plan: Continue atorvastatin (3) Dementia: Plan: I spoke to the perez Ibarra who said that often the patient forgets to take her medicines and even forgets to eat Other occasionally she has a PLASTIC EYE TECHNICIAN from [employer] who comes and helps with meds. However patient needs 24-hour care Continue quetiapine (4) B12 deficiency: Plan: Listed as receiving IM injection once a week every 4 weeks Vitamin B12 level ordered, pending Continue repletion if needed (5) History of breast cancer: Plan: Noted; no sign of metastatic disease to brain on MRI (6) Obstructive sleep apnea: Plan: CPAP at bedtime Plan Disposition: Due to worsening confusion from her dementia, patient is not a safe discharge home. She has been insisting she wants to go home however according to the perez Ibarra patient has been forgetting to take her medicines and a lso forgetting to eat occasionally. She has a PLASTIC EYE TECHNICIAN from [employer] who occasionally comes and helps with meds, however as it stands now it seems patient could needed 24-hour caregiver. VTE PPx: SCDs and DAPT Admission and Anticipated Discharge Date Admission Date: July 23, 2023 Results & Data Results & Data Vital Signs (Past 12 Hours) Vital Signs Temp Pulse Resp BP Pulse Ox O2 Del Method 07/26/23 07:40 98.1 F 90 19 144/83 H 96 Room Air 02/21/24 04:02 97.7 F 83 16 123/77 93 Room Air 07/25/23 23:07 97.3 F L 90 16 133/80 93 Room Air PG Care Time/CCT Total # of Minutes Spent Total Time Spent with Patient: Total time spent is greater than 50% in coordination of care (as documented) at patient's floor/unit and/or counseling patient: Coding Diagnoses CVA (cerebral vascular accident) I63.9 Dyslipidemia E78.5 Dementia F03.90 B12 deficiency E53.8 History of breast cancer Z85.3 Obstructive sleep apnea G47.33
--- NOTE | 2023-07-26 19:20 | Discharge Summary ---
Date of Service July 26, 2023 Admission HPI Per Admitting Provider Iram is a pleasant 83-year-old female with PMH of dyslipidemia, osteoporosis, SNHL, TIA, stroke, dysphonia, hoarseness, tremor, GERD, CB, NSTEMI, and cerebrovascular disease. She presented for altered mental status on the morning of 07/23. Patient reportedly woke up this morning and had forgotten her work schedule. 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 She has had intermittent confusion and memory deficits over the past few months. She is set to retire this year. Her friends/fellow professors brought her into the ED due to increased confusion. No facial droop, slurred speech, or unilateral deficits reported per patient or friends. She notes she has been feeling more off balance recently and that she had a headache across her forehead that lasted for approximately 2 minutes this afternoon. She is unsure if she took her medications today, but reports good compliance with taking her medications, such as Plavix. She has home health care ([facility]) at night for her balance issues. She is unsure if she takes Plavix at morning or night. She endorses a history of TIA 10 years ago. She denies having an allergy to aspirin. She notes no acute changes to vision, hearing, smell, or taste changes. A&O x3 on arrival. Patient is hypertensive at 157/52 at time of admission; vitals otherwise stable. ROS: Patient endorses feeling off balance, RESTREPO, memory deficits, and intermittent confusion. Patient denies fever, chills, night sweats, dizziness, lightheadedness, facial droop, slurred speech, unilateral deficits, chest pain, SOB, abdominal pain, N/V/D, urinary symptoms, burning with urination, blood in the urine or stool, or numbness/tingling in the arms or legs. Principal Diagnosis subacute CVA dementia Discharge Exam pt was in no distress and without focal deficits Discharge Data Allergies Allergy/AdvReac Type Severity Reaction Status Date / Time neomycin Allergy Intermediate Rash Verified 07/23/23 15:59 nabumetone [From Relafen] Allergy Mild Redness of Verified 07/23/23 15:59 Skin loperamide [From Imodium A-D] AdvReac Intermediate Rapid Verified 07/23/23 15:59 heart rate lorazepam [From Ativan] AdvReac Intermediate Anxiety Verified 07/23/23 15:59 zolpidem [From Ambien] AdvReac Intermediate Anxiety Verified 07/23/23 15:59 Consultations 07/23/23 17:25 ED Decision to Admit Stat 07/25/23 15:17 Consult Psychiatry Routine Ordered Studies Head CT 07/23/23 13:55 CT OF THE HEAD WITHOUT CONTRAST CLINICAL HISTORY: Confusion. COMPARISON STUDY: MRI of the brain March 03, 2023. Head CT and CTA of the head June 09, 2023. CT DOSE: 625.8 mGy.cm TECHNIQUE: Helical axial images of the head were obtained without IV contrast. Automated exposure control was utilized for the study. A dose lowering technique was utilized adhering to the principles of ALARA. FINDINGS: No acute intracranial hemorrhage, midline shift or mass effect is present. White matter hypodensities are unchanged and favor small vessel disease. The ventricular system is unremarkable. The basal cisterns are patent. No extra-axial collections are present. There are no findings to suggest acute dural sinus thrombosis or acute territorial infarct. No significant calvarial abnormalities are present. Visualized portions of the sinuses and mastoid air cells are clear. IMPRESSION: No acute intracranial findings. No change in appearance of the brain. ACT 112: Negative or not required by law. Electronically signed by: Enrique Medina M.D. 07/23/2023 2:10 PM Brain MRI 07/23/23 14:18 MRI OF THE BRAIN WITHOUT CONTRAST CLINICAL HISTORY: Confusion. COMPARISON STUDY: MRI of the brain March 03, [address] performed earlier today. CTA of the head June 09, 2023. TECHNIQUE: Utilizing a 1.5 Livier magnet and dedicated coil, multiplanar, multiecho imaging of the brain was performed without IV contrast. FINDINGS: Note is made of a small hyperintense focus within the lateral right occipital lobe on the diffusion-weighted sequence image 11 of 23. This measures 7 mm in extent. There is associated gyral T1 hyperintensity on the T1-weighted sequences. This focus is slightly hypointense on the ADC map. There is no mass effect. No additional foci of restricted diffusion are present. Jugular system is unremarkable. Basal cisterns are patent. Extensive white matter T2 hyperintense foci are similar to MRI of March 03, 2023. No intracranial masses identified on this unenhanced exam. Flow-voids for the major intracranial vessels are present. Basal cisterns are patent. There are no extra-axial collections. A few punctate foci of susceptibility artifact on the gradient echo sequences are unchanged. Calvarial signal is normal. IMPRESSION: 1. 7 mm focus of signal abnormality within the lateral right occipital lobe. The signal characteristics favor a small subacute infarct. No mass effect. No evidence for hemorrhagic conversion. 2. Otherwise, no significant change in appearance of the brain. Extensive small vessel disease. ACT 112: Negative or not required by law. Electronically signed by: Enrique Medina M.D. 07/23/2023 4:15 PM Hospital Course (1) CVA (cerebral vascular accident): Patient presents to the hospital on account of increased confusion and altered mental status above baseline the morning of 07/23 Has dementia at baseline Hx of CVAs and TIAs on Plavix 75 mg daily for secondary prevention Brain MRI on 07/23 revealed 7 mm focus of signal abnormality in the lateral right occipital lobe (favoring a small subacute infarct) TNKase not indicated since last known well was unknown Passed dysphagia screen, okay to eat and take p.o. meds Per discussion with neurology, will start the patient on DAPT with Plavix 75 mg and aspirin 81 mg daily Head/neck CTA on 06/09/2023; will defer repeating additional studies at this time Revealed high-grade stenosis with near complete focal occlusion of the distal left cervical vertebral artery (similar to in 2018); however, noted moderate focal stenosis of right anterior cerebral artery (new) S/p right carotid endarterectomy in 2008 PT/OT consulted recommend rehab (2) Dyslipidemia: Continue atorvastatin (3) Dementia: I spoke to the perez Ibarra who said that often the patient forgets to take her medicines and even forgets to eat Other occasionally she has a SCREEN PRINTING MACHINE OPERATOR HELPER from [employer] who comes and helps with meds. However patient needs 24-hour care Continue quetiapine (4) B12 deficiency: Listed as receiving IM injection once a week every 4 weeks Vitamin B12 level ordered, replete, continue supplementation (5) History of breast cancer: Noted; no sign of metastatic disease to brain on MRI (6) Obstructive sleep apnea: CPAP at bedtime Plan Disposition: Due to worsening confusion from her dementia, patient is not a safe discharge home. She has been insisting she wants to go home however according to the perez Ibarra patient has been forgetting to take her medicines and also forgetting to eat occasionally. She has a SCREEN PRINTING MACHINE OPERATOR HELPER from [employer] who occasionally comes and helps with meds, however as it stands now it seems patient could needed 24-hour caregiver. Total Time Total Time Spent Total Time Spent (In Minutes): It required greater than 30 minutes to prepare this patient for discharge. Discharge Plan Discharge Items Patient Disposition: Transfer [facility] Reason For Visit: SUBACUTE STROKE Discharge Diagnosis: occipital stroke Activity: Per Instructions section Activity Comment: per PT/OT Non-emergency contact: Primary Care Provider Call non-emergency contact if: your symptoms worsen Follow-up/Referrals: Jay Duval MD [Primary Care Provider] - Diet: Heart Healthy Addtl Attending Provider Instructions: Risk Factors for Stroke: You can reduce your chances of stroke by working with your medical provider to adopt a healthy lifestyle. Some specific ways to lower your chance of stroke are: * If you are a smoker, now is the time to stop smoking cigarettes * If you are diabetic, improve the control of your blood sugars * Avoid excessive amounts of alcohol * Control high blood pressure * Lose weight if you are overweight * Be sure to lead an active lifestyle * Eat a healthy diet low in salt, cholesterol and fat You should know about other risk factors for stroke that you are unable to control. These include: * Age 55 years or older * Male gender * Certain racial groups: , or / * Family History of Stroke, Mini stroke or Heart Attack * Sickle Cell Disease Follow Up: It is important for you to keep your follow up appointments with your medical provider. Who to Call and When: Medical Emergencies: Call 911 immediately if you experience any of the following warning signs and symptoms of Stroke: * Sudden numbness or weakness of the face, arm or leg, especially on one side of the body * Sudden confusion, trouble speaking or understanding * Sudden trouble seeing in one or both eyes * Sudden trouble walking, dizziness, loss of balance or coordination * Sudden severe headache with no cause Do not delay calling 911 if you experience any warning signs or symptoms of a stroke. Delay in seeking medical attention may affect what treatments can be given to you. . Pending Studies at Discharge: No Stand-Alone Forms: AirPOS, Smoking Cessation Skilled Items Patient informed of condition?: Yes DNR: No Discharge Level of Care: Acute rehab Communicable Disease: No Discharge Prognosis: Stable Lines: None Urinary Catheter: No Medications and DC Order Prescriptions: New aspirin 81 mg Tablet,Delayed Release (Dr/Ec) 81 mg PO QAM Qty: 90 0RF Continued clopidogrel 75 mg tablet 75 mg PO QAM 90 Days Qty: 90 1RF atorvastatin 80 mg tablet 80 mg PO DAILY Qty: 90 3RF Rx Instructions: TAKE 1 TABLET BY MOUTH EVERY MORNING cholecalciferol (vitamin D3) 50 mcg (2,000 unit) capsule 2,000 unit PO DAILY 30 Days Qty: 30 0RF triamcinolone acetonide 0.1 % cream 1 applic TOPICAL BID PRN (Reason: Skin Irritation) acetaminophen [Tylenol Extra Strength] 500 mg tablet 500 mg PO DAILY Rx Instructions: PER PT "USUALLY ONCE IF NOT TWICE A DAY". (DME) BD SafetyGlide Syringe 3 mL 23 x 1" syringe See Rx Instructions .MEDSUPPLY Qty: 50 0RF Rx Instructions: As directed PreserVision AREDS-2 250-90-40-1 mg Capsule 1 tab PO BID nystatin 100,000 unit/gram cream 1 applic TOPICAL HS Rx Instructions: APPLY UNDER BREAST quetiapine 25 mg tablet 25 mg PO HS Qty: 30 1RF famotidine 40 mg tablet 40 mg PO QAM Rx Instructions: TAKE 1 TABLET BY MOUTH EVERY MORNING cyanocobalamin (vitamin B-12) 1,000 mcg/mL solution 1,000 mcg IM DIRECTED Rx Instructions: inject 1 mL once a week for 4 weeks, then inject 1 mL once a month. Discharge Orders: Discharge Order (Routine); Ordered 07/26/23 Ordered By: Dionisio Barclay Admission Data Admit Date/Time: 07/23/23 19:08 Attending Provider: Dionisio Barclay Admit Provider: Wade Zuniga Primary Care Provider: Jay Duval Other Providers: Wade Zuniga; Joanna Mckeon [place]; Paty Gold; Sharda East; Jona Phelps; Noah Chapman; Elton Beal Jr Other Interventions: Discharge Summary Assessment (RN) Last Done: 07/26/23 13:25 Coding Level of Care Code 28534 INP/OBS DISCH >30 MIN Diagnoses CVA (cerebral vascular accident) I63.9 Dyslipidemia E78.5 Dementia F03.90 B12 deficiency E53.8 History of breast cancer Z85.3 Obstructive sleep apnea G47.33
--- NOTE | 2023-07-27 21:58 | Psychiatric Consultation ---
Date of Consultation July 27, 2023 Psych History History of Present Illness The case was reviewed and discussed with hospitalist on day of initial order to clarify question as patient was agreeing to placement and [facility] and had no delirium or psych hx. Reviewed hospitalist had already determined unsafe to return home. Reached out to Dr. Barclay on 07/26/23 re: same. He stated OK to hold off on formal consultation and patient was later discharged same day without discontinuation of order. Allergies Allergy/AdvReac Type Severity Reaction Status Date / Time neomycin Allergy Intermediate Rash Verified 07/23/23 15:59 nabumetone [From Relafen] Allergy Mild Redness of Verified 07/23/23 15:59 Skin loperamide [From Imodium A-D] AdvReac Intermediate Rapid Verified 07/23/23 15:59 heart rate lorazepam [From Ativan] AdvReac Intermediate Anxiety Verified 07/23/23 15:59 zolpidem [From Ambien] AdvReac Intermediate Anxiety Verified 07/23/23 15:59 Home Medications Medication Instructions Recorded Confirmed Type acetaminophen 500 mg tablet 500 mg PO DAILY 03/25/19 07/23/23 History (Tylenol Extra Strength) vit C 250 mg-vit E 90 mg-zinc 40 1 tab PO BID 10/14/21 07/23/23 History mg-copper 1 [id number] capsule (PreserVision AREDS-2) nystatin 100,000 unit/gram topical 1 applic topical HS 09/29/22 07/23/23 History cream syringe with needle 3 mL 23 x 1" #50 ea 03/10/23 07/23/23 Rx (BD SafetyGlide Syringe) clopidogrel 75 mg tablet 75 mg PO QAM 90 days #90 tabs 04/05/23 07/23/23 Rx triamcinolone acetonide 0.1 % 1 applic topical BID PRN Skin 04/14/23 07/23/23 History topical cream Irritation atorvastatin 80 mg tablet 80 mg PO DAILY #90 tabs 05/08/23 07/23/23 Rx cholecalciferol (vitamin D3) 50 2,000 unit PO DAILY 30 days #30 06/06/23 07/23/23 Rx mcg (2,000 unit) capsule caps quetiapine 25 mg tablet 25 mg PO HS #30 tabs 06/11/23 07/23/23 Rx cyanocobalamin (vitamin B-12) 1,000 mcg IM DIRECTED 07/23/23 07/23/23 History 1,000 mcg/mL injection solution famotidine 40 mg tablet 40 mg PO QAM 07/23/23 07/23/23 History aspirin 81 mg tablet,delayed 81 mg PO QAM #90 tabs 07/26/23 Rx release Patient History Medical History (Updated 07/23/23 @ 17:32 by Dee Polo MD) Mediastinal lymphadenopathy Elevated troponin Sensorineural hearing loss (SNHL) of both ears Subclavian artery stenosis History of breast cancer No arm restriction per pt- R breast CA 04/200202 GRADE 1 ER +/HER-2 Neg Schatzki's ring Osteoarthritis Degenerative disc disease Tremor Mild GERD (gastroesophageal reflux disease) SNHL (sensorineural hearing loss) Ocular migraine Dyslipidemia Carotid stenosis S/P right carotid endarterectomy (2008) No significant ICA stenosis per 05/2021 carotid doppler Chronic cerebral ischemia Left thalamic infarction 2017 > mild residual right hand weakness, reason for plavix Follows with Dr. Allen Osteoporosis Surgical History (Updated 06/12/23 @ 00:07 by Blaine Chauhan) History of knee replacement procedure of left knee Status post total knee replacement using cement Right Nausea and vomiting after administration of anesthetic agent with colonoscopy History of cataract surgery History of esophageal dilatation History of oophorectomy, unilateral Right History of removal of ovarian cyst History of dilation and curettage History of colonoscopy Status post breast lumpectomy Right Breast CA- Tx with XRT and Arimidex x 5 yrs./ ER + HER-2/abisai neg. H/O foot surgery BUNION, CURLED TOES, RIGHT SIDE H/O endarterectomy Right Family History Mother CHF (congestive heart failure) Father Epilepsy Colon cancer Pulmonary fibrosis Family/Other Breast cancer Other No family history of adverse response to anesthesia Social History Smoking Status: Never smoker Second Hand Exposure: No; Do You Dip or Chew Tobacco: No; Hx Alcohol Use: No Hx Substance Use: No Preferred Language: Wallisian Communication Ability: Impaired Visual Impairment: No Limitations Hearing Ability: Normal Wig Dresser Required: No Beliefs That Will Affect Care: None marital status: Single Current Living Situation: Alone current occupational status: employed 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
== END 2023-07-26 15:08 | DRG 66 ==
LOC: ED 13:41 → 4W 19:08 → SUATTDRO 19:08 → 4W 20:54
DX: F03.90 Unspecified dementia, unspecified severity, without behavioral disturbance, psychotic disturbance, mood disturbance, and anxiety; Z17.1 Estrogen receptor negative status [ER-]; E53.8 Deficiency of other specified B group vitamins; Z88.1 Allergy status to other antibiotic agents; E78.5 Hyperlipidemia, unspecified; Z96.652 Presence of left artificial knee joint; H90.5 Unspecified sensorineural hearing loss; K21.9 Gastro-esophageal reflux disease without esophagitis; I63.50 Cerebral infarction due to unspecified occlusion or stenosis of unspecified cerebral artery; I10 Essential (primary) hypertension; G47.33 Obstructive sleep apnea (adult) (pediatric); I69.331 Monoplegia of upper limb following cerebral infarction affecting right dominant side; Z85.3 Personal history of malignant neoplasm of breast

== ENCOUNTER 2023-10-05 11:31 | Observation (INO) ==
[2023-10-05 13:28] LABS: Basophils # (auto) 0.04 K/uL (0.00-0.20); Basophils % (auto) 0.5 %; Eosinophils # (auto) 0.07 K/uL (0.00-0.50); Eosinophils % (auto) 0.8 %; Hematocrit (blood only) 44.6 % (37.0-47.0); Hemoglobin 14.5 g/dl (12.0-16.0); Immature Granulocytes # (auto) 0.05 K/uL (0.01-0.20); Immature Granulocytes % (auto) 0.6 %; Lymphocytes # (auto) 0.58 K/uL (1.20-3.40); Mean Corpuscular Hemoglobin 30.1 pg (25.0-34.0); Mean Corpuscular Hgb Conc 32.5 g/dL (32.0-36.0); Mean Corpuscular Volume 92.7 fL (80.0-100.0); Mean Platelet Volume 8.4 fL (9.4-12.4); Monocytes # (auto) 0.41 K/uL (0.11-0.59); Neutrophils # (auto) 7.13 K/uL (1.40-6.50); Neutrophils % (auto) 86.1 %; Platelet Count 368 K/uL (130-400); RDW Coefficient of Variation 12.9 % (11.5-14.5); RDW Standard Deviation 43.9 fL (36.4-46.3); Red Blood Count 4.81 M/uL (4.20-5.40); White Blood Count 8.28 K/ul (4.8-10.8)
[2023-10-05 13:35] LABS: Partial Thromboplastin Ratio 0.9; Partial Thromboplastin Time 24 Seconds (21-31); Prothrombin Time 10.8 Seconds (9.0-12.0)
[2023-10-05 13:48] LABS: Alanine Aminotransferase 15 U/L (7-52); Albumin Globulin Ratio 1.8 (0.9-2); Albumin Level 4.7 gm/dl (3.4-5.0); Alkaline Phosphatase 92 U/L (34-104); Anion Gap 10 (3-11); Aspartate Aminotransferase 15 U/L (13-39); BUN Creatinine Ratio 18.9 (10-20); Bilirubin,Total 0.5 mg/dl (0.2-1.0); Blood Urea Nitrogen 17 mg/dl (6-23); Calcium 9.3 mg/dl (8.6-10.3); Carbon Dioxide 27 mmol/L (21-32); Chloride 101 mmol/L (98-107); Est GFR (African American) 68.1 ml/min; Est GFR (Non-African American) 58.7 ml/min; Globulin 2.6 gm/dl (2.5-4.0); Glucose 113 mg/dl (70-99(Fasting)); Potassium 4.4 mmol/L (3.5-5.1); Sodium 138 mmol/L (136-145); Total Protein 7.3 gm/dl (6.0-8.3)
[2023-10-05 13:50] LABS: Troponin I High Sensitivity 20.3 pg/ml (0-14)
--- NOTE | 2023-10-05 14:50 | XRay Report ---
XR chest 1V not portable HISTORY: Chest pain, nonspecific COMPARISON: Chest 03/03/2023. FINDINGS: No pneumothorax. No pleural effusions. No focal lung consolidations to suggest a pneumonia. No evidence for pulmonary edema. Small linear scarlike densities the left lung base. The heart is no rmal in size. Moderate S-shaped scoliosis. IMPRESSION: No acute process. ACT 112: Negative or not required by law. Electronically signed by: Alan Petersen M.D. 10/05/2023 2:49 PM
--- NOTE | 2023-10-05 16:10 | Emergency Department Note ---
Impression & Plan Confusion, Fall, Acute UTI ED Provider Note Provider: Saurav Spivey MD DATE OF SERVICE: 10/05/2023 CHIEF COMPLAINT: Disorientation, fall HISTORY OF PRESENT ILLNESS: Patient is a 83-year-old female with a history of stroke and back issues presenting here today via ambulance from [facility]. 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 She went to the elevator and was found by students having apparently fallen on the floor in front of the elevator. She was somewhat disoriented but talking. She denies that she lost consciousness but is not a great historian how things happened. Presents with colleague from the [facility] who states he has had some brief episodes of little bit disorientation and confusion the past but this is more persistent and still ongoing. Has not had a fall like this. She lives by herself but does have nighttime caretakers to assist her overnight. Patient denies any pain. During interview is somewhat circumferential and tangential a bit. Denies any significant fever cough or cold or nausea or vomiting. Did have breakfast this morning. Has been having some back pain issues that are ongoing and following with her primary doctor and had recent x-ray. Did have a CT of the abdomen pelvis recently related to working up some pancreas insufficiency issues. No neck pain or extremity pain reported. 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 PERRL, EOMI. NECK: Trachea midline. Supple. ENT: Mucous membranes pink and moist. LUNGS: Airway patent. No retractions. Breath sounds clear with good air entry bilaterally. HEART: Regular rate and rhythm. No chest wall tenderness ABDOMEN: Soft and non-tender, without guarding or rebound. SKIN: Acyanotic, warm, dry, without rashes EXTREMITIES: Without swelling, tenderness or deformity NEUROLOGICAL: No focal deficits. No aphasia. No facial droop or slurred speech. Normal strength and tone in the extremities. Sensation to gross touch normal. Ambulatory but does require some assistance EK bpm normal sinus rhythm. No PVC or PAC. No acute ST segment elevation or depression with a QTc of 417. CONTINUOUS CARDIAC MONITORING: was ordered and showed a heart rate of 60s-70s bpm in normal sinus rhythm GCS 15. Patient's laboratory studies and imaging reviewed. Differential includes Infection, dehydration, metabolic abnormality, hypo/hyperglycemia, electrolyte disturbance, anemia, hypoxia, cardiac sources, intracerebral event, toxicologic, neurologic, as well as other pathologies. IMPRESSION/MEDICAL DECISION MAKING: Unclear if syncope or not. Denies real cardiac symptoms and stable chronic mild troponin on repeat here as well as without significant EKG changes. No chest pain reported. No significant leukocytosis and renal function electrolytes look okay. CT from yesterday reviewed the abdomen pelvis without significant findings and will complete a CT of the head as well as angiograms to look for any possible intracranial bleed from the trauma and fall as well as to see if there is any significant new vascular findings given her history of stroke and little bit of this disorientation confusion. CTs per radiology without acute findings with some vascular disease noted. Urinalysis completed questionably with infection with some white blood cells. Will give a dose of antibiotic and send for culture. Patient does normally live by herself although has assistance at night according to friend who is with her still not quite herself. Requires fair assistance to ambulate with nursing due to unsteadiness and ensure decision-making do not feel that she is in a safe place to go home at this time. Hopefully treating UTI fixes things and stroke workup as well is reassuring. Hospitalist contacted. Patient in agreement with plan. DIAGNOSIS: Weakness, fall, disorientation, UTI DISPOSITION: Hospitalist will evaluate Patient was agreeable with this plan. Past Med/Surg History Medical History Obstructive sleep apnea B12 deficiency Hx of TIA (transient ischemic attack) and stroke GERD (gastroesophageal reflux disease) Mediastinal lymphadenopathy Elevated troponin Sensorineural hearing loss (SNHL) of both ears Subclavian artery stenosis History of breast cancer Schatzki's ring Osteoarthritis Degenerative disc disease Tremor GERD (gastroesophageal reflux disease) SNHL (sensorineural hearing loss) Ocular migraine Dyslipidemia Carotid stenosis Chronic cerebral ischemia Left thalamic infarction Osteoporosis Surgical History History of knee replacement procedure of left knee Status post total knee replacement using cement Nausea and vomiting after administration of anesthetic agent History of cataract surgery History of esophageal dilatation History of oophorectomy, unilateral History of removal of ovarian cyst History of dilation and curettage History of colonoscopy Status post breast lumpectomy H/O foot surgery H/O endarterectomy Family History Mother CHF (congestive heart failure) Father Epilepsy Colon cancer Pulmonary fibrosis Family/Other Breast cancer Other No family history of adverse response to anesthesia Social History Smoking Status: Never smoker Second Hand Exposure: No; Do You Dip or Chew Tobacco: No; Hx Alcohol Use: No Hx Substance Use: No Preferred Language: Azeri Communication Ability: Effective Visual Impairment: No Limitations Hearing Ability: Normal Nutritional Chemist Required: No Beliefs That Will Affect Care: None marital status: Single Current Living Situation: Alone current occupational status: employed 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, 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, 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 Feels Safe at Home: Yes Safety Concerns: Feels Safe At This Time Assistive Devices: Cane and Glasses Allergies Allergies Allergy/AdvReac Type Severity Reaction Status Date / Time neomycin Allergy Intermediate Rash Verified 10/05/23 17:23 nabumetone [From Relafen] Allergy Mild Redness of Verified 10/05/23 17:23 Skin loperamide [From Imodium A-D] AdvReac Intermediate Rapid Verified 10/05/23 17:23 heart rate lorazepam [From Ativan] AdvReac Intermediate Anxiety Verified 10/05/23 17:23 zolpidem [From Ambien] AdvReac Intermediate Anxiety Verified 10/05/23 17:23 Home Meds Home Medications Medication Instructions Recorded Confirmed acetaminophen 500 mg tablet 500 mg PO DAILY 03/25/19 10/05/23 (Tylenol Extra Strength) vit C 250 mg-vit E 90 mg-zinc 40 1 tab PO BID 10/14/21 10/05/23 mg-copper 1 [id number] capsule (PreserVision AREDS-2) nystatin 100,000 unit/gram topical 1 applic topical HS 09/29/22 10/05/23 cream triamcinolone acetonide 0.1 % 1 applic topical BID PRN Skin 04/14/23 10/05/23 topical cream Irritation cyanocobalamin (vitamin B-12) 1,000 mcg IM MONTHLY 07/23/23 10/05/23 1,000 mcg/mL injection solution famotidine 40 mg tablet 40 mg PO QAM 07/23/23 10/05/23 Previous Rx's Medication Instructions Recorded syringe with needle 3 mL 23 x 1" #50 ea 03/10/23 (BD SafetyGlide Syringe) clopidogrel 75 mg tablet 75 mg PO QAM 90 days #90 tabs 04/05/23 atorvastatin 80 mg tablet 80 mg PO DAILY #90 tabs 05/08/23 cholecalciferol (vitamin D3) 50 2,000 unit PO DAILY 30 days #30 06/06/23 mcg (2,000 unit) capsule caps quetiapine 25 mg tablet 25 mg PO HS #30 tabs 06/11/23 Results & Data (ED) Vital Signs Vital Signs - 24 hr 10/05/23 12:37 10/05/23 15:25 10/05/23 15:29 Temperature 36.8 C Temperature Source Temporal Artery Scan Pulse Rate 76 73 79 Pulse Rate [Finger] Pulse Rate from SpO2 Sensor Respiratory Rate 16 14 15 Respiratory Effort / Characteristics Non-Labored Spontaneous Respiratory Depth Normal Blood Pressure 163/69 H Blood Pressure [Left Arm] Blood Pressure Mean 100 Blood Pressure Mean [Left Arm] Pulse Oximetry 97 Oxygen Delivery Method Room Air Sepsis Recent Fever Within 48 Hours No Sepsis New/Unexplained Change in Mental Status No Sepsis Action Taken by Nursing No Action Required 10/05/23 15:30 10/05/23 15:40 10/05/23 15:43 Temperature Temperature Source Pulse Rate 69 Pulse Rate [Finger] Pulse Rate from SpO2 Sensor Respiratory Rate Respiratory Effort / Characteristics Respiratory Depth Blood Pressure 166/77 H Blood Pressure [Left Arm] Blood Pressure Mean 131 Blood Pressure Mean [Left Arm] Pulse Oximetry Oxygen Delivery Method Room Air Sepsis Recent Fever Within 48 Hours Sepsis New/Unexplained Change in Mental Status Sepsis Action Taken by Nursing 10/05/23 15:50 10/05/23 15:51 10/05/23 16:00 Temperature Temperature Source Pulse Rate 80 68 Pulse Rate [Finger] 77 Pulse Rate from SpO2 Sensor Respiratory Rate 21 17 Respiratory Effort / Characteristics Respiratory Depth Blood Pressure Blood Pressure [Left Arm] 166/77 H Blood Pressure Mean Blood Pressure Mean [Left Arm] 106 Pulse Oximetry Oxygen Delivery Method Sepsis Recent Fever Within 48 Hours Sepsis New/Unexplained Change in Mental Status Sepsis Action Taken by Nursing 10/05/23 16:02 10/05/23 16:11 10/05/23 16:20 Temperature Temperature Source Pulse Rate 66 68 70 Pulse Rate [Finger] Pulse Rate from SpO2 Sensor Respiratory Rate 16 16 Respiratory Effort / Characteristics Respiratory Depth Blood Pressure Blood Pressure [Left Arm] Blood Pressure Mean Blood Pressure Mean [Left Arm] Pulse Oximetry Oxygen Delivery Method Sepsis Recent Fever Within 48 Hours Sepsis New/Unexplained Change in Mental Status Sepsis Action Taken by Nursing 10/05/23 16:30 10/05/23 16:40 10/05/23 17:07 Temperature Temperature Source Pulse Rate 89 82 88 Pulse Rate [Finger] Pulse Rate from SpO2 Sensor Respiratory Rate 16 20 23 Respiratory Effort / Characteristics Respiratory Depth Blood Pressure Blood Pressure [Left Arm] Blood Pressure Mean Blood Pressure Mean [Left Arm] Pulse Oximetry Oxygen Delivery Method Sepsis Recent Fever Within 48 Hours Sepsis New/Unexplained Change in Mental Status Sepsis Action Taken by Nursing 10/05/23 17:08 10/05/23 17:30 10/05/23 18:00 Temperature Temperature Source Pulse Rate 80 79 Pulse Rate [Finger] Pulse Rate from SpO2 Sensor Respiratory Rate 20 Respiratory Effort / Characteristics Respiratory Depth Blood Pressure 159/60 H Blood Pressure [Left Arm] Blood Pressure Mean 112 Blood Pressure Mean [Left Arm] Pulse Oximetry Oxygen Delivery Method Sepsis Recent Fever Within 48 Hours Sepsis New/Unexplained Change in Mental Status Sepsis Action Taken by Nursing 10/05/23 18:32 10/05/23 19:00 10/05/23 19:00 Temperature Temperature Source Pulse Rate 83 75 Pulse Rate [Finger] Pulse Rate from SpO2 Sensor 76 Respiratory Rate 17 18 Respiratory Effort / Characteristics Respiratory Depth Blood Pressure 139/49 L Blood Pressure [Left Arm] Blood Pressure Mean 92 Blood Pressure Mean [Left Arm] Pulse Oximetry 96 Oxygen Delivery Method Sepsis Recent Fever Within 48 Hours Sepsis New/Unexplained Change in Mental Status Sepsis Action Taken by Nursing Laboratory Data 10/05/23 13:05 10/05/23 13:05 Lab Results 10/05/23 10/05/23 10/05/23 Range/Units 13:05 15:12 15:40 WBC 8.28 (4.8-10.8) K/ul RBC 4.81 (4.20-5.40) M/uL Hgb 14.5 (12.0-16.0) g/dl Hct 44.6 (37.0-47.0) % MCV 92.7 (80.0-100.0) fL MCH 30.1 (25.0-34.0) pg MCHC 32.5 (32.0-36.0) g/dL RDW Std Deviation 43.9 (36.4-46.3) fL RDW Coeff of Shabnam 12.9 (11.5-14.5) % Plt Count 368 (130-400) K/uL MPV 8.4 L (9.4-12.4) fL Immature Gran % (Auto) 0.6 % Neut % (Auto) 86.1 % Lymph % (Auto) 7.0 % [place] % (Auto) 5.0 % Eos % (Auto) 0.8 % Baso % (Auto) 0.5 % Neut # (Auto) 7.13 H (1.40-6.50) K/uL Lymph # (Auto) 0.58 L (1.20-3.40) K/uL [place] # (Auto) 0.41 (0.11-0.59) K/uL Eos # (Auto) 0.07 (0.00-0.50) K/uL Baso # (Auto) 0.04 (0.00-0.20) K/uL Immature Gran # (Auto) 0.05 (0.01-0.20) K/uL PT 10.8 (9.0-12.0) Seconds INR 1.0 (0.9-1.1) APTT 24 (21-31) Seconds PTT Ratio 0.9 Sodium 138 (136-145) mmol/L Potassium 4.4 (3.5-5.1) mmol/L Chloride 101 (98-107) mmol/L Carbon Dioxide 27 (21-32) mmol/L Anion Gap 10 (3-11) BUN 17 (6-23) mg/dl Creatinine 0.90 (0.6-1.2) mg/dl Est Cr Clr Drug Dosing Not Reportable Est GFR ( Amer) 68.1 ml/min Est GFR (Non-Af Amer) 58.7 ml/min BUN/Creatinine Ratio 18.9 (10-20) Glucose 113 H (70-99(Fasting)) mg/dl Calcium 9.3 (8.6-10.3) mg/dl Total Bilirubin 0.5 (0.2-1.0) mg/dl AST 15 (13-39) U/L ALT 15 (7-52) U/L Alkaline Phosphatase 92 (34-104) U/L Troponin I High Sens 20.3 H 22.9 H (0-14) pg/ml Total Protein 7.3 (6.0-8.3) gm/dl Albumin 4.7 (3.4-5.0) gm/dl Globulin 2.6 (2.5-4.0) gm/dl Albumin/Globulin Ratio 1.8 (0.9-2) Urine Color Yellow Urine Appearance Clear (Clear) Urine pH 6.0 (4.5-7.5) Ur Specific [place] 1.020 (1.000-1.030) Urine Protein 1+ H (Negative) Urine Glucose (UA) Negative (Negative) Urine Ketones Negative (Negative) Urine Blood Negative (Negative) Urine Nitrite Negative (Negative) Urine Bilirubin Negative (Negative) Urine Urobilinogen Negative (Negative) Ur Leukocyte Esterase 1+ H (Negative) Urine WBC (Auto) 6-10 H (0-5) /hpf Urine RBC (Auto) 3-5 H (0-2) /hpf U Hyaline Cast (Auto) 0-2 (0-2) /lpf U Epithel Cells (Auto) 0-2 (0-2) /hpf Urine Bacteria (Auto) None Seen (None Seen) Administered Medications Acetaminophen (Acetaminophen 500 Mg Tab) 1,000 mg PO TID [facility] Stop: 11/04/23 20:59 Last Admin: 10/05/23 20:55 Dose: 1,000 mg Documented By: LBN Discontinued Medications Ceftriaxone Sodium (Rocephin) 2,000 mg in 50 mls @ 100 mls/hr IV NOW STA Stop: 10/05/23 17:52 Last Infusion: 10/05/23 18:20 Dose: Infused Documented By: Admin: 10/05/23 17:49 Dose: 100 mls/hr Documented By: STEPHANIE Ioversol (Optiray 320 125ml) 116 ml IV ONCE ONE Stop: 10/05/23 16:57 Last Admin: 10/05/23 16:56 Dose: 116 ml Documented By: STERLING Imaging Data Radiologist's Impression: Chest X-Ray 10/05/23 12:44 XR chest 1V not portable HISTORY: Chest pain, nonspecific COMPARISON: Chest 03/03/2023. FINDINGS: No pneumothorax. No pleural effusions. No focal lung consolidations to suggest a pneumonia. No evidence for pulmonary edema. Small linear scarlike densities the left lung base. The heart is normal in size. Moderate S-shaped scoliosis. IMPRESSION: No acute process. ACT 112: Negative or not required by law. Electronically signed by: Alan Petersen M.D. 10/05/2023 2:[address] 10/05/23 15:[address] DOSE: 1535.69 mGy.cm HISTORY: confusion, fall TECHNIQUE: Multiaxial CT images of the head were performed without the use of intravenous contrast. Automated exposure control was utilized for this study. A dose lowering technique was utilized adhering to the principles of ALARA. Comparison: Head CT 07/23/2023. Findings: The paranasal sinuses and mastoid air cells are clear. The calvarium and skull base are intact. There is no mass, hematoma, midline shift, acute infarct. White matter hypodensity is nonspecific but suggestive of advanced microvascular ischemic change. The ventricles and sulci demonstrate mild age- related involutional changes. Impression: No significant change compared to the prior study. No acute intracranial abnormality. ACT 112: Negative or not required by law. Electronically signed by: Alan Petersen M.D. 10/05/2023 5:22 PM Head CTA 10/05/23 15:51 HEAD CTA HISTORY: fall, confusion TECHNIQUE: Multiaxial CT images of the head were performed both before and after the intravenous administration of contrast to evaluate the major cerebral vessels. 3D/MIP images were also obtained. Sagittal and coronal reformats were reviewed. A dose lowering technique was utilized adhering to the principles of ALARA. COMPARISON: Head CTA 06/09/2023. FINDINGS: There is no mass, hematoma, midline shift, or acute infarct. The major dural venous sinuses are patent. Moderate calcified plaque within the bilateral carotid siphons. This results in mild narrowing of the supraclinoid segment of the right ICA. This remains unchanged. Severe focal stenosis within the distal right anterior cerebral artery on image 186. This remains unchanged. The left anterior cerebral artery is patent. No high-grade stenosis or occlusion within the bilateral MCAs. Focal area of severe stenosis within the distal left vertebral artery, unchanged. The distal right vertebral artery and basilar artery are widely patent. Multifocal areas of mild to moderate stenosis within the bilateral supervisory lifeguard, unchanged. No evidence for an aneurysm or occlusion within the cerebral arteries. IMPRESSION: 1. Significant change in the multifocal areas of stenosis within the cerebral arteries as described above. 2. No new areas of stenosis or occlusion within the cerebral arteries. ACT 112: Negative or not required by law. Electronically signed by: Alan Petersen M.D. 10/05/2023 5:14 PM Neck CTA 10/05/23 15:51 NECK CTA HISTORY: fall, confusion TECHNIQUE: Multiaxial CT images of the neck were performed following the intravenous administration of contrast to evaluate the major cervical vessels. 3D/MIP images were also obtained. Sagittal and coronal reformats were reviewed. All measurements were calculated based on NASCET criteria. A dose lowering technique was utilized adhering to the principles of ALARA. COMPARISON STUDY: CTA neck on 524. FINDINGS: The lung apices are clear. No acute fractures identified. There is a 1.9 cm anterior mediastinal nodule/lymph node, unchanged. The aortic arch and proximal great vessels are widely patent. There is a diminutive left vertebral artery with multifocal areas of stenosis and occlusion. This is similar to the prior study and is therefore considered to be chronic. No significant stenosis, occlusion, or dissection within the right vertebral artery. Moderate calcified plaque within the left carotid bifurcation resulting in mild stenosis of up to 50% within the proximal left internal carotid artery, unchanged. The mid to distal left internal carotid artery is widely patent. No significant stenosis or occlusion within the right internal carotid artery. The bilateral common carotid arteries are widely patent. IMPRESSION: 1. A diminutive left vertebral artery with multifocal areas of stenosis and occlusion. This similar to the prior study and is considered to be chronic. 2. Mild stenosis of approximately 50% within the proximal left internal carotid artery, unchanged. 3. No significant stenosis or occlusion within the right carotid arteries or right vertebral artery. 4. There is a 1.9 cm anterior mediastinal nodule/lymph again noted. ACT 112: Negative or not required by law. Electronically signed by: Alan Petersen M.D. 10/05/2023 5:18 PM Discharge Plan Visit Data Chief Complaint: Syncope (Near Syncope) ED Provider: Saurav Spivey Discharge Problem: Confusion, Fall, Acute UTI Patient Disposition: Admitted As Inpatient Discharge Instructions Interventions: ED Discharge Assessment Last Done: 10/05/23 19:53
[2023-10-05 16:13] LABS: Appearance Urine Clear (Clear); Bacteria Urine Automated None Seen (None Seen); Bilirubin Urine Negative (Negative); Blood Urine Negative (Negative); Cast Urine Automated 0-2 /lpf (0-2); Color Urine Yellow; Epithelial Cell Urine Auto 0-2 /hpf (0-2); Glucose Urine UA Negative (Negative); Ketones Urine Negative (Negative); Leukocyte Esterase Urine 1+ (Negative); Nitrite Urine Negative (Negative); Protein Urine 1+ (Negative); Urobilinogen Urine Negative (Negative)
[2023-10-05] MEDS: OPTIRAY 320 125ml IV ONE (16:56)
--- NOTE | 2023-10-05 17:16 | CT Scan Report ---
HEAD CTA HISTORY: fall, confusion TECHNIQUE: Multiaxial CT images of the head were performed both before and after the intravenous admi nistration of contrast to evaluate the major cerebral vessels. 3D/MIP images were also obtained. Sag ittal and coronal reformats were reviewed. A dose lowering technique was utilized adhering to the jus [place]. COMPARISON: Head CTA 06/09/2023. FINDINGS: There is no mass, hematoma, midline shift, or acute infarct. The major dural venous sinuses are patent. Moderate calcified plaque within the bilateral carotid siphons. This results in mild monica rowing of the supraclinoid segment of the right ICA. This remains unchanged. Severe focal stenosis wi thin the distal right anterior cerebral artery on image 186. This remains unchanged. The left anterio r cerebral artery is patent. No high-grade stenosis or occlusion within the bilateral MCAs. Focal are a of severe stenosis within the distal left vertebral artery, unchanged. The distal right vertebral a rtery and basilar artery are widely patent. Multifocal areas of mild to moderate stenosis within the bilateral agronomy technician, unchanged. No evidence for an aneurysm or occlusion within the cerebral arteries. IMPRESSION: 1. Significant change in the multifocal areas of stenosis within the cerebral arteries as described a grey. 2. No new areas of stenosis or occlusion within the cerebral arteries. ACT 112: Negative or not required by law. Electronically signed by: Alan Petersen M.D. 10/05/2023 5:14 PM
--- NOTE | 2023-10-05 17:20 | CT Scan Report ---
NECK CTA HISTORY: fall, confusion TECHNIQUE: Multiaxial CT images of the neck were performed following the intravenous administration o f contrast to evaluate the major cervical vessels. 3D/MIP images were also obtained. Sagittal and cor onal reformats were reviewed. All measurements were calculated based on NASCET criteria. A dose low ering technique was utilized adhering to the principles of ALARA. COMPARISON STUDY: CTA neck on 524. FINDINGS: The lung apices are clear. No acute fractures identified. There is a 1.9 cm anterior medias tinal nodule/lymph node, unchanged. The aortic arch and proximal great vessels are widely patent. The re is a diminutive left vertebral artery with multifocal areas of stenosis and occlusion. This is sim ilar to the prior study and is therefore considered to be chronic. No significant stenosis, occlusion , or dissection within the right vertebral artery. Moderate calcified plaque within the left carotid bifurcation resulting in mild stenosis of up to 50% within the proximal left internal carotid artery, unchanged. The mid to distal left internal carotid artery is widely patent. No significant stenosis or occlusion within the right internal carotid artery. The bilateral common carotid arteries are wide ly patent. IMPRESSION: 1. A diminutive left vertebral artery with multifocal areas of stenosis and occlusion. This similar t o the prior study and is considered to be chronic. 2. Mild stenosis of approximately 50% within the proximal left internal carotid artery, unchanged. 3. No significant stenosis or occlusion within the right carotid arteries or right vertebral artery. 4. There is a 1.9 cm anterior mediastinal nodule/lymph again noted. ACT 112: Negative or not required by law. Electronically signed by: Alan Petersen M.D. 10/05/2023 5:18 PM
--- NOTE | 2023-10-05 17:25 | CT Scan Report ---
HEAD CT NONCONTRAST CT DOSE: 1535.69 mGy.cm HISTORY: confusion, fall TECHNIQUE: Multiaxial CT images of the head were performed without the use of intravenous contrast. A utomated exposure control was utilized for this study. A dose lowering technique was utilized adheri ng to the principles of ALARA. Comparison: Head CT 07/23/2023. Findings: The paranasal sinuses and mastoid air cells are clear. The calvarium and skull base are int act. There is no mass, hematoma, midline shift, acute infarct. White matter hypodensity is nonspecifi c but suggestive of advanced microvascular ischemic change. The ventricles and sulci demonstrate mild age-related involutional changes. Impression: No significant change compared to the prior study. No acute intracranial abnormality. ACT 112: Negative or not required by law. Electronically signed by: Alan Petersen M.D. 10/05/2023 5:22 PM
[2023-10-05] MEDS: cefTRIAXone SODIUM 2,000 MG/50 ML BAG IV STA (17:49)
--- NOTE | 2023-10-05 18:26 | History & Physical Report ---
Date of Service October 05, 2023 Assessment & Plan (1) Fall: Plan: Difficult to get a clear history from the patient but does not appear similar to July admission when she had her stroke. At baseline per friend at bedside and the patient feels she is at her baseline - therefore no further stroke workup will be performed. Suspected fall due to ongoing ambulatory dysfunction with ongoing balance issues with more recent lumbar radicular symptoms Patient lives alone and concern for safe discharge at this time. PT/OT assessments (2) Lumbar radiculopathy: Plan: No improvement with medrol dosepak as outpatient, will not repeat Use acetaminophen 1g PO TID - she does not feel she needs anothing more than this and with her ongoing balance issue will avoid gabapentin currently PT/OT Plan VTE prophylaxis - deferred given lack of acute pathology Diet - heart healthy Disposition - observation to med/surg Admission and Anticipated Discharge Date Admission Date: October 05, 2023 History of Present Illness Chief Complaint: Fall Primary Care Provider: Jay Duval MD Iram Harris is an 83 year old female with mild cognitive impairment who presents to the ER following a fall at work around noon today. History is limited by lack of collateral input and patient's memory impairment. She reports no loss of consciousness, dizziness, chest pain or shortness of breath. She lowered herself to the ground slowly and reports no injuries as a result of the fall. 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 She is just finishing off a Medrol Dosepak which has not helped. She does not feel this is similar to her presentation in July with altered mental state and was ultimately found to have a stroke - this is confirmed with her friend in the room who feels she is currently at her baseline and this was unlike that admission. She feels she is back to her baseline at this time. Allergies Allergy/AdvReac Type Severity Reaction Status Date / Time neomycin Allergy Intermediate Rash Verified 10/05/23 17:23 nabumetone [From Relafen] Allergy Mild Redness of Verified 10/05/23 17:23 Skin loperamide [From Imodium A-D] AdvReac Intermediate Rapid Verified 10/05/23 17:23 heart rate lorazepam [From Ativan] AdvReac Intermediate Anxiety Verified 10/05/23 17:23 zolpidem [From Ambien] AdvReac Intermediate Anxiety Verified 10/05/23 17:23 Home Medications Medication Instructions Recorded Confirmed Type acetaminophen 500 mg tablet 500 mg PO DAILY 03/25/19 10/05/23 History (Tylenol Extra Strength) vit C 250 mg-vit E 90 mg-zinc 40 1 tab PO BID 10/14/21 10/05/23 History mg-copper 1 [id number] capsule (PreserVision AREDS-2) nystatin 100,000 unit/gram topical 1 applic topical HS 09/29/22 10/05/23 History cream syringe with needle 3 mL 23 x 1" #50 ea 03/10/23 09/29/23 Rx (BD SafetyGlide Syringe) clopidogrel 75 mg tablet 75 mg PO QAM 90 days #90 tabs 04/05/23 10/05/23 Rx triamcinolone acetonide 0.1 % 1 applic topical BID PRN Skin 04/14/23 10/05/23 History topical cream Irritation atorvastatin 80 mg tablet 80 mg PO DAILY #90 tabs 05/08/23 10/05/23 Rx cholecalciferol (vitamin D3) 50 2,000 unit PO DAILY 30 days #30 06/06/23 10/05/23 Rx mcg (2,000 unit) capsule caps quetiapine 25 mg tablet 25 mg PO HS #30 tabs 06/11/23 10/05/23 Rx cyanocobalamin (vitamin B-12) 1,000 mcg IM MONTHLY 07/23/23 10/05/23 History 1,000 mcg/mL injection solution famotidine 40 mg tablet 40 mg PO QAM 07/23/23 10/05/23 History Past Med/Surg History Medical History Obstructive sleep apnea B12 deficiency Hx of TIA (transient ischemic attack) and stroke GERD (gastroesophageal reflux disease) Mediastinal lymphadenopathy Elevated troponin Sensorineural hearing loss (SNHL) of both ears Subclavian artery stenosis History of breast cancer Schatzki's ring Osteoarthritis Degenerative disc disease Tremor GERD (gastroesophageal reflux disease) SNHL (sensorineural hearing loss) Ocular migraine Dyslipidemia Carotid stenosis Chronic cerebral ischemia Left thalamic infarction Osteoporosis Surgical History History of knee replacement procedure of left knee Status post total knee replacement using cement Nausea and vomiting after administration of anesthetic agent History of cataract surgery History of esophageal dilatation History of oophorectomy, unilateral History of removal of ovarian cyst History of dilation and curettage History of colonoscopy Status post breast lumpectomy H/O foot surgery H/O endarterectomy Family History Mother CHF (congestive heart failure) Father Epilepsy Colon cancer Pulmonary fibrosis Family/Other Breast cancer Other No family history of adverse response to anesthesia Social History Smoking Status: Never smoker Second Hand Exposure: No; Do You Dip or Chew Tobacco: No; Hx Alcohol Use: No Hx Substance Use: No Preferred Language: Armenian Communication Ability: Effective Visual Impairment: No Limitations Hearing Ability: Normal Foreign Exchange Trader Required: No Beliefs That Will Affect Care: None marital status: Single Current Living Situation: Alone current occupational status: employed 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, 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, 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 Feels Safe at Home: Yes Safety Concerns: Feels Safe At This Time Assistive Devices: Cane and Glasses Review of Systems Review of Systems: All systems reviewed & are unremarkable except as noted in HPI & below Physical Exam Constitutional: WD/WN, vitals as above Eyes: PERRL, conjunctivae normal, anicteric sclerae EOM intact bilaterally ENMT: external ear and nose normal, oropharynx normal Respiratory: normal respiratory effort, lungs clear to auscultation Cardiovascular: RRR, no murmur, no edema Gastrointestinal (Abdomen): normal bowel sounds, soft, nontender, no hepatosplenomegaly Musculoskeletal: no cyanosis or clubbing, extremities motor strength 5/5 Skin: no rashes, warm and dry Neurologic: CN's II-XI intact bilaterally, moves all extremities and awake; no focal motor deficits and not confused Speech / Cognition: normal speech Motor/Sensory: + pronator drift (mild on right side (pt notes from prior CVA)); no tremor and no sensory deficit Psychiatric: A+Ox3, euthymic affect Results & Data Results & Data Vital Signs (Past 12 Hours) Vital Signs Temp Pulse Pulse Resp BP BP Pulse Ox 10/05/23 17:30 80 20 10/05/23 17:08 159/60 H 10/05/23 17:07 88 23 10/05/23 16:40 82 20 10/05/23 16:30 89 16 10/05/23 16:20 70 16 10/05/23 16:11 68 16 10/05/23 16:02 66 10/05/23 16:00 68 17 10/05/23 15:51 80 21 10/05/23 15:50 77 166/77 H 10/05/23 15:43 10/05/23 15:40 69 10/05/23 15:30 166/77 H 10/05/23 15:29 79 15 10/05/23 15:25 73 14 10/05/23 12:37 36.8 C 76 16 163/69 H 97 O2 Del Method 10/05/23 17:30 10/05/23 17:08 10/05/23 17:07 10/05/23 16:40 10/05/23 16:30 10/05/23 16:20 10/05/23 16:11 10/05/23 16:02 10/05/23 16:00 10/05/23 15:51 10/05/23 15:50 10/05/23 15:43 Room Air 10/05/23 15:40 10/05/23 15:30 10/05/23 15:29 10/05/23 15:25 10/05/23 12:37 Room Air Laboratory Results Abnormal lab results 10/05/23 10/05/23 10/05/23 Range/Units 13:05 15:12 15:40 MPV 8.4 L (9.4-12.4) fL Neut # (Auto) 7.13 H (1.40-6.50) K/uL Lymph # (Auto) 0.58 L (1.20-3.40) K/uL Glucose 113 H (70-99(Fasting)) mg/dl Troponin I High Sens 20.3 H 22.9 H (0-14) pg/ml Urine Protein 1+ H (Negative) Ur Leukocyte Esterase 1+ H (Negative) Urine WBC (Auto) 6-10 H (0-5) /hpf Urine RBC (Auto) 3-5 H (0-2) /hpf Diagnostic Findings XR chest 1V not portable HISTORY: Chest pain, nonspecific COMPARISON: Chest 03/03/2023. FINDINGS: No pneumothorax. No pleural effusions. No focal lung consolidations to suggest a pneumonia. No evidence for pulmonary edema. Small linear scarlike densities the left lung base. The heart is normal in size. Moderate S-shaped scoliosis. IMPRESSION: No acute process. HEAD CT NONCONTRAST CT DOSE: 1535.69 mGy.cm HISTORY: confusion, fall TECHNIQUE: Multiaxial CT images of the head were performed without the use of intravenous contrast. Automated exposure control was utilized for this study. A dose lowering technique was utilized adhering to the principles of ALARA. Comparison: Head CT 07/23/2023. Findings: The paranasal sinuses and mastoid air cells are clear. The calvarium and skull base are intact. There is no mass, hematoma, midline shift, acute infarct. White matter hypodensity is nonspecific but suggestive of advanced microvascular ischemic change. The ventricles and sulci demonstrate mild age- related involutional changes. Impression: No significant change compared to the prior study. No acute intracranial abnormality. HEAD CTA HISTORY: fall, confusion TECHNIQUE: Multiaxial CT images of the head were performed both before and after the intravenous administration of contrast to evaluate the major cerebral vessels. 3D/MIP images were also obtained. Sagittal and coronal reformats were reviewed. A dose lowering technique was utilized adhering to the principles of ALARA. COMPARISON: Head CTA 06/09/2023. FINDINGS: There is no mass, hematoma, midline shift, or acute infarct. The major dural venous sinuses are patent. Moderate calcified plaque within the bilateral carotid siphons. This results in mild narrowing of the supraclinoid segment of the right ICA. This remains unchanged. Severe focal stenosis within the distal right anterior cerebral artery on image 186. This remains unchanged. The left anterior cerebral artery is patent. No high-grade stenosis or occlusion within the bilateral MCAs. Focal area of severe stenosis within the distal left vertebral artery, unchanged. The distal right vertebral artery and basilar artery are widely patent. Multifocal areas of mild to moderate stenosis within the bilateral secretary of state, unchanged. No evidence for an aneurysm or occlusion within the cerebral arteries. IMPRESSION: 1. Significant change in the multifocal areas of stenosis within the cerebral arteries as described above. 2. No new areas of stenosis or occlusion within the cerebral arteries. NECK CTA HISTORY: fall, confusion TECHNIQUE: Multiaxial CT images of the neck were performed following the intravenous administration of contrast to evaluate the major cervical vessels. 3D/MIP images were also obtained. Sagittal and coronal reformats were reviewed. All measurements were calculated based on NASCET criteria. A dose lowering technique was utilized adhering to the principles of ALARA. COMPARISON STUDY: CTA neck on 524. FINDINGS: The lung apices are clear. No acute fractures identified. There is a 1.9 cm anterior mediastinal nodule/lymph node, unchanged. The aortic arch and proximal great vessels are widely patent. There is a diminutive left vertebral artery with multifocal areas of stenosis and occlusion. This is similar to the prior study and is therefore considered to be chronic. No significant stenosis, occlusion, or dissection within the right vertebral artery. Moderate calcified plaque within the left carotid bifurcation resulting in mild stenosis of up to 50% within the proximal left internal carotid artery, unchanged. The mid to distal left internal carotid artery is widely patent. No significant stenosis or occlusion within the right internal carotid artery. The bilateral common carotid arteries are widely patent. IMPRESSION: 1. A diminutive left vertebral artery with multifocal areas of stenosis and occlusion. This similar to the prior study and is considered to be chronic. 2. Mild stenosis of approximately 50% within the proximal left internal carotid artery, unchanged. 3. No significant stenosis or occlusion within the right carotid arteries or right vertebral artery. 4. There is a 1.9 cm anterior mediastinal nodule/lymph again noted. Medications Administered ER medications given: Ceftriaxone 2000 mg IV ECG Rate (beats per minute): 69 Rhythm: normal sinus Findings: no acute ischemic change Comparison ECG Date: from (July 23, 2023) Change: no significant change Code Status & VTE Plan Code Status Full VTE Prophylaxis Plan VTE Prophylaxis will be ordered: No PG Care Time/CCT Total # of Minutes Spent Total Time Spent with Patient: Total time spent is greater than 50% in coordination of care (as documented) at patient's floor/unit and/or counseling patient: Coding Level of Care Code 86758 INT INP/OBS CARE 2/55MIN Diagnoses Fall W19.XXXA Lumbar radiculopathy M54.16
[2023-10-05] MEDS: ACETAMINOPHEN 500 MG TAB PO SCH (20:55)
[2023-10-05] MEDS ORDERED: TRIAMCINOLONE ACET 0.1% CR 15 GM TUBE TOP PRN (21:37)
[2023-10-05] MEDS: QUEtiapine FUMARATE 25 MG TABLET PO SCH (22:21)
[2023-10-06] MEDS: CHOLECALCIFEROL 25 MCG (1000 UNITS) TAB PO SCH (07:28)
[2023-10-06] MEDS: CLOPIDOGREL BISULFATE 75 MG TAB PO SCH (07:28)
[2023-10-06] MEDS: ATORVASTATIN 40 MG TAB PO SCH (07:29)
[2023-10-06] MEDS: FAMOTIDINE 40 MG TABLET PO SCH (07:29)
[2023-10-06] MEDS: CEROVITE ADV FORMULA TAB PO SCH (07:29)
--- NOTE | 2023-10-06 10:47 | Discharge Summary ---
Date of Service October 06, 2023 Admission HPI Per Admitting Provider Iram Harris is an 83 year old female with mild cognitive impairment who presents to the ER following a fall at work around noon today. History is limited by lack of collateral input and patient's memory impairment. She reports no loss of consciousness, dizziness, chest pain or shortness of breath. She lowered herself to the ground slowly and reports no injuries as a result of the fall. 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 She is just finishing off a Medrol Dosepak which has not helped. She does not feel this is similar to her presentation in July with altered mental state and was ultimately found to have a stroke - this is confirmed with her friend in the room who feels she is currently at her baseline and this was unlike that admission. She feels she is back to her baseline at this time. Principal Diagnosis Mechanical fall Discharge Exam General-alert and oriented x3, no fever, no chills HEENT-head atraumatic and normocephalic, pupils equal and reactive to light, extraocular muscles intact Neck-no lymphadenopathy or thyromegaly, trachea midline Chest-clear to auscultation. No rales, wheezing or rhonchi Cardiac-regular rate and rhythm, normal S1 and S2 Abdomen-normal bowel sounds, no hepatosplenomegaly Extremities-no cyanosis, clubbing, or edema Musculoskeletalthoracic scoliosis Neuro-cranial nerves II through XII intact, motor and sensory function within normal limits, strength symmetrical and consistent with age, no focal deficits Psych-normal affect, normal mood Discharge Data Allergies Allergy/AdvReac Type Severity Reaction Status Date / Time neomycin Allergy Intermediate Rash Verified 10/05/23 17:23 nabumetone [From Relafen] Allergy Mild Redness of Verified 10/05/23 17:23 Skin loperamide [From Imodium A-D] AdvReac Intermediate Rapid Verified 10/05/23 17:23 heart rate lorazepam [From Ativan] AdvReac Intermediate Anxiety Verified 10/05/23 17:23 zolpidem [From Ambien] AdvReac Intermediate Anxiety Verified 10/05/23 17:23 Consultations 10/05/23 17:44 ED Decision to Admit Stat Ordered Studies 10/05/23 15:51 CT angio head w con Stat CT angio neck with con Stat CT head/brain wo con Stat Hospital Course (1) Fall: Mechanical. Fortunately there were no fractures. She is ambulating with a walker now which is her baseline and is asymptomatic. (2) Lumbar radiculopathy: No improvement with medrol dosepak as outpatient. She does not wish to continue steroid therapy at this time. Pain control measures. Plan Home today, October 05 Total Time Total Time Spent Total Time Spent (In Minutes): 45 minutes Discharge Plan Discharge Items Patient Disposition: Home - Self-Care Reason For Visit: FALL, LUMBAR RADICULOPATHY Discharge Diagnosis: Mechanical fall Activity: Resume your previous activity Non-emergency contact: Primary Care Provider Call non-emergency contact if: your symptoms worsen Follow-up/Referrals: Jay Duval MD [Primary Care Provider] - Diet: Regular and Heart Healthy Addtl Attending Provider Instructions: All medications remain the same. Follow-up with primary care provider as soon as possible Pending Studies at Discharge: No Stand-Alone Forms: [facility] [employer], Smoking Cessation Medications and DC Order Prescriptions: Continued clopidogrel 75 mg tablet 75 mg PO QAM 90 Days Qty: 90 1RF atorvastatin 80 mg tablet 80 mg PO DAILY Qty: 90 3RF Rx Instructions: TAKE 1 TABLET BY MOUTH EVERY MORNING cholecalciferol (vitamin D3) 50 mcg (2,000 unit) capsule 2,000 unit PO DAILY 30 Days Qty: 30 0RF triamcinolone acetonide 0.1 % cream 1 applic TOPICAL BID PRN (Reason: Skin Irritation) acetaminophen [Tylenol Extra Strength] 500 mg tablet 500 mg PO DAILY Rx Instructions: PER PT "USUALLY ONCE IF NOT TWICE A DAY". (DME) BD SafetyGlide Syringe 3 mL 23 x 1" syringe See Rx Instructions .MEDSUPPLY Qty: 50 0RF Rx Instructions: As directed PreserVision AREDS-2 250-90-40-1 mg Capsule 1 tab PO BID nystatin 100,000 unit/gram cream 1 applic TOPICAL HS Rx Instructions: APPLY UNDER BREAST quetiapine 25 mg tablet 25 mg PO HS Qty: 30 1RF famotidine 40 mg tablet 40 mg PO QAM Rx Instructions: TAKE 1 TABLET BY MOUTH EVERY MORNING cyanocobalamin (vitamin B-12) 1,000 mcg/mL solution 1,000 mcg IM MONTHLY Rx Instructions: inject 1 mL once a month. Discharge Orders: Discharge Order (Routine); Ordered 10/06/23 Ordered By: Vu Winters Admission Data Admit Date/Time: 10/05/23 19:11 Attending Provider: Vu Winters Admit Provider: Cuco Castorena Primary Care Provider: Jay Duval Other Providers: Cuco Castorena Coding Level of Care Code 49478 INP/OBS DISCH >30 MIN Diagnoses Fall W19.XXXA Lumbar radiculopathy M54.16
--- NOTE | 2023-10-06 14:10 | Hospitalist Progress Note ---
Date of Service October 06, 2023 Assessment & Plan (1) Fall: Plan: Mechanical. Fortunately there were no fractures. She is ambulating with a walker now which is her baseline and is asymptomatic. She tells me that she was recently treated for sciatica but cannot tell me specifically which leg is involved (2) Lumbar radiculopathy: Plan: No improvement with medrol dosepak as outpatient. She does not wish to continue steroid therapy at this time. Pain control measures. Plan I spoke with daughter by phone who lives out of town. Family is trying to provide 24-hour care for the patient and they are simply not ready for her to go home today. Perhaps she can be discharged tomorrow, October 06. Admission and Anticipated Discharge Date Admission Date: October 05, 2023 Subjective Awake and alert but she appears to have an element of dementia. Sometimes oriented and sometimes not. Fortunately there were no fractures on x-ray. Family members live out of town and they are trying to make arrangements for someone to be in the house with her at all times. They are not ready for her to go home today. Possibly tomorrow, October 06 Review of Systems 2 Review of Systems: Constitutional-no fever or chills ENT-no blurred vision, no double vision, no epistaxis, no sore throat Respiratory-no cough, no wheezing, no shortness of breath Cardiac-no palpitations, no chest pain, no syncope GI-no nausea, vomiting, diarrhea, melena, hematochezia -no urinary retention, no urinary incontinence, no dysuria, no hematuria Musculoskeletal-chronic lumbar radiculopathy symptoms Skin-no bruising, no rashes, no pruritus Neuro-no isolated weakness, no paresthesia. She has generalized weakness consistent with age and uses a walker to ambulate Psych-no depression, no anxiety Physical Exam 2 Physical Exam: General-alert and oriented x3, no fever, no chills HEENT-head atraumatic and normocephalic, pupils equal and reactive to light, extraocular muscles intact Neck-no lymphadenopathy or thyromegaly, trachea midline Chest-clear to auscultation. No rales, wheezing or rhonchi Cardiac-regular rate and rhythm, normal S1 and S2 Abdomen-normal bowel sounds, no hepatosplenomegaly Extremities-no cyanosis, clubbing, or edema Musculoskeletalthoracic scoliosis Neuro-cranial nerves II through XII intact, motor and sensory function within normal limits, strength symmetrical and consistent with age, no focal deficits Psych-normal affect, normal mood Results & Data Results & Data Vital Signs (Past 12 Hours) Vital Signs Temp Pulse Resp BP Pulse Ox O2 Del Method 10/06/23 07:29 35.7 C L 75 16 143/83 H 94 Room Air Laboratory Results 10/05/23 13:05 10/05/23 13:05 PG Care Time/CCT Total # of Minutes Spent Total Time Spent with Patient: Total time spent is greater than 50% in coordination of care (as documented) at patient's floor/unit and/or counseling patient: Coding Level of Care Code 95117 SUB INP/OBS CARE 3/50MIN Diagnoses Fall W19.XXXA Lumbar radiculopathy M54.16
--- NOTE | 2023-10-07 08:21 | Hospitalist Progress Note ---
Date of Service October 07, 2023 Assessment & Plan (1) Mild cognitive impairment: Plan: Patient presents with mild cognitive impairment mostly short-term memory. Family relates events prior to coming into being out of her usual routine. Pending urine culture to evaluate for encephalopathy. (2) Fall: Plan: Mechanical. Fortunately there were no fractures. She is ambulating with a walker now which is her baseline and is asymptomatic. (3) Lumbar radiculopathy: Plan: Chronic and stable currently controlled with acetaminophen 3 times daily Plan previous attending and case management spoke with daughter by phone who lives out of town. Family is able to coordinate 24-hour care for the patient starting on monday10/09/23 pt has good ambulation but has cognitive impairment Admission and Anticipated Discharge Date Admission Date: October 05, 2023 Results & Data Results & Data Vital Signs (Past 12 Hours) Vital Signs Temp Pulse Pulse Resp BP Pulse Ox O2 Del Method 10/07/23 06:54 98.1 F 72 18 153/77 H 93 Room Air 10/06/23 20:49 98.2 F 73 16 161/82 H 96 Room Air PG Care Time/CCT Total # of Minutes Spent Total Time Spent with Patient: Total time spent is greater than 50% in coordination of care (as documented) at patient's floor/unit and/or counseling patient: Coding Level of Care Code 15230 SUB INP/OBS CARE 2/35MIN Diagnoses Mild cognitive impairment G31.84 Fall W19.XXXA Lumbar radiculopathy M54.16
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
--- NOTE | 2023-10-08 21:22 | Electrocardiogram Report ---
Test Reason : Blood Pressure : / mmHG Vent. Rate : 069 BPM Atrial Rate : 069 BPM P-R Int : 162 ms QRS Dur : 070 ms QT Int : 390 ms P-R-T Axes : 067 054 015 degrees QTc Int : 417 ms Normal sinus rhythm Normal ECG When compared with ECG of 23-JUL-2023 13:51, No significant change was found Confirmed by Zelalem Khan ([id number]) on 10/08/2023 9:22:06 PM Referred By: Confirmed By:Zelalem Khan
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
== END 2023-10-09 10:13 | disposition home health service (06) ==
LOC: ED 11:31 → 3W 11:31 → SUATTDRO 19:11 → 3W 19:53

== ENCOUNTER 2023-12-13 14:17 | Observation (INO) ==
--- NOTE | 2023-12-13 15:17 | CT Scan Report ---
CT SCAN OF THE BRAIN WITHOUT IV CONTRAST CLINICAL HISTORY: Change in mental status. Generalized weakness. COMPARISON STUDY: CT of the brain dated 10/05/2023. TECHNIQUE: Unenhanced axial CT scan of the brain is performed from the vertex to the skull base. A do se lowering technique was utilized adhering to the principles of ALARA. 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 There is no hemorrhage, mass effect, or evidence of acute t erritorial ischemia by CT criteria. Thomas-white matter differentiation is preserved. No extra-axial fl uid collection is seen. Ventricles, sulci, cisterns: Prominent secondary to involutional change. Intracranial vasculature: There is atherosclerotic calcification of the cavernous carotid and vertebr al arteries. Calvarium: Unremarkable. Sinuses and mastoids: There is mild mucosal thickening in the left maxillary antrum. The remaining pa ranasal sinuses are clear. The mastoid air cells are well pneumatized. Orbits: The bony orbits are grossly intact. There are bilateral ocular lens implants. IMPRESSION: There is no hemorrhage, mass effect, or evidence of acute territorial ischemia by CT carlotta wei. ACT 112: Negative or not required by law. Electronically signed by: Miguelito Goldman M.D. 12/13/2023 3:15 PM
--- NOTE | 2023-12-13 16:09 | Emergency Department Note ---
Impression & Plan Acute confusion ED Provider Note HISTORY OF PRESENT ILLNESS: Patient is an 83-year-old female presenting with confusion. Caregiver at bedside provides most of history. Reports that she went to check on the patient today and the patient did not recognize who she was. Reports the patient has caregivers throughout the day for about 4 hours and then a caregiver stays with her throughout the evening. States that the daughters expressed concern that the patient might have a urinary tract infection given her confusion and requested that she be evaluated. Caregiver reports that the patient is not acting her normal self. Unknown if she has fallen recently or any recent head injuries. Patient denies any complaints on arrival to the ER. Denies any chest pain or shortness of breath. Denies any abdominal pain, nausea or vomiting. ROS: as above PHYSICAL EXAM: Constitutional: Patient appears in no acute distress. HENT: Head: Normocephalic and atraumatic. Eyes: EOMI, PERRL Mouth/Throat: Mucous membranes moist. Neck: Trachea midline. Neck supple. Cardiovascular: RRR, No murmurs, rubs or gallops. Intact distal pulses. Pulmonary/Chest: No respiratory distress. Breath sounds clear and equal bilaterally. No wheezes or rales. Abdominal: Abdomen soft, no tenderness, rebound or guarding. Musculoskeletal: No edema, tenderness or deformity noted. Skin: Warm and dry. No rash, erythema, pallor or cyanosis Neurological: Alert to person and place. CN II-XII grossly intact, moving all extremities equally and fully. MDM: - Vitals signs showed tachycardia. - History obtained via patient's caregiver, given patient's confusion. History as above. - Chronic conditions affecting care: HLD; CVA; carotid stenosis; breast cancer hx; CB - Differential diagnoses include, but are not limited to: UTI; CVA; intracranial hemorrhage; pneumonia; viral syndrome; ACS; dysrhythmia - Order placed for continuous cardiac monitoring. At this time, monitor showed rate of 85 bpm with normal sinus rhythm, per my interpretation. - External medical records reviewed. Primary care visit note dated 11/22/2023 was reviewed. Patient follows in their clinic for her chronic medical conditions. She reportedly had been doing well. She was struggling to use her CPAP at nighttime for her sleep apnea. - EKG interpreted by myself showed normal sinus rhythm. Rate 87 bpm. QT 346. No acute ischemic changes. - Laboratory workup interpreted by myself showed normal WBC; stable electrolytes; slight hyperglycemia (glucose 117); slightly elevated troponin (14.1); normal procalcitonin - CT head wo contrast negative for acute pathology - UA negative for infection - Viral respiratory panel negative - Unclear etiology for patient's confusion at this time. I did talk to the patient's niece on the phone and she expressed concern about the patient going home at this time. Will admit to hospital service for further workup. - Discussion was had with showcase maker about patient's case and need for admission - Hospitalist, Dr. Ward, consulted for admission - [facility] ASSESSMENT AND PLAN: Diagnosis: Acute confusion Plan: Admit Past Med/Surg History Problem List (Updated 12/13/23 @ 19:27 by Dee Polo MD) Acute confusion (Acute) Lumbar scoliosis Low back pain with sciatica Fall (Acute) Syncope Seizure-like activity Acute CVA (cerebrovascular accident) (Acute) Mediastinal lymphadenopathy COVID (Acute) Cerebrovascular disease Mild cognitive impairment Nocturnal hypoxemia Vitamin D deficiency Cognitive impairment Dementia Carotid stenosis S/P right carotid endarterectomy (2008) No significant ICA stenosis per 05/2021 carotid doppler Impacted cerumen of both ears S/P total knee replacement using cement Left knee DJD Tremor (Chronic) Thyroglossal duct cyst (Chronic) Schatzki's ring (Chronic) Osteoarthritis of knee (Chronic) Lumbar canal stenosis (Chronic) Disc degeneration, lumbar (Chronic) Hoarseness Dysfunction of eustachian tube Pressure sensation in right ear Dysphonia LPRD (laryngopharyngeal reflux disease) 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 H/O: stroke Gait apraxia of elderly Imbalance H/O carotid endarterectomy Sensorineural hearing loss (SNHL) of both ears SNHL (sensorineural hearing loss) Chronic cerebral ischemia (Chronic) Osteoporosis (Chronic) Dyslipidemia (Chronic) Medical History Lumbar radiculopathy Confusion Pneumonia Obstructive sleep apnea B12 deficiency Hx of TIA (transient ischemic attack) and stroke GERD (gastroesophageal reflux disease) Elevated troponin Subclavian artery stenosis History of breast cancer Schatzki's ring Osteoarthritis Degenerative disc disease Tremor GERD (gastroesophageal reflux disease) Ocular migraine Left thalamic infarction Surgical History History of knee replacement procedure of left knee Status post total knee replacement using cement Nausea and vomiting after administration of anesthetic agent History of cataract surgery History of esophageal dilatation History of oophorectomy, unilateral History of removal of ovarian cyst History of dilation and curettage History of colonoscopy Status post breast lumpectomy H/O foot surgery H/O endarterectomy Family History Mother CHF (congestive heart failure) Father Epilepsy Colon cancer Pulmonary fibrosis Family/Other Breast cancer Other No family history of adverse response to anesthesia Social History Smoking Status: Never smoker Second Hand Exposure: No; Do You Dip or Chew Tobacco: No; Hx Alcohol Use: No Hx Substance Use: No Preferred Language: Swazi Communication Ability: Effective Visual Impairment: No Limitations Hearing Ability: Normal Ductfixing Plumber Required: No Beliefs That Will Affect Care: None marital status: Single Current Living Situation: Alone current occupational status: employed current occupation: [employer], 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, 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 Feels Safe at Home: Yes Assistive Devices: Cane and Walker Allergies Allergies Allergy/AdvReac Type Severity Reaction Status Date / Time neomycin Allergy Intermediate Rash Verified 12/12/23 13:31 nabumetone [From Relafen] Allergy Mild Redness of Verified 12/12/23 13:31 Skin loperamide [From Imodium A-D] AdvReac Intermediate Rapid Verified 12/12/23 13:31 heart rate lorazepam [From Ativan] AdvReac Intermediate Anxiety Verified 12/12/23 13:31 zolpidem [From Ambien] AdvReac Intermediate Anxiety Verified 12/12/23 13:31 Home Meds Home Medications Medication Instructions Recorded Confirmed acetaminophen 500 mg tablet 1,000 mg PO Q6 PRN Pain 03/25/19 12/13/23 (Tylenol Extra Strength) vit C 250 mg-vit E 90 mg-zinc 40 1 tab PO BID 10/14/21 12/13/23 mg-copper 1 [id number] capsule (PreserVision AREDS-2) triamcinolone acetonide 0.1 % 1 applic topical BID PRN Skin 04/14/23 12/13/23 topical cream Irritation cyanocobalamin (vitamin B-12) 1,000 mcg IM MONTHLY 07/23/23 12/13/23 1,000 mcg/mL injection solution famotidine 40 mg tablet 40 mg PO QAM 07/23/23 12/13/23 atorvastatin 80 mg tablet 80 mg PO QAM 12/13/23 12/13/23 cholecalciferol (vitamin D3) 50 2,000 unit PO QAM 12/13/23 12/13/23 mcg (2,000 unit) capsule Previous Rx's Medication Instructions Recorded syringe with needle 3 mL 23 x 1" #50 ea 03/10/23 (BD SafetyGlide Syringe) quetiapine 25 mg tablet 25 mg PO HS #30 tabs 06/11/23 tizanidine 2 mg tablet 2 mg PO BID PRN muscle spasticity 10/11/23 #20 tabs tramadol 50 mg tablet 50 mg PO TID PRN pain #30 tabs 10/11/23 clopidogrel 75 mg tablet 75 mg PO QAM 90 days #90 tabs 11/07/23 Results & Data (ED) Vital Signs Vital Signs - 24 hr 12/13/23 14:22 12/13/23 16:07 12/13/23 16:37 Temperature 36.7 C Temperature Source Temporal Artery Scan Pulse Rate 95 H 78 Pulse Rate [Apical] 85 Pulse Rhythm Regular Pulse Strength Normal Respiratory Rate 20 18 Respiratory Effort / Characteristics Non-Labored Spontaneous Respiratory Depth Normal Blood Pressure 135/96 Blood Pressure [Left Arm] 169/84 H Blood Pressure Mean 109 Blood Pressure Mean [Left Arm] 112 Blood Pressure Position Sitting Blood Pressure Position [Left Arm] Lying Pulse Oximetry 95 96 Oxygen Delivery Method Room Air Room Air Sepsis Recent Fever Within 48 Hours No Sepsis New/Unexplained Change in Mental Status N/A Sepsis Action Taken by Nursing No Action Required Laboratory Data 12/13/23 15:50 12/13/23 15:50 Lab Results 12/13/23 12/13/23 Range/Units 15:50 17:24 WBC 7.75 (4.8-10.8) K/ul RBC 4.62 (4.20-5.40) M/uL Hgb 13.5 (12.0-16.0) g/dl Hct 42.3 (37.0-47.0) % MCV 91.6 (80.0-100.0) fL MCH 29.2 (25.0-34.0) pg MCHC 31.9 L (32.0-36.0) g/dL RDW Std Deviation 46.2 (36.4-46.3) fL RDW Coeff of Shabnam 13.7 (11.5-14.5) % Plt Count 320 (130-400) K/uL MPV 8.5 L (9.4-12.4) fL Immature Gran % (Auto) 0.5 % Neut % (Auto) 86.9 % Lymph % (Auto) 6.7 % Kay % (Auto) 5.5 % Eos % (Auto) 0.1 % Baso % (Auto) 0.3 % Neut # (Auto) 6.73 H (1.40-6.50) K/uL Lymph # (Auto) 0.52 L (1.20-3.40) K/uL Kay # (Auto) 0.43 (0.11-0.59) K/uL Eos # (Auto) 0.01 (0.00-0.50) K/uL Baso # (Auto) 0.02 (0.00-0.20) K/uL Immature Gran # (Auto) 0.04 (0.01-0.20) K/uL Sodium 136 (136-145) mmol/L Potassium 4.0 (3.5-5.1) mmol/L Chloride 101 (98-107) mmol/L Carbon Dioxide 27 (21-32) mmol/L Anion Gap 8 (3-11) BUN 12 (6-23) mg/dl Creatinine 0.93 (0.6-1.2) mg/dl Est Cr Clr Drug Dosing 38.7 ml/min Est GFR ( Amer) 65.4 ml/min Est GFR (Non-Af Amer) 56.4 ml/min BUN/Creatinine Ratio 12.9 (10-20) Glucose 117 H (70-99(Fasting)) mg/dl Lactate 1.1 (0.4-2.0) mmol/L Calcium 9.3 (8.6-10.3) mg/dl Magnesium 2.2 (1.7-2.4) mg/dl Total Bilirubin 0.6 (0.2-1.0) mg/dl AST 19 (13-39) U/L ALT 15 (7-52) U/L Alkaline Phosphatase 81 (34-104) U/L Troponin I High Sens 14.1 H (0-14) pg/ml Total Protein 7.6 (6.0-8.3) gm/dl Albumin 4.9 (3.4-5.0) gm/dl Globulin 2.7 (2.5-4.0) gm/dl Albumin/Globulin Ratio 1.8 (0.9-2) Procalcitonin 0.02 (0-0.5) ng/ml Urine Color Yellow Urine Appearance Clear (Clear) Urine pH 6.0 (4.5-7.5) Ur Specific [place] 1.017 (1.000-1.030) Urine Protein 1+ H (Negative) Urine Glucose (UA) Negative (Negative) Urine Ketones Negative (Negative) Urine Blood Negative (Negative) Urine Nitrite Negative (Negative) Urine Bilirubin Negative (Negative) Urine Urobilinogen Negative (Negative) Ur Leukocyte Esterase Trace H (Negative) Urine WBC (Auto) 0-5 (0-5) /hpf Urine RBC (Auto) 6-10 H (0-2) /hpf U Hyaline Cast (Auto) 0-2 (0-2) /lpf U Epithel Cells (Auto) 0-2 (0-2) /hpf Urine Bacteria (Auto) None Seen (None Seen) Adenovirus (PCR) Not Detected (NotDetected) B. pertussis DNA (PCR) Not Detected (NotDetected) B.parapertussis DNA PCR Not Detected (NotDetected) C. pneumoniae DNA (PCR) Not Detected (NotDetected) Coronavirus OC43 (PCR) Not Detected (NotDetected) Coronavirus HKU1 (PCR) Not Detected (NotDetected) Coronavirus 229E (PCR) Not Detected (NotDetected) SARS-CoV-2 (PCR) Not Detected (NotDetected) Coronavirus NL63 (PCR) Not Detected (NotDetected) Human Metapneumovir PCR Not Detected (NotDetected) Influenza Type A (PCR) Not Detected (NotDetected) Influenza Type B (PCR) Not Detected (NotDetected) M. pneumoniae (PCR) Not Detected (NotDetected) Parainfluenza 1 (PCR) Not Detected (NotDetected) Parainfluenza 2 (PCR) Not Detected (NotDetected) Parainfluenza 3 (PCR) Not Detected (NotDetected) Parainfluenza 4 (PCR) Not Detected (NotDetected) RSV (PCR) Not Detected (NotDetected) Entero/Rhino (PCR) Not Detected (NotDetected) Imaging Data Radiologist's Impression: Head CT 12/13/23 14:41 CT SCAN OF THE BRAIN WITHOUT IV CONTRAST CLINICAL HISTORY: Change in mental status. Generalized weakness. COMPARISON STUDY: CT of the brain dated 10/05/2023. TECHNIQUE: Unenhanced axial CT scan of the brain is performed from the vertex to the skull base. A dose lowering technique was utilized adhering to the principles of ALARA. 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 There is no hemorrhage, mass effect, or evidence of acute territorial ischemia by CT criteria. Thomas-white matter differentiation is preserved. No extra-axial fluid collection is seen. Ventricles, sulci, cisterns: Prominent secondary to involutional change. Intracranial vasculature: There is atherosclerotic calcification of the cavernous carotid and vertebral arteries. Calvarium: Unremarkable. Sinuses and mastoids: There is mild mucosal thickening in the left maxillary antrum. The remaining paranasal sinuses are clear. The mastoid air cells are well pneumatized. Orbits: The bony orbits are grossly intact. There are bilateral ocular lens implants. IMPRESSION: There is no hemorrhage, mass effect, or evidence of acute territorial ischemia by CT criteria. ACT 112: Negative or not required by law. Electronically signed by: Miguelito Goldman M.D. 12/13/2023 3:15 PM Discharge Plan Visit Data Chief Complaint: Confusion Stated Complaint: CONFUSION, POSSIBLE UTI, DEHYDRATION ED Provider: Dee Polo Discharge Problem: Acute confusion Forms Stand Alone Forms: My [facility] enymotion Prescriptions Prescriptions: No Action clopidogrel 75 mg tablet 75 mg PO QAM 90 Days Qty: 90 1RF triamcinolone acetonide 0.1 % cream 1 applic TOPICAL BID PRN (Reason: Skin Irritation) acetaminophen [Tylenol Extra Strength] 500 mg tablet 1,000 mg PO Q6 PRN (Reason: Pain) Rx Instructions: PER PT "USUALLY ONCE IF NOT TWICE A DAY". (DME) BD SafetyGlide Syringe 3 mL 23 x 1" syringe See Rx Instructions .MEDSUPPLY Qty: 50 0RF Rx Instructions: As directed tramadol 50 mg tablet 50 mg PO TID PRN (Reason: pain) Qty: 30 0RF Rx Instructions: In addition to the tramadol, take acetaminophen either regular strength or extra, 2 pills. tizanidine 2 mg tablet 2 mg PO BID PRN (Reason: muscle spasticity) Qty: 20 1RF Rx Instructions: Once or twice a day for spasms PreserVision AREDS-2 250-90-40-1 mg Capsule 1 tab PO BID quetiapine 25 mg tablet 25 mg PO HS Qty: 30 1RF famotidine 40 mg tablet 40 mg PO QAM Rx Instructions: TAKE 1 TABLET BY MOUTH EVERY MORNING cyanocobalamin (vitamin B-12) 1,000 mcg/mL solution 1,000 mcg IM MONTHLY Rx Instructions: inject 1 mL once a month. atorvastatin 80 mg tablet 80 mg PO QAM Rx Instructions: TAKE 1 TABLET BY MOUTH EVERY MORNING cholecalciferol (vitamin D3) 50 mcg (2,000 unit) capsule 2,000 unit PO QAM Referrals Referrals: Jay Duval MD [Primary Care Provider] -
[2023-12-13 16:12] LABS: Basophils # (auto) 0.02 K/uL (0.00-0.20); Basophils % (auto) 0.3 %; Eosinophils # (auto) 0.01 K/uL (0.00-0.50); Eosinophils % (auto) 0.1 %; Hematocrit (blood only) 42.3 % (37.0-47.0); Hemoglobin 13.5 g/dl (12.0-16.0); Immature Granulocytes # (auto) 0.04 K/uL (0.01-0.20); Immature Granulocytes % (auto) 0.5 %; Lymphocytes # (auto) 0.52 K/uL (1.20-3.40); Lymphocytes % (auto) 6.7 %; Mean Corpuscular Hemoglobin 29.2 pg (25.0-34.0); Mean Corpuscular Hgb Conc 31.9 g/dL (32.0-36.0); Mean Corpuscular Volume 91.6 fL (80.0-100.0); Mean Platelet Volume 8.5 fL (9.4-12.4); Monocytes # (auto) 0.43 K/uL (0.11-0.59); Monocytes % (auto) 5.5 %; Neutrophils # (auto) 6.73 K/uL (1.40-6.50); Neutrophils % (auto) 86.9 %; Platelet Count 320 K/uL (130-400); RDW Coefficient of Variation 13.7 % (11.5-14.5); RDW Standard Deviation 46.2 fL (36.4-46.3); Red Blood Count 4.62 M/uL (4.20-5.40); White Blood Count 7.75 K/ul (4.8-10.8)
[2023-12-13 16:17] LABS: Appearance Urine Clear (Clear); Bacteria Urine Automated None Seen (None Seen); Bilirubin Urine Negative (Negative); Blood Urine Negative (Negative); Cast Urine Automated 0-2 /lpf (0-2); Color Urine Yellow; Epithelial Cell Urine Auto 0-2 /hpf (0-2); Glucose Urine UA Negative (Negative); Ketones Urine Negative (Negative); Leukocyte Esterase Urine Trace (Negative); Nitrite Urine Negative (Negative); Protein Urine 1+ (Negative); Specific Gravity Urine 1.017 (1.000-1.030); Urobilinogen Urine Negative (Negative); WBC Urine Automated 0-5 /hpf (0-5)
[2023-12-13 16:29] LABS: Albumin Globulin Ratio 1.8 (0.9-2); Albumin Level 4.9 gm/dl (3.4-5.0); BUN Creatinine Ratio 12.9 (10-20); Bilirubin,Total 0.6 mg/dl (0.2-1.0); Calcium 9.3 mg/dl (8.6-10.3); Creatinine Clr Calc Pharmacy 38.7 ml/min; Est GFR (African American) 65.4 ml/min; Est GFR (Non-African American) 56.4 ml/min; Globulin 2.7 gm/dl (2.5-4.0); Magnesium 2.2 mg/dl (1.7-2.4); Total Protein 7.6 gm/dl (6.0-8.3)
[2023-12-13 16:36] LABS: Troponin I High Sensitivity 14.1 pg/ml (0-14)
[2023-12-13 17:09] LABS: Adenovirus PCR Not Detected (NotDetected); Bordetella parapertussis PCR Not Detected (NotDetected); Bordetella pertussis PCR Not Detected (NotDetected); Chlamydia pneumoniae PCR Not Detected (NotDetected); Coronavirus 229E PCR Not Detected (NotDetected); Coronavirus CoV-2 (COVID19)PCR Not Detected (NotDetected); Coronavirus HKU1 PCR Not Detected (NotDetected); Coronavirus NL63 PCR Not Detected (NotDetected); Coronavirus OC43PCR Not Detected (NotDetected); Human Metapneumovirus PCR Not Detected (NotDetected); Influenza A PCR Not Detected (NotDetected); Influenza B PCR Not Detected (NotDetected); Mycoplasma pneumoniae PCR Not Detected (NotDetected); Parainfluenza Virus 1 PCR Not Detected (NotDetected); Parainfluenza Virus 2 PCR Not Detected (NotDetected); Parainfluenza Virus 3 PCR Not Detected (NotDetected); Parainfluenza Virus 4 PCR Not Detected (NotDetected); Respiratory Syncytial VirusPCR Not Detected (NotDetected); Rhinovirus/Enterovirus PCR Not Detected (NotDetected)
--- NOTE | 2023-12-13 18:34 | Electrocardiogram Report ---
Test Reason : Blood Pressure : / mmHG Vent. Rate : 087 BPM Atrial Rate : 087 BPM P-R Int : 162 ms QRS Dur : 070 ms QT Int : 346 ms P-R-T Axes : 048 019 031 degrees QTc Int : 416 ms Normal sinus rhythm Normal ECG When compared with ECG of 05-OCT-2023 12:49, No significant change was found Confirmed by Giancarlo Tracey ([id number]) on 12/13/2023 6:34:30 PM Referred By: Confirmed By:Jc Tracey
--- NOTE | 2023-12-13 19:16 | History & Physical Report ---
Date of Service December 13, 2023 Assessment & Plan (1) Confusion: Plan: Admit to [facility] Currently stable and nontoxic-appearing Presented to the ED via her caregiver due to increased confusion compared to baseline consistent with previous episodes of dehydration and UTI Was brought to the ED as they were unable to get a urine sample at the acute care clinic CT head and brain without contrast was negative for acute findings, no acute metabolic derangements on labs including UA Patient appears dehydrated on exam with very dry mucous membranes, neurologic exam is nonfocal and consistent with her known dementia We will obtain MRI of the brain without contrast for further assessment as she does have a history of severe cerebrovascular disease Patient does have as needed tizanidine and tramadol on her med rec, we will hold these at this time as these could definitely increase confusion 1 L LR overnight at 80 mL/h for hydration We will allow mild permissive hypertension due to her known history of severe cerebrovascular disease to assist with perfusion of the brain Communication will be placed to reach out to on-call provider for systolic blood pressure greater than 170 mmHg Fall precautions with bed alarm and aspiration precautions have been ordered If patient's condition does not improve with IV fluids overnight can consider repeat MRI of the brain without contrast for further evaluation of new stroke Continue Plavix and statin PT/OT consults have been ordered Bilateral teds for DVT prophylaxis Heart healthy diet with easy to chew diet A.m. CBC, BMP (2) Dementia: Plan: --Continue at bedtime Seroquel to help patient sleep overnight and to try and prevent sundowning (3) Chronic cerebral ischemia: Plan: Continue Plavix and statin Will give IV hydration overnight and allow mild permissive hypertension to assist with perfusion with her known chronic ischemia (4) Dehydration: Plan: Light IV hydration overnight per condition plan (5) Nocturnal hypoxemia: Plan: Patient has a history of CB and has been reported to use HS CPAP in the past We will hold at bedtime CPAP tonight and use as needed O2 as she is too confused to safely protect her own airway Plan The patient was discussed with Dr. 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 She was noted to be hypertensive at 169/84, tachycardic at 95, but otherwise stable. Labs including CBC, CMP, Pro-Marcos, UA, full respiratory BioFire unremarkable.High- sensitivity troponin was marginally elevated at 14.1. CT of the head and brain without IV contrast was read as negative for acute findings. The patient received no medications while in the ED. Patient was sitting in bed in no acute distress at time of exam with 2 of her neighbors/friends present. History is mainly obtained from the patient's friends due to her current mental status. Her neighbors explained that the patient has known dementia and often gets dehydrated as she forgets to drink water and is also prone to UTIs. She will have increased levels of confusion and dehydrated when she has UTIs. She does have a caregiver which stays with her during the day for approximately 8 hours and has another caregiver for that stays with her overnight, but she does not have 24/ care at this time. They state that due to the increased confusion earlier today her caregiver tried to take her to outpatient clinic for urinalysis, however, she was too dehydrated to give a urine sample which is why they presented to the ED. When asked, the patient denies any complaints at this time besides feeling a little more confused than usual. She denies any headaches, vision changes, paresthesias, unilateral weakness, chest pain, shortness of breath, nausea, vomiting, dumping, dysuria/hematuria, diarrhea, and neighbors do not believe she has had recent fall/trauma. Of note, the patient was neurology on 10/24/2023. Prior to this visit the patient underwent CT of the head brain without contrast, CTA of the head and CTA neck. CT of the head was read as severe focal stenosis within the distal right anterior cerebral artery unchanged. Left anterior cervical arteries patent. Focal areas of severe stenosis within the distal left vertebral artery unchanged. Multifocal areas of high-grade stenosis within the bilateral highway landscape architect unchanged for aneurysm or occlusion within the cerebral arteries. CT of the neck was read as negative for left vertebral artery with multifocal areas of stenosis and occlusion. This is similar to prior study and is considered chronic. Mild stenosis approximate 50% within the proximal left internal carotid artery, unchanged. No significant stenosis or occlusion within the right carotid arteries or right vertebral artery. There is a 1.9 cm anterior mediastinal nodule/lymph again noted. The patient's neighbors explained that the patient's niece/POA is currently traveling to [facility] to assist with coordination of care for her Aunt. Please refer to Dr. Ward's attestation for any changes to the treatment plan Allergies Allergy/AdvReac Type Severity Reaction Status Date / Time neomycin Allergy Intermediate Rash Verified 12/12/23 13:31 nabumetone [From Relafen] Allergy Mild Redness of Verified 12/12/23 13:31 Skin loperamide [From Imodium A-D] AdvReac Intermediate Rapid Verified 12/12/23 13:31 heart rate lorazepam [From Ativan] AdvReac Intermediate Anxiety Verified 12/12/23 13:31 zolpidem [From Ambien] AdvReac Intermediate Anxiety Verified 12/12/23 13:31 Home Medications Medication Instructions Recorded Confirmed Type acetaminophen 500 mg tablet 1,000 mg PO Q6 PRN Pain 03/25/19 12/13/23 History (Tylenol Extra Strength) vit C 250 mg-vit E 90 mg-zinc 40 1 tab PO BID 10/14/21 12/13/23 History mg-copper 1 [id number] capsule (PreserVision AREDS-2) syringe with needle 3 mL 23 x 1" #50 ea 03/10/23 12/13/23 Rx (BD SafetyGlide Syringe) triamcinolone acetonide 0.1 % 1 applic topical BID PRN Skin 04/14/23 12/13/23 History topical cream Irritation quetiapine 25 mg tablet 25 mg PO HS #30 tabs 06/11/23 12/13/23 Rx cyanocobalamin (vitamin B-12) 1,000 mcg IM MONTHLY 07/23/23 12/13/23 History 1,000 mcg/mL injection solution famotidine 40 mg tablet 40 mg PO QAM 07/23/23 12/13/23 History tizanidine 2 mg tablet 2 mg PO BID PRN muscle spasticity 10/11/23 12/13/23 Rx #20 tabs tramadol 50 mg tablet 50 mg PO TID PRN pain #30 tabs 10/11/23 12/13/23 Rx clopidogrel 75 mg tablet 75 mg PO QAM 90 days #90 tabs 11/07/23 12/13/23 Rx atorvastatin 80 mg tablet 80 mg PO QAM 12/13/23 12/13/23 History cholecalciferol (vitamin D3) 50 2,000 unit PO QAM 12/13/23 12/13/23 History mcg (2,000 unit) capsule Past Med/Surg History Problem List (Updated 12/13/23 @ 19:41 by Buck Roa PA-C) Dehydration Acute confusion (Acute) Lumbar scoliosis Low back pain with sciatica Fall (Acute) Syncope Seizure-like activity Acute CVA (cerebrovascular accident) (Acute) Mediastinal lymphadenopathy COVID (Acute) Cerebrovascular disease Mild cognitive impairment Nocturnal hypoxemia Vitamin D deficiency Cognitive impairment Dementia Carotid stenosis S/P right carotid endarterectomy (2008) No significant ICA stenosis per 05/2021 carotid doppler Impacted cerumen of both ears S/P total knee replacement using cement Left knee DJD Tremor (Chronic) Thyroglossal duct cyst (Chronic) Schatzki's ring (Chronic) Osteoarthritis of knee (Chronic) Lumbar canal stenosis (Chronic) Disc degeneration, lumbar (Chronic) Hoarseness Dysfunction of eustachian tube Pressure sensation in right ear Dysphonia LPRD (laryngopharyngeal reflux disease) 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 H/O: stroke Gait apraxia of elderly Imbalance H/O carotid endarterectomy Sensorineural hearing loss (SNHL) of both ears SNHL (sensorineural hearing loss) Chronic cerebral ischemia (Chronic) Osteoporosis (Chronic) Dyslipidemia (Chronic) Medical History Lumbar radiculopathy Confusion Pneumonia Obstructive sleep apnea B12 deficiency Hx of TIA (transient ischemic attack) and stroke GERD (gastroesophageal reflux disease) Elevated troponin Subclavian artery stenosis History of breast cancer Schatzki's ring Osteoarthritis Degenerative disc disease Tremor GERD (gastroesophageal reflux disease) Ocular migraine Left thalamic infarction Surgical History History of knee replacement procedure of left knee Status post total knee replacement using cement Nausea and vomiting after administration of anesthetic agent History of cataract surgery History of esophageal dilatation History of oophorectomy, unilateral History of removal of ovarian cyst History of dilation and curettage History of colonoscopy Status post breast lumpectomy H/O foot surgery H/O endarterectomy Family History Mother CHF (congestive heart failure) Father Epilepsy Colon cancer Pulmonary fibrosis Family/Other Breast cancer Other No family history of adverse response to anesthesia Social History Smoking Status: Never smoker Second Hand Exposure: No; Do You Dip or Chew Tobacco: No; Hx Alcohol Use: No Hx Substance Use: No Preferred Language: Hungarian Communication Ability: Impaired Communication Ability Comment: forgetful Visual Impairment: No Limitations Hearing Ability: Normal Box Office Manager Required: No Beliefs That Will Affect Care: None marital status: Single Current Living Situation: Alone and Other Current Living Situation Comment: caregivers 4 hours during day and at night current occupational status: employed 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, 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, 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 Other Information That Helps Us Care for You: No Feels Safe at Home: Yes Safety Concerns: Feels Safe At This Time Assistive Devices: CPAP, Glasses and Walker Assistive Devices Comment: home rollator Physical Exam Physical Exam: Physical Exam: General: In no acute distress, stated age, non-toxic appearing HEENT: Normocephalic, atraumatic, no scleral icterus, pupils around round, symmetrical, and reactive to light, Dry mucus membranes, trachea midline, no thyromegaly Chest/Pulm: No respiratory distress, symmetrical chest expansion, clear breath sounds throughout Cardiac: RRR, no murmurs noted Abdomen: Negative for ascites and bruising, normoactive bowel sounds, soft, non-tender to palpation throughout Musculoskeletal: Symmetrical and without signs of acute trauma, upper and lower extremities with full ROM, no atrophy, spasticity, or flaccidity Extremities: Radial, dorsalis pedis, and posterior tibial pulses are intact and symmetrical, no edema noted in the BL LE's Skin: Warm, dry, no rashes , lesions, or scars noted Neuro: Alert and oriented to person, place, but not to month or year, no focal defects, CN II-XII tested and intact, no tremors noted Psych: Pleasantly confused, frequently repeats herself, No acute distress, calm and cooperative during the exam Results & Data Results & Data Vital Signs (Past 12 Hours) Vital Signs Temp Pulse Pulse Resp BP BP Pulse Ox 12/13/23 16:37 85 18 169/84 H 96 12/13/23 16:07 78 12/13/23 14:22 36.7 C 95 H 20 135/96 95 O2 Del Method 12/13/23 16:37 Room Air 12/13/23 16:07 12/13/23 14:22 Room Air Laboratory Results Abnormal lab results 12/13/23 Range/Units 15:50 MCHC 31.9 L (32.0-36.0) g/dL MPV 8.5 L (9.4-12.4) fL Neut # (Auto) 6.73 H (1.40-6.50) K/uL Lymph # (Auto) 0.52 L (1.20-3.40) K/uL Glucose 117 H (70-99(Fasting)) mg/dl Troponin I High Sens 14.1 H (0-14) pg/ml Urine Protein 1+ H (Negative) Ur Leukocyte Esterase Trace H (Negative) Urine RBC (Auto) 6-10 H (0-2) /hpf Diagnostic Findings Head CT 12/13/23 14:41 CT SCAN OF THE BRAIN WITHOUT IV CONTRAST CLINICAL HISTORY: Change in mental status. Generalized weakness. COMPARISON STUDY: CT of the brain dated 10/05/2023. TECHNIQUE: Unenhanced axial CT scan of the brain is performed from the vertex to the skull base. A dose lowering technique was utilized adhering to the principles of ALARA. 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 There is no hemorrhage, mass effect, or evidence of acute territorial ischemia by CT criteria. Thomas-white matter differentiation is preserved. No extra-axial fluid collection is seen. Ventricles, sulci, cisterns: Prominent secondary to involutional change. Intracranial vasculature: There is atherosclerotic calcification of the cavernous carotid and vertebral arteries. Calvarium: Unremarkable. Sinuses and mastoids: There is mild mucosal thickening in the left maxillary antrum. The remaining paranasal sinuses are clear. The mastoid air cells are well pneumatized. Orbits: The bony orbits are grossly intact. There are bilateral ocular lens implants. IMPRESSION: There is no hemorrhage, mass effect, or evidence of acute territoria l ischemia by CT criteria. ACT 112: Negative or not required by law. Electronically signed by: Miguelito Goldman M.D. 12/13/2023 3:15 PM ECG Additional Comments: Normal sinus rhythm Normal ECG When compared with ECG of 05-OCT-2023 12:49, No significant change was found Confirmed by Giancarlo Tracey ([id number]) on 12/13/2023 6:34:30 PM Code Status & VTE Plan Code Status Full code VTE Prophylaxis Plan VTE Prophylaxis will be ordered: Yes Supervising Physician Co-Signing Physician Notes Attending addendum: I have physically seen this patient, have supervised the KAITLIN's activities, and agree with the H&P unless as otherwise noted. Assessment and Plan: Confusion- The patient will be admitted to telemetry for serial cardiac enzymes, serial EKG's, cardiac rhythm monitoring and a 2-D echocardiogram with Dopplers. Per family, the patient has been improving while in the ED, but is still not back to her baseline CT scan brain shows no hemorrhage, mass effect or evidence of acute territorial ischemia by CT criteria. MRI of brain showed no evidence of acute intracranial pathology. There are advanced nonspecific white matter changes. Tiny remote ischemic injuries of the right cerebellum. Dilated perivascular space or remote lacunar infarct of the left thalamus. Moderate ventriculomegaly. CTA of head from 10/05/2023 at that time showed severe focal stenosis within the distal right anterior cerebral artery. Left anterior cerebral artery was patent. Focal area of severe stenosis was noted within the distal left vertebral artery. Multifocal areas of mild to moderate stenosis of the bilateral highway landscape architect. Patient is showing significant signs of dehydration from decreased oral intake, and has had an episode or so of loose stools that may be contributing to dehydration. Dehydration combination with multifocal vascular disease in the brain may be resulting in mild encephalopathy, that is now improving confusion after getting some IV fluid rehydration LR at 80 mL/h x 1 L Would allow permissive hypertension systolic blood pressure 150-160 to allow adequate brain perfusion Potential factors contributing to confusion include but not limited to: Urinary tract infection, dehydration, progression of vascular disease, progressive dementia, side effect of tramadol and/or tizanidine Continue clopidogrel 75 mg daily. Patient has had issues with NSAIDs in the past, so would avoid adding aspirin Consult PT/OT Dementia- Continue Seroquel Hyperlipidemia- Continue atorvastatin PG Care Time/CCT Total # of Minutes Spent Total Time Spent with Patient: Total time spent is greater than 50% in coordination of care (as documented) at patient's floor/unit and/or counseling patient: Coding [place] [address] INT INP/OBS CARE MIN Patient Type Established Medical Decision Making Moderate Complexity Diagnoses Confusion R41.0 Dementia F03.90 Chronic cerebral ischemia I67.82 Dehydration E86.0 Nocturnal hypoxemia G47.34
[2023-12-13] MEDS ORDERED: ACETAMINOPHEN 325 MG TAB PO PRN (19:39)
[2023-12-13] MEDS: LACTATED RINGER'S 1,000 ML IV SCH (23:13)
[2023-12-13] MEDS: QUEtiapine FUMARATE 25 MG TABLET PO SCH (23:28)
--- NOTE | 2023-12-14 00:56 | Magnetic Resonance Report ---
Exam(s): MRI HEAD Without Contrast EXAM: MR Head Without Intravenous Contrast CLINICAL HISTORY: Reason for exam: increased confusion,severe cerebrovascular disease. TECHNIQUE: Magnetic resonance images of the head/brain without intravenous contrast in multiple planes. COMPARISON: Comparison made to prior head CT from December 13, 2023. FINDINGS: Brain: Tiny remote ischemic injuries of the right cerebellum. Dilated perivascular space or remote lacunar infarct of the left thalamus. Advanced nonspecific white matter changes. The flow voids at the base of the brain are intact. No mass. No hemorrhage. No acute infarct. Ventricles: Moderate ventriculomegaly. Bones/joints: Unremarkable. No acute fracture. Sinuses: Unremarkable as visualized. No acute sinusitis. Mastoid air cells: Unremarkable as visualized. No mastoid effusion. Orbits: Unremarkable as visualized. IMPRESSION: No evidence of acute intracranial pathology. Advanced nonspecific white matter changes. Electronically signed by: Karis Fuentes MD 12/14/23 00:56 AM
[2023-12-14 06:46] LABS: Basophils # (auto) 0.04 K/uL (0.00-0.20); Basophils % (auto) 0.7 %; Eosinophils # (auto) 0.07 K/uL (0.00-0.50); Eosinophils % (auto) 1.2 %; Hematocrit (blood only) 38.4 % (37.0-47.0); Hemoglobin 12.5 g/dl (12.0-16.0); Immature Granulocytes # (auto) 0.01 K/uL (0.01-0.20); Immature Granulocytes % (auto) 0.2 %; Lymphocytes # (auto) 0.85 K/uL (1.20-3.40); Lymphocytes % (auto) 14.6 %; Mean Corpuscular Hemoglobin 29.6 pg (25.0-34.0); Mean Corpuscular Hgb Conc 32.6 g/dL (32.0-36.0); Monocytes # (auto) 0.54 K/uL (0.11-0.59); Monocytes % (auto) 9.2 %; Neutrophils # (auto) 4.33 K/uL (1.40-6.50); Neutrophils % (auto) 74.1 %; Platelet Count 276 K/uL (130-400); RDW Coefficient of Variation 13.7 % (11.5-14.5); RDW Standard Deviation 45.6 fL (36.4-46.3); Red Blood Count 4.22 M/uL (4.20-5.40); White Blood Count 5.84 K/ul (4.8-10.8)
[2023-12-14 07:00] LABS: BUN Creatinine Ratio 16.7 (10-20); Creatinine Clr Calc Pharmacy 41.5 ml/min; Est GFR (Non-African American) 63.8 ml/min; Potassium 3.8 mmol/L (3.5-5.1)
[2023-12-14] MEDS: FAMOTIDINE 40 MG TABLET PO SCH (09:52)
[2023-12-14] MEDS: CLOPIDOGREL BISULFATE 75 MG TAB PO SCH (09:52)
[2023-12-14] MEDS: ATORVASTATIN 40 MG TAB PO SCH (09:52)
[2023-12-14 10:00] LABS: Adenovirus F 40/41 PCR Not Detected (NotDetected); Astrovirus PCR Not Detected (NotDetected); Campylobacter PCR Not Detected (NotDetected); Cryptosporidium PCR Not Detected (NotDetected); Cyclospora cayetanensis PCR Not Detected (NotDetected); Entamoeba histolytica PCR Not Detected (NotDetected); Enteroaggregative E.coli(EAEC) Not Detected (NotDetected); Enteropathogenic E.coli (EPEC) Not Detected (NotDetected); Enterotoxigenic E.coli (ETEC) Not Detected (NotDetected); Giardia lamblia PCR Not Detected (NotDetected); Norovirus GI/GII PCR Not Detected (NotDetected); Plesiomonas shigelloides PCR Not Detected (NotDetected); Rotavirus A PCR Not Detected (NotDetected); Salmonella PCR Not Detected (NotDetected); Sapovirus PCR Not Detected (NotDetected); Shiga-like Toxin E.coli (STEC) Not Detected (NotDetected); Shigella/Enteroinvasive E.coli Not Detected (NotDetected); Vibrio cholerae PCR Not Detected (NotDetected); Vibrio species PCR Not Detected (NotDetected); Yersinia enterocolitica PCR Not Detected (NotDetected)
--- NOTE | 2023-12-14 12:25 | Discharge Summary ---
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 She was noted to be hypertensive at 169/84, tachycardic at 95, but otherwise stable. Labs including CBC, CMP, Pro-Noble, UA, full respiratory BioFire unremarkable.High- sensitivity troponin was marginally elevated at 14.1. CT of the head and brain without IV contrast was read as negative for acute findings. The patient received no medications while in the ED. Patient was sitting in bed in no acute distress at time of exam with 2 of her neighbors/friends present. History is mainly obtained from the patient's friends due to her current mental status. Her neighbors explained that the patient has known dementia and often gets dehydrated as she forgets to drink water and is also prone to UTIs. She will have increased levels of confusion and dehydrated when she has UTIs. She does have a caregiver which stays with her during the day for approximately 8 hours and has another caregiver for that stays with her overnight, but she does not have 24/7 care at this time. They state that due to the increased confusion earlier today her caregiver tried to take her to outpatient clinic for urinalysis, however, she was too dehydrated to give a urine sample which is why they presented to the ED. When asked, the patient denies any complaints at this time besides feeling a little more confused than usual. She denies any headaches, vision changes, paresthesias, unilateral weakness, chest pain, shortness of breath, nausea, vomiting, dumping, dysuria/hematuria, diarrhea, and neighbors do not believe she has had recent fall/trauma. Of note, the patient was neurology on 10/24/2023. Prior to this visit the patient underwent CT of the head brain without contrast, CTA of the head and CTA neck. CT of the head was read as severe focal stenosis within the distal right anterior cerebral artery unchanged. Left anterior cervical arteries patent. Fo noble areas of severe stenosis within the distal left vertebral artery unchanged. Multifocal areas of high-grade stenosis within the bilateral lean consultant unchanged for aneurysm or occlusion within the cerebral arteries. CT of the neck was read as negative for left vertebral artery with multifocal areas of stenosis and occlusion. This is similar to prior study and is considered chronic. Mild stenosis approximate 50% within the proximal left internal carotid artery, unchanged. No significant stenosis or occlusion within the right carotid arteries or right vertebral artery. There is a 1.9 cm anterior mediastinal nodule/lymph again noted. The patient's neighbors explained that the patient's niece/POA is currently traveling to [facility] to assist with coordination of care for her Aunt. Principal Diagnosis Dehydration, acute encephalopathy Discharge Exam The patient is awake, alert and oriented 3, well developed and well nourished, normocephalic and atraumatic, lying in bed and in no acute distress. HEENT--PERRL, EOMI, mucous membranes and oropharynx mildly dry Neck--supple. No JVD. No bruits. Thyroid normal, trachea midline, no adenopathy. Heart--normal S1 and S2. No murmurs, rubs or gallops. Lungs--clear bilaterally, no respiratory distress, no accessory muscle use. Abdomen--normal bowel sounds and soft. Extremities--no cyanosis or clubbing. No edema. Dermatologic--normal skin turgor, normal color, no abnormal lymph nodes, no rash. Neurologic--cranial nerves II through XII grossly intact. Rheumatologic--normal range of motion. Psychiatric--normal affect. Discharge Data Allergies Allergy/AdvReac Type Severity Reaction Status Date / Time neomycin Allergy Intermediate Rash Verified 12/12/23 13:31 nabumetone [From Relafen] Allergy Mild Redness of Verified 12/12/23 13:31 Skin loperamide [From Imodium A-D] AdvReac Intermediate Rapid Verified 12/12/23 13:31 heart rate lorazepam [From Ativan] AdvReac Intermediate Anxiety Verified 12/12/23 13:31 zolpidem [From Ambien] AdvReac Intermediate Anxiety Verified 12/12/23 13:31 Consultations 12/13/23 19:15 ED Decision to Admit Stat Ordered Studies 12/13/23 14:41 CT head/brain wo con Stat 12/13/23 20:34 MRI Brain [MR brain wo con] Routine Hospital Course (1) Confusion: Most likely due to dehydration, much improved following IV hydration Currently stable and nontoxic-appearing Presented to the ED via her caregiver due to increased confusion compared to baseline consistent with previous episodes of dehydration and UTI Was brought to the ED as they were unable to get a urine sample at the acute care clinic CT head and brain without contrast was negative for acute findings, no acute metabolic derangements on labs including UA Patient appears dehydrated on exam with very dry mucous membranes, neurologic exam is nonfocal and consistent with her known dementia -However much improved following IV hydration -Plan is to discharge home, she is currently at her baseline as corroborated by her niece. (2) Dementia: --Continue at bedtime Seroquel to help patient sleep overnight and to try and prevent sundowning (3) Chronic cerebral ischemia: Continue Plavix and statin Will give IV hydration overnight and allow mild permissive hypertension to assist with perfusion with her known chronic ischemia (4) Dehydration: Light IV hydration overnight per condition plan (5) Nocturnal hypoxemia: Patient has a history of CB and has been reported to use HS CPAP in the past We will hold at bedtime CPAP tonight and use as needed O2 as she is too confused to safely protect her own airway Plan I spoke to the niece who is the POA, patient is much improved and has an appointment to see a Local Sales Manager tomorrow. Will discharge today Total Time Total Time Spent Total Time Spent (In Minutes): 35 Discharge Plan Discharge Items Patient Disposition: Home - Self-Care Reason For Visit: CONFUSION, DEHYDRATION Discharge Diagnosis: dehydration, acute encephalopathy Activity: Resume your previous activity Non-emergency contact: Primary Care Provider Call non-emergency contact if: you have any medication questions Follow-up/Referrals: Jay Duval MD [Primary Care Provider] - Diet: Regular Addtl Attending Provider Instructions: Please follow-up with your regular PCP, follow-up with appointment with geriatrics tomorrow Pending Studies at Discharge: No Stand-Alone Forms: My [employer], Smoking Cessation Medications and DC Order Prescriptions: New cephalexin 250 mg capsule 250 mg PO BID 5 Days Qty: 10 0RF Continued clopidogrel 75 mg tablet 75 mg PO QAM 90 Days Qty: 90 1RF triamcinolone acetonide 0.1 % cream 1 applic TOPICAL BID PRN (Reason: Skin Irritation) acetaminophen [Tylenol Extra Strength] 500 mg tablet 1,000 mg PO Q6 PRN (Reason: Pain) Rx Instructions: PER PT "USUALLY ONCE IF NOT TWICE A DAY". (DME) BD SafetyGlide Syringe 3 mL 23 x 1" syringe See Rx Instructions .MEDSUPPLY Qty: 50 0RF Rx Instructions: As directed tramadol 50 mg tablet 50 mg PO TID PRN (Reason: pain) Qty: 30 0RF Rx Instructions: In addition to the tramadol, take acetaminophen either regular strength or extra, 2 pills. tizanidine 2 mg tablet 2 mg PO BID PRN (Reason: muscle spasticity) Qty: 20 1RF Rx Instructions: Once or twice a day for spasms PreserVision AREDS-2 250-90-40-1 mg Capsule 1 tab PO BID quetiapine 25 mg tablet 25 mg PO HS Qty: 30 1RF famotidine 40 mg tablet 40 mg PO QAM Rx Instructions: TAKE 1 TABLET BY MOUTH EVERY MORNING cyanocobalamin (vitamin B-12) 1,000 mcg/mL solution 1,000 mcg IM MONTHLY Rx Instructions: inject 1 mL once a month. atorvastatin 80 mg tablet 80 mg PO QAM Rx Instructions: TAKE 1 TABLET BY MOUTH EVERY MORNING cholecalciferol (vitamin D3) 50 mcg (2,000 unit) capsule 2,000 unit PO QAM Discharge Orders: Discharge Order (Routine); Ordered 12/14/23 Ordered By: Tad Sapp Admission Data Admit Date/Time: 12/13/23 19:38 Attending Provider: Tad Sapp Admit Provider: Edvin Ward Primary Care Provider: Jay Duval Other Providers: Edvin Ward Coding Level of Care Code INP/OBS EV SAME DAY LV 2,70MIN Diagnoses Confusion R41.0 Dementia F03.90 Chronic cerebral ischemia I67.82 Dehydration E86.0 Nocturnal hypoxemia G47.34 Time Spent (min) 35
== END 2023-12-14 14:29 | disposition home or self-care (01) ==
LOC: ED 14:17 → 2N 14:17 → SUATTDRO 19:38 → 2N 22:50

== ENCOUNTER 2023-12-24 11:24 | Observation (INO) ==
[2023-12-24] MEDS: ACETAMINOPHEN 500 MG TAB PO STA (11:58)
--- NOTE | 2023-12-24 12:02 | Emergency Department Note ---
Impression & Plan Fall, Closed fracture of transverse process of thoracic vertebra, Multiple fractures of ribs, left side, initial encounter for closed fracture ED Provider Note NAME: CLYDE CHAUHAN AGE: 83 SEX: Female INFORMANT: Patient ED PROVIDER(S): Jay Short MD CHIEF COMPLAINT: Fall PLAN: Disposition: Discharged Outpatient prescription management: none Referral: PCP follow-up. MEDICAL DECISION MAKING: Patient presented because of an axonal fall. She was doing well today just had an accident per the patient and caregiver. No confusion reported. Patient given Tylenol. Primary and secondary survey is only revealed tenderness in the left posterior ribs in the mid scapular region. Patient underwent imaging of her back as well as her head. No intracranial process. Patient does have 2 nondisplaced left rib fractures in the area of associated thoracic left-sided transverse process fractures. She has a total of 5 transverse process fractures. Due to concerns about age and mobility along with pain control I discussed inpatient evaluation and management. Patient and caregiver in agreement. Patient did have a Lidoderm patch applied. She was also given tramadol. She was very reluctant to take any stronger pain medication. Consultation was made with Dr. Wade Zuniga of the [facility] service. Patient was evaluated in the ER for further management. 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 Turcios of spine. Case discussed and diagnostics were reviewed with him. He recommended pain management as this areas not amenable to bracing or other treatments. Care/management discussed with: none Level of care consideration(s): After review of the information above and other included data, I feel the patient can be managed safely as an outpatient Triage Nursing notes: reviewed and agree them. Vital Signs: reviewed and remarkable for mild hypertension Additional History obtained from: none Chronic Medical/Social Conditions affecting care: Dementia, gait disturbance Prior/ Outside/ External records reviewed: none Differential Diagnosis: Fracture, subluxation, dislocation, contusion, ligamentous injury, as well as other pathologies. Diagnostics, independently interpreted by me: ECG: none Cardiac Monitoring: none Medical decision rules: none Imaging studies: Head CT: A noncontrast CT scan of the head was performed and was negative for tumor, fracture, intracranial hemorrhage, or other acute pathology. CT imaging of the chest reveals left-sided transverse process and rib fractures as noted above. I refer you to the EMR for further details. HPI: 83 year old Female arrives for evaluation of left upper back pain. Patient was trying to walk up the steps and missed the handrail. Caregiver noted that she fell onto her backside. Patient feels like she strained her left upper back trying to reach during the fall. Pain is rated 10 out of 10. She took no medication for this. Patient and caregiver state that she has been in normal health recently. There has been no confusion or similar problems that resulted in prior ER visits. Pt denies LOC, headache, visual changes, neck pain, chest pain, breathing difficulties, nausea, vomiting, abdominal pain, lower back pain, extremity pain, numbness, weakness, open wounds, active bleeding, or other complaints. PAST MEDICAL HISTORY: See Below, dementia PAST SURGICAL HISTORY: See Below, SOCIAL HISTORY: See Below, retired HOME MEDICATIONS: See Below ALLERGIES: See Below VITALS: See Below PHYSICAL EXAMINATION: GENERAL: Awake, alert, well-appearing, in no distress HENT: Normocephalic, atraumatic. Oropharynx unremarkable. EYES: Normal conjunctiva. Sclera non-icteric. PERRLA NECK: Inspection normal. Non-tender. Supple. No nuchal rigidity. FROM. No masses. RESPIRATORY: Clear to auscultation. No wheezes. No rales. Normal respiratory effort. CARDIAC: Normal rate. Normal rhythm. No murmurs. No rubs. Extremities warm and well perfused. Pulses equal. No JVD. GI: Soft, non-distended. No tenderness to palpation. No rebound or guarding. No masses. MUSCULOSKELETAL: Atraumatic. Chest examination reveals no tenderness. The back is symmetrical on inspection without obvious abnormality. There is left posterior rib tenderness in the mid scapular region and paraspinal muscle tenderness. There is no CVA tenderness to palpation. No joint edema. Calves are equal size bilaterally and non-tender. Trace edema. No discoloration. No hip or knee tenderness to palpation. NEURO: Normal sensorium. No sensory or motor deficits noted. SKIN: No rash or jaundice noted. PROCEDURES: none CRITICAL CARE: none OBSERVATION NOTE: none Past Med/Surg History Problem List (Updated 12/24/23 @ 19:26 by Jay Short MD) Multiple fractures of ribs, left side, initial encounter for closed fracture (Acute) Closed fracture of transverse process of thoracic vertebra (Acute) Fracture of transverse process of thoracic vertebra Fall (Acute) Dehydration Acute confusion (Acute) Lumbar scoliosis Low back pain with sciatica Fall (Acute) Syncope Seizure-like activity Acute CVA (cerebrovascular accident) (Acute) Mediastinal lymphadenopathy COVID (Acute) Cerebrovascular disease Mild cognitive impairment Nocturnal hypoxemia Vitamin D deficiency Cognitive impairment Dementia Carotid stenosis S/P right carotid endarterectomy (2008) No significant ICA stenosis per 05/2021 carotid doppler Impacted cerumen of both ears S/P total knee replacement using cement Left knee DJD Tremor (Chronic) Thyroglossal duct cyst (Chronic) Schatzki's ring (Chronic) Osteoarthritis of knee (Chronic) Lumbar canal stenosis (Chronic) Disc degeneration, lumbar (Chronic) Hoarseness Dysfunction of eustachian tube Pressure sensation in right ear Dysphonia LPRD (laryngopharyngeal reflux disease) 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 H/O: stroke Gait apraxia of elderly Imbalance H/O carotid endarterectomy Sensorineural hearing loss (SNHL) of both ears SNHL (sensorineural hearing loss) Chronic cerebral ischemia (Chronic) Osteoporosis (Chronic) Dyslipidemia (Chronic) Medical History Lumbar radiculopathy Confusion Pneumonia Obstructive sleep apnea B12 deficiency Hx of TIA (transient ischemic attack) and stroke GERD (gastroesophageal reflux disease) Elevated troponin Subclavian artery stenosis History of breast cancer No arm restriction per pt- R breast CA 04/200202 GRADE 1 ER +/HER-2 Neg Schatzki's ring Osteoarthritis Degenerative disc disease Tremor Mild GERD (gastroesophageal reflux disease) Ocular migraine 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 Allen Surgical History History of knee replacement procedure of left knee Status post total knee replacement using cement Right Nausea and vomiting after administration of anesthetic agent with colonoscopy History of cataract surgery History of esophageal dilatation History of oophorectomy, unilateral Right History of removal of ovarian cyst History of dilation and curettage History of colonoscopy Status post breast lumpectomy Right Breast CA- Tx with XRT and Arimidex x 5 yrs./ ER + HER-2/abisai neg. H/O foot surgery BUNION, CURLED TOES, RIGHT SIDE H/O endarterectomy Right Family History Mother , Mother age 85 of congestive heart failure CHF (congestive heart failure) Father , Father age 81 of pulmonary fibrosis Epilepsy Colon cancer Pulmonary fibrosis Family/Other Breast cancer Other No family history of adverse response to anesthesia Social History Smoking Status: Never smoker Second Hand Exposure: No; Do You Dip or Chew Tobacco: No; Hx Alcohol Use: No Hx Substance Use: No Preferred Language: Monegasque Communication Ability: Impaired Communication Ability Comment: forgetful Visual Impairment: No Limitations Hearing Ability: Normal Report Programmer Required: No Beliefs That Will Affect Care: None marital status: Single Current Living Situation: Alone and Other Current Living Situation Comment: caregivers 4 hours a day and at night current occupational status: employed current occupation: [employer], 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, 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 Other Information That Helps Us Care for You: No Feels Safe at Home: Yes Safety Concerns: Feels Safe At This Time Assistive Devices: Walker Allergies Allergies Allergy/AdvReac Type Severity Reaction Status Date / Time neomycin Allergy Intermediate Rash Verified 12/12/23 13:31 nabumetone [From Relafen] Allergy Mild Redness of Verified 12/12/23 13:31 Skin loperamide [From Imodium A-D] AdvReac Intermediate Rapid Verified 12/12/23 13:31 heart rate lorazepam [From Ativan] AdvReac Intermediate Anxiety Verified 12/12/23 13:31 zolpidem [From Ambien] AdvReac Intermediate Anxiety Verified 12/12/23 13:31 Home Meds Home Medications Medication Instructions Recorded Confirmed acetaminophen 500 mg tablet 1,000 mg PO Q6 PRN Pain 03/25/19 12/24/23 (Tylenol Extra Strength) vit C 250 mg-vit E 90 mg-zinc 40 1 tab PO BID 10/14/21 12/24/23 mg-copper 1 [id number] capsule (PreserVision AREDS-2) triamcinolone acetonide 0.1 % 1 applic topical BID PRN Skin 04/14/23 12/24/23 topical cream Irritation cyanocobalamin (vitamin B-12) 1,000 mcg IM MONTHLY 07/23/23 12/24/23 1,000 mcg/mL injection solution famotidine 40 mg tablet 40 mg PO QAM 07/23/23 12/24/23 atorvastatin 80 mg tablet 80 mg PO QAM 12/13/23 12/24/23 cholecalciferol (vitamin D3) 50 2,000 unit PO QAM 12/13/23 12/24/23 mcg (2,000 unit) capsule Previous Rx's Medication Instructions Recorded syringe with needle 3 mL 23 x 1" #50 ea 03/10/23 (BD SafetyGlide Syringe) quetiapine 25 mg tablet 25 mg PO HS #30 tabs 06/11/23 tizanidine 2 mg tablet 2 mg PO BID PRN muscle spasticity 10/11/23 #20 tabs tramadol 50 mg tablet 50 mg PO TID PRN pain #30 tabs 10/11/23 clopidogrel 75 mg tablet 75 mg PO QAM 90 days #90 tabs 11/07/23 Results & Data (ED) Vital Signs Vital Signs - 24 hr 12/24/23 11:27 Temperature 36.9 C Temperature Source Oral Pulse Rate 67 Respiratory Rate 16 Respiratory Effort / Characteristics Non-Labored Spontaneous Respiratory Depth Normal Blood Pressure 156/78 H Blood Pressure Mean 104 Pulse Oximetry 99 Oxygen Delivery Method Room Air Sepsis Recent Fever Within 48 Hours No Sepsis New/Unexplained Change in Mental Status No Sepsis Action Taken by Nursing No Action Required Laboratory Data 12/24/23 13:05 12/24/23 13:05 Lab Results 12/24/23 Range/Units 13:05 WBC 7.29 (4.8-10.8) K/ul RBC 4.49 (4.20-5.40) M/uL Hgb 13.3 (12.0-16.0) g/dl Hct 42.2 (37.0-47.0) % MCV 94.0 (80.0-100.0) fL MCH 29.6 (25.0-34.0) pg MCHC 31.5 L (32.0-36.0) g/dL RDW Std Deviation 47.9 H (36.4-46.3) fL RDW Coeff of Shabnam 14.0 (11.5-14.5) % Plt Count 293 (130-400) K/uL MPV 8.7 L (9.4-12.4) fL Immature Gran % (Auto) 0.3 % Neut % (Auto) 75.2 % Lymph % (Auto) 11.9 % [place] % (Auto) 8.6 % Eos % (Auto) 3.3 % Baso % (Auto) 0.7 % Neut # (Auto) 5.48 (1.40-6.50) K/uL Lymph # (Auto) 0.87 L (1.20-3.40) K/uL [place] # (Auto) 0.63 H (0.11-0.59) K/uL Eos # (Auto) 0.24 (0.00-0.50) K/uL Baso # (Auto) 0.05 (0.00-0.20) K/uL Immature Gran # (Auto) 0.02 (0.01-0.20) K/uL Sodium 140 (136-145) mmol/L Potassium 4.3 (3.5-5.1) mmol/L Chloride 104 (98-107) mmol/L Carbon Dioxide 30 (21-32) mmol/L Anion Gap 6 (3-11) BUN 16 (6-23) mg/dl Creatinine 0.93 (0.6-1.2) mg/dl Est Cr Clr Drug Dosing Not Reportable Est GFR ( Amer) 65.4 ml/min Est GFR (Non-Af Amer) 56.4 ml/min BUN/Creatinine Ratio 17.2 (10-20) Glucose 104 H (70-99(Fasting)) mg/dl Calcium 9.8 (8.6-10.3) mg/dl Total Bilirubin 0.4 (0.2-1.0) mg/dl AST 15 (13-39) U/L ALT 12 (7-52) U/L Alkaline Phosphatase 71 (34-104) U/L Total Protein 7.3 (6.0-8.3) gm/dl Albumin 4.9 (3.4-5.0) gm/dl Globulin 2.4 L (2.5-4.0) gm/dl Albumin/Globulin Ratio 2.0 (0.9-2) Administered Medications Discontinued Medications Acetaminophen (Acetaminophen 500 Mg Tab) 1,000 mg PO NOW STA Stop: 12/24/23 11:54 Last Admin: 12/24/23 11:58 Dose: 1,000 mg Documented By: SNS Ketorolac Tromethamine (Ketorolac Tromethamine 15 Mg/Ml Vial) 10 mg IV NOW ONE Stop: 12/24/23 15:24 Last Admin: 12/24/23 15:56 Dose: 10 mg Documented By: LCD Lidocaine (Lidocaine 5% 1 Patch) 1 patch TD NOW STA Stop: 12/24/23 12:40 Last Admin: 12/24/23 12:54 Dose: 1 patch Documented By: VANI Tramadol HCl (Tramadol Hcl 50 Mg Tablet) 50 mg PO NOW STA Stop: 12/24/23 12:57 Last Admin: 12/24/23 13:21 Dose: 50 mg Documented By: VANI Imaging Data Radiologist's Impression: Chest CT 12/24/23 11:53 CT chest diagnostic wo con CT DOSE: 495.47 mGy.cm HISTORY: fall,L posterior rib/paraspinal pain-mid scapula TECHNIQUE: Multiaxial CT images of the chest were performed without contrast. A dose lowering technique was utilized adhering to the principles of ALARA. COMPARISON: Chest CT 06/10/2023. FINDINGS: There are nondisplaced left T5-T9 transverse process fractures. There are adjacent nondisplaced left posterior fifth and sixth rib fractures. There is S-shaped scoliosis of the thoracolumbar spine. The central airways are patent. There is mild elevation of the left hemidiaphragm, unchanged. No pneumothorax. No pleural effusions. A few bibasilar linear densities favor subsegmental atelectasis are scarring. No focal lung consolidations to suggest a pneumonia. Limited views of the upper abdomen demonstrate a normal liver, spleen, and adrenal glands. There is a tiny hiatus hernia. Otherwise, normal caliber esophagus. Normal thyroid gland. Mild calcified plaque within the normal caliber thoracic aorta. Severe coronary artery calcifications are noted. No pericardial effusion. The heart is normal in size. Stable 1.9 cm nodule within the anterior mediastinum otherwise, no mediastinal or hilar lymphadenopathy. IMPRESSION: 1. Acute nondisplaced left T5-T9 transverse process fractures. 2. Acute nondisplaced left posterior fifth and sixth rib fractures. No pneumothorax. 3. Stable 1.9 cm anterior mediastinal nodule. 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 ACT 112: Negative or not required by law. Electronically signed by: Alan Petersen M.D. 12/24/2023 12:[address] 12/24/23 12:[address] DOSE: 625.8 mGy.cm HISTORY: fall TECHNIQUE: Multiaxial CT images of the head were performed without the use of intravenous contrast. Automated exposure control was utilized for this study. A dose lowering technique was utilized adhering to the principles of ALARA. Comparison: Head CT 12/13/2023. Findings: The paranasal sinuses and mastoid air cells are clear. The calvarium and skull base are intact. There is no mass, hematoma, midline shift, acute infarct. White matter hypodensity is nonspecific but suggestive of advanced microvascular ischemic change. The ventricles and sulci demonstrate mild age- related involutional changes. Impression: No significant change compared to the prior study. No acute intracranial abnormality. ACT 112: Negative or not required by law. Electronically signed by: Alan Petersen M.D. 12/24/2023 1:23 PM Discharge Plan Visit Data Chief Complaint: Fall Stated Complaint: FALL, LEFT RIB AND BACK PAIN ED Provider: Jay Short Discharge Problem: Fall, Closed fracture of transverse process of thoracic vertebra, Multiple fractures of ribs, left side, initial encounter for closed fracture Patient Disposition: Admitted As Inpatient Discharge Instructions Interventions: ED Discharge Assessment Last Done: 12/24/23 17:10
--- NOTE | 2023-12-24 12:28 | CT Scan Report ---
CT chest diagnostic wo con CT DOSE: 495.47 mGy.cm HISTORY: fall,L posterior rib/paraspinal pain-mid scapula TECHNIQUE: Multiaxial CT images of the chest were performed without contrast. A dose lowering techni que was utilized adhering to the principles of ALARA. COMPARISON: Chest CT 06/10/2023. FINDINGS: There are nondisplaced left T5-T9 transverse process fractures. There are adjacent nondispl aced left posterior fifth and sixth rib fractures. There is S-shaped scoliosis of the thoracolumbar s pine. The central airways are patent. There is mild elevation of the left hemidiaphragm, unchanged. N o pneumothorax. No pleural effusions. A few bibasilar linear densities favor subsegmental atelectasis are scarring. No focal lung consolidations to suggest a pneumonia. Limited views of the upper abdome n demonstrate a normal liver, spleen, and adrenal glands. There is a tiny hiatus hernia. Otherwise, n ormal caliber esophagus. Normal thyroid gland. Mild calcified plaque within the normal caliber thorac ic aorta. Severe coronary artery calcifications are noted. No pericardial effusion. The heart is norm al in size. Stable 1.9 cm nodule within the anterior mediastinum otherwise, no mediastinal or hilar l ymphadenopathy. IMPRESSION: 1. Acute nondisplaced left T5-T9 transverse process fractures. 2. Acute nondisplaced left posterior fifth and sixth rib fractures. No pneumothorax. 3. Stable 1.9 cm anterior mediastinal nodule. 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 ACT 112: Negative or not required by law. Electronically signed by: Alan Petersen M.D. 12/24/2023 12:26 PM
[2023-12-24] MEDS: LIDOCAINE 5% 1 PATCH TD STA (12:54)
[2023-12-24] MEDS: traMADol HCL 50 MG TABLET PO STA (13:21)
[2023-12-24 13:25] LABS: Basophils # (auto) 0.05 K/uL (0.00-0.20); Basophils % (auto) 0.7 %; Eosinophils # (auto) 0.24 K/uL (0.00-0.50); Eosinophils % (auto) 3.3 %; Hematocrit (blood only) 42.2 % (37.0-47.0); Hemoglobin 13.3 g/dl (12.0-16.0); Immature Granulocytes # (auto) 0.02 K/uL (0.01-0.20); Immature Granulocytes % (auto) 0.3 %; Lymphocytes # (auto) 0.87 K/uL (1.20-3.40); Lymphocytes % (auto) 11.9 %; Mean Corpuscular Hemoglobin 29.6 pg (25.0-34.0); Mean Corpuscular Hgb Conc 31.5 g/dL (32.0-36.0); Mean Platelet Volume 8.7 fL (9.4-12.4); Monocytes # (auto) 0.63 K/uL (0.11-0.59); Monocytes % (auto) 8.6 %; Neutrophils # (auto) 5.48 K/uL (1.40-6.50); Neutrophils % (auto) 75.2 %; Platelet Count 293 K/uL (130-400); RDW Standard Deviation 47.9 fL (36.4-46.3); Red Blood Count 4.49 M/uL (4.20-5.40); White Blood Count 7.29 K/ul (4.8-10.8)
--- NOTE | 2023-12-24 13:26 | CT Scan Report ---
HEAD CT NONCONTRAST CT DOSE: 625.8 mGy.cm HISTORY: fall TECHNIQUE: Multiaxial CT images of the head were performed without the use of intravenous contrast. A utomated exposure control was utilized for this study. A dose lowering technique was utilized adheri ng to the principles of ALARA. Comparison: Head CT 12/13/2023. Findings: The paranasal sinuses and mastoid air cells are clear. The calvarium and skull base are int act. There is no mass, hematoma, midline shift, acute infarct. White matter hypodensity is nonspecifi c but suggestive of advanced microvascular ischemic change. The ventricles and sulci demonstrate mild age-related involutional changes. Impression: No significant change compared to the prior study. No acute intracranial abnormality. ACT 112: Negative or not required by law. Electronically signed by: Alan Petersen M.D. 12/24/2023 1:23 PM
[2023-12-24 13:41] LABS: Alanine Aminotransferase 12 U/L (7-52); Albumin Level 4.9 gm/dl (3.4-5.0); Alkaline Phosphatase 71 U/L (34-104); Anion Gap 6 (3-11); Aspartate Aminotransferase 15 U/L (13-39); BUN Creatinine Ratio 17.2 (10-20); Bilirubin,Total 0.4 mg/dl (0.2-1.0); Blood Urea Nitrogen 16 mg/dl (6-23); Calcium 9.8 mg/dl (8.6-10.3); Carbon Dioxide 30 mmol/L (21-32); Chloride 104 mmol/L (98-107); Est GFR (African American) 65.4 ml/min; Est GFR (Non-African American) 56.4 ml/min; Globulin 2.4 gm/dl (2.5-4.0); Glucose 104 mg/dl (70-99(Fasting)); Potassium 4.3 mmol/L (3.5-5.1); Sodium 140 mmol/L (136-145); Total Protein 7.3 gm/dl (6.0-8.3)
--- NOTE | 2023-12-24 14:35 | History & Physical Report ---
Date of Service December 24, 2023 Assessment & Plan (1) Fall: Plan: Fall Prior PT/OT with good strength and independent mobility although noted poor safety awareness due to distractibility/impulsivity and high risk for falls - Did not hit her head or lose consciousness. Did twist sideways and landed on her back - CThead is without acute findings CTchest shows acute nondisplaced T5-T9 transverse process fractures, acute nondisplaced left posterior fifth and sixth rib fractures. 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 Symptomatic management with Tylenol, lidocaine topical patch. 1 dose of tramadol given in the ER. Narcotics minimized due to risk of recurrent precipitating delirium/confusion requiring hospitalization PT/OT in the morning. Patient's acute pain currently limits her ability to ambulate. (2) Fracture of transverse process of thoracic vertebra: (3) Dementia: Plan: Confusion, cognitive decline Currently stable, at her cognitive baseline without increased confusion at time of admission Multiple episodes for progressive cognitive decline and recurrent confusion CThead today no acute findings No evidence of metabolic derangements on admission Previously on tizanidine/tramadol, hold these as may precipitate confusion Dementia Continue at bedtime Seroquel Chronic cerebral ischemia Continue statin, Plavix Plan Chronic Stable - History of CB: No confusion on admission. Continue CPAP at bedtime Prophylaxis: Garfield prophylaxis deferred due to acute fall with transverse fractures. SCDs Diet: Regular Disposition: Medical/surgical CODE STATUS: Full code Reviewed with dante over the phone. Is trying to set up 24 hour care, this is not yet available. PT/OT pending History of Present Illness Primary Care Provider: Jay Duval MD Iram is an 83-year-old female with multiple admissions for intermittent confusion and some cognitive decline who was recently discharged 12/14/2023 after an episode of confusion presents for evaluation of upper back pain after mechanical fall. She was walking upstairs went to grab the handle route and slipped causing her to fall. Currently has 10/10 pain. She does not take any blood thinners. Rate is seen at the bedside. She is seen with her caregiver present. They report that she had just showered and the caregiver gone to get a towel, Iram thought that she could use the stairs but her hands were still little bit wet so slipped reaching out for the railing and caused her to twist and fall striking h er back as she fell. She did not hit her head had no loss of consciousness and denies any head injury. She is not on any blood thinners. She denies shortness of breath, difficulty, chest pain, chest pressure, nausea, vomiting, vision change, blurry vision, headache. She has pain in her mid back which she rates as a 10 10 out of 10 and is limiting her ability to move. Otherwise feels at her normal state of health. She notes that the pain is causing some spasms which seem to come and a wave. Think she took her medications this morning. Medical History: Reviewed Medications: Reviewed Surgical History: Reviewed Family history: Reviewed Allergies: Reviewed Social History: Reviewed Code Status: Full code Allergies Allergy/AdvReac Type Severity Reaction Status Date / Time neomycin Allergy Intermediate Rash Verified 12/12/23 13:31 nabumetone [From Relafen] Allergy Mild Redness of Verified 12/12/23 13:31 Skin loperamide [From Imodium A-D] AdvReac Intermediate Rapid Verified 12/12/23 13:31 heart rate lorazepam [From Ativan] AdvReac Intermediate Anxiety Verified 12/12/23 13:31 zolpidem [From Ambien] AdvReac Intermediate Anxiety Verified 12/12/23 13:31 Home Medications Medication Instructions Recorded Confirmed Type acetaminophen 500 mg tablet 1,000 mg PO Q6 PRN Pain 03/25/19 12/24/23 History (Tylenol Extra Strength) vit C 250 mg-vit E 90 mg-zinc 40 1 tab PO BID 10/14/21 12/24/23 History mg-copper 1 [id number] capsule (PreserVision AREDS-2) syringe with needle 3 mL 23 x 1" #50 ea 03/10/23 12/13/23 Rx (BD SafetyGlide Syringe) triamcinolone acetonide 0.1 % 1 applic topical BID PRN Skin 04/14/23 12/24/23 History topical cream Irritation quetiapine 25 mg tablet 25 mg PO HS #30 tabs 06/11/23 12/24/23 Rx cyanocobalamin (vitamin B-12) 1,000 mcg IM MONTHLY 07/23/23 12/24/23 History 1,000 mcg/mL injection solution famotidine 40 mg tablet 40 mg PO QAM 07/23/23 12/24/23 History tizanidine 2 mg tablet 2 mg PO BID PRN muscle spasticity 10/11/23 12/24/23 Rx #20 tabs tramadol 50 mg tablet 50 mg PO TID PRN pain #30 tabs 10/11/23 12/24/23 Rx clopidogrel 75 mg tablet 75 mg PO QAM 90 days #90 tabs 11/07/23 12/24/23 Rx atorvastatin 80 mg tablet 80 mg PO QAM 12/13/23 12/24/23 History cholecalciferol (vitamin D3) 50 2,000 unit PO QAM 12/13/23 12/24/23 History mcg (2,000 unit) capsule Past Med/Surg History Problem List Fracture of transverse process of thoracic vertebra Upper back pain on left side (Acute) Fall (Acute) Dehydration Acute confusion (Acute) Lumbar scoliosis Low back pain with sciatica Fall (Acute) Syncope Seizure-like activity Acute CVA (cerebrovascular accident) (Acute) Mediastinal lymphadenopathy COVID (Acute) Cerebrovascular disease Mild cognitive impairment Nocturnal hypoxemia Vitamin D deficiency Cognitive impairment Dementia Carotid stenosis S/P right carotid endarterectomy (2008) No significant ICA stenosis per 05/2021 carotid doppler Impacted cerumen of both ears S/P total knee replacement using cement Left knee DJD Tremor (Chronic) Thyroglossal duct cyst (Chronic) Schatzki's ring (Chronic) Osteoarthritis of knee (Chronic) Lumbar canal stenosis (Chronic) Disc degeneration, lumbar (Chronic) Hoarseness Dysfunction of eustachian tube Pressure sensation in right ear Dysphonia LPRD (laryngopharyngeal reflux disease) 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 H/O: stroke Gait apraxia of elderly Imbalance H/O carotid endarterectomy Sensorineural hearing loss (SNHL) of both ears SNHL (sensorineural hearing loss) Chronic cerebral ischemia (Chronic) Osteoporosis (Chronic) Dyslipidemia (Chronic) Medical History Lumbar radiculopathy Confusion Pneumonia Obstructive sleep apnea B12 deficiency Hx of TIA (transient ischemic attack) and stroke GERD (gastroesophageal reflux disease) Elevated troponin Subclavian artery stenosis History of breast cancer No arm restriction per pt- R breast CA 04/200202 GRADE 1 ER +/HER-2 Neg Schatzki's ring Osteoarthritis Degenerative disc disease Tremor Mild GERD (gastroesophageal reflux disease) Ocular migraine 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 Allen Surgical History History of knee replacement procedure of left knee Status post total knee replacement using cement Right Nausea and vomiting after administration of anesthetic agent with colonoscopy History of cataract surgery History of esophageal dilatation History of oophorectomy, unilateral Right History of removal of ovarian cyst History of dilation and curettage History of colonoscopy Status post breast lumpectomy Right Breast CA- Tx with XRT and Arimidex x 5 yrs./ ER + HER-2/abisai neg. H/O foot surgery BUNION, CURLED TOES, RIGHT SIDE H/O endarterectomy Right Family History Mother , Mother age 85 of congestive heart failure CHF (congestive heart failure) Father , Father age 81 of pulmonary fibrosis Epilepsy Colon cancer Pulmonary fibrosis Family/Other Breast cancer Other No family history of adverse response to anesthesia Social History Smoking Status: Never smoker Second Hand Exposure: No; Do You Dip or Chew Tobacco: No; Hx Alcohol Use: No Hx Substance Use: No Preferred Language: Filipino Communication Ability: Effective Communication Ability Comment: forgetful Visual Impairment: No Limitations Hearing Ability: Normal Design Eng Required: No Beliefs That Will Affect Care: None marital status: Single Current Living Situation: Alone and Other Current Living Situation Comment: caregivers 4 hours during day and at night current occupational status: employed 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 Answers questions appropriately HEENT: Atraumatic, normocephalic. Pupils equal and reactive to light. Full neck range of motion without pain Pulm: CTAB A&P. -wheezes, -rales, -rhonchi. Symmetrical chest rise. No increased work of breathing. No respiratory distress. Cardiac: RRR, -mrg. Radial pulses intact and symmetrical. No rib crepitus. Abdominal: Nontender, nondistended, soft. BS present. Extremities: Moves all extremities equally, sensation to soft touch intact in hands and feet without deficit. Drop Hammer Pile Driver Operator strength and ankle dorsiflexion/plantarflexion and 5/5 and symmetrical bilaterally. Radial pulses intact. Spine: Midline spinal tenderness to palpation approx T3-T12. Results & Data Results & Data Vital Signs (Past 12 Hours) Vital Signs Temp Pulse Resp BP Pulse Ox O2 Del Method 12/24/23 11:27 36.9 C 67 16 156/78 H 99 Room Air PG Care Time/CCT Total # of Minutes Spent Total Time Spent with Patient: Total time spent is greater than 50% in coordination of care (as documented) at patient's floor/unit and/or counseling patient: Coding Level of Care Code 04068 INT INP/OBS CARE 255MIN Diagnoses Fall W19.XXXA Fracture of transverse process of thoracic vertebra S22.009A Dementia F03.90
[2023-12-24] MEDS: KETOROLAC TROMETHAMINE 15 MG/ML VIAL IV ONE (15:56)
[2023-12-24 17:13] LABS: Appearance Urine Clear (Clear); Bilirubin Urine Negative (Negative); Blood Urine Negative (Negative); Color Urine Yellow; Glucose Urine UA Negative (Negative); Ketones Urine Negative (Negative); Leukocyte Esterase Urine Negative (Negative); Nitrite Urine Negative (Negative); Protein Urine Negative (Negative); Specific Gravity Urine 1.011 (1.000-1.030); Urobilinogen Urine Negative (Negative); pH Urine 5.5 (4.5-7.5)
[2023-12-24] MEDS ORDERED: POLYETHYLENE (MIRALAX) 17 GM PACK PO PRN (17:50)
[2023-12-24] MEDS ORDERED: TRIAMCINOLONE ACET 0.1% CR 15 GM TUBE TOP PRN (17:50)
[2023-12-24] MEDS ORDERED: ACETAMINOPHEN 500 MG TAB PO PRN (17:50)
[2023-12-24] MEDS ORDERED: traMADol HCL 50 MG TABLET PO PRN (17:50)
[2023-12-24] MEDS: QUEtiapine FUMARATE 25 MG TABLET PO SCH (21:07)
[2023-12-25 06:52] LABS: Basophils # (auto) 0.02 K/uL (0.00-0.20); Basophils % (auto) 0.3 %; Eosinophils # (auto) 0.19 K/uL (0.00-0.50); Eosinophils % (auto) 3.1 %; Hematocrit (blood only) 35.8 % (37.0-47.0); Hemoglobin 11.6 g/dl (12.0-16.0); Immature Granulocytes # (auto) 0.02 K/uL (0.01-0.20); Immature Granulocytes % (auto) 0.3 %; Lymphocytes # (auto) 1.01 K/uL (1.20-3.40); Lymphocytes % (auto) 16.4 %; Mean Corpuscular Hemoglobin 29.9 pg (25.0-34.0); Mean Corpuscular Hgb Conc 32.4 g/dL (32.0-36.0); Mean Corpuscular Volume 92.3 fL (80.0-100.0); Mean Platelet Volume 8.7 fL (9.4-12.4); Monocytes # (auto) 0.56 K/uL (0.11-0.59); Monocytes % (auto) 9.1 %; Neutrophils # (auto) 4.35 K/uL (1.40-6.50); Neutrophils % (auto) 70.8 %; Platelet Count 266 K/uL (130-400); RDW Coefficient of Variation 13.9 % (11.5-14.5); RDW Standard Deviation 47.5 fL (36.4-46.3); Red Blood Count 3.88 M/uL (4.20-5.40); White Blood Count 6.15 K/ul (4.8-10.8)
[2023-12-25 07:14] LABS: Calcium 9.1 mg/dl (8.6-10.3); Creatinine Clr Calc Pharmacy 29.4 ml/min; Est GFR (African American) 48.5 ml/min; Est GFR (Non-African American) 41.9 ml/min; Potassium 4.5 mmol/L (3.5-5.1)
[2023-12-25] MEDS: ATORVASTATIN 40 MG TAB PO SCH (09:26)
[2023-12-25] MEDS: CLOPIDOGREL BISULFATE 75 MG TAB PO SCH (09:26)
[2023-12-25] MEDS: CHOLECALCIFEROL 25 MCG (1000 UNITS) TAB PO SCH (09:26)
[2023-12-25] MEDS: FAMOTIDINE 40 MG TABLET PO SCH (09:27)
--- NOTE | 2023-12-25 09:36 | Medical Student Progress Note ---
Date of Service December 25, 2023 Assessment & Plan (1) Fracture of transverse process of thoracic vertebra: Plan: Patient is a 83y/o female with a past medical history of dementia, gait apraxia, osteoporosis, and vitamin D deficiency who presented after ground level mechanical fall. Status: acute, stable. - Orthospine consulted - Hgb trending down. Continue monitoring Hgb level. - Continue Tylenol 500mg PO q4hr prn - Continue Lidocaine patch - Consult PT/OT (2) Multiple fractures of ribs, left side, initial encounter for closed fracture: Plan: Status: acute, stable. - Chest CT showed no evidence of pneumothorax - Continue Tylenol 500mg PO q4hr prn - Continue Lidocaine patch - Consult PT/OT (3) Fall: Plan: Status: acute, stable. - Patient did not lose consciousness or hit head. - CT head showed no evidence of acute intracranial abnormality - Consult PT/OT (4) Dementia: Plan: Status: chronic, stable. - CT head without evidence of acute intracranial abnormality - No evidence of metabolic derangements on admission - Continue Seroquel - Previously on tizanidine/tramadol, hold these as may precipitate confusion (5) Chronic cerebral ischemia: Plan: Status: chronic, stable. - CT head without evidence of acute intracranial abnormality - Continue atorvastatin 80mg PO daily - Continue Plavix 75mg PO daily (6) Obstructive sleep apnea: Plan: Status: acute, stable. - Continue CPAP at bedtime Plan Disposition: Medical/surgical Diet: Regular CODE STATUS: Full code DVT Prophylaxis: SCDs Admission and Anticipated Discharge Date Admission Date: December 24, 2023 Supervising Attestation Attending Physician Supervision Note: I independently interviewed and examined the patient and verified the malone history and physical, reviewed labs and image studies and agree with findings and care plan noted above. Pain overall better controlled with current medication regimen. Alert, Ox3 sitting in the chair. No distress. Fall with fracture of thoracic spine transverse process - -Continue pain control -Rehab on discharge Subjective Patient is a 83y/o female with a past medical history of dementia, gait apraxia, osteoporosis, and vitamin D deficiency who presented to the ED after a ground level mechanical fall. Patient states she did not lose consciousness at the time of the fall. She states she fell onto her L side which is where most of her pain is located. Workup in the ED revealed patient suffered nondisplaced T5-T9 transverse spinous process fractures and nondisplaced posterior 5th and 6th rib fractures on the left side without evidence of pneumothorax. Head CT showed no evidence of acute intracranial abnormality. Patient states she is continuing to have pain over the L posterolateral area of back. Patient rates the pain 9/10 and states the pain is not improved. Patient states the pain is worse with most movement and when sneezing or coughing. Patient did say she slept okay. Patient denies headache, CP, palpitation, SOB, abdominal pain, n/v, lightheadedness, or dizziness. Review of Systems Review of Systems: As per HPI. Physical Exam Physical Exam: General: Sitting upright in chair. Alert and oriented, in no acute distress. HEENT: Atraumatic, normocephalic. Pupils equal and reactive to light. Full neck range of motion without pain Pulm: Symmetrical chest rise. Breath sounds equal bilaterally. Lungs clear to auscultation bilaterally. No wheezes, rales, or rhonchi. No increased work of breathing. No respiratory distress. Tenderness to palpation over L posterior ribs. Cardiac: Regular rate and rhythm. No murmurs, rubs, or gallops. Capillary refill <2sec. Abdominal: Normal bowel sounds. Abdomen soft and nondistended. No tenderness to palpation. No guarding or rebound. No hepatosplenomegaly. Extremities: Moves all extremities equally. Sensation grossly intact in upper and lower extremities bilaterally. Rotary Planer Set Up Operator strength and ankle dorsiflex ion/plantarflexion and 5/5 and symmetrical bilaterally. Dorsalis pedis and posterior tibialis pulses palpable bilaterally. Spine: No spinous process tenderness to palpation. Tenderness to palpation over L superior paravertebral muscles. Results & Data Vital Signs (Past 12 Hours) Vital Signs Temp Pulse Resp BP Pulse Ox O2 Del Method 12/25/23 07:29 36.6 C 84 18 147/81 H 92 Room Air
[2023-12-25] MEDS: CEROVITE ADV FORMULA TAB PO SCH (09:55)
[2023-12-25] MEDS: CYANOCOBALAMIN 1000 MCG/ML VIAL IM SCH (10:35)
[2023-12-25] MEDS: ACETAMINOPHEN 500 MG TAB PO PRN (10:35)
[2023-12-25] MEDS: LIDOCAINE 5% 1 PATCH TD SCH (12:22)
[2023-12-26 07:15] LABS: Basophils # (auto) 0.04 K/uL (0.00-0.20); Basophils % (auto) 0.7 %; Eosinophils # (auto) 0.25 K/uL (0.00-0.50); Eosinophils % (auto) 4.5 %; Hematocrit (blood only) 38.7 % (37.0-47.0); Hemoglobin 12.2 g/dl (12.0-16.0); Immature Granulocytes # (auto) 0.02 K/uL (0.01-0.20); Immature Granulocytes % (auto) 0.4 %; Lymphocytes % (auto) 14.3 %; Mean Corpuscular Hemoglobin 29.1 pg (25.0-34.0); Mean Corpuscular Hgb Conc 31.5 g/dL (32.0-36.0); Mean Corpuscular Volume 92.4 fL (80.0-100.0); Mean Platelet Volume 8.7 fL (9.4-12.4); Monocytes % (auto) 8.9 %; Neutrophils # (auto) 3.99 K/uL (1.40-6.50); Neutrophils % (auto) 71.2 %; Platelet Count 251 K/uL (130-400); RDW Coefficient of Variation 14.1 % (11.5-14.5); Red Blood Count 4.19 M/uL (4.20-5.40)
[2023-12-26 07:31] LABS: BUN Creatinine Ratio 22.1 (10-20); Calcium 9.7 mg/dl (8.6-10.3); Creatinine Clr Calc Pharmacy 33.6 ml/min; Est GFR (African American) 57.1 ml/min; Est GFR (Non-African American) 49.3 ml/min
--- NOTE | 2023-12-26 08:24 | Medical Student Progress Note ---
Date of Service December 26, 2023 Assessment & Plan (1) Fracture of transverse process of thoracic vertebra: Plan: Patient is a 83y/o female with a past medical history of dementia, gait apraxia, osteoporosis, and vitamin D deficiency who presented after ground level mechanical fall. Status: acute, stable. - Orthospine reviewed the case - Continue Tylenol 500mg PO q4hr prn - Continue Lidocaine patch - Can use heating pad - Continue PT/OT. Recommended home with 24/7 care vs long-term placement upon discharge. - Hgb has improved from 11.6 to 12.2. Continue monitoring. (2) Multiple fractures of ribs, left side, initial encounter for closed fr acture: Plan: Status: acute, stable. - Chest CT showed no evidence of pneumothorax - Continue Tylenol 500mg PO q4hr prn - Continue Lidocaine patch - Can use heating pad - Continue PT/OT. Recommended placement with 24/7 care upon discharge. (3) Fall: Plan: Status: acute, stable. - Patient did not lose consciousness or hit head - CT head showed no evidence of acute intracranial abnormality - PT/OT consulted (4) Dementia: Plan: Status: chronic, stable. - CT head without evidence of acute intracranial abnormality - No evidence of metabolic derangements on admission - Continue Seroquel - Previously on tizanidine/tramadol, hold these as may precipitate confusion (5) Chronic cerebral ischemia: Plan: Status: chronic, stable. - CT head without evidence of acute intracranial abnormality - Continue atorvastatin 80mg PO daily - Continue Plavix 75mg PO daily (6) Obstructive sleep apnea: Plan: Status: acute, stable. - Continue CPAP at bedtime Plan Disposition: Medical/surgical Diet: Regular CODE STATUS: Full code DVT Prophylaxis: SCDs Admission and Anticipated Discharge Date Admission Date: December 24, 2023 Supervising Attestation Attending Physician Supervision Note: I independently interviewed and examined the patient and verified the malone history and physical, reviewed labs and image studies and agree with findings and care plan noted above. Pain worse today. Alert, Ox3 sitting in the chair. No respiratory distress. CTA. RRR Fall with fracture of thoracic spine transverse process - -Continue pain control. add heat pad, tramadol. -Rehab on discharge SCD Subjective Patient is a 83y/o female with a past medical history of dementia, gait apraxia, osteoporosis, and vitamin D deficiency who presented after a ground level mechanical fall. Patient suffered nondisplaced T5-T9 transverse spinous process fractures and nondisplaced posterior 5th and 6th rib fractures on the left side without evidence of pneumothorax. Head CT showed no evidence of acute intracranial abnormality. Patient states she has not been sleeping well. She states her pain is about the same as when she first presented. Patient reports most of the pain is located along the L paravertebral muscles. Patient denies fever, chills, headache, CP, palpitations, SOB, abdominal pain, n/v, lightheadedness, or dizziness. Review of Systems Review of Systems: As per HPI. Physical Exam Physical Exam: General: Sitting upright in chair. Alert and oriented, in no acute distress. Visibly uncomfortable with movement. HEENT: Atraumatic, normocephalic. Pupils equal and reactive to light. Full neck range of motion without pain Pulm: Symmetrical chest rise. Breath sounds equal bilaterally. Lungs clear to auscultation bilaterally. No wheezes, rales, or rhonchi. No increased work of breathing. No respiratory distress. Tenderness to palpation over L posterior ribs. Cardiac: Regular rate and rhythm. No murmurs, rubs, or gallops. Capillary refill <2sec. Abdominal: Normal bowel sounds. Abdomen soft and nondistended. No tenderness to palpation. No guarding or rebound. No hepatosplenomegaly. Extremities: Moves all extremities equally. Sensation grossly intact in upper and lower extremities bilaterally. Commercial Real Estate Assistant strength and ankle dorsiflexion/plantarf lexion and 5/5 and symmetrical bilaterally. Dorsalis pedis and posterior tibialis pulses palpable bilaterally. Spine: T3-T112 spinous process tenderness to palpation. Tenderness to palpation over L superior paravertebral muscles. Results & Data Vital Signs (Past 12 Hours) Vital Signs Temp Pulse Resp BP Pulse Ox O2 Del Method 12/26/23 08:11 36.5 C 70 18 141/62 H 94 Room Air Resident Activity Tracking Resident Involvement: Resident Care Provided Care Provided: Adult [facility]
[2023-12-26] MEDS: IBUPROFEN 200 MG TAB PO PRN (14:36)
[2023-12-26] MEDS: KETOROLAC TROMETHAMINE 15 MG/ML VIAL IV ONE (16:01)
[2023-12-27 08:00] LABS: BUN Creatinine Ratio 23.4 (10-20); Calcium 9.3 mg/dl (8.6-10.3); Creatinine Clr Calc Pharmacy 31.5 ml/min; Est GFR (African American) 52.8 ml/min; Est GFR (Non-African American) 45.6 ml/min; Potassium 4.5 mmol/L (3.5-5.1)
[2023-12-27 08:07] LABS: Basophils # (auto) 0.02 K/uL (0.00-0.20); Basophils % (auto) 0.3 %; Eosinophils % (auto) 4.9 %; Hematocrit (blood only) 37.6 % (37.0-47.0); Hemoglobin 12.2 g/dl (12.0-16.0); Immature Granulocytes # (auto) 0.03 K/uL (0.01-0.20); Immature Granulocytes % (auto) 0.5 %; Lymphocytes # (auto) 0.65 K/uL (1.20-3.40); Lymphocytes % (auto) 10.6 %; Mean Corpuscular Hemoglobin 29.5 pg (25.0-34.0); Mean Corpuscular Hgb Conc 32.4 g/dL (32.0-36.0); Mean Platelet Volume 8.9 fL (9.4-12.4); Monocytes % (auto) 8.1 %; Neutrophils # (auto) 4.66 K/uL (1.40-6.50); Neutrophils % (auto) 75.6 %; Platelet Count 263 K/uL (130-400); RDW Standard Deviation 46.7 fL (36.4-46.3); Red Blood Count 4.13 M/uL (4.20-5.40); White Blood Count 6.16 K/ul (4.8-10.8)
[2023-12-27] MEDS: traMADol HCL 50 MG TABLET PO SCH (11:38)
--- NOTE | 2023-12-27 13:22 | Medical Student Progress Note ---
Date of Service December 27, 2023 Assessment & Plan (1) Fracture of transverse process of thoracic vertebra: Plan: Patient is a 83y/o female with a past medical history of dementia, gait apraxia, osteoporosis, and vitamin D deficiency who presented after ground level mechanical fall. Status: acute, stable. - [facility] reviewed the case - Continue Tylenol 500mg PO q4hr prn - Start scheduled Tramadol 25mg PO q6hr - Continue Lidocaine patch - Continue using heating pad - PT/OT eval completed, recommend dc home with 24/7 supervision vs fdc facility ie. memory care. (2) Multiple fractures of ribs, left side, initial encounter for closed fracture: Plan: Status: acute, stable. - Chest CT showed no evidence of pneumothorax - Continue Tylenol 500mg PO q4hr prn - Continue Tramadol 25mg PO q6hr - Continue Lidocaine patch - Can use heating pad - Continue PT/OT. Recommended placement to a facility with 24/7 care upon discharge. (3) Fall: Plan: Status: acute, stable. - Patient did not lose consciousness or hit head - CT head showed no evidence of acute intracranial abnormality (4) Dementia: Plan: Status: chronic, stable. - CT head without evidence of acute intracranial abnormality - No evidence of metabolic derangements on admission - Continue Seroquel - Previously on tizanidine/tramadol, initially held due to propensity to cause confusion but Tramadol resumed in the setting of acute pain (5) Chronic cerebral ischemia: Plan: Status: chronic, stable. - CT head without evidence of acute intracranial abnormality - Continue atorvastatin 80mg PO daily - Continue Plavix 75mg PO daily (6) Obstructive sleep apnea: Plan: Status: acute, stable. - Continue CPAP at bedtime Plan Disposition: Medical/surgical Diet: Regular CODE STATUS: Full code DVT Prophylaxis: SCDs Admission and Anticipated Discharge Date Admission Date: December 24, 2023 Supervising Attestation Attending Physician Supervision Note: I independently interviewed and examined the patient and verified the malone history and physical, reviewed labs and image studies and agree with findings and care plan noted above. Pain continues to be worse today. Alert, Ox3 sitting in the chair. No respiratory distress. CTA. RRR Fall with fracture of thoracic spine transverse process -Continue pain control. added tramadol as scheduled med for pain control. -Not a candidate for rehab. case management following. HTN - Hypertensive through most of hospital stay. could be from pain. - will add lisinopril 5mgs daily for now. H/o CVA and carotid stenosis - Per ED note - no confusion noted on admit. - Had CT scan brain this and recent admission, MRI last admit - all negative. -continue antiplatelet and statin. -consider goals of care discussion as outpatient in setting of dementia. SCD Subjective Patient is a 83y/o female with a past medical history of dementia, gait apraxia, osteoporosis, and vitamin D deficiency who presented after a ground level mechanical fall. Patient suffered nondisplaced T5-T9 transverse spinous process fractures and nondisplaced posterior 5th and 6th rib fractures on the left side without evidence of pneumothorax. Head CT showed no evidence of acute intracranial abnormality. Patient states she is in a lot of pain. Patient was given tramadol 25mg yeste rday which seemed to help with her pain. Patient states she was able to walk around after taking the medication. Patient reports her pain is in the same place, located along the L paravertebral muscles. Patient denies fever, chills, headache, CP, palpitations, SOB, abdominal pain, n/v, lightheadedness, or dizziness. Review of Systems Review of Systems: As per HPI. Physical Exam Physical Exam: General: Sitting upright in chair. Alert and oriented, in no acute distress. Visibly uncomfortable with movement. HEENT: Atraumatic, normocephalic. Pupils equal and reactive to light. Full neck range of motion without pain Pulm: Symmetrical chest rise. Breath sounds equal bilaterally. Lungs clear to auscultation bilaterally. No wheezes, rales, or rhonchi. No increased work of breathing. No respiratory distress. Tenderness to palpation over L posterior ribs. Cardiac: Regular rate and rhythm. No murmurs, rubs, or gallops. Capillary refill <2sec. Abdominal: Normal bowel sounds. Abdomen soft and nondistended. No tenderness to palpation. No guarding or rebound. No hepatosplenomegaly. Extremities: Moves all extremities equally. Sensation grossly intact in upper and lower extremities bilaterally. Electronics Engineering Technologist strength and ankle dorsiflexion/plantarflexion and 5/5 and symmetrical bilaterally. Dorsalis pedis and posterior tibialis pulses palpable bilaterally. Spine: T3-T112 spinous process tenderness to palpation. Tenderness to palpation over L superior paravertebral muscles. Results & Data Vital Signs (Past 12 Hours) Vital Signs Temp Pulse Resp BP Pulse Ox O2 Del Method 12/27/23 07:33 36.5 C 74 16 138/78 96 Room Air Resident Activity Tracking Resident Involvement: Resident Care Provided Care Provided: Adult Hospital Medicine
[2023-12-28] MEDS: lisinopril 5 MG TAB PO SCH (08:21)
[2023-12-28] MEDS: KETOROLAC TROMETHAMINE 15 MG/ML VIAL IV ONE (09:08)
--- NOTE | 2023-12-28 09:20 | Medical Student Progress Note ---
Date of Service December 28, 2023 Assessment & Plan (1) Fracture of transverse process of thoracic vertebra: Plan: Patient is a 83y/o female with a past medical history of dementia, gait apraxia, osteoporosis, and vitamin D deficiency who presented after ground level mechanical fall. Status: acute, stable. - [facility] reviewed the case - Continue Tylenol 500mg PO q4hr prn - Hold Tramadol 25mg PO q6hr due to increased confusion - Toradol 15mg IV once with good response, continue Toradol 7.5mg IV q8h prn, check AM BMP - Continue Lidocaine patch - Continue using heating pad - PT/OT eval with patient near baseline. Recommended placement to a facility with 24/7 care upon discharge - [facility] to evaluate patient today, determination to be made tomorrow AM. (2) Multiple fractures of ribs, left side, initial encounter for closed fracture: Plan: As above (3) Fall: Plan: Status: acute, stable. - Patient did not lose consciousness or hit head - CT head showed no evidence of acute intracranial abnormality - PT/OT eval, as documented above (4) Dementia: Plan: Status: chronic, stable. - CT head without evidence of acute intracranial abnormality - No evidence of metabolic derangements on admission - Continue Seroquel - Previously on tizanidine/tramadol, hold these as may precipitate confusion (5) Hypertension: Plan: Status: chronic, stable. - Patient has a history of high blood pressure readings during hospital admissions. - Continue Lisinopril 5mg daily with plan to discontinue at time of discharge - Follow up with PCP upon discharge about meterman need for BP medication (6) Chronic cerebral ischemia: Plan: Status: chronic, stable. - CT head without evidence of acute intracranial abnormality - Continue atorvastatin 80mg PO daily - Continue Plavix 75mg PO daily (7) Obstructive sleep apnea: Plan: Status: acute, stable. - Continue CPAP at bedtime Plan Disposition: Medical/surgical Diet: Regular CODE STATUS: Full code DVT Prophylaxis: SCDs Admission and Anticipated Discharge Date Admission Date: December 27, 2023 Supervising Attestation Attending Physician Supervision Note: I independently interviewed and examined the patient and verified the malone history and physical, reviewed labs and image studies and agree with findings and care plan noted above. Tramadol made her sedated. pain overall better. Alert, Ox3 sitting in the chair. No respiratory distress. Fall with fracture of thoracic spine transverse process -Continue pain control - added spot dose IV toradol. continue tylenol -Doing well with PT - will be dc/ed to personal care facility tomorrow. HTN - Hypertensive through most of hospital stay. could be from pain. - added lisinopril 5mgs daily for now. H/o CVA and carotid stenosis - Per ED note - no confusion noted on admit. - Had CT scan brain this and recent admission, MRI last admit - all negative. -continue antiplatelet and statin. -consider goals of care discussion as outpatient in setting of dementia. SCD Subjective Patient is a 83y/o female with a past medical history of dementia, gait apraxia, osteoporosis, and vitamin D deficiency who presented after a ground level mechanical fall. Patient suffered nondisplaced T5-T9 transverse spinous process fractures and nondisplaced posterior 5th and 6th rib fractures on the left side without evidence of pneumothorax. Head CT showed no evidence of acute intracranial abnormality. Patient is still having pain but this is mildly improved from yesterday. Patient reports pain is in the same place, located along the L paravertebral muscles. Patient was receiving Tramadol 25mg q6hr but nursing noted some increased confusion, stopped after 2 doses. Patient denies fever, chills, headache, CP, palpitations, SOB, abdominal pain, n/v, lightheadedness, or dizziness. Review of Systems Review of Systems: As per HPI. Physical Exam Physical Exam: General: Sitting upright in chair. Alert and oriented, in no acute distress. Visibly uncomfortable with movement. HEENT: Atraumatic, normocephalic. Pupils equal and reactive to light. Full neck range of motion without pain Pulm: Symmetrical chest rise. Breath sounds equal bilaterally. Lungs clear to auscultation bilaterally. No wheezes, rales, or rhonchi. No increased work of breathing. No respiratory distress. Tenderness to palpation over L posterior ribs. Cardiac: Regular rate and rhythm. No murmurs, rubs, or gallops. Capillary refill <2sec. Abdominal: Normal bowel sounds. Abdomen soft and nondistended. No tenderness to palpation. No guarding or rebound. No hepatosplenomegaly. Extremities: Moves all extremities equally. Sensation grossly intact in upper and lower extremities bilaterally. Insurance Claim Auditor strength and ankle dorsiflexion/plantarflexion and 5/5 and symmetrical bilaterally. Dorsalis pedis and posterior tibialis pulses palpable bilaterally. Spine: T3-T12 spinous process tenderness to palpation. Tenderness to palpation over L superior paravertebral muscles. Results & Data Vital Signs (Past 12 Hours) Vital Signs Temp Pulse Resp BP Pulse Ox O2 Del Method 12/28/23 07:03 36.6 C 73 17 120/74 91 Room Air Resident Activity Tracking Resident Involvement: Resident Care Provided Care Provided: Adult Hospital Medicine
[2023-12-28] MEDS ORDERED: KETOROLAC TROMETHAMINE 15 MG/ML VIAL IV PRN (14:04)
[2023-12-29 07:25] LABS: Hematocrit (blood only) 37.9 % (37.0-47.0); Hemoglobin 12.2 g/dl (12.0-16.0); Mean Corpuscular Hemoglobin 29.6 pg (25.0-34.0); Mean Corpuscular Hgb Conc 32.2 g/dL (32.0-36.0); Mean Platelet Volume 8.5 fL (9.4-12.4); Platelet Count 267 K/uL (130-400); RDW Coefficient of Variation 13.8 % (11.5-14.5); Red Blood Count 4.12 M/uL (4.20-5.40); White Blood Count 5.02 K/ul (4.8-10.8)
[2023-12-29 07:53] LABS: BUN Creatinine Ratio 26.5 (10-20); Calcium 9.5 mg/dl (8.6-10.3); Creatinine Clr Calc Pharmacy 34.3 ml/min; Est GFR (African American) 58.5 ml/min; Est GFR (Non-African American) 50.5 ml/min; Potassium 4.6 mmol/L (3.5-5.1)
--- NOTE | 2023-12-29 08:29 | Med Student Discharge Summary ---
Date of Service December 29, 2023 Admission HPI Per Admitting Provider Iram is an 83-year-old female with multiple admissions for intermittent confusion and some cognitive decline who was recently discharged 12/14/2023 after an episode of confusion presents for evaluation of upper back pain after mechanical fall. She was walking upstairs went to grab the handle route and slipped causing her to fall. Currently has 10/10 pain. She does not take any blood thinners. Rate is seen at the bedside. She is seen with her caregiver present. They report that she had just showered and the caregiver gone to get a towel, Iram thought that she could use the stairs but her hands were still little bit wet so slipped reaching out for the railing and caused her to twist and fall striking her back as she fell. She did not hit her head had no loss of consciousness and denies any head injury. She is not on any blood thinners. She denies shortness of breath, difficulty, chest pain, chest pressure, nausea, vomiting, vision change, blurry vision, headache. She has pain in her mid back which she rates as a 10 10 out of 10 and is limiting her ability to move. Otherwise feels at her normal state of health. She notes that the pain is causing some spasms which seem to come and a wave. Think she took her medications this morning. Medical History: Reviewed Medications: Reviewed Surgical History: Reviewed Family history: Reviewed Allergies: Reviewed Social History: Reviewed Code Status: Full code Admission Exam (Per Admitting) Constitutional General: AAO x 3, no distress ENT: No erythema or exudates, no thrush Eyes: SHAE, EOMI Head and neck: Normocephalic, atraumatic, No JVD, neck is supple. Chest/heart: Nontender, S1,2, RRR, no murmurs, no gallops Lungs: CTAB, no wheezing or crackles Abdomen: Nontender, nondistended, BS+ Neuro: AAO x 3, speech is clear, no unilateral weakness, coordination intact - could not discern any sensory deficits - gate is intact Musculoskeletal: No joint inflammation, muscle tenderness, FROM Skin: No acute rashes or ulcers Extremities: No clubbing, cyanosis, edema Discharge Exam General: Sitting upright in chair. Alert and oriented, in no acute distress. Visibly uncomfortable with movement. HEENT: Atraumatic, normocephalic. Pupils equal and reactive to light. Full neck range of motion without pain Pulm: Symmetrical chest rise. Breath sounds equal bilaterally. Lungs clear to auscultation bilaterally. No wheezes, rales, or rhonchi. No increased work of breathing. No respiratory distress. Tenderness to palpation over L posterior ribs. Cardiac: Regular rate and rhythm. No murmurs, rubs, or gallops. Capillary refill <2sec. Abdominal: Normal bowel sounds. Abdomen soft and nondistended. No tenderness to palpation. No guarding or rebound. No hepatosplenomegaly. Extremities: Moves all extremities equally. Sensation grossly intact in upper and lower extremities bilaterally. Wet Pour Mixer strength and ankle dorsifle xion/plantarflexion and 5/5 and symmetrical bilaterally. Dorsalis pedis and posterior tibialis pulses palpable bilaterally. Spine: T3-T12 spinous process tenderness to palpation. Tenderness to palpation over L superior paravertebral muscles. Discharge Data Consultations 12/24/23 16:09 ED Decision to Admit Stat Hospital Course (1) Fracture of transverse process of thoracic vertebra: Patient is a 83y/o female with a past medical history of dementia, gait apraxia, osteoporosis, and vitamin D deficiency who presented after ground level mechanical fall. Status: acute, stable. - [facility] reviewed the case - Continue Tylenol 500mg PO q4hr prn - Continue Lidocaine patch - Continue using heating pad (2) Multiple fractures of ribs, left side, initial encounter for closed fracture: As above (3) Fall: Status: acute, stable. - Patient did not lose consciousness or hit head - CT head showed no evidence of acute intracranial abnormality (4) Dementia: Status: chronic, stable. - CT head without evidence of acute intracranial abnormality - No evidence of metabolic derangements on admission - Continue Seroquel - Previously on tizanidine/tramadol, hold these when possible as may precipitate confusion (5) Hypertension: Status: chronic, stable. - Patient has a history of high blood pressure readings during hospital admissions. - Patient was treated with Lisinopril 5mg during hospital stay. Discontinued at time of discharge. - Follow up with PCP about terminal worker need for BP medication (6) Chronic cerebral ischemia: Status: chronic, stable. - CT head without evidence of acute intracranial abnormality - Continue atorvastatin 80mg PO daily - Continue Plavix 75mg PO daily (7) Obstructive sleep apnea: Status: acute, stable. - Continue CPAP at bedtime Discharge Plan Discharge Items Patient Disposition: Personal Detention Reason For Visit: fall Discharge Diagnosis: fall Activity: As commented below Activity Comment: activity progression as tolerated Non-emergency contact: Primary Care Provider Call non-emergency contact if: you have any medication questions and your pain is not controlled Follow-up/Referrals: Jay Duval MD [Primary Care Provider] - Diet: Regular Addtl Attending Provider Instructions: Patient is a 83y/o female with a past medical history of dementia, gait apraxia, osteoporosis, and vitamin D deficiency who presented after ground level mechanical fall. 1) Fracture of transverse process of thoracic vertebra: Status: acute, stable. - [facility] reviewed the case - Continue Tylenol 500mg PO q4hr prn - Avoid Tramadol when possible due to associated confusion - Lidocaine patch - Continue using heating pad (2) Multiple fractures of ribs, left side, initial encounter for closed fracture: As above (3) Fall: Status: acute, stable. - Patient did not lose consciousness or hit head - CT head showed no evidence of acute intracranial abnormality (4) Dementia: Status: chronic, stable. - CT head without evidence of acute intracranial abnormality - No evidence of metabolic derangements on admission - Continue Seroquel - Med list with tizanidine/tramadol, avoid when possible as may precipitate confusion (5) Hypertension: Status: chronic, stable. - Patient has a history of high blood pressure readings during hospital admissions. - Follow up with PCP upon discharge about long-term need for BP medication (6) Chronic cerebral ischemia: Status: chronic, stable. - CT head without evidence of acute intracranial abnormality - Continue atorvastatin 80mg PO daily - Continue Plavix 75mg PO daily (7) Obstructive sleep apnea: Status: acute, stable. - Continue CPAP at bedtime Pending Studies at Discharge: No Stand-Alone Forms: Storypanda, Smoking Cessation Skilled Items Patient informed of condition?: Yes DNR: No Discharge Level of Care: Other Communicable Disease: No Discharge Prognosis: Stable Lines: None Urinary Catheter: No Medications and DC Order Prescriptions: Continued clopidogrel 75 mg tablet 75 mg PO QAM 90 Days Qty: 90 1RF triamcinolone acetonide 0.1 % cream 1 applic TOPICAL BID PRN (Reason: Skin Irritation) acetaminophen [Tylenol Extra Strength] 500 mg tablet 1,000 mg PO Q6 PRN (Reason: Pain) Rx Instructions: PER PT "USUALLY ONCE IF NOT TWICE A DAY". (DME) BD SafetyGlide Syringe 3 mL 23 x 1" syringe See Rx Instructions .MEDSUPPLY Qty: 50 0RF Rx Instructions: As directed tramadol 50 mg tablet 50 mg PO TID PRN (Reason: pain) Qty: 30 0RF Rx Instructions: In addition to the tramadol, take acetaminophen either regular strength or extra, 2 pills. tizanidine 2 mg tablet 2 mg PO BID PRN (Reason: muscle spasticity) Qty: 20 1RF Rx Instructions: Once or twice a day for spasms PreserVision AREDS-2 250-90-40-1 mg Capsule 1 tab PO BID quetiapine 25 mg tablet 25 mg PO HS Qty: 30 1RF famotidine 40 mg tablet 40 mg PO QAM Rx Instructions: TAKE 1 TABLET BY MOUTH EVERY MORNING cyanocobalamin (vitamin B-12) 1,000 mcg/mL solution 1,000 mcg IM MONTHLY Rx Instructions: inject 1 mL once a month. atorvastatin 80 mg tablet 80 mg PO QAM Rx Instructions: TAKE 1 TABLET BY MOUTH EVERY MORNING cholecalciferol (vitamin D3) 50 mcg (2,000 unit) capsule 2,000 unit PO QAM Discharge Orders: Discharge Order (Routine); Ordered 12/29/23 Ordered By: Navi Gonsalez/Other Patient Handouts: Fall Prevention Assessing Risk Admission Data Admit Date/Time: 12/27/23 12:25 Attending Provider: Beverly Castanon Admit Provider: Wade Zuniga Primary Care Provider: Jay Duval Other Providers: Wade Zuniga; Joanna Mckeon [place]; IRB Approved Study,Robe Other Interventions: Discharge Summary Assessment (RN) Last Done: 12/29/23 10:53 Supervising Attestation Attending Physician Supervision Note: I independently interviewed and examined the patient and verified the malone history and physical, reviewed labs and image studies and agree with findings and care plan noted above. pain overall better. Alert, Ox3 sitting in the chair. No respiratory distress. Fall with fracture of thoracic spine transverse process -Continued pain control. -Doing well with PT - will be dc/ed to personal care facility tomorrow. Elevated BP while hospitalized - likely from pain. - Follow BP on discharge and consider adding medication if needed. H/o CVA and carotid stenosis - Per ED note - no confusion noted on admit. - Had CT scan brain this and recent admission, MRI last admit - all negative. -continue antiplatelet and statin. -consider goals of care discussion as outpatient in setting of dementia. Resident Activity Tracking Resident Involvement: Resident Care Provided Care Provided: Adult Hospital Medicine
--- NOTE | 2024-01-01 09:25 | Coding Query ---
CODING QUERY To promote full compliance with coding requirements relating to patient care, provider participation is requested in all cases of certified recreational therapist uncertainty. Please assist us with the question(s) below: Coding Question(s): Pt admitted after Fall with multiple transverse thoracic vertebral & rib fractures. Please document , if known or suspected, the etiology of the fractures. Thanks for your help. Doug Bello [facility] Physician's Response(s): Trauma from fall Principal Diagnosis: "that condition established after study, to be chiefly responsible for occasioning the admission of the patient to the hospital for care." Co-Existing Principal Diagnosis: "when two or more diagnoses equally meet the criteria for principal diagnosis as determined by the circumstances of admission, diagnostic work up, and/or therapy provided, and the Alphabetic Index, Tabular List, or another coding guideline does not provide sequencing direction, any one of the diagnoses may be sequenced first." "When the physician has documented what appears to be a current diagnosis in the body of the record, but has not included the diagnosis in the final diagnostic statement, the physician should be asked whether the diagnosis should be added." (Source Coding [facility] 2 QTR90. p3-4) SABA
== END 2023-12-29 11:10 | disposition home or self-care (01) | DRG 552 ==
LOC: ED 11:24 → 3N 11:24 → SUATTDRO 15:20 → 3N 17:10